=== PATIENT | male | born 1965 | race Caucasian/White ===

== ENCOUNTER 2024-03-25 09:02 | Outpatient (AMB) | payer BC, SELFPAY ==
--- NOTE | 2024-03-25 09:03 | MHC.OFFVIS ---
Vital Signs 03/25/24 09:11 Height 5 ft 9 in Weight 210 lb 6 oz BMI 31.1 BP 134/74 Blood Pressure Location Lt brachial Position Sitting Respiration 16 Pulse 66 Pulse Source Pulse Oximeter Pulse Oximetry (%) 96 Oxygen Delivery Method Room Air Intake Visit Reasons: LOW BACK PAIN Intake Note: Patient comes in for initial visit was referred by orthopedic and neurosurgery. Reports pain 12/26. Allergies codeine Allergy (Unknown, Verified 03/25/24 09:11) Unknown HPI Comments Details: Kip is very pleasant 58 years old gentleman who presents in my office with complains on pain in the lower back without radiation into the bilateral lower extremities. He reports that he is suffering from this pain for the past 3 years. He was diagnosed with sacroiliitis. He also was diagnosed with vertebra genic pain syndrome. He went to an orthopedic surgeon who performed L4-L5 anterior spinal fusion and posterior laminectomy. He reports that his pain after surgery started to be worse. Denies any numbness weakness or pelvic organ dysfunction before the surgery. He reports that sitting decreases his pain significantly walking and standing increases his pain. His pain onset was gradual. He is retired individual. He can sleep normally but he can not do activities of daily living, he can take care of himself, but he can not function normally. In terms of tissue damage he reports his pain is pulsing, throbbing, pounding, dull, hurting, heavy, tiring, exhausting. He received multiple physical therapies in the past to treat his pain. He received chiropractic manipulations to address his pain. He tried massage therapy and acupuncture nothing was help him for his pain. He tried NSAIDs and he tried steroids to help his pain. He tried steroid injections into SI joints after his surgery which were not helpful for his pain control. He states that he was under consideration to perform sacroiliac joint fusion and his insurance company refused to cover the procedure. He brought the MRI results to this office and because of the hardware in his lumbar spine it is very difficult to read because of the magnetic artifact. He also recently was implanted with pacemaker/not defibrillator for the treatment of heart block and now he can not be sent for the MRI. However CT scan with and without contrast could be possible. His past medical history significant for heart block with pacemaker implantation, he is on levodopa carbidopa 25-100 he is taking acetaminophen to control his pain. His past surgery is anterior fusion February 06 and posterior laminectomy March 09, he was having throat surgery in 2002 cataract surgery in 2022 and pacemaker surgery in 2023. He denies smoking cigarettes he socially drinks alcohol, he denies caffeinated beverages and he denies recreational drugs. [facility] Medical History (Updated 03/25/24 @ 11:35 by Richard Montilla MD) Parkinson disease Review of Systems Const Denies chills, Denies fatigue and Denies fever(s) Eyes Denies blurry vision, Denies exophthalmos and Denies diplopia ENT Reports Normal hearing present, Denies vertigo and Denies dizziness Card Denies chest pain, Denies chest pain at rest, Denies chest pain with activity, Reports diaphoresis, Denies syncope, Denies rapid heart rate, Denies pedal edema and Denies edema Resp Denies chest congestion, Denies cough, Denies hemoptysis, Denies excessive phlegm production, Denies pain on inspiration and Denies pain with cough GI Denies abdominal pain, Denies belching, Denies melena and Denies bloating Denies urinary incontinence Musc Denies as per HPI, Denies back pain and Denies tingling Neuro Reports Normal hearing present, Denies Abnormal speech present, Denies confusion, Denies vertigo, Denies dizziness, Denies syncope, Denies lack of coordination, Denies Sensory deficit (Neuro) and Denies tingling Psych Denies confusion, Denies depression and Denies suicidal ideation Endo Denies deepening of the voice, Denies fatigue and Denies polyuria Physical Exam Vital Signs: Last Vital Signs Pulse 66 03/25/24 09:11 Resp 16 03/25/24 09:11 BP 134/74 03/25/24 09:11 Pulse Ox 96 03/25/24 09:11 Oxygen Delivery Method Room Air 03/25/24 09:11 BMI result Body Mass Index 31.1 Const General: cooperative, comfortable and well developed; No confusion Nutritional Appearance: average body habitus Orientation/consciousness: No confusion Eyes General: appearance normal, both eyes and all related structures Pupils: Equal, round and reactive pupils present EOM: EOMs intact bilaterally Neck Neck: Yes full ROM Chest Chest palpation & inspection: normal inspection of the chest Resp Effort & Inspection: normal respiratory effort, able to speak in complete sentences, normal respiratory pattern, no audible wheezes and no cough Cardio Jugular venous distension: no JVD GI Inspection: Yes normal to inspection Back/Spine/Pelvis Other: Sitting alleviates his pain standing and walking aggravates his pain. The pain is not radiating into bilateral lower extremities. He is able to stand on bilateral tiptoes demonstrating normal strength of bilateral lower extremities, he is able to stand on bilateral heels. His gait is shuffling probably secondary to Parkinson disease. No antalgic gait is observed. Jackson test is negative bilaterally. Gaenslen test is negative bilaterally. Pelvic compression test is negative bilaterally but pelvic distraction test is equivocal. Stinchfield test is negative bilaterally. SLR is negative bilaterally. Valsalva maneuver is negative bilaterally. Neuro General: No confusion Cranial nerves: Yes CN's II-XII intact bilaterally, Yes Equal, round and reactive pupils present, Yes Normal hearing present and Yes Ability to bilaterally elevate shoulders present Speech: No Abnormal speech present Gait exam (Neuro): Normal gait present Motor exam (neuro): 5/5 motor strength present throughout Sensory Exam: No Sensory deficit (Neuro) Extrem General: No pedal edema Psych Speech and movement: Normal speech and movement present Affect: normal affect Attitude: cooperative Thought process: Normal thought process present Thought content: Normal thought content present Insight: Good insight present (Psych) Judgement: Good judgement present (Psych) Assessment & Plan Assessment & Plan (1) Postlaminectomy syndrome: Code(s): M96.1 - Postlaminectomy syndrome, not elsewhere classified Category: Medical (2) Chronic pain syndrome: Code(s): G89.4 - Chronic pain syndrome Category: Medical (3) Facet arthropathy, lumbar: Code(s): M47.816 - Spondylosis without myelopathy or radiculopathy, lumbar region Category: Medical Plan Facet arthropathy most likely is the cause of the pain for this patient. Unfortunately his injections were done with steroids before the surgery and it is not clear how the did or did not affect his pain. Now he has hardware at L4 and L5 bilateral pedicles and it will be impossible to perform medial branches. On the same reason intercept procedure most likely is not feasible because of the only level acceptable would be S1. In the future theoretically we can try CT scan with and without contrast to evaluate the S1 vertebra genic changes. In the situation I offered this patient neuromodulation to treat his pain. I explained to him spinal cord stimulator Nevro versus intrathecal pain pump to help his pain. The patient is negative about opioids however we can try on opioid medications to treat his pain including Prialt. We agreed that this patient will go for psychological evaluation today and after that we will start trialing of Nevro as well as I [employer]. Patient Instructions: I hereby testify that I spent 45 minutes in conversation with this patient as well as attempting to read the MRI of the lumbar spine as well as planning his care and organizing this note. Coding Level of Care Code New Pt Level 4 (90254) Diagnoses Postlaminectomy syndrome M96.1 Chronic pain syndrome G89.4 Facet arthropathy, lumbar M47.816
[2024-03-25 09:11] VITALS: BP 134/74; PULSE 66; RESP 16; O2SAT 96; BMI 31.1
== END 2024-03-25 09:56 | disposition home or self-care (01) ==
PROVIDERS: Visit Provider Anesthesiology
DX: M96.1 Postlaminectomy syndrome, not elsewhere classified (principal); G89.4 Chronic pain syndrome; M47.816 Spondylosis without myelopathy or radiculopathy, lumbar region
CPT/HCPCS: 99204

== ENCOUNTER → 2024-03-25 09:02 | Outpatient (BNVA) | payer BC, SELFPAY | PROVIDERS: Visit Provider Anesthesiology ==

== ENCOUNTER 2024-07-26 12:09 | Day surgery (SDC) | payer BC, SELFPAY ==
--- NOTE | 2024-07-25 12:59 | HO.ANESPROP2 ---
Documented by User: Maureen Avitia NP 07/25/24 13:00 HPI - Anesthesia Eval Consult details Narrative: 59yo M for Spinal Cord Stimulation Trial [facility] Active Problems Active Problems: All Active Problems Facet arthropathy, lumbar (Acute) Chronic pain syndrome (Acute) Postlaminectomy syndrome (Acute) Past Medical History Medical History (Updated 07/26/24 @ 12:51 by Zarina Fink, RN) History of heart block Hx of sinus bradycardia History of restless legs syndrome Bronchitis Elevated cholesterol ADAMARIS on CPAP Hx of cataract History of chemotherapy Hx of radiation therapy Depression Pacemaker Parkinson disease Surgical History Surgical History (Updated 07/26/24 @ 13:27 by Zarina Fink, RN) Hx of esophagogastroduodenoscopy History of throat surgery Hx of colonoscopy Hx of spinal fusion Social History Social History Patient Tobacco Use Status: Never used Tobacco Have you been hit, kicked, punched, or otherwise hurt by someone within the past year? If so, by whom?: No Are you DNR?: No Advance Directives: No Advance Directives Information Provided: Yes Nutrition Risks: No Nutritional Risk Meds Allergies Allergy/AdvReac Type Severity Reaction Status Date / Time codeine Allergy Intermediate cold sweats Verified 07/26/24 13:01 Home Medications ?Medication ?Instructions ?Recorded ?Confirmed ?Last Taken ?Type carbidopa 25 mg-levodopa 100 mg tab PO 03/25/24 07/26/24 History tablet pantoprazole 40 mg tablet,delayed 40 mg PO DAILY 03/25/24 07/25/24 History release tadalafil 20 mg tablet mg PO 03/25/24 Unknown History venlafaxine 37.5 mg 37.5 mg PO DAILY 07/26/24 07/26/24 07/25/24 History capsule,extended release 24 hr Assessment and Plan Assessment Anesthesia Assessment: Chart Reviewed Documented by User: Mehreen Jones MD 07/26/24 13:58 [facility] Past Medical History Medical History (Updated 07/26/24 @ 12:51 by Zarina Fink RN) History of heart block Hx of sinus bradycardia History of restless legs syndrome Bronchitis Elevated cholesterol ADAMARIS on CPAP Hx of cataract History of chemotherapy Hx of radiation therapy Depression Pacemaker Parkinson disease Family History Family history of problems with anesthesia: No Surgical History Surgical History (Updated 07/26/24 @ 13:27 by Zarina Fink RN) Hx of esophagogastroduodenoscopy History of throat surgery Hx of colonoscopy Hx of spinal fusion History of Problems with Anesthesia: No Social History Social History Patient Tobacco Use Status: Never used Tobacco Have you been hit, kicked, punched, or otherwise hurt by someone within the past year? If so, by whom?: No Are you DNR?: No Advance Directives: No Advance Directives Information Provided: Yes Nutrition Risks: No Nutritional Risk Meds Allergies Allergy/AdvReac Type Severity Reaction Status Date / Time codeine Allergy Intermediate cold sweats Verified 07/26/24 13:01 Home Medications ?Medication ?Instructions ?Recorded ?Confirmed ?Last Taken ?Type carbidopa 25 mg-levodopa 100 mg tab PO 03/25/24 07/26/24 History tablet pantoprazole 40 mg tablet,delayed 40 mg PO DAILY 03/25/24 07/25/24 History release tadalafil 20 mg tablet mg PO 03/25/24 Unknown History venlafaxine 37.5 mg 37.5 mg PO DAILY 07/26/24 07/26/24 07/25/24 History capsule,extended release 24 hr Exam Airway Mallampati Class: II TM Dist: >3cm Neck ROM: Limited (s/p chemo radiation, able to move in every direction approx 50%) Heart: rrr Lungs: cya Assessment and Plan Assessment Anesthesia Assessment: Anesthesia Plan Discussed Final Anesthetic Review Family History of Problems with Anesthesia: No History of Problems with Anesthesia: No NPO: Yes ASA Class: III Final Preanesthetic Review: No Changes in Pt Med Stat, Meds/Allgs Chart Reviewed and Consent Obtained/Reviewed Patient Risk: Intermediate Procedure Risk: Low Anesthetic Plan Anesthetic Plan: GA Disposition: Standard PACU
[2024-07-26] VITALS (7 sets, daily range): BP systolic 109–142; BP diastolic 58–84; PULSE 60–70; RESP 16–18; TEMP 36.1–36.3; O2SAT 94–97; BMI 31.2; BMI 31.3
--- NOTE | 2024-07-26 13:13 | PC.NURSE ---
called to patients pressure tester office dr [facility] will fax last cardiac note and interrogation pt had an insertion of pacemaker november 2023 secondary to block
--- NOTE | 2024-07-26 14:11 | P.HPSUR_ITS ---
Pre-Procedural Eval Section A - 24 Hr Update-Section A only Date of Service: 07/26/24 The patient is an INPATIENT: No Changes since office visit: Yes Patient answered all questions The patient has been examined within 24 hours of the surgical procedure. The History & Physical has been completed within 30 days and I have reviewed it.: No Section B - Complete if H&P > 30 days Chief Complaint: Postlaminectomy syndrome, not elsewhere classified Details of Present Illness: As above Relevant Family History (Specify if Yes): No Relevant Social History: None Present Medications: see Short Stay Collaborative assessment Medical History: No relevant PMH History of Previous Operations: Relevant previous surgery/procedure and date(s) Allergies: Allergies Allergy/AdvReac Type Severity Reaction Status Date / Time codeine Allergy Intermediate cold sweats Verified 07/26/24 13:01 Review of Systems Sugical H&P ROS: Negative: Constitution, Cardiovascular, Respiratory, Ps ychiatric, Hem-Onc, Allergic/Immunologic, Gastrointestinal, Genitourinary, Integumentary, Endocrine and Eyes/Ears/Nose/Throat and Yes, Specify: Neurological (Parkinson disease) and Musculoskeletal (Postlaminectomy syndrome) Exam Surgical H&P Exam: Normal: HEENT, Normal: Heart, Normal: Lungs, Normal: Extremities, Normal: Abdomen and Normal: Skin and Significant Findings: Neurological (tremor fades with motions, ) Plan Diagnosis/Plan: Unchanged I have reviewed the history and physical and performed a pertinent physical examination on my patient. No changes have occurred unless specified. Time Spent With Patient Time: Total time managing care of this patient today ____ minutes.
--- NOTE | 2024-07-26 14:14 | P.BOP_ITS ---
Brief Operative Note Date of Service: 07/26/24 Pre-op diagnosis: Postlaminectomy syndrome lumbar Post-op diagnosis: same Procedure: Nevro SCS trial Surgeon: Richard Montilla MD Anesthesia: GETA Was an Healthcare Sales Representative used for this Procedure?: No Estimated blood loss (mL): 2 Pathology: none sent Condition: stable Disposition: PACU
--- NOTE | 2024-07-26 16:18 | W.PM.OPN ---
Operative Note Operative Note Date of Service: 07/26/24 Narrative: Trial of Nevro spinal cord stimulator. Kip is very pleasant 59 years old gentleman who came to the operating room today for the trial of spinal cord stimulator. He is suffering from postlaminectomy syndrome and complains on mostly axial lower back pain. He was explained informed consent with delineation of the risks as: Bleeding, infection, peripheral nerve damage, spinal cord damage, failure to improve the pain, headache. After that patient was brought to the operating room he was positioned supine on the stretcher. [place] [employer] monitors were applied and general endotracheal anesthesia was induced. After that patient was transferred on the operating table prone all pressure points were protected. Time-out was performed delineating name and date of of the patient, allergies of the patient, antibiotics prophylaxis, risk of fire, need for DVT prophylaxis. The lower back of the patient was prepped with ChloraPrep and draped with full body fenestrated sterile laparoscopy drape. Sterilely draped C-arm was brought over the operating field and sq picture of T12-L1 and L2 vertebra were demonstrated on the screen. Attention was 1st concentrated on the right pedicle of L2 vertebra where projection of the lowest point of the pedicle to the skin was injected with small amount of mixture of lidocaine 2% and ropivacaine 0.5%. Small chad of skin was made using 11 blade scalpel and after that 16 gauge introducer needle 10 cm long needle was inserted under fluoroscopy guidance and advanced toward T12-L1 interspace under anterior posterior and lateral views. Loss of resistance to air technique was used to locate the epidural space. When the tip of the needle touched the upper portion of the lamina the advancement of the needle was performed very slowly for another 3 mm loss of resistance was not felt. Lateral view was taken and under direct view attempt was made to advance the guitar guidewire to the needle however no advancement was possible. Most likely patient had epidural adhesions on the right side at the level of T12-L1. After that attention was concentrated on the right pedicle of L3 vertebra were the lowest point of the pedicle was injected with small amount of mixture of lidocaine 2% and ropivacaine 0.5%. Small chad of the skin was made using 11 blade scalpel and after that 16 gauge introducer 10 cm long needle was inserted under fluoroscopy and advanced toward L1-L2 interspace under anterior posterior and lateral views. Loss of resistance to air technique was used to locate the epidural space. When loss of resistance felt the guidewire was inserted into the needle and it was spread into the epidural fashion. After that epidural lead was inserted through the epidural needle and was advanced in the posterior epidural space to the level of top of T8 vertebra. The position of the electrode was slightly right to the midline. After that lateral view was obtained demonstrating the position of the electrode strictly in posterior epidural space. Then attention was switched to the left L3 pedicle of the same vertebra where the lowest point of the pedicle was again inserted with small amount of mixture of lidocaine 2% and ropivacaine 0.5%. Small chad of the skin was made using 11 blade scalpel and after that 16 gauge introducer 10 cm long needle was inserted under fluoroscopy and advanced toward L1-L2 interspace under anterior posterior and lateral views. Loss of resistance to air technique was used to locate the epidural space. When loss of resistance felt the guidewire was inserted into the needle and it was spread again into epidural fashion. After that epidural lead was inserted through the epidural needle and it was advanced in the posterior epidural space to the level of the top of T9 vertebra. The position of the electrode was slightly left to existing electrode. After that lateral view was obtained demonstrating the position of the electrode strictly in the posterior epidural space. The introduction needle were removed while care was taken to preserve the position of the epidural electrodes, the stylettes were also removed from the electrodes. After that anchoring devices were dislodged to the level of the skin over the bodies of the electrodes. Each anchoring device was sutured to the underlying skin using two 0-0 silk sutures. The fixating screw on each anchoring device was turned until 3 clicks were heard. After that bacitracin ointment was applied on both sides of the insertion of the epidural leads the chad on the skin at the L2 pedicle on the right projection was covered with Mastisol glue and 1 Steri-Strips was applied. After the right sterile dressing was applied to the site of the operation, the electrodes were connected to the stimulating device. At this moment patient was transferred supine on the stretcher. He was awakened and transferred stable to the PACU. He tolerated the procedure well. In postoperative period patient was demonstrating good motor function and urinated.
== END 2024-07-26 17:03 | disposition home or self-care (01) ==
PROVIDERS: Visit Provider Anesthesiology
PROC: (CPT 63650; principal; 2024-07-26 14:10)
DX: M96.1 Postlaminectomy syndrome, not elsewhere classified (principal); G89.4 Chronic pain syndrome; M47.816 Spondylosis without myelopathy or radiculopathy, lumbar region; Z98.1 Arthrodesis status; M54.89 Other dorsalgia; R26.2 Difficulty in walking, not elsewhere classified; G20.A1 Parkinson's disease without dyskinesia, without mention of fluctuations; E78.00 Pure hypercholesterolemia, unspecified; I45.9 Conduction disorder, unspecified; Z95.0 Presence of cardiac pacemaker; G47.33 Obstructive sleep apnea (adult) (pediatric); Z79.899 Other long term (current) drug therapy; Z88.5 Allergy status to narcotic agent; Z98.890 Other specified postprocedural states
CPT/HCPCS: 63650 ×2; C1889; C1897; J0330; J0690; J1100; J2003; J2250; J2405; J2704; J2795; J3010

== ENCOUNTER → 2024-07-26 12:09 | Outpatient (BNV) | payer BC, SELFPAY | PROVIDERS: Visit Provider Anesthesiology | DX: M96.1 Postlaminectomy syndrome, not elsewhere classified (principal) | CPT/HCPCS: 63650 ==

== ENCOUNTER 2024-08-01 10:28 | Outpatient (AMB) | payer BC, SELFPAY ==
--- NOTE | 2024-08-01 10:39 | MHC.OFFVIS ---
Vital Signs 08/01/24 10:40 Height 5 ft 9 in Weight 212 lb BMI 31.3 BP 136/82 Blood Pressure Location Lt brachial Position Sitting Respiration 16 Pulse 72 Pulse Source Pulse Oximeter Pulse Oximetry (%) 98 Oxygen Delivery Method Room Air Intake Visit Reasons: S/p Nevro SCS Trial 07/26/24 Intake Note: Patient comes in for post-op. Reports pain 2/10. Allergies codeine Allergy (Intermediate, Verified 08/01/24 10:41) cold sweats HPI Comments Details: Vijay Shin is back in my office after a trial of spinal cord stimulator Nevro. He denies any help from the device. He states that the pain today as 2/10 while sitting however quickly rises to 8/10 to 9/10 when he starts walking or standing. Multiple variations of the stimulation were tried on the patient. Unfortunately nothing was working. Physical examination was repeated today and attention was attracted for possible signs of sacroiliitis. The patient wants me to perform diagnostic injection to rule out or confirm presence of sacroiliitis. I offered him to perform bilateral sacroiliac joint injection. I will schedule this injection as a diagnostic procedure. I recommend him to go for this procedure without sedation. Briefly PNS of sacroiliac joint innervation was discussed with the patient. The sites of the insertion of the epidural leads was exposed, it was prepped with ChloraPrep. The anchoring sutures were severed with 15 blade scalpel. The epidural leads were removed tips were intact. No redness no swelling no pathological discharge no tenderness on palpation. Sterile dressing with dry 4x4s and Tegaderm applied to the patient's back. Hygiene limitations were explained for the next 2 days for the patient. Prior: very pleasant 58 years old gentleman who presents in my office with complains on pain in the lower back without radiation into the bilateral lower extremities. He reports that he is suffering from this pain for the past 3 years. He was diagnosed with sacroiliitis. He also was diagnosed with vertebra genic pain syndrome. He went to an orthopedic surgeon who performed L4-L5 anterior spinal fusion and posterior laminectomy. He reports that his pain after surgery started to be worse. Denies any numbness weakness or pelvic organ dysfunction before the surgery. He reports that sitting decreases his pain significantly, walking and standing increases his pain. He received multiple physical therapies in the past to treat his pain. He received chiropractic manipulations to address his pain. He tried massage therapy and acupuncture nothing was helping his pain . He tried NSAIDs and he tried steroids to help his pain. He tried steroid injections into SI joints after his surgery which were not helpful for his pain control. He states that he was under consideration to perform sacroiliac joint fusion and his insurance company refused to cover the procedure. He brought the MRI results to this office and because of the hardware in his lumbar spine it is very difficult to read because of the magnetic artifact. He also recently was implanted with pacemaker/not defibrillator for the treatment of heart block and now he can not be sent for the MRI. However CT scan with and without contrast could be possible. His past medical history significant for heart block with pacemaker implantation, he is on levodopa carbidopa 25-100 he is taking acetaminophen to control his pain. His past surgery is anterior fusion February 06 and posterior laminectomy March 09, he was having throat surgery in 2002 cataract surgery in 2022 and pacemaker surgery in 2023. He denies smoking cigarettes he socially drinks alcohol, he denies caffeinated beverages and he denies recreational drugs. FOR[facility]LY [facility], [facility] Medical History (Updated 08/01/24 @ 11:58 by Richard Montilla MD) History of heart block Hx of sinus bradycardia History of restless legs syndrome Bronchitis Elevated cholesterol ADAMARIS on CPAP Hx of cataract History of chemotherapy Hx of radiation therapy Depression Pacemaker Parkinson disease Surgical History (Updated 07/26/24 @ 13:27 by Zarina Fink RN) Hx of esophagogastroduodenoscopy History of throat surgery Hx of colonoscopy Hx of spinal fusion Social History Patient Tobacco Use Status: Never used Tobacco Review of Systems Const All systems reviewed & are unremarkable except as noted in HPI and below ENT Reports Normal hearing present Neuro Reports Normal hearing present, Denies Abnormal speech present, Denies confusion and Denies Sensory deficit (Neuro) Psych Denies confusion Physical Exam Vital Signs: Last Vital Signs Pulse 72 08/01/24 10:40 Resp 16 08/01/24 10:40 BP 136/82 08/01/24 10:40 Pulse Ox 98 08/01/24 10:40 Oxygen Delivery Method Room Air 08/01/24 10:40 BMI result Body Mass Index 31.3 Const General: cooperative, comfortable and well developed; No confusion Nutritional Appearance: average body habitus Orientation/consciousness: No confusion Eyes General: appearance normal, both eyes and all related structures Pupils: Equal, round and reactive pupils present EOM: EOMs intact bilaterally Neck Neck: Yes full ROM Chest Chest palpation & inspection: normal inspection of the chest Resp Effort & Inspection: normal respiratory effort, able to speak in complete sentences, normal respiratory pattern, no audible wheezes and no cough Cardio Jugular venous distension: no JVD GI Inspection: Yes normal to inspection Back/Spine/Pelvis Other: Sitting alleviates his pain standing and walking aggravates his pain. The pain is not radiating into bilateral lower extremities. He is able to stand on bilateral tiptoes demonstrating normal strength of bilateral lower extremities, he is able to stand on bilateral heels. His gait is shuffling probably secondary to Parkinson disease. No antalgic gait is observed. Jackson test is positive on the left,. Gaenslen test today is positive on the left bilaterally. Pelvic compression test is negative bilaterally but pelvic distraction test is equivocal. Stinchfield test is positive bilaterally bilaterally. SLR is negative bilaterally. Valsalva maneuver is negative. Neuro General: No confusion Cranial nerves: Yes CN's II-XII intact bilaterally, Yes Equal, round and reactive pupils present, Yes Normal hearing present and Yes Ability to bilaterally elevate shoulders present Speech: No Abnormal speech present Gait exam (Neuro): Normal gait present Motor exam (neuro): 5/5 motor strength present throughout Sensory Exam: No Sensory deficit (Neuro) Extrem General: No pedal edema Psych Speech and movement: Normal speech and movement present Affect: normal affect Attitude: cooperative Thought process: Normal thought process present Thought content: Normal thought content present Insight: Good insight present (Psych) Judgement: Good judgement present (Psych) Assessment & Plan Assessment & Plan (1) Postlaminectomy syndrome: Code(s): M96.1 - Postlaminectomy syndrome, not elsewhere classified Category: Medical (2) Chronic pain syndrome: Code(s): G89.4 - Chronic pain syndrome Category: Medical (3) Facet arthropathy, lumbar: Code(s): M47.816 - Spondylosis without myelopathy or radiculopathy, lumbar region Category: Medical (4) Sacroiliitis: Code(s): M46.1 - Sacroiliitis, not elsewhere classified Category: Medical (5) Sacroiliac joint dysfunction of both sides: Code(s): M53.3 - Sacrococcygeal disorders, not elsewhere classified Category: Medical Plan To put at rest the theory that most of the pain of this patient comes from sacroiliac joints I offered him to have bilateral diagnostic sacroiliac joint injection. Nevro SCS trial was not helpful for this patient's pain. It is very hard to alleviate inflammatory or nociceptive pain by spinal cord stimulator or any other neuromodulation device. However if his sacroiliac joints are source of his pain peripheral nerve stimulation with cure on X PNS could be instrumental to help his pain. If diagnostic sacroiliac joint injection will be negative for relief of his pain the next step would be intrathecal drug delivery system pain pump. Patient Instructions: I here by testify that I spent 32 minutes in conversation with this patient as well as planning his care and organizing this note. Coding Level of Care Code Est Pt Level 4 (02794) Diagnoses Postlaminectomy syndrome M96.1 Chronic pain syndrome G89.4 Facet arthropathy, lumbar M47.816 Sacroiliitis M46.1 Sacroiliac joint dysfunction of both sides M53.3
[2024-08-01 10:40] VITALS: BP 136/82; PULSE 72; RESP 16; O2SAT 98; BMI 31.3
== END 2024-08-01 11:03 | disposition home or self-care (01) ==
PROVIDERS: Visit Provider Anesthesiology
DX: M96.1 Postlaminectomy syndrome, not elsewhere classified (principal); G89.4 Chronic pain syndrome; M47.816 Spondylosis without myelopathy or radiculopathy, lumbar region; M46.1 Sacroiliitis, not elsewhere classified; M53.3 Sacrococcygeal disorders, not elsewhere classified
CPT/HCPCS: 99214

== ENCOUNTER 2025-01-07 06:30 | Outpatient (REF) | payer BC, SELFPAY ==
--- NOTE | ~2025-01-07 | FL_ITS ---
EXAMINATION: XR FLUOROSCOPY WITH IMAGES CLINICAL INFORMATION: Sacrococcygeal disorders, pain management injection. COMPARISON: None available. TECHNIQUE: Fluoroscopy provided to: Dr. Montilla Fluoroscopy time: 0.4 minutes DAP: 0.0529 mGycm2 Images: 2 FINDINGS: 2 spot images obtained during bilateral SI joint injection for pain management. Please refer to the full operative report for detail. FL/FL guidance in treatment room IMPRESSION: Fluoroscopic guidance. Electronically signed by: Jose De Jesus MD 01/08/2025 09:55 AM EDT
--- OUTSIDE RECORDS SUMMARY | 2025-01-07 06:34 | XMS_ITS | Encounter Summary ---
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 Role Phone Alvino Alvarez MD Primary Care Provider [phone] Alvino Alvarez MD Unavailable [phone] Jose Alfredo Fuentes MD Unavailable Faisal Dangelo MD Unavailable [phone] Damaris Lagunas MD Unavailable Betty Zaldivar RN Unavailable [phone] Betty Zaldivar RN Unavailable [phone] Damaris Lagunas MD Unavailable Brody Olivarez APRN Unavailable [phone] Corrie Bustamante RN Unavailable [phone] Encounter Details Date Type Department Care Team (Late st Contact Info) Description 02/15/2022 Prep for Surgery [facility] [address] [place] [phone] Vee Rodríguez, RN [address] [place] [id number] Social History Tobacco Use Types Packs/Day Years Used Date Smoking Tobacco: Never Smokeless Tobacco: Never Alcohol Use Standard Drinks/Week Comments Yes 0 (1 standard drink = 0.6 oz pur e alcohol) Socially Sex and Gender Information Value Date Recorded Sex Assigned at Not on file Legal Sex Male 11:58 AM EDT Gender Identity Male 10/07/2021 3:05 PM EST Sexual Orientation Heterosexual (straight) 10/07 3:05 PM EST COVID-19 Exposure Response Date Recorded In the last 10 days, have yo u been in contact with someone who was confirmed or suspected to have Coronavirus/COVID-19? No / Unsure 02/18/2022 8:49 AM EDT documented as of this encounter Plan of Treatment Upcoming Encounters Date Type Department Care Team (Late st Contact Info) Description 02/25/2025 11:00 AM EDT Office Visit [address] [phone] Damaris Lagunas MD [address] [place] [id number] 03/19/2025 8:45 AM EDT Appointment [address] [phone] 06/20/2025 8:15 AM EDT Appointment [address] [phone] documented as of this encounter Visit Diagnoses Not on filedocumented in this encounter Care Teams Filtering Machine Tender Relationship Specialty Start Date End Date Alvino Alvarez MD [address] [place] [address] PCP - General Family Medicine 03/28/16 Alvino Alvarez MD [address] [place] [address] PCP - [facility] [employer] Attributed 04/18/20 02/16/24 Brody Olivarez APRN [address] [facility] [address] [place] [address] PCP - [facility] [employer] Attributed 02/17/24 Jose Alfredo Fuentes MD [address] [place] [address] Referring Provider Psychiatry, General 11/17/21 Faisal Dangelo MD [address] [place] [address] [address] [place] [id number] Physician Surgery, Orthopedic 01/19/22 Damaris Lagunas MD [address] [place] [id number] Primary Housekeeper Supervisor Cardiovascular Disease 01/20/22 Betty Zaldivar RN [address] [place] [address] [facility] [employer] [facility] 01/31/22 08/13/24 Betty Zaldivar RN [address] [place] [id number] [facility] [employer] [facility] 03/02/22 08/13/24 Damaris Lagunas MD [address] [place] [id number] Primary Housekeeper Supervisor Cardiovascular Disease 09/18/22 Corrie Bustamante RN [address] [address] [facility] [employer] 08/13/24 documented as of this encounter
--- OUTSIDE RECORDS SUMMARY | 2025-01-07 06:34 | XMS_ITS | Clinical Summary ---
Author Organization [facility] Address [address] [place] [address] Care Team Providers Care Timber Supervisor Name Role Phone Alvino Alvarez MD Primary Care Provider Jose Alfredo Fuentes MD Unavailable Faisal Dangelo MD Unavailable [phone] Damaris Lagunas MD Unavailable Brody Olivarez HAMMERER TAB Unavailable Corrie Bustamante RN Unavailable [phone] Allergies Active Allergy Reactions Criticality Noted Date Comments Atorvastatin Myalgia/Myositis/Art hralgia/Arthr itis Low 03/18/2014 Codeine Other (See Comments) 03/28/2016 Cold sweats Medications PANTOprazole (PROTONIX) 40 MG EC tabletIndicatio ns:Gastroesopha geal Reflux Disease Take 1 tablet (40 mg total) by mouth every morning. Active Sodium Fluoride 5000 PPM 1.1 % Paste Apply to teeth nightly. 11/20/19 22 Active acetaminophen (TYLENOL) 325 MG tabletIndicatio ns:Lumbar stenosis without neurogenic claudication Take 3 tablets (975 mg total) by mouth every 6 (six) hours. Do not start before February 19, 2022. 84 tablet 02/20/20 22 Active Additional Information Patient taking differently: 500 mgOralAs needed, Takes 2 tablets TID, Informant: Family Member, Self, Reported on 08/27/2024 tadalafil (CIALIS) 20 MG tablet Take 1 tablet (20 mg total) by mouth as needed. 09/08/20 23 Active venlafaxine 150 MG Tablet SR 24 hr Take 75 mg by mouth every morning with breakfast. Active carbidopa-levod opa ER (SINEMET CR) 25-100 MG per tabletIndicatio ns:Parkinson's disease (HCC) Take 1 tablet by mouth nightly. 60 tablet 1 07/16/20 24 Active carbidopa-levod opa (SINEMET) 25-100 MG per tabletIndicatio ns:Parkinson's disease (HCC) Take 2 tablets by mouth 3 (three) times a day. 180 tablet 3 12/31/19 25 Active carbidopa-levod opa (SINEMET) 25-100 MG per tabletIndicatio ns:Parkinson's disease (HCC) Take 2 tablets by mouth 4 (four) times a day. 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 Sinus bradycardia 10/10/2019 Colon cancer screening 06/05/2019 Overview (06/05/2019): Added automatically from request for surgery [id number] Gastroesophageal reflux disease 06/05/2019 Overview (06/05/2019): Added automatically from request for surgery [id number] Epigastric pain 06/05/2019 Overview (06/05/2019): Added automatically from request for surgery [id number] Disturbance of skin sensation 12/23/2016 Head and neck cancer 12/15/2016 RLS (restless legs syndrome) 12/15/2016 Adjustment insomnia 12/15/2016 Snoring 12/15/2016 ADAMARIS (obstructive sleep apnea) 03/28/2016 Gastroesophageal reflux disease without esophagi tis 03/28/2016 Resolved Problems Problem Noted Date Diagnosed Date Resolved Date Preop examination 01/24/2022 08/14/2024 Obesity (BMI 30.0-34.9) 03/28/2016 01/0 11/2017 Encounters Date Type Department Care Team Description 12/27/2024 Refill [facility] Neurology [address] [place] [phone] Brody Olivarez APRN Parkinson's disease (HCC) 12/12/2024 Telephone [facility] Neurology [address] [place] [address] Brody Olivarez APRN from Last 3 Months Immunizations Immunization Administration Dates Next Due Covid-19 mRNA Vaccine - Moderna 0.25 mL Booster 02/23/2022 Influenza Inactivated/Split Preservative Free IM 07/07/2022,07/28/2020 Influenza, Quadrivalent (FLU ARIX, AFLURIA, FLULAVAL, FLUZONE) Preservative Free IM 08/05/2021 Influenza, Unspecified 08/05/2021 Pneumococcal Conjugate 7-Valent 05/03/2019 Td 09/18/2009 Zoster Vaccine Live/Attenuated (Zostavax) 2013 Family History Medical History Relation Name Comments Cancer Daughter 1 Cancer Father Sleep apnea Father Multiple myeloma Mother Breast cancer Sister Cancer Sister Relation Name Status Comments Daughter 1 Alive Daughter 2 Alive Father Mother Sister Alive Social History Tobacco Use Types Packs/Day Years Used Date Smoking Tobacco: Never Smokeless Tobacco: Never Tobacco Cessation:Counseling Given: Not Answered Alcohol Use Standard Drinks/Week Comments Yes 0 (1 standard drink = 0.6 oz pur e alcohol) Socially AUDIT-C Answer Date Recorded Q1: How often do you have a drink containing alc ohol? Monthly or less 11/14/2023 Q2: How many drinks containi ng alcohol do you have on a typical day when you are drinking? 1 or 2 11/14/2023 Q3: How often do you have si x or more drinks on one occasion? Never 11/14/2023 PHQ-2 Answer Date Recorded PHQ-2 Total Score 4 07/16/2024 Sex and Gender Information Value Date Recorded Sex Assigned at Not on file Legal Sex Male 11:58 AM EDT Gender Identity Male 10/07/2021 3:05 PM EST Sexual Orientation Heterosexual (straight) 10/07 3:05 PM EST Last Filed Vital Signs Vital Sign Reading Time Taken Comments Blood Pressure 134/84 08/27/2024 11:23 AM EST Pulse 65 08/27/2024 11:23 AM EST Temperature 36.1 ??C (97 ??F) 11/16/2023 10:17 AM EST Respiratory Rate 20 11/16/2023 11:45 AM EST Oxygen Saturation 97% 08/27/2024 11:23 AM EST Inhaled Oxygen Concentration - - Weight 93.4 kg (206 lb) 08/27/2024 11:23 AM EST Height 175.3 cm (5' 9 ) 08/27/2024 11:23 AM EST Body Mass Index 30.42 08/27/2024 11:23 AM EST Plan of Treatment Upcoming Encounters Date Type Department Care Team (Late st Contact Info) Description 02/25/2025 11:00 AM EDT Office Visit [facility] [address] [phone] Damaris Lagunas MD [address] [place] [address] 03/19/2025 8:45 AM EDT Appointment [facility] [address] [phone] 06/20/2025 8:15 AM EDT Appointment [facility] [address] [address] Health Maintenance Due Date Last Done Comments Hepatitis C Virus Screening 1963 HIV Screening 1976 Pneumococcal Vaccines 50+ (1 of 2 - PCV) 1982 05/03/2019 DTaP/Tdap/Td Vaccines (1 - Tdap) 09/19/2009 09/18/2009 Zoster (Shingles) Vaccine (1 of 2) 08/26/2014 07/01/2014 Influenza Vaccine 04/18/2024 09/03/2023, , 08/05/2021, Additional history exists COVID-19 Vaccine ( season) 2024 02/23/2022, 08/16/2021, 12/16/2020, Additional history exists Colonoscopy 07/01/2029 07/01/2019, 02/17, 03/07/2012 RSV Vaccine 60 years and older and Patients (1 - 1-dose 75+ series) 2038 Hepatitis B Vaccines Aged Out No long er eligible based on patient's age to complete this topic Medical Devices Implanted Type Area Branch Account Executive Device Identifier Shelf Expiration Date Model / Serial / Lot 3830-69 Lead Pacing 69cm Atr Vntrc Bipolar Fx Scr In Selectsecure - [id number] Implanted:Qty: 1 on 11/16/2023 by Bassam Laird MD at [facility] Lead Left: Chest [employer] MINIMALLY INVASIVE T [id number] 10/10/2025 3830-69 / [id number] 3V / 5076-52 Lead Pacing 52cm 6.2fr 2mm 10mm Spc Sm Straight Atr Vntrc - [id number] Implanted:Qty: 1 on 11/16/2023 by Bassam Laird MD at [facility] Lead Left: Chest [employer] MINIMALLY INVASIVE T [id number] 07/28/2025 5076-52 / [id number] 8V / [id number] Xu Spinal 70mm 5.5mm Illico Ti Precontour Central Post - [id number] Implanted:Qty: 1 on 02/18/2022 by Faisal Dangelo MD at [facility] Nail/Xu N/A: Spine Lumbar [employer] 34244-39 0 / / [id number] Pacemaker Cardiac 7.4mm 50.8x46.6mm [place] Xt Dr Cooper Surescan - [id number] Implanted:Qty: 1 on 11/16/2023 by Bassam Laird MD at [facility] Pacemaker Left: Chest [employer] MINIMALLY INVASIVE T [id number] 04/14/2025 W1DR01 / [id number] / Dll-8 Dual Llanos Lock 8mm - [id number] Implanted:Qty: 1 on 02/18/2022 by Faisal Dangelo MD at [facility] Plate N/A: Spine Lumbar [employer] DLL-8 / / Gabriel-8 Dual Llanos Tray 8mm - [id number] Implanted:Qty: 1 on 02/18/2022 by Faisal Dangelo MD at [facility] Plate N/A: Spine Lumbar [employer] GABRIEL-8 / / [id number] Screw Bone Spine Illico 45mm Ti 6.5mm Pa Farzana Nonst - [id number] Implanted:Qty: 1 on 02/18/2022 by Faisal Dangelo MD at [facility] Spine N/A: Spine Lumbar [employer] 20100-27 / / [id number] Screw Bone Spine Illico 40mm Ti 6.5mm Pa Farzana Nonst - [id number] Implanted:Qty: 1 on 02/18/2022 by Faisal Dangelo MD at [facility] Spine N/A: Spine Lumbar [employer] 19394-98 / / [id number] Screw Set Ti Spine Hexalobe Zodiac - [id number] Implanted:Qty: 3 on 02/18/2022 by Faisal Dangelo MD at [facility] Spine N/A: Spine Lumbar [employer] 17572 / / [id number] Screw Set Spine Stabilink Mis Spinal Fixation Sys - [id number] Implanted:Qty: 1 on 02/18/2022 by Faisal Dangelo MD at [facility] Spine N/A: Spine Lumbar [employer] SS-219 / / 210-010 Alphagraft Cellular Bone Matrix 1 Cc - [id number] Implanted:Qty: 1 on 02/18/2022 by Faisal Dangelo MD at [facility] Tissue N/A: Spine Lumbar [employer] 10/24/2023 210-010 / [id number] / 700-010 Graft Bone 1 Fctr 1cc Algrf Putty Syringe - [id number] Implanted:Qty: 1 on 02/18/2022 by Faisal Dangelo MD at [facility] Tissue N/A: Spine Lumbar [employer] 09/17/2024 700-010 / / [id number] Sponge Dbm Bone 07v07w4yp - [id number] Implanted:Qty: 1 on 02/18/2022 by Faisal Dangelo MD at [facility] Tissue N/A: Spine Lumbar [employer] 01/04/2027 [id number] / [id number] 64-049 / [id number] Sponge Dbm Bone 06g17t7jn - [id number] Implanted:Qty: 1 on 02/18/2022 by Faisal Dangelo MD at [facility] Tissue N/A: Spine Lumbar [employer] 01/04/2027 [id number] / [id number] 64-045 / [id number] Filler Bone Void Nanofuse 2 Cc Bioactive Matrix Sterile Late - [id number] Implanted:Qty: 1 on 02/18/2022 by Faisal Dangelo MD at [facility] Void Filler N/A: Spine Lumbar [employer] INC 05/26/2026 CRO285-2 2 / / [id number] 620-005 Kit Bone Graft 5cc 12cc Calcium Slf Stimulan Rpd Cure Paste - [id number] Implanted:Qty: 1 on 02/18/2022 by Faisal Dangelo MD at [facility] Void Filler N/A: Spine Lumbar [employer] 08/17/2024 620-005 / / [id number] Substitute Bone Graft Alphatec Neocore Ostcndc Matrix 12cc - [id number] Implanted:Qty: 1 on 02/18/2022 by Faisal Dangelo MD at [facility] Void Filler N/A: Spine Lumbar [employer] 05/20/2024 70-6012 / / [id number] Dbm Fibers 5.0cc Implanted:Qty: 1 on 02/18/2022 by Faisal Dangelo MD at [facility] N/A: Spine Lumbar [employer] 07/15/2024 [id number] / [id number] 0662-061 / [id number] Screw Bone Spine Illico 35mm Ti 6.5mm Pa Farzana Implanted:Qty: 1 on 02/18/2022 by Faisal Dangelo MD at [facility] N/A: Spine Lumbar [employer] 59831-12 / / Procedures Procedure Name Priority Date/Time Associated Diagnosis Comments PM REMOTE EVAL, [id number] Routine 12/13/2024 12:29 PM EDT Cardiac pacemaker in situ HX GASTROENTEROLOGY COLONOSCOPY-SCAN Routine 03/07/2012 from Last 3 Months or Most Recently Relevant to Health Maintenance Results * PM REMOTE EVAL, [id number] (12/13/2024 12:29 PM EDT) Date Time Interrogation Session 20,250,328,015,50 9 PACEART Implantable Pulse Generator Branch Account Executive Medtronic PACEART Implantable Pulse Generator Model W1DR01 Jesika XT DR MRI PACEART Implantable Pulse Generator Serial Number [id number] PACEART Implantable Pulse Generator Type Pacemaker PACEART Implantable Pulse Generator Implant Date 20,240,228,190,00 0 PACEART Implantable Lead Branch Account Executive Medtronic PACEART Implantable Lead Model 3830 SelectSecure MRI SureScan PACEART Implantable Lead Serial Number [id number] PACEART Implantable Lead Implant Date 20,240,228,190,00 0 PACEART Implantable Lead Polarity Type Bipolar Lead PACEART Implantable Lead Location Detail 1 UNKNOWN PACEART Implantable Lead Special Function 69 PACEART Implantable Lead Location Right Ventricle PACEART Implantable Lead Connection Status Connected PACEART Implantable Lead Branch Account Executive Medtronic PACEART Implantable Lead Model 5076 CapSureFix Novus MRI SureScan PACEART Implantable Lead Serial Number [id number] PACEART Implantable Lead Implant Date [id number] PACEART Implantable Lead Polarity Type Bipolar Lead PACEART Implantable Lead Location Detail 1 UNKNOWN PACEART Implantable Lead Special Function 52 PACEART Implantable Lead Location Right Atrium PACEART Implantable Lead Connection Status Connected PACEART Miguel Angel Setting Mode (NBG Code) AAIR<==>DDDR PACEART Miguel Angel Setting Lower Rate Limit 60 {beats}/ min PACEART Miguel Angel Setting Maximum Tracking Rate 150 {beats}/ min PACEART Miguel Angel Setting Maximum Sensor Rate 150 {beats}/ min PACEART Miguel Angel Setting Hysterisis Rate DISABLED PACEART Miguel Angel Setting ESTHELA Delay Low 150 ms PACEART Miguel Angel Setting PAV Delay Low 180 ms PACEART Miguel Angel prob AV delay adaptive status DISABLED PACEART Miguel Angel Setting AT Mode Switch Rate 171 {beats}/ min PACEART RA Sensing Polarity Bipolar PACEART RA Sensitivity 0.3 mV PACEART RV Sensing Polarity Bipolar PACEART RV Sensing Anode Location Right Ventricle PACEART RV Sensing Anode Terminal Ring PACEART RV Sensing [place] Location Right Ventricle PACEART RV Sensing [place] Terminal Tip PACEART RV Sensitivity 1.2 mV PACEART RA Pacing Polarity Bipolar PACEART Lead Channel Setting Pacing Anode Location Right Atrium PACEART RA Pacing Anode Terminal Ring PACEART Lead Channel Setting Sensing [place] Location Right Atrium PACEART RA Pacing Cath[place] Terminal Tip PACEART RA Pacing Pulse Width 0.4 ms PACEART RA Pacing Amplitude 1.5 V PACEART RV Pacing Polarity Bipolar PACEART Lead Channel Setting Pacing Anode Location Right Ventricle PACEART RV Pacing Anode Terminal Ring PACEART Lead Channel Setting Sensing Cath[place] Location Right Ventricle PACEART RV Pacing [place] Terminal Tip PACEART RV Pacing Pulse Width 0.4 ms PACEART RV Pacing Amplitude 2 V PACEART Zone Setting Type Category VF PACEART Zone Setting Vendor Type Category V High Rate PACEART Zone Setting Type Category VT PACEART Zone Setting Vendor Type Category FastVT PACEART Zone Setting Type Category VT PACEART Zone Setting Vendor Type Category VT PACEART Zone Setting Type Category VT PACEART Zone Setting Vendor Type Category MonVT PACEART Zone Setting Detection Interval 390 ms PACEART Zone Setting Type Category ATRIAL_FIBRILLATI ON PACEART Zone Setting Vendor Type Category FastATAF PACEART Zone Setting Type Category AT/AF PACEART Zone Setting Detection Interval 350 ms PACEART Tachy zone therapies summary Monitored PACEART MDT_PROG_TACHY_Z ONE_THERAPIES_1_ SEQUENCEID 1 PACEART MDT_PROG_TACHY_Z ONE_THERAPIES_1_ STATUS Inactive PACEART MDT_PROG_TACHY_Z ONE_THERAPIES_2_ SEQUENCEID 2 PACEART MDT_PROG_TACHY_Z ONE_THERAPIES_2_ STATUS Inactive PACEART MDT_PROG_TACHY_Z ONE_THERAPIES_3_ SEQUENCEID 3 PACEART MDT_PROG_TACHY_Z ONE_THERAPIES_3_ STATUS Inactive PACEART Tachy zone therapies summary Monitored PACEART RA Lead Impedance Value 437 ohm PACEART RA Lead Impedance Value 323 ohm PACEART RA Lead Sensing Intrinsic Amplitude 8.125 mV PACEART RA Lead Sensing Intrinsic Amplitude 8.125 mV PACEART RA Lead Pacing Threshold Amplitude 0.625 V PACEART RA Lead Pacing Threshold Pulse Width 0.4 ms PACEART RV Lead Impedance Value 475 ohm PACEART RV Lead Impedance Value 342 ohm PACEART RV Sensing Intrinsic Amplitude 3 mV PACEART RV Sensing Intrinsic Amplitude 3 mV PACEART RV Lead Pacing Threshold Amplitude 1 V PACEART RV Lead Pacing Threshold Pulse Width 0.4 ms PACEART RV Stat leads lowpower alegre Ring PACEART RV Stat leads lowpower alegre Tip PACEART Battery Status OK PACEART Battery Remaining Longevity 151 mo PACEART Battery Voltage 3.06 V PACEART RA Percent Paced-since last reset 94.43 % PACEART RV Percent Paced-since last reset 0.04 % PACEART Miguel Angel Statistic AP HIGH MAN Percent 0.04 % PACEART Miguel Angel Statistic HIGH MAN Percent 0 % PACEART Miguel Angel Statistic AP VS Percent 94.39 % PACEART Miguel Angel Statistic VS Percent 5.57 % PACEART AT/AF [place] Percent 0 % PACEART Episode Statistic Recent Count 0 PACEART STAT Episode type AT/AF PACEART Episode Statistic Recent Count 0 PACEART STAT Episode type Patient Activated PACEART Episode Statistic Recent Count 0 PACEART STAT Episode type SVT PACEART Episode Statistic Recent Count 0 PACEART STAT Episode type VT PACEART Episode Statistic Recent Count 0 PACEART STAT Episode type VT PACEART STAT Episode type AT/AF PACEART STAT Episode type Patient Activated PACEART STAT Episode type SVT PACEART STAT Episode type VT PACEART STAT Episode type VT PACEART Anatomical Region Laterality Modality Cardiac Device 12/13/2024 1:55 AM EDT Narrative 12/13/2024 3:22 PM EDT Routine remote PM transmission. Device is functioning normally. No end of life battery warning. Estimated time until GENE: 12.6y Stable lead impedances. Normal capture thresholds. R-wave amplitude low but stable over the past 9 months. Normal P-wave amplitude. There were no high v. rate episodes. No afib. Presenting rhythm: AP/VS Cont routine monitoring. KH Jenni Rasmussen APRN [facility] ORDERAB LES Final Result * HX GASTROENTEROLOGY COLONOSCOPY-SCAN (03/07/2012) Yash Hill MD HX AMB PROCEDURES Final Result from Last 3 Months or Most Recently Relevant to Health Maintenance Insurance [facility] PPO [facility] PPO Advance Directives * Full Code (Latest Code Status on File) Date Activated Date Inactivated Comments 11/16/2023 10:34 AM * Full Code Date Activated Date Inactivated Comments 02/18/2022 5:05 PM 02/22/2022 8:24 AM Care Teams Timber Supervisor Relationship Specialty Start Date End Date Alvino Alvarez MD [address] [place] [address] PCP - General Family Medicine 03/28/16 Brody Olivarez APRN [address] [facility] [address] [place] [address] PCP - [place] Commercial Attributed 02/17/24 Jose Alfredo Fuentes MD [address] [place] [address] Referring Provider Psychiatry, General 11/17/21 Faisal Dangelo MD [address] [place] [phone] Physician Surgery, Orthopedic 01/19/22 Damaris Lagunas MD [address] [place] [address] Primary Silk Screener Cardiovascular Disease 01/20/22 Corrie Bustamante, RN [address] [address] [facility] Community Modeling Instructor 08/13/24
--- OUTSIDE RECORDS SUMMARY | 2025-01-07 06:34 | XMS_ITS | Encounter Summary ---
Author Organization [facility] Address [address] [place] [address] Care Team Providers Care Account Assistant Name Role Phone Alvino Alvarez MD Primary Care Provider Franki Gates MD Unavailable [phone] Encounter Details Date Type Department Care Team (Late st Contact Info) Description 09/30/2021 Scanned Document Transcribe External Orders CT [phone] Faisal Dangelo MD [address] [place], [place] [phone] 09/30/2021 [facility] Encounter Social History Tobacco Use Types Packs/Day Years Used Date Smoking Tobacco: Never Assessed Sex and Gender Information Value Date Recorded Sex Assigned at Not on file Legal Sex Male 2:16 PM EST Gender Identity Not on file Sexual Orientation Not on file documented as of this encounter Plan of Treatment Not on file documented as of this encounter Visit Diagnoses Not on filedocumented in this encounter Care Teams Account Assistant Relationship Specialty Start Date End Date Alvino Alvarez MD [address] [facility], [place] [id number] PCP - General Family Medicine 05/12/20 Franki Gates MD [address] [facility] [address] [place], [place] [phone] Surgeon General Surgery 12/06/21 documented as of this encounter
--- OUTSIDE RECORDS SUMMARY | 2025-01-07 06:34 | XMS_ITS ---
Author Organization [facility] Address [address] [place] [address] Care Team Providers Care Electrotyper Name Role Phone Alvino Alvarez MD Primary Care Provider Jose Alfredo Fuentes MD Unavailable Faisal Dangelo MD Unavailable [phone] Damaris Lagunas MD Unavailable Brody Olivarez DX BOARD OPERATOR Unavailable Corrie Bustamante RN Unavailable Active Problems Problem Noted Date Diagnosed Date Bradycardia 11/09/2023 Constipation 07/04/2023 07/04/2023 Drug-induced thrombocytopenia 07/04/2023 Epistaxis 07/04/2023 07/04/2023 Pain 07/04/2023 07/04/2023 Radicular pain 02/23/2022 Lumbar stenosis without neurogenic claudication 02/18/2022 Parkinson's disease 11/17/2021 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 Sinus bradycardia 10/10/2019 Colon cancer screening 06/05/2019 Overview (06/05/2019): Added automatically from request for surgery [id number] Gastroesophageal reflux disease 06/05/2019 Overview (06/05/2019): Added automatically from request for surgery [id number] Epigastric pain 06/05/2019 Overview (06/05/2019): Added automatically from request for surgery [id number] Disturbance of skin sensation 12/23/2016 Head and neck cancer 12/15/2016 RLS (restless legs syndrome) 12/15/2016 Adjustment insomnia 12/15/2016 Snoring 12/15/2016 ADAMARIS (obstructive sleep apnea) 03/28/2016 Gastroesophageal reflux disease without esophagi tis 03/28/2016 Current Treatment and Therapy Plans No current plan information found. Past Treatment and Therapy Plans No past plan information found. Lifetime Dose Tracking * Chemical Lifetime Dose Automatic Entry Manual Entr y Air Kerma-mGy 14 mGy 0 mGy 14 mGy Dose Area Product(DAP)-micrograys-m2 140.29 microgray-m2 0 microgray-m2 140.29 microgray-m2 Resolved Problems Problem Noted Date Diagnosed Date Resolved Date Preop examination 01/24/2022 08/14/2024 Obesity (BMI 30.0-34.9) 03/28/2016/0 11/2017
--- OUTSIDE RECORDS SUMMARY | 2025-01-07 06:34 | XMS_ITS ---
Author Name Interface, [id number] lity Address [address] [place] [address] Organization [facility] Address [address] [place] [address] Care Team Providers Care Environmental Solutions Engineer Name Role Phone Rafi Diamondkeyan Winifred Valente ble Allergies and Adverse Reactions Medication/Group Name Reaction Severity Date Codeine 03/04/2022 Plan Date Type Value 03/04/2022 APPOINTMENT YEARLY - QUEST Reason for Visit YEARLY - QUEST Encounters Date Name 03/04/2022 Constipation 03/04/2022 Tonsillar cancer Medications Date Name Route Dose Frequency Instructions Start Date End Date Status Ropinirole Oral 1.0 tablet QD active Pantoprazole (Sodium) Oral Delayed Release 1.0 tablet,d elayed release (DR/EC) QD active Sennosides-Docu sate Sodium Oral 8.6 mg-50 mg QD active Cyanocobalamin Oral 2 QD active Carbidopa-Levod opa Oral 25 mg-100 mg QD active Tadalafil Oral PRN ac tive Hydromorphone Oral QD active Diazepam Oral QD act willy 09/19 0.8 ML filgrastim-sndz 0.6 MG/ML Prefilled Syringe subcutaneously 480.0 mcg every day 2016 active 09/18 0.8 ML filgrastim-sndz 0.6 MG/ML Prefilled Syringe subcutaneously 480.0 mcg every day 2016 active 09/17 0.8 ML filgrastim-sndz 0.6 MG/ML Prefilled Syringe subcutaneously 480.0 mcg every day 2015 active 09/16 0.8 ML filgrastim-sndz 0.6 MG/ML Prefilled Syringe subcutaneously 480.0 mcg every day 2015 active 09/15 0.8 ML filgrastim-sndz 0.6 MG/ML Prefilled Syringe subcutaneously 480.0 mcg every day 2015 active 09/07 fosaprepitant 150 MG Injection intravenous 150.0 mg once 09/07 on hold 09/01 Fosaprepitant IV intravenously 150.0 mg once 09/01 on hold 09/01 100 ML potassium chloride 0.1 MEQ/ML Injection intravenously 10.0 mEq once 09/01 on hold 09/01 150 ML sodium chloride 9 MG/ML Injection intravenous 500.0 mL once 09/01 on hold 09/01 Palonosetron IV intravenously 0.25 mg once 09/01 on hold 09/01 Sodium Chloride IV 0.9 % intravenously 1000.0 mL once Pre-hydration prior to Cisplatin administration . 09/01 on hold 09/01 cisplatin 1 MG/ML Injectable Solution intravenously 90.0 mg once Administer over at least 1 hour but no faster than 1 mg/min.To be administered concurrently with radiation. Cisplatin is a vesicant and a vascular irritant if concentration is less than 0.5 mg/ml. 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
--- OUTSIDE RECORDS SUMMARY | 2025-01-07 06:34 | XMS_ITS | Clinical Summary ---
Author Organization [facility] Address [address] [place] [address] Care Team Providers Care Textbook Associate Name Role Phone Alvino Alvarez MD Primary Care Provider Social History Tobacco Use Types Packs/Day Years Used Date Smoking Tobacco: Never Assessed Sex and Gender Information Value Date Recorded Sex Assigned at Not on file Gender Identity Not on file Sexual Orientation Not on file Job Start Date Occupation Industry Not on file Not on file Not on file Plan of Treatment Health Maintenance Due Date Last Done Comments Hepatitis C Screening 1963 Depression Screening 1975 Preventative Health Evaluation 1981 Colon Cancer Screening (Colonoscopy) 2008 DTap / Tdap / Td (1 - Tdap) 09/19/2009 09/18/2009 Shingrix-Zoster Vaccine (1 o f 2) 2013 COVID-19 Vaccine (2 - 2023-2 5 season) 2024 02/23/2022 Influenza Vaccine (#1) 2024 2, 08/05/2021, 07/28/2020 RSV Adult > 60+ Yrs or (1 - 1-dose 75+ series) 2038 Pneumococcal Vaccine Aged Out 05/03/2019 No long er eligible based on patient's age to complete this topic Hepatitis B Vaccines Aged Out No long er eligible based on patient's age to complete this topic RSV Ped < 20 months Aged Out No longe r eligible based on patient's age to complete this topic Care Teams Textbook Associate Relationship Specialty Start Date End Date Alvino Alvarez MD [address] [place] [address] PCP - General Family Medicine 08/17/23
--- OUTSIDE RECORDS SUMMARY | 2025-01-07 06:34 | XMS_ITS | Encounter Summary ---
Author Organization [facility] Address [address] [place] [address] Care Team Providers Care Assistant Professor Of Nursing Name Role Phone Alvino Alvarez MD Primary Care Provider [phone] Alvino Alvarez MD Unavailable [phone] Jose Alfredo Fuentes MD Unavailable Faisal Dangelo MD Unavailable [phone] Damaris Lagunas MD Unavailable Betty Zaldivar RN Unavailable [phone] Betty Zaldivar RN Unavailable [phone] Damaris Lagunas MD Unavailable Brody Olivarez MANAGER ED Unavailable [phone] Corrie Bustamante RN Unavailable [phone] Encounter Details Date Type Department Care Team (Late st Contact Info) Description 03/01/2022 Scanned Document [facility] Heart & Vascular [place] [address] [address] Cardiology, Scan Social History Tobacco Use Types Packs/Day Years [...] Recorded In the last 10 days, have tavia u been in contact with someone who was confirmed or suspected to have Coronavirus/COVID-19? No / Unsure 02/22/2022 9:00 AM EDT documented as of this encounter Plan of Treatment Upcoming Encounters Date Type Department Care Team (Late st Contact Info) Description 02/25/2025 11:00 AM EDT Office Visit [facility] Vascular [address] [address] Damaris Lagunas MD [address] [place] [address] 03/19/2025 8:45 AM EDT Appointment [address] [address] 06/20/2025 8:15 AM EDT Appointment [address] [address] documented as of this encounter Visit Diagnoses Not on filedocumented in this encounter Care Teams Assistant Professor Of Nursing Relationship Specialty Start Date End Date Alvino Alvarez MD [address] [place] [address] PCP - General Family Medicine 03/28/16 Alvino Alvarez MD [address] [place] [address] PCP - [place] Commercial Attributed 04/18/20 02/16/24 Brody Olivarez APRN 35 [facility] [address] [place] [address] PCP - [place] Commercial Attributed 02/17/24 Jose Alfredo Fuentes MD [address] [place] [phone] Referring Provider Psychiatry, General 11/17/21 Faisal Dangelo MD [address] [place] [address] [address] [place] [phone] Physician Surgery, Orthopedic 01/19/22 Damaris Lagunas MD [address] [place] [address] Primary Athletic Field Custodian Cardiovascular Disease 01/20/22 Betty Zaldivar RN [address] [employer] [address] [place] [address] ICP Community Noise Abatement Engineer 01/31/22 08/13/24 Betty Zaldivar RN [address] [employer] [address] [place] [address] ICP Community Noise Abatement Engineer 03/02/22 08/13/24 Damaris Lagunas MD [address] [place] [address] Primary Athletic Field Custodian Cardiovascular Disease 09/18/22 Corrie Bustamante RN [address] [employer] [place] [id number] ICP Community Noise Abatement Engineer 08/13/24 documented as of this encounter
--- OUTSIDE RECORDS SUMMARY | 2025-01-07 06:34 | XMS_ITS | Encounter Summary ---
Author Organization [facility] Address [address] [place] [address] Care Team Providers Care Speech Language Pathology Assistant Name Role Phone Alvino Alvarez MD Primary Care Provider [phone] Alvino Alvarez MD Unavailable [phone] Jose Alfredo Fuentes MD Unavailable Faisal Dangelo MD Unavailable [phone] Damaris Lagunas MD Unavailable Betty Zaldivar RN Unavailable [phone] Betty Zaldivar RN Unavailable [phone] Damaris Lagunas MD Unavailable Brody Olivarez APRN Unavailable [phone] Corrie Bustamante RN Unavailable [phone] Reason for Visit * Reason Comments Medication Refill Encounter Details Date Type Department Care Team (Late st Contact Info) Description 10/30/2021 Refill [facility] Neurology [address] [place] [address] Hasmukh Shrestha MD [facility] S [address] [address] Parkinson's disease (HCC) Social History Tobacco Use Types Packs/Day Years [...] Exposure Response Date Recorded In the last month, have you been in contact with someone who was confirmed or suspected to have Coronavirus / COVID-19? No / Unsure 10/07/2021 2:47 PM EST documented as of this encounter Plan of Treatment Upcoming Encounters Date Type Department Care Team (Late st Contact Info) Description 02/25/2025 11:00 AM EDT Office Visit [address] [address] Damaris Lagunas MD [address] [place] [address] 03/19/2025 8:45 AM EDT Appointment [address] [address] 06/20/2025 8:15 AM EDT Appointment [address] [address] documented as of this encounter Visit Diagnoses Diagnosis Parkinson's disease (HCC) Paralysis agitans documented in this encounter Care Teams Speech Language Pathology Assistant Relationship Specialty Start Date End Date Alvino Alvarez MD [address] [place] [address] PCP - General Family Medicine 03/28/16 Alvino Alvarez MD [address] [place] [address] PCP - [place] Commercial Attributed 04/18/20 02/16/24 Brody Olivarez APRN 35 [facility] [address] [place] [id number] PCP - [place] Commercial Attributed 02/17/24 Jose Alfredo Fuentes MD [address] [facility] [address] [place], [place] [phone] Referring Provider Psychiatry, General 11/17/21 Faisal Dangelo MD [address] [facility] [address] [place] [phone] Physician Surgery, Orthopedic 01/19/22 Damaris Lagunas MD [address] [place] [address] Primary Apron Cleaner Cardiovascular Disease 01/20/22 Betty Zaldivar RN [address] [employer] [address] [place] [address] ICP Community Air Sealing Technician 01/31/22 08/13/24 Betty Zaldivar RN [address] [place] [address] ICP Community Air Sealing Technician 03/02/22 08/13/24 Damaris Lagunas MD [address] [place] [address] Primary Apron Cleaner Cardiovascular Disease 09/18/22 Corrie Bustamante RN [address] [place] [address] ICP Community Air Sealing Technician 08/13/24 documented as of this encounter
--- OUTSIDE RECORDS SUMMARY | 2025-01-07 06:34 | XMS_ITS | Encounter Summary ---
Author Organization [facility] Address [address] [place] [address] Care Team Providers Care Area Plant Manager Name Role Phone Alvino Alvarez MD Primary Care Provider [phone] Alvino Alvarez MD Unavailable [phone] Jose Alfredo Fuentes MD Unavailable Faisal Dangelo MD Unavailable [phone] Damaris Lagunas MD Unavailable Betty Zaldivar RN Unavailable [phone] Betty Zaldivar RN Unavailable [phone] Damaris Lagunas MD Unavailable Brody Olivarez APRN Unavailable [phone] Corrie Bustamante RN Unavailable [phone] Reason for Visit * Reason Comments Medication Refill Encounter Details Date Type Department Care Team (Late st Contact Info) Description 03/05/2022 Refill [facility] Neurology [address] [place] [address] Hasmukh Shrestha MD [facility] S [address] [address] Parkinson's disease (HCC) Social History Tobacco Use [...] Description 02/25/2025 11:00 AM EDT Office Visit [facility] Vascular [address] [address] Damaris Lagunas MD [address] [place] [address] 03/19/2025 8:45 AM EDT Appointment [address] [address] 06/20/2025 8:15 AM EDT Appointment [address] [address] documented as of this encounter Visit Diagnoses Diagnosis Parkinson's disease (HCC) Paralysis agitans documented in this encounter Care Teams Area Plant Manager Relationship Specialty Start Date End Date Alvino Alvarez MD [address] [place], [place] [id number] PCP - General Family Medicine 03/28/16 Alvino Alvarez MD [address] [place], [place] [id number] PCP - [place] Commercial Attributed 04/18/20 02/16/24 Brody Olivarez APRN 35 [facility] [address] [place] [phone] PCP - [place] Commercial Attributed 02/17/24 Jose Alfredo Fuentes MD [address] [place] [address] Referring Provider Psychiatry, General 11/17/21 Faisal Dangelo MD 430 [facility] [address] [place] [phone] Physician Surgery, Orthopedic 01/19/22 Damaris Lagunas MD [address] [place] [address] Primary University Counselor Cardiovascular Disease 01/20/22 Betty Zaldivar RN [address] [place] [address] ICP Community Picture Enlarger 01/31/22 08/13/24 Betty Zaldivar RN [address] [place] [address] ICP Community Picture Enlarger 03/02/22 08/13/24 Damaris Lagunas MD [address] [place] [address] Primary University Counselor Cardiovascular Disease 09/18/22 Corrie Bustamante RN [address] [address] ICP Community Picture Enlarger 08/13/24 documented as of this encounter
--- OUTSIDE RECORDS SUMMARY | 2025-01-07 06:34 | XMS_ITS | Encounter Summary ---
Author Organization [facility] Address [address] [place] [address] Care Team Providers Care Files Supervisor Name Role Phone Alvino Alvarez MD Primary Care Provider [phone] Alvino Alvarez MD Unavailable [phone] Jose Alfredo Fuentes MD Unavailable Faisal Dangelo MD Unavailable [phone] Damaris Lagunas MD Unavailable Betty Zaldivar RN Unavailable [phone] Betty Zaldivar RN Unavailable [phone] Damaris Lagunas MD Unavailable Brody Olivarez WILL CALL ORDER CLERK Unavailable [phone] Corrie Bustamante RN Unavailable [phone] Reason for Visit * Reason Comments Appointment Recieved staff jayesh malhotra to get pt in sooner due to worsening tremors and medication quesitons. Encounter Details Date Type Department Care Team (Late st Contact Info) Description 10/26/2021 Telephone [facility] Neurology [address] [place] [address] Hasmukh Shrestha MD [facility] Brain [facility] S [address] [place] [address] Appointment (Recieved staff message to get pt in sooner due to worsening tremors and medication quesitons. ) Social History Tobacco Use Types Packs/Day Years [...] Description 02/25/2025 11:00 AM EDT Office Visit [facility] Vascular [address] [address] Damaris Lagunas MD [address] [place] [address] 03/19/2025 8:45 AM EDT Appointment [address] [address] 06/20/2025 8:15 AM EDT Appointment [facility] Vascular [address] [address] documented as of this encounter Visit Diagnoses Not on filedocumented in this encounter Care Teams Files Supervisor Relationship Specialty Start Date End Date Alvino Alvarez MD [address] [place] [address] PCP - General Family Medicine 03/28/16 Alvino Alvarez MD [address] [place] [address] PCP - [place] Commercial Attributed 04/18/20 02/16/24 Brody Olivarez APRN 35 [facility] [address] [place] [address] PCP - [place] Commercial Attributed 02/17/24 Jose Alfredo Fuentes MD [address] [place], [place] [phone] Referring Provider Psychiatry, General 11/17/21 Faisal Dangelo MD 430 [facility] [address] [place] [phone] Physician Surgery, Orthopedic 01/19/22 Damaris Lagunas MD [address] [place] [address] Primary Soil Expert Cardiovascular Disease 01/20/22 Betty Zaldivar RN [address] [employer] [place] [address] ICP Community Sports Medicine [place] 01/31/22 08/13/24 Betty Zaldivar RN [address] [place] [address] ICP Community Sports Medicine [place] 03/02/22 08/13/24 Damaris Lagunas MD [address] [place] [address] Primary Soil Expert Cardiovascular Disease 09/18/22 Corrie Bustamante RN [address] [place] [address] [facility] Community Sports Medicine [place] 08/13/24 documented as of this encounter
--- OUTSIDE RECORDS SUMMARY | 2025-01-07 06:34 | XMS_ITS | Clinical Summary ---
Author Organization [facility] Address [address] [place] [address] Care Team Providers Care Gear Straightener Name Role Phone Pcp, No MD Primary Care Provider Unavailabl e Allergies Active Allergy Reactions Criticality Noted Date Comments Atorvastatin Low 03/18/2014 Other reaction(s): Myalgia/Myositis/Arthralgi a/Arthritis Codeine Other (see comments) 03/28/2016 Cold sweats Cold sweats Medications acetaminophen (TYLENOL) 325 mg tablet Take 975 mg by mouth every 6 hours. 02/19/2022 Active fluoride, sodium, 1.1 % gel Apply to teeth daily. 11/19/2021 Active lidocaine (XYLOCAINE) 5 % ointment 06/14/2022 Active pantoprazole (PROTONIX) 40 mg EC tablet Take 40 mg by mouth in the morning. Active carbidopa-levod opa (SINEMET) 25-100 mg per tablet Take 1 tablet by mouth in the morning and 1 tablet at noon and 1 tablet in the evening. 11/30/2021 Active tadalafiL (ADCIRCA) 10 mg tablet Take 10 mg by mouth as needed. 06/15/2022 Active Active Problems No known active problems Social History Tobacco Use Types Packs/Day Years Used Date Smoking Tobacco: Never Smokeless Tobacco: Never Alcohol Use Standard Drinks/Week Comments Yes 0 (1 standard drink = 0.6 oz pur e alcohol) soc Sex and Gender Information Value Date Recorded Sex Assigned at Not on file Legal Sex Male 4:01 PM EDT Gender Identity Not on file Sexual Orientation Not on file Plan of Treatment Health Maintenance Due Date Last Done Comments CT Colonography 1963 Colonoscopy 1963 Colorectal Cancer Screening 1963 FIT-DNA (Cologuard) 1963 FIT 1963 FOBT 1963 Flex Sigmoidoscopy - 5y 1963 HIV Screening 1963 DTaP,Tdap,and Td Vaccines (1 - Tdap) 1981 Hepatitis C Screening 1981 Pneumococcal Vaccine, 50+ Years (1 of 1 - PCV) 2013 Zoster Vaccines (1 of 2) 2013 COVID-19 Vaccine (5 - season) 2024 02/23/2022, 08/16/2021, 12/16/2020, Additional history exists Influenza Vaccine (Season Ended) 2025 07/07/2022, 07/28/2020 HPV Vaccines Aged Out No longer eligi ble based on patient's age to complete this topic Hepatitis A Vaccines Aged Out No long er eligible based on patient's age to complete this topic MMR Vaccines Aged Out No longer eligi ble based on patient's age to complete this topic Meningococcal Vaccine Aged Out No connor winnie eligible based on [place] [address] [facility] Care Teams Gear Straightener Relationship Specialty Start Date End Date Kasey Olson MD [address] [place] [address] PCP - General Internal Medicine 06/14/22
--- OUTSIDE RECORDS SUMMARY | 2025-01-07 06:34 | XMS_ITS | Encounter Summary ---
Author Organization [facility] Address [address] [place] [address] Care Team Providers Care Manager Pool Name Role Phone Alvino Alvarez MD Primary Care Provider [phone] Alvino Alvarez MD Unavailable [phone] Jose Alfredo Fuentes MD Unavailable Faisal Dangelo MD Unavailable [phone] Damaris Lagunas MD Unavailable Betty Zaldivar RN Unavailable [phone] Betty Zaldivar RN Unavailable [phone] Damaris Lagunas MD Unavailable Brody Olivarez APRN Unavailable [phone] Corrie Bustaamnte RN Unavailable [phone] Encounter Details Date Type Department Care Team (Late st Contact Info) Description 11/09/2021 Scanned Document [facility] Neurology [address] [place] [address] Hasmukh Shrestha MD IS [facility] Brain [facility] S [address] [address] Social History Tobacco Use Types Packs/Day Years [...] Orientation Heterosexual (straight) 10/07 3:05 PM EST documented as of this encounter Plan of Treatment Upcoming Encounters Date Type Department Care Team (Late st Contact Info) Description 02/25/2025 11:00 AM EDT Office Visit [facility] Vascular [address] [address] Damaris Lagunas MD [address] [place] [address] 03/19/2025 8:45 AM EDT Appointment [address] [address] 06/20/2025 8:15 AM EDT Appointment [address] [address] documented as of this encounter Visit Diagnoses Not on filedocumented in this encounter Care Teams Manager Pool Relationship Specialty Start Date End Date Alvino Alvarez MD [address] [place] [address] PCP - General Family Medicine 03/28/16 Alvino Alvarez MD [address] [place] [address] PCP - [place] Commercial Attributed 04/18/20 02/16/24 Brody Olivarez APRN 35 [facility] [address] [place] [address] PCP - [place] Commercial Attributed 02/17/24 Jose Alfredo Fuentes MD [address] [place], [place] [id number] Referring Provider Psychiatry, General 11/17/21 Faisal Dangelo MD [address] [place] [address] [address] [place] [phone] Physician Surgery, Orthopedic 01/19/22 Damaris Lagunas MD [address] [place] [address] Primary Tablet Coater Cardiovascular Disease 01/20/22 Betty Zaldivar RN [address] [employer] [address] [place] [address] ICP Community Face Hardener 01/31/22 08/13/24 Betty Zaldivar RN [address] [employer] [address] [place] [address] ICP Community Face Hardener 03/02/22 08/13/24 Damaris Lagunas MD [address] [place] [address] Primary Tablet Coater Cardiovascular Disease 09/18/22 Corrie Bustamante RN [address] [employer] [address] [place] [address] ICP Community Face Hardener 08/13/24 documented as of this encounter
--- OUTSIDE RECORDS SUMMARY | 2025-01-07 06:34 | XMS_ITS ---
[facility] Name [facility] Organization Unknown History of Medication Use Medication Directions Dispensed Refills Start Date End Date Status carbidopa-levodopa (SINEMET) 25-100 MG per tablet Take 2 tablets by mouth 4 (four) times a day. 07/16/20 active carbidopa-levodopa ER (SINEMET CR) 25-100 MG per tablet Take 1 tablet by mouth nightly. 07/16/20 active Lidocaine 5% External Patch Lidocaine 5% External Patch QTY: 15 patch Days: 15 Refills: 0 Written: 05/02/24 Patient Instructions: 05/02/20 24 active Metaxalone 800 MG Oral Tablet Metaxalone 800 MG Oral Tablet QTY: 56 tablet Days: 14 Refills: 0 Written: 05/02/24 Patient Instructions: 05/02/20 24 active technetium Tc-99m medronate (Tc-MDP) radio-isotope injection 20 millicurie 20 millicurie, intravenous, Once, On Renea 09/28/23 at 0945, For 1 dose 09/28/19 24 024 completed tadalafil (CIALIS) 20 MG tablet Take 1 tablet (20 mg total) by mouth as needed. 09/08/20 active iohexoL (Omnipaque) 300 mg iodine/mL injection As needed, Starting on Mon05/31/23 at 1343, Intraprocedure 05/31/20 23 023 completed methylPREDNISolone acetate (Depo-Medrol) injection As needed, Starting on Mon05/31/23 at 1339, Intraprocedure 05/31/20 23 023 completed ropivacaine 5 mg/mL (0.5 %) (Naropin) injection As needed, Starting on Mon05/31/23 at 1342, Intraprocedure 05/31/20 23 023 completed celeCOXIB (CeleBREX) 200 MG capsule Take 1 capsule (200 mg total) by mouth daily. With food. 03/08/20 23 023 active tadalafiL (ADCIRCA) 10 mg tablet Take 10 mg by mouth as needed. 06/15/20 22 active lidocaine (XYLOCAINE) 5 % ointment 06/14/20 22 active carbidopa-levodopa (SINEMET) 25-100 MG per tablet Take 1 tablet by mouth 3 (three) times a day. 03/07/20 022 aborted gabapentin (NEURONTIN) 100 MG capsule Take 100 mg by mouth 3 (three) times a day. 02/29/20 22 022 aborted acetaminophen (TYLENOL) 325 MG tablet Take 3 tablets (975 mg total) by mouth every 6 (six) hours. Do not start before February 19, 2022. 02/20/20 active sennosides-docusate sodium (Pericolace) 8.6-50 mg tablet Take 1 tablet by mouth 2 (two) times a day if needed for constipation. 01/29/20 22 active carbidopa-levodopa (SINEMET) 25-100 mg per tablet Take 1 tablet by mouth in the morning and 1 tablet at noon and 1 tablet in the evening. 12/01/19 22 active carbidopa-levodopa (Sinemet) 25-100 mg tablet Take 1 tablet by mouth 3 (three) times a day. 12/01/19 22 active fluoride, sodium, 1.1 % gel Apply to teeth daily. 11/20/19 active Sodium Fluoride 5000 PPM 1.1 % Paste Apply to teeth nightly. 11/20/19 22 active rOPINIRole HCl 1 MG Oral Tablet rOPINIRole HCl 1 MG Oral Tablet QTY: 90 tablet Days: 90 Refills: 1 Written: 07/15/20 Patient Instructions: 1 every bedtime 11/29/19 17 021 completed TraZODone HCl 50 MG Tablet traZODone HCl 50 MG Oral Tablet QTY: 60 tablet Days: 30 Refills: 2 Written: 11/25/16 Patient Instructions: as directed = 1-2 tabs at bedtime 11/26/19 17 017 aborted HYDROmorphone HCl 1 MG/ML Liquid HYDROmorphone HCl 1 MG/ML Oral Liquid (not specified) QTY: 1 unit Days: 1 Refills: 0 Written: 10/19/16 Patient Instructions: 2 mg at nigt 10/19/19 17 017 aborted Cipro 500 MG Tablet Cipro 500 MG Oral Tablet QTY: 20 tablet Days: 10 Refills: 0 Written: 04/14/16 Patient Instructions: twice a day 04/14/20 16 016 completed Methocarbamol 750 MG OR TABS Methocarbamol 750 MG Oral Tablet QTY: 15 tablet Days: 5 Refills: 1 Written: 02/20/15 Patient Instructions: as needed for spasms 02/21/20 15 015 completed Cialis 10MG Oral Tablet Cialis 10 MG Ora l Tablet QTY: 10 tablet Days: 30 Refills: 2 Written: 03/15/19 Patient Instructions: as directed 1-2 tabs as needed 03/18/20 14 019 completed Atorvastatin Calcium 20 MG OR TABS Atorvastatin Calcium 20 MG Oral Tablet QTY: 90 tablet Days: 90 Refills: 1 Written: 05/17/13 Patient Instructions: 05/17/20 13 014 aborted Ascorbic Acid (vitamin C) 100 MG tablet Take 1 tablet (100 mg total) by mouth daily. aborted multivitamin Tab tablet Take 1 tablet by mouth daily. active Carboxymethylcellulose Sodium (ARTIFICIAL TEARS OP) Administer 1 drop to both eyes as needed (dry eyes). aborted Cyanocobalamin (VITAMIN B-12 PO) Take 2 tablets by mouth every morning. aborted pantoprazole (Protonix) 40 mg EC tablet Take 40 mg by mouth 1 (one) time each day. active pantoprazole (PROTONIX) 40 mg EC tablet Take 40 mg by mouth in the morning. active venlafaxine 150 MG Tablet SR 24 hr Take 75 mg by mouth every morning with breakfast. active venlafaxine 75 MG Tablet SR 24 hr Take 1 tablet (75 mg total) by mouth every morning with breakfast. active Allergies Allergen Reaction Severity Comment Documented Date Source Statu s LIPITOR myalgias [facility] Problems Problem Status Onset Date Problem Type Date of Resolution Source Adjustment insomnia active 2016-12-15 ProblemAct [facility] Epigastric pain active 2019-06-05 ProblemAct [facility] Gastroesophageal reflux disease active 2019-06-05 ProblemAct [facility] Colon cancer screening active 2019-06-05 ProblemAct [facility] Epistaxis active 2023-07-04 ProblemAct [facility] Pain active 2023-07-04 ProblemAct [facility] Radicular pain active 2022-02-[address] Lumbar stenosis without neurogenic claudication active 2022-02-18 ProblemAct [facility] Head and neck cancer active 2016-12-15 ProblemAct [facility] Snoring active 2016-12-15 ProblemAct [facility] Constipation active 2023-07-04 ProblemAct [facility] Parkinson's disease active 2021-11-17 ProblemAct [facility] ADAMARIS (obstructive sleep apnea) active 2016-03-28 ProblemAct [facility] RLS (restless legs syndrome) active 2016-12-15 ProblemAct [facility] Bradycardia active 2023-11-09 ProblemAct [facility] Drug-induced thrombocytopenia active 2023-07-04 ProblemAct [facility] 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 ProblemAct [facility] Disturbance of skin sensation active 2016-12-23 ProblemAct [facility] Hypogonadism (disorder) active 2013-05-17 ProblemAct [facility] Reactive depression (situational) (disorder) active 2016-11-18 ProblemAct [facility] GERD active 2013-05-17 ProblemAct [facility] Erectile dysfunction (disorder) active 2014-03-18 ProblemAct [facility] Obstructive sleep apnea syndrome (disorder) active 2014-02-27 ProblemAct [facility] 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 ProblemAct [facility] Spinal stenosis of lumbar region (disorder) active 2022-05-05 ProblemAct [facility] Depressive disorder (disorder) active 2024-06-04 ProblemAct [facility] Parkinson's disease (disorder) active 2022-02-09 ProblemAct [facility] 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-18 ProblemAct [facility] Hyperlipidemia (disorder) active 2013-05-17 ProblemAct [facility] Restless legs (disorder) active 2016-11-18 ProblemAct [facility] Sinus bradycardia (disorder) active 2019-10-10 ProblemAct [facility] Gastroesophageal reflux disease without esophagitis active 2016-03-28 ProblemAct [facility] Plantar fasciitis, bilateral active EncounterDiagnosisAct [facility]S Spinal stenosis of lumbar region with radiculopathy active 2022-01-26 ProblemAct [facility] Immunizations Vaccine Date Source Lot Number Status Influenza Inactivated/Split Preservative Free IM 07/07/2022 [facility] [id number] completed Covid-19 mRNA Vaccine - Mode rna 0.25 mL Booster 02/23/2022 [facility] [id number] completed Influenza, Quadrivalent (FLU ARIX, AFLURIA, FLULAVAL, FLUZONE) Preservative Free IM 08/05/2021 [facility] [id number] completed Influenza, Unspecified [facility] Influenza Inactivated/Split Preservative Free IM 07/28/2020 [facility] [id number] completed *MFP (Boostrix) Tdap 05/03/2019 [facility] [id number] comp leted *PCV (Pneumovax 23) [facility]/03[facility] [id number] compl eted Pneumococcal Conjugate 7-Valent 05/03/2019 [facility] completed Zoster Vaccine Live/Attenuated (Zostavax) 07/01/2014 [facility] completed Td 09/18/2009 [facility] completed Encounters Encounter Type Encounter Reason Primary Diagnosis Location Date Ambulatory Presence of cardiac pacemaker Presence of cardiac pacemaker [facility] 12/13/2024 Ambulatory Cardiac arrhythmia, unspecified Cardiac arrhythmia, unspecified [facility] 09/16/2024 Ambulatory Presence of cardiac pacemaker Presence of cardiac pacemaker [facility] 08/27/2024 Ambulatory Parkinson's disease without dyskinesia, without mention of fluctuations Parkinson's disease without dyskinesia, without mention of fluctuations [facility] 07/16/2024 Ambulatory Cardiac arrhythmia, unspecified Cardiac arrhythmia, unspecified [facility] 06/14/2024 Ambulatory Encounter for screening for other disorder Encounter for screening for other disorder [facility] 06/04/2024 Ambulatory Cardiac arrhythmia, unspecified Cardiac arrhythmia, unspecified [facility] 03/29/2024 Ambulatory Ventricular tachycardia, unspecified Ventricular tachycardia, unspecified [facility] 03/14/2024 Ambulatory Cardiac arrhythmia, unspecified Cardiac arrhythmia, unspecified [facility] 03/13/2024 Ambulatory Presence of cardiac pacemaker Presence of cardiac pacemaker [facility] 02/26/2024 Ambulatory Presence of cardiac pacemaker Presence of cardiac pacemaker [facility] 12/12/2023 Ambulatory Bradycardia, unspecified Bradycardia, unspecified [facility] 11/16/2023 Ambulatory Bradycardia, unspecified Bradycardia, unspecified [facility] 11/09/2023 Ambulatory Parkinson's disease without dyskinesia, without mention of fluctuations Parkinson's disease without dyskinesia, without mention of fluctuations [facility] 11/08/2023 Ambulatory Parkinson's disease without dyskinesia, without mention of fluctuations Parkinson's disease without dyskinesia, without mention of fluctuations [facility] 10/25/2023 Ambulatory [facility] 09/28/19 Ambulatory Vertebrogenic low back pain Vertebrogenic low back pain [facility] 09/28/2023 Ambulatory Other forms of dyspnea Other forms of dyspnea [facility] 09/21/2023 Ambulatory Parkinson's disease without dyskinesia, without mention of fluctuations Parkinson's disease without dyskinesia, without mention of fluctuations [facility] 09/20/2023 Ambulatory Obstructive sleep apnea (adult) (pediatric) Obstructive sleep apnea (adult) (pediatric) [facility] 09/20/2023 Ambulatory Bradycardia, unspecified Bradycardia, unspecified [facility] 08/28/2023 Ambulatory [facility] 07/24/2023 Ambulatory Parkinson's disease without dyskinesia, without mention of fluctuations Parkinson's disease without dyskinesia, without mention of fluctuations [facility] 07/04/2023 Ambulatory Obstructive sleep apnea (adult) (pediatric) Obstructive sleep apnea (adult) (pediatric) [facility] 06/06/2023 Ambulatory Pain, unspecified Pain, unspecified [facility] 05/31/2023 Ambulatory Obstructive sleep apnea (adult) (pediatric) Obstructive sleep apnea (adult) (pediatric) [facility] 05/04/2023 Ambulatory Oth disrd of the skin and subcutaneous tissue [facility] 04/11/[facility]23 Ambulatory Obstructive slee p apnea (adult) (pediatric) [facility] 03/22/2023 Ambulatory Unspecified symp toms and signs involving cognitive functions and awareness [facility] 03/06/2023 Ambulatory Parkinson's disease [facility] 02/28/2023 Ambulatory Vertebrogenic lo w back pain [facility] 11/08/2022 Ambulatory Spinal stenosis, lumbar region without neurogenic benito [facility] 11/03/2022 Ambulatory Parkinson's disease [facility] 10/04/2022 Ambulatory Plantar fascial fibromatosis [facility] 09/28/2022 Ambulatory Plantar fascial fibromatosis [facility] 08/24/2022 Ambulatory [facility] 07/07/2022 Ambulatory Parkinson's disease [facility] 07/05/2022 Ambulatory Bunionette of ri ght foot [facility] 06/22/2022 Ambulatory Malignant neopla sm of tonsil, unspecified [facility] 05/31/2022 Ambulatory Encounter for immunization [facility] 05/05/2022 Ambulatory Parkinson's disease [facility] 03/22/2022 Ambulatory Malignant neopla sm of tonsillar fossa [facility] 02/28/2022 Ambulatory Personal history of malignant neoplasm of other organs and systems [facility] 02/28/2022 Observation Pain in right leg [facility] 02/22/2022 Inpatient Spinal stenosis, lumbar region without neurogenic claudication [facility] 02/18/2022 Ambulatory Encounter for ot her preprocedural examination [facility] 02/11/2022 Inpatient Encounter for ot her preprocedural examination [facility] 01/24/2022 Ambulatory Encounter for preprocedural cardiovascular examination [facility] 01/20/2022 Ambulatory Bradycardia, unspecified [facility] 01/19/2022 Ambulatory Abnormal result of other cardiovascular function study [facility] 01/19/2022 Ambulatory Obstructive slee p apnea (adult) (pediatric) [facility] 01/07/2022 Ambulatory Parkinson's disease [facility] 11/17/2021 Ambulatory Parkinson's disease [facility] 10/07/2021 Care Team Organization Name Specialty Phone Email Start Date End Da te [facility] Alvino Alvarez [facility] 12/17/2024 [facility] 10/08/2023 [facility] 07/20/2023 024 [facility] Alvino Al[facility] 07/07/2022 [facility] SOPHIA KIMBERLEY Information Services Manager 02/2022 [facility] NO PCP Primary Care 06/22/202207/2023 Replaced by [facility] PCP,No Primary Care 06/22/2022 [facility] CLARICE AMAYA Primary Care 05/05/2022 [facility] 01/24/202205/19 [facility] Alvino Alvarez Primary [facility] 10/07/2021
--- OUTSIDE RECORDS SUMMARY | 2025-01-07 06:34 | XMS_ITS | Encounter Summary ---
Author Organization [facility] Address [address] [place] [address] Care Team Providers Care Criminal Legal Assistant Name Role Phone Alvino Alvarez MD Primary Care Provider [phone] Alvino Alvarez MD Unavailable [phone] Jose Alfredo Fuentes MD Unavailable Faisal Dangelo MD Unavailable [phone] Damaris Lagunas MD Unavailable Betty Zaldivar RN Unavailable [phone] Betty Zaldivar RN Unavailable [phone] Damaris Lagunas MD Unavailable Brody Olivarez MILL REPRESENTATIVE Unavailable [phone] Corrie Bustamante RN Unavailable [phone] Encounter Details Date Type Department Care Team (Late st Contact Info) Description 03/09/2022 Scanned Document [facility] [place] [address] [address] Cardiology, Scan Social History Tobacco [...] 02/25/2025 11:00 AM EDT Office Visit [facility] Vascular [address] [address] Damaris Lagunas MD [address] [place] [address] 03/19/2025 8:45 AM EDT Appointment [address] [address] 06/20/2025 8:15 AM EDT Appointment [address] [address] documented as of this encounter Visit Diagnoses Not on filedocumented in this encounter Care Teams Criminal Legal Assistant Relationship Specialty Start Date End Date Alvino Alvarez MD [address] [place] [address] PCP - General Family Medicine 03/28/16 Alvino Alvarez MD [address] [place] [address] PCP - [place] [employer] Attributed 04/18/20 02/16/24 Brody Olivarez APRN [address] [facility] [address] [place] [address] PCP - [place] [employer] Attributed 02/17/24 Jose Alfredo Fuentes MD [address] [place] [id number] Referring Provider Psychiatry, General 11/17/21 Faisal Dangelo MD [address] [place] [address] [address] [place] [phone] Physician Surgery, Orthopedic 01/19/22 Damaris Lagunas MD [address] [place] [address] Primary Database Marketing Manager Cardiovascular Disease 01/20/22 Betty Zaldivar RN [address] [place] [address] [employer] Java Sql Developer 01/31/22 08/13/24 Betty Zaldivar RN [address] [place] [address] [employer] [facility] Java Sql Developer 03/02/22 08/13/24 Damaris Lagunas MD [address] [place] [address] Primary Database Marketing Manager Cardiovascular Disease 09/18/22 Corrie Bustamante RN [address] [place] [phone] [employer] Java Sql Developer 08/13/24 documented as of this encounter
--- OUTSIDE RECORDS SUMMARY | 2025-01-07 06:34 | XMS_ITS | Encounter Summary ---
Author Organization [facility] Address [address] [place] [address] Care Team Providers Care Meat Butcher Name Role Phone Alvino Alvarez MD Primary Care Provider [phone] Alvino Alvarez MD Unavailable [phone] Jose Alfredo Fuentes MD Unavailable Faisal Dangelo MD Unavailable [phone] Damaris Lagunas MD Unavailable Betty Zaldivar RN Unavailable [phone] Betty Zaldivar RN Unavailable [phone] Damaris Lagunas MD Unavailable Brody Olivarez AGRICULTURAL AND FORESTRY SUPERVISOR Unavailable [phone] Corrie Bustamante RN Unavailable [phone] Reason for Visit * Reason Comments Medication Refill Encounter Details Date Type Department Care Team (Late st Contact Info) Description 07/29/2022 Refill [facility] Neurology [address] [place] [address] Brody Olivarez, ANA [address] [facility] [address] [place] [address] Parkinson's disease (HCC) Social History Tobacco Use [...] suspected to have Coronavirus/COVID-19? No / Unsure 07/05/2022 3:38 PM EDT documented as of this encounter Plan of Treatment Upcoming Encounters Date Type Department Care Team (Late st Contact Info) Description 02/25/2025 11:00 AM EDT Office Visit [facility] Vascular [address] [address] Damaris Lagunas MD [address] [place] [address] 03/19/2025 8:45 AM EDT Appointment [address] [address] 06/20/2025 8:15 AM EDT Appointment [address] [address] documented as of this encounter Visit Diagnoses Diagnosis Parkinson's disease (HCC) Paralysis agitans documented in this encounter Care Teams Meat Butcher Relationship Specialty Start Date End Date Alvino Alvarez MD [address] [place] [address] PCP - General Family Medicine 03/28/16 Alvino Alvraez MD [address] [place] [address] PCP - [place] [employer] Attributed 04/18/20 02/16/24 Brody Olivarez APRN [address] [facility] [address] [place] [address] PCP - [place] [employer] Attributed 02/17/24 Jose Alfredo Fuentes MD [address] [place], [place] [phone] Referring Provider Psychiatry, General 11/17/21 Faisal Dangelo MD [address] [facility] [address] [place] [phone] Physician Surgery, Orthopedic 01/19/22 Damaris Lagunas MD [address] [place] [address] Primary Clinical Staff Pharmacist Cardiovascular Disease 01/20/22 Betty Zaldivar RN [address] [employer] [place] [address] [facility] Community Care Services Manager 01/31/22 08/13/24 Betty Zaldivar RN [address] [employer] [place], [place] [phone] [facility] Community Care Services Manager 03/02/22 08/13/24 Damaris Lagunas MD [address] [place] [address] Primary Clinical Staff Pharmacist Cardiovascular Disease 09/18/22 Corrie Bustamante RN [address] [place] [address] [facility] Community Care Services Manager 08/13/24 documented as of this encounter
--- OUTSIDE RECORDS SUMMARY | 2025-01-07 06:34 | XMS_ITS | Patient Health Record ---
Author Organization [facility] Address [address] [place] [id number] Care Team Providers Care Trade Recruiter Name Role Phone NOT LISTED Primary Care Provider Garrett Christensen Unavailable [phone] Allergies Allergen (clinical drug ingredient) Drug/Non Drug Allergy documented on EMR Reaction Allergy Type Onset Date Status atorvastatin Atorvastatin Unknown Drug Allergy A ctive codeine Codeine Unknown Drug Allergy Active Results Component Value Reference Range Notes XR Lumbosacral Spine 4 or mo re view Reviewed date:01/26/2024 08:20:02 AM Interpretation: Performing Lab: Notes/Report: Reason For Referral No Information Medications Medication SIG (Take, Route, Frequency, Duration) Notes Start Date End Date Status Tadalafil 20 MG TAKE 1 TABLET BY BERNARD TH 30 MINUTES PRIOR TO SEXUAL ACTIVITY NEEDED Oral for 30 Days Active Carbidopa-Levodopa 25-100 MG TAKE 1.5 TABLETS BY MOUTH 3 TIMES A DAY Oral for 30 Days Active Pantoprazole Sodium 40 MG Oral for 30 Days Active Social History Tobacco Use: Social History Observation Description Date Details (start date - stop date) Never Smoker NA - NA Sex Assigned At : Social History Observation Description Sex Assigned At Male Tobacco Control (Standard) Question Answer Notes Tobacco use: Nonsmoker AUDIT-C (Standard) Question Answer Notes Did you have a drink containing alcohol in the p ast year? No Points 0 Interpretation Negative Problems Problem Type SNOMED Code ICD Code Onset Dates Problem Status W/U Status Risk Notes Problem Sacroiliac disorder (disorder) (734713198) Sacroiliac dysfunction (M53.3) Active confirmed Vital Signs Height-cm 175.26 cm 01/24/2024 Weight-kg 96.16 kg 01/24/2024 Height 69 in 01/24/2024 Weight 212 lbs 01/24/2024 BMI 31.3 kg/m2 01/24/2024 Encounters Encounter Location Date Provider Diagnosis [facility] [place] [address] [place] [address] 01/24/2024 Garrett Pan Sacroiliac dysfuncti on M53.3 Assessments Encounter Date Diagnosis (ICD Code) Assessment Notes Treatment Notes Treatment Clinical Notes Section Notes 01/24/2024 Sacroiliac dysfunction (ICD-10 - M53.3) At this point how long discussion with patient about his right SI joint he's had a significant amount of treatment but unfortunately he is not improved I explained all risks benefits and alternatives of an SI joint fusion and he would like to move forward with this surgery Plan Of Treatment No Information Insurance Providers Payer Name Payer Address Payer Phone Subscriber Number Group Number Insured Name Patient Relationship to Insured Coverage Start Date Coverage End Date [place] [address] [place], [place] [id number] Vijay Schultz Self - patient is the insured Medical (General) History Medical History History ICD Code Parkinson's disease acid reflux throat cancer in remission Surgical History Surgery Date(Month/Year) lumbar fusion L4-L5, two separate sx (1 in January; 1 in February) 2021 pacemaker Sep 2023
--- OUTSIDE RECORDS SUMMARY | 2025-01-07 06:34 | XMS_ITS ---
Author Organization [facility] Address [address] [place] [address] Care Team Providers Care Lining Machine Operator Name Role Phone NOT LISTED Primary Care Provider Garrett Christensen Unavailable [phone] Allergies Allergen (clinical drug ingredient) Drug/Non Drug Allergy documented on EMR Reaction Allergy Type Onset Date Status atorvastatin Atorvastatin Unknown Drug Allergy A ctive codeine Codeine Unknown Drug Allergy Active Results Component Value Reference Range Notes XR Lumbosacral Spine 4 or mo re view Reviewed date:01/26/2024 08:20:02 AM Interpretation: Performing Lab: Notes/Report: REASON FOR VISIT NB Lumbar pain *brining img on CD *only time pt can do b/c of work* Medications Medication SIG (Take, Route, Frequency, Duration) [...] Status Risk Notes Problem Sacroiliac disorder (disorder) (938867420) Sacroiliac dysfunction (M53.3) Active confirmed Vital Signs Weight 212 lbs 01/24/2024 Weight-kg 96.16 kg 01/24/2024 Height 69 in 01/24/2024 Height-cm 175.26 cm 01/24/2024 BMI 31.3 kg/m2 01/24/2024 Encounters Encounter Location Date Provider Diagnosis [facility] [place], [place] [id number] 01/24/2024 Garrett Pan Sacroiliac dysfuncti on M53.3 [...] forward with this surgery Plan Of Treatment Treatment Notes Assessment Notes Sacroiliac dysfunction At this point how long discussion with patient about his right SI joint he's had a significant amount of treatment but unfortunately he is not improved I explained all risks benefits and alternatives of an SI joint fusion and he would like to move forward with this surgery Next Appt Details Follow Up: For an SI joint f usion, Reason: Progress Notes * Vijay SCHULTZ) AndrewDOB: 1965 (58 yo M)Acc No.[id number]:01/24/2024 Patient:?Vijay SCHULTZ (Andy)ew Provider:?Garrett Pan MD :1965???Age:58 Y???Sex:Male Janusz e:01/24/2024 Address:[address] [place] [address], [id number] Pcp:NOT LISTED Structured Data:Is today's v isit work related? : No Subjective: * Chief Complaints: * ???NB Lumbar pain *brining i mg on CD *only time pt can do b/c of work* * HPI: ???HPI:?The patient is a 58 year old male who presents today for evaluation of his lumbar spine.? I was asked to see him in consultation by Dr. Dangelo.? The patient reports that approximately 2 years ago he underwent a 2 level fusion from L4-S1 through an anterior and posterior approach.? He did well from that surgery but unfortunately he only got a small amount of relief of his pain he started having more pain on the right side of his low back more into his buttock but not all the way down his leg.? He's had multiple right SI joint injections and the last one he got approximately 50% relief. * Medical History:? * Surgical History:?lumbar fus ion L4-L5, two separate sx (1 in January; 1 in February) acemaker Sep 2023 * Hospitalization/Major Diagno stic Procedure:?Denies Past Hospitalization * Family History:?Father: canc er.?Mother: cancer.? * Social History:?Tobacco Use:?Tobacco Control (Standard)?Tobacco use:?Nonsmoker ???Drug/Alcohol:?AUDIT-C (Standard)?Did you have a drink containing alcohol in the past year??No ?Points?0 ?Interpretation?Negative * Medications:?TakingPantopraz ole Sodium 40 MG Tablet Delayed Release Oral Carbidopa-Levodopa 25-100 MG Tablet TAKE 1.5 TABLETS BY MOUTH 3 TIMES A DAY Oral Tadalafil 20 MG Tablet TAKE 1 TABLET BY MOUTH 30 MINUTES PRIOR TO SEXUAL ACTIVITY NEEDED Oral Medication List reviewed and reconciled with the patientTaking Pantoprazole Sodium 40 MG Tablet Delayed Release Oral Taking Carbidopa-Levodopa 25-100 MG Tablet TAKE 1.5 TABLETS BY MOUTH 3 TIMES A DAY Oral Taking Tadalafil 20 MG Tablet TAKE 1 TABLET BY MOUTH 30 MINUTES PRIOR TO SEXUAL ACTIVITY NEEDED Oral Medication List reviewed and reconciled with the patient * Allergies:?CodeineAtorvastat inno[Allergies Verified] Objective: * Vitals:?Pain scale:71-10, Wt :212lbs, Wt-k.16 kg, Ht: 69 in, Ht-cm: 175.26 cm, BMI:31.3Index, Body Surface Area: 2.16. * Examination: ???Lumber Spine/Lower Back: ?LOWER BACK:?Normal appearance.?INSPECTION:?no ecchymosis, no visible or palpable masses, normal curvature of spine, normal lumbar lordosis.?PALPATION:?no muscle spasm, no paraspinal tenderness, no sacroliliac joint tenderness, no vertebral spine tenderness.?RANGE OF MOTION:?Full range of motion in flexion, extension, and lateral bending.?STRAIGHT LEG RAISING TEST:?negative bilaterally.?STABILITY:?no overt evidence for instability on exam.?HIP EXAMINATION:?Full range of motion bilateral hips without pain.?SENSORY EXAM:?sensation is normal in the bilateral lower extremities.?SKIN:?no erythema or warmth, no skin lesions.?DEEP TENDON REFLEXES:?2+ and equal at the patella tendon and ankle and negative clonus bilaterally.?SI JOINT EXAMINATION:?, @ CDT positive tenderness right, Distraction test positive, Thigh Thrust Test positive.?GAIT:?normal non-antalgic gait and able to heel walk and toe walk without difficulty.?MOTOR STRENGTH?ILIOPSOAS - RIGHT?01/20 ?ILIOPSOAS - LEFT?01/20 ?QUADRICEPS - RIGHT?01/20 ?QUADRICEPS - LEFT?01/20 ?HAMSTRINGS - RIGHT?01/20 ?HAMSTRINGS - LEFT?01/20 ?GASTROSOLEUS COMPLEX - RIGHT?01/20 ?GASTROSOLEUS COMPLEX - LEFT?01/20 ?TIBIALIS ANTERIOR-RIGHT?01/20 ?TIBIALIS ANTERIOR -LEFT?01/20 ?EXTENSOR HALLICUS LONGUS - RIGHT?01/20 ?EXTENSOR HALLICUS LONGUS - LEFT?5/5??? Assessment: * Assessment: 1.?Sacroiliac dysfunction - M53.3 (Primary)? Plan: * Treatment: * Imaging:? * ?Imaging: XR Lumbosacral Spine 4 or more view (Performed Date - 01/24/2024) * * Procedure Codes:?10137 X-RAY EXAM OF LOWER SPINE * Follow Up:?For an SI joint f usion * Billing Information: * Visit Code:? 00818 Office Visit, New Pt., Level 4. * Procedure Codes:? 69189 X-RAY EXAM OF LOWER SPINE. * Sign off status: Completed true * Provider:?Garrett Pan MD Date:? 024 Generated for Annette villalta/Glenn/Lars on:?01/07/2025 06:33 AM EDT History and Physical Notes * HPI (History of Present Illness) Category Sub-Category Detail Notes Category Not es HPI The patient is a 58 year old male who presents today for evaluation of his lumbar spine. I was asked to see him in consultation by Dr. Dangelo. The patient reports that approximately 2 years ago he underwent a 2 level fusion from L4-S1 through an anterior and posterior approach. He did well from that surgery but unfortunately he only got a small amount of relief of his pain he started having more pain on the right side of his low back more into his buttock but not all the way down his leg. He's had multiple right SI joint injections and the last one he got approximately 50% relief Examination Category Sub-Category Detail Notes Category Not es Lumber Spine/Lower Back LOWER BACK: Normal appearance INSPECTION: no ecchymosis, no vi sible or palpable masses, normal curvature of spine, normal lumbar lordosis PALPATION: no muscle spasm, no paraspinal tenderness, no sacroliliac joint tenderness, no vertebral spine tenderness RANGE OF MOTION: Full range of motion in flexion, extension, and lateral bending STRAIGHT LEG RAISING TEST: negative bila terally STABILITY: no overt evidence fo r instability on exam STRENGTH: HIP EXAMINATION: Full range of motion bilateral hips without pain SENSORY EXAM: sensation is normal in the bilateral lower extremities SKIN: no erythema or warmt h, no skin lesions DEEP TENDON REFLEXES: 2+ and equal at th e patella tendon and ankle and negative clonus bilaterally GAIT: normal non-antalgic gait and able to heel walk and toe walk without difficulty SI JOINT EXAMINATION: , @ CDT positive t enderness right, Distraction test positive, Thigh Thrust Test positive MOTOR STRENGTH ILIOPSOAS - RIGHT: 5/5 ILIOPSOAS - LEFT: 5/5 QUADRICEPS - RIGHT: 5/5 QUADRICEPS - LEFT: 5/5 HAMSTRINGS - RIGHT: 5/5 HAMSTRINGS - LEFT: 5/5 GASTROSOLEUS COMPLEX - RIGHT: 5/5 GASTROSOLEUS COMPLEX - LEFT: 55 TIBIALIS ANTERIOR-RIGHT: 5/5 TIBIALIS ANTERIOR -LEFT: 5 EXTENSOR HALLICUS LONGUS - RIGHT: 5/5 EXTENSOR HALLICUS LONGUS - LEFT: 5
--- OUTSIDE RECORDS SUMMARY | 2025-01-07 06:34 | XMS_ITS | CCD ---
Author Name Interface, [id number] lity Address [address] [place] [address] Organization [facility] Address [address] [place] [address] Care Team Providers Care Human Resource Analyst Name Role Phone Pradeep Diamond Carminagenesis ble Care Plan Date Type Value APPOINTMENT RTC MD APPOINTMENT RTC MD APPOINTMENT PET/CT scan APPOINTMENT RTC office visit and chemo APPOINTMENT RTC MD/PRODUCTION TEAM LEADER APPOINTMENT Lab APPOINTMENT Lab APPOINTMENT RTC MD APPOINTMENT Referral APPOINTMENT Lab APPOINTMENT RTC office visit and chemo APPOINTMENT Lab APPOINTMENT CBC w/ auto diff APPOINTMENT Lab APPOINTMENT Lab APPOINTMENT Lab APPOINTMENT Removal of Port- a-cath (procedure) APPOINTMENT Lab APPOINTMENT Lab APPOINTMENT RTC office visit and chemo APPOINTMENT RTC office visit and chemo APPOINTMENT RTC MD APPOINTMENT CXR APPOINTMENT Lab APPOINTMENT Lab APPOINTMENT RTC doctor and ricky kapooro (same day) APPOINTMENT Port placement APPOINTMENT Lab APPOINTMENT Lab APPOINTMENT RTC MD APPOINTMENT RTC MD APPOINTMENT CXR APPOINTMENT Lab APPOINTMENT RTC MD APPOINTMENT Port flush APPOINTMENT PET/CT scan APPOINTMENT TSH, high sensit ivity APPOINTMENT RTC MD APPOINTMENT RTC MD APPOINTMENT Lab APPOINTMENT Lab APPOINTMENT RTC MD APPOINTMENT Referral to spec ialist APPOINTMENT RTC MD APPOINTMENT RTC MD APPOINTMENT Lab APPOINTMENT Lab APPOINTMENT RTC MD APPOINTMENT Lab APPOINTMENT CXR APPOINTMENT RTC MD APPOINTMENT Lab APPOINTMENT CXR APPOINTMENT Lab 07/28/2016 LABORDER CBC w/ auto diff 07/28/2016 LABORDER CMP 08/01/2016 LABORDER PT INR panel 08/01/2016 LABORDER PTT panel 08/17/2016 LABORDER CMP 08/17/2016 LABORDER CBC w/ auto diff 08/24/2016 LABORDER CBC w/ auto diff 08/24/2016 LABORDER CMP 09/01/2016 LABORDER CMP 09/01/2016 LABORDER CBC w/ auto diff 09/07/2016 LABORDER CBC w/ auto diff 09/09/2016 LABORDER CMP 09/09/2016 LABORDER CBC w/ auto diff 09/14/2016 LABORDER CBC w/ auto diff 09/14/2016 LABORDER CMP 09/21/2016 LABORDER CBC w/ auto diff 09/21/2016 LABORDER CMP 09/28/2016 LABORDER CMP 09/28/2016 LABORDER CBC w/ auto diff 10/05/2016 LABORDER CMP 10/05/2016 LABORDER CBC w/ auto diff 10/17/2016 LABORDER CMP 10/17/2016 LABORDER CBC w/ auto diff 10/19/2016 LABORDER CMP 10/19/2016 LABORDER CBC w/ auto diff 01/23/2017 LABORDER CMP 01/23/2017 LABORDER CBC w/ auto diff 02/02/2017 LABORDER TSH, high sensit ivity 02/02/2017 LABORDER PET/CT scan 03/22/2017 LABORDER PTT panel 03/22/2017 LABORDER PT INR panel 05/04/2017 LABORDER CMP 05/04/2017 LABORDER CBC w/ auto diff 05/04/2017 LABORDER TSH, high sensit ivity 08/22/2017 LABORDER TSH, high sensit ivity 08/22/2017 LABORDER CMP 08/22/2017 LABORDER CBC w/ auto diff 02/20/2018 LABORDER CBC w/ auto diff 02/20/2018 LABORDER TSH, high sensit ivity 02/20/2018 LABORDER CXR 02/20/2018 LABORDER CMP 09/05/2018 LABORDER CMP 09/05/2018 LABORDER CBC w/ auto diff 09/05/2018 LABORDER TSH 02/19/2019 LABORDER CBC w/ auto diff 02/19/2019 LABORDER CXR 02/19/2019 LABORDER CMP 02/19/2019 LABORDER TSH 02/27/2020 LABORDER CMP 02/27/2020 LABORDER CBC w/ auto diff 02/27/2020 LABORDER TSH 02/27/2020 LABORDER CXR 03/04/2021 LABORDER CMP 03/04/2021 LABORDER TSH, high sensit ivity 03/04/2021 LABORDER CXR 03/04/2021 LABORDER CBC w/ auto diff Reason for Visit YEARLY - QUEST Encounters Date Name 03/04/2022 Constipation Functional Status Date Name Score 09/07/2016 ECOG performance status - grade 2 2 08/01/2016 ECOG performance status - grade 0 0 Medications Date Name Route Dose Frequency Instructions Start Date End Date Status Carbidopa-Levodop a Oral 25 mg-100 mg QD active Diazepam Oral QD act willy Pantoprazole (Sodium) Oral Delayed Release 1.0 tablet,del ayed release (DR/EC) QD active Miscellaneous Drug med list reviewed 02/19/19 *hm stopped Tadalafil Oral PRN ac tive Ropinirole Oral 1.0 tablet QD active Hydromorphone Oral QD active Cyanocobalamin Oral 2 QD active Sennosides-Docusa te Sodium Oral 8.6 mg-50 mg QD active Problems Diagnosis Status Date of Diagnosi s Drug induced thrombocytopenia Active Nose bleed Active Constipation Active Nausea Active Pain Active Social History Date Name Value Sex Male
--- OUTSIDE RECORDS SUMMARY | 2025-01-07 06:35 | XMS_ITS | Encounter Summary ---
Author Organization [facility] Address [address] [place] [address] Care Team Providers Care Field Hauler Name Role Phone Alvino Alvarez MD Primary Care Provider [phone] Franki Gates MD Unavailable [phone] Reason for Referral * Imaging (Routine) - Closed Specialty Diagnoses / Procedures Referred By Jose C hurley Referred To Contact Radiology Diagnoses Herniated lumbar intervertebral disc Procedures FL LESS THAN 1 HOUR INTRAOPERATIVE Faisal Dangelo MD Phone: tel: fax: [facility] Radiology - Central Scheduling [place] Phone: tel: fax: Referral ID Status Reason Start Date Expiration Date V isits Requested Visits Authorized [id number] Closed Perform Procedure 01/23/2022 01/23/2023 1 1 Encounter Details Date Type Department Care Team (Latest Contact Info) Description 01/23/2022 Ancillary Orders [facility] [address] [place] [id number] Faisal Dangelo MD [address] [place] [address] Herniated lumbar intervertebral disc Social History Tobacco Use Types Packs/Day Years Used Date Smoking Tobacco: Never Smokeless Tobacco: Never Alcohol Use Standard Drinks/Week Comments Yes 0 (1 standard drink = 0.6 oz pur e alcohol) social Sex and Gender Information Value Date Recorded Sex Assigned at Not on file Legal Sex Male 2:16 PM EST Gender Identity Not on file Sexual Orientation Not on file COVID-19 Exposure Response Date Recorded In the last month, have you been in contact with someone who was confirmed or suspected to have Coronavirus / COVID-19? No / Unsure 01/24/2022 6:40 AM EDT documented as of this encounter Plan of Treatment Not on file documented as of this encounter Results * FL LESS THAN 1 HOUR INTRAOPERATIVE (01/24/2022 11:25 AM EDT) Anatomical Region Laterality Modality Radio Fluoroscop y 01/24/2022 11:3 5 AM EDT Impressions 01/24/2022 11:35 AM EDT Fluoroscopy procedure performed in the OR or DI Suite without a Radiologist in attendance. Narrative 01/24/2022 11:35 AM EDT CLINICAL INDICATION: Herniated lumbar intervertebral disc, herniated lumbar disc, PROTOCOL: Fluoroscopy provided for intraoperative procedure. Patient fluoro time (min) and dose (mGy, Ka, r):->0.5 mins, 10.93 mGy, Ka, r COMPARISON: None. FINDINGS: THIS IS AN ADMINISTRATIVE REPORT AND MAY BE SIGNED BY A LACQUER COATER. Fluoroscopy was provided to the Ordering physician in the OR or DI Suite with no Radiologist in attendance. There were no films submitted to a Radiologist for interpretation after the procedure. ??However there may be images, selected by the Surgeon, stored in PACS for future use and documentation. For further information about the case, please refer to the Performing Physicians ??Operative Notes found in the patient's Medical Record. Procedure Note Abi Lee, RT - 01/24/2022 CLINICAL INDICATION: Herniated lumbar intervertebral disc, herniatedlumbar disc, PROTOCOL: Fluoroscopy provided for intraoperative procedure. Patient fluoro time (min) and dose (mGy, Ka, r):->0.5 mins, 10.93 mGy, Ka,r COMPARISON: None. FINDINGS: THIS IS AN ADMINISTRATIVE REPORT AND MAY BE SIGNED BY A RADIOLOGYMANAGER. Fluoroscopy was provided to the Ordering physician in the OR or DI Suitewith no Radiologist in attendance. There were no films submitted to aRadiologist for interpretation after the procedure. However there may beimages, selected by the Surgeon, stored in PACS for future use anddocumentation. For further information about the case, please refer to thePerforming Physicians Operative Notes found in the patient's MedicalRecord. IMPRESSION: Fluoroscopy procedure performed in the OR or DI Suite without aRadiologist in attendance. Faisal Dangelo MD IMG FLUOROSCOPY PROCEDURES Fin al Result documented in this encounter Visit Diagnoses Diagnosis Herniated lumbar intervertebral disc Displacement of lumbar intervertebral disc without myelopathy Herniated lumbar intervertebral disc Displacement of lumbar intervertebral disc without myelopathy documented in this encounter Care Teams Field Hauler Relationship Specialty Start Date End Date Alvino Alvarez MD [address] [place] [address] PCP - General Family Medicine 05/12/20 Franki Gates MD [address] [address] [place] [address] Surgeon General Surgery 12/06/21 documented as of this encounter
--- OUTSIDE RECORDS SUMMARY | 2025-01-07 06:35 | XMS_ITS | Encounter Summary ---
Author Organization [facility] Address [address] [place] [address] Care Team Providers Care Hatchery Manager Name Role Phone Alvino Alvarez MD Primary Care Provider [phone] Alvino Alvarez MD Unavailable [phone] Jose Alfredo Fuentes MD Unavailable Faisal Dangelo MD Unavailable [phone] Damaris Lagunas MD Unavailable Betty Zaldivar RN Unavailable [phone] Betty Zaldivar RN Unavailable [phone] Damaris Lagunas MD Unavailable Brody Olivarez APRN Unavailable [phone] Corrie Bustamante RN Unavailable [phone] Reason for Visit * Reason Comments Medication Refill Encounter Details Date Type Department Care Team (Late st Contact Info) Description 08/12/2020 Refill MEEP, Gotta'go Personal Care Device [address] [place], [place] [phone] Yash Hill MD [address] [place], [place] Gastroesophageal reflux disease with esophagitis Social History Tobacco Use Types Packs/Day Years [...] Description 02/25/2025 11:00 AM EDT Office Visit [address] [phone] Damaris Lagunas MD [address] [place] [address] 03/19/2025 8:45 AM EDT Appointment [address] [phone] 06/20/2025 8:15 AM EDT Appointment [address] [address] documented as of this encounter Visit Diagnoses Diagnosis Gastroesophageal reflux disease with esophagitis documented in this encounter Care Teams Hatchery Manager Relationship Specialty Start Date End Date Alvino Alvarez MD [address] [place] [address] PCP - General Family Medicine 03/28/16 Alvino Alvarez MD [address] [place] [address] PCP - [employer] Attributed 04/18/20 02/16/24 Brody Olivarez APRN [address] [facility] [address] [place] [address] PCP - [employer] Attributed 02/17/24 Jose Alfredo Fuentes MD [address] [place] [id number] Referring Provider Psychiatry, General 11/17/21 Faisal Dangelo MD [address] [place] [address] [address] [phone] Physician Surgery, Orthopedic 01/19/22 Damaris Lagunas MD [address] [place] [address] Primary Crown Wheel Assembler Cardiovascular Disease 01/20/22 Betty Zaldivar RN [address] [place] [address] ICP Community Timber Incisor Operator 01/31/22 08/13/24 Betty Zaldivar RN [address] [place] [address] ICP Community Timber Incisor Operator 03/02/22 08/13/24 Damaris Lagunas MD [address] [place] [address] Primary Crown Wheel Assembler Cardiovascular Disease 09/18/22 Corrie Bustamante RN [address] [place] [address] ICP Community Timber Incisor Operator 08/13/24 documented as of this encounter
--- OUTSIDE RECORDS SUMMARY | 2025-01-07 06:35 | XMS_ITS | Encounter Summary ---
Author Organization [facility] Address [address] [place] [address] Care Team Providers Care Rn Oncology Clinical Name Role Phone Alvino Alvarez MD Primary Care Provider Franki Gates MD Unavailable [phone] Encounter Details Date Type Department Care Team (Late st Contact Info) Description 2023 Ancillary Orders [facility], Radiology (IR) [address] [place], [place] [phone] Provider, MD Jeff [address] [place] [address] Social History Tobacco Use Types Packs/Day Years [...] on filedocumented in this encounter Care Teams Rn Oncology Clinical Relationship Specialty Start Date End Date Alvino Alvarez MD [address] [place] [address] PCP - General Family Medicine 05/12/20 Franki Gates MD [address] [facility] [address] [place] [address] Surgeon General Surgery 12/06/21 documented as of this encounter
--- OUTSIDE RECORDS SUMMARY | 2025-01-07 06:35 | XMS_ITS | Clinical Summary ---
Author Organization [employer] Address [address] [place] [address] Care Team Providers Care Turret Lathe Set Up Operator Name Role Phone Alvino Alvarez MD Primary Care Provider [phone] Franki Gates MD Unavailable [phone] Allergies Active Allergy Reactions Criticality Noted Date Comments Codeine Other 03/28/2016 Cold sweats Medications carbidopa-levod opa (Sinemet) 25-100 mg tablet Take 1 tablet by mouth 3 (three) times a day. 11/30/2021 Active pantoprazole (Protonix) 40 mg EC tablet Take 40 mg by mouth 1 (one) time each day. Active acetaminophen (TYLENOL) 500 mg tablet Take 2 tablets (1,000 mg total) by mouth every 8 (eight) hours if needed for mild pain. 60 tablet 01/28/2022 Active diazePAM (Valium) 5 mg tablet Take 1 tablet (5 mg total) by mouth every 8 (eight) hours if needed for muscle spasms. 30 tablet 01/28/2022 Active HYDROmorphone (Dilaudid) 2 mg tablet Take 1 tablet (2 mg total) by mouth every 4 (four) hours if needed for moderate pain. May take 2 tabs every 4 hrs prn severe pain 40 tablet 01/28/2022 Active sennosides-docu sate sodium (Pericolace) 8.6-50 mg tablet Take 1 tablet by mouth 2 (two) times a day if needed for constipation. 30 tablet 01/28/2022 Active Active Problems Problem Noted Date Diagnosed Date Spinal stenosis of lumbar region with radiculopa thy 01/26/2022 Preop examination 01/24/2022 Parkinson's disease 11/17/2021 Disturbance of skin sensation 12/23/2016 Adjustment insomnia 12/15/2016 Head and neck cancer 12/15/2016 RLS (restless legs syndrome) 12/15/2016 Snoring 12/15/2016 Gastroesophageal reflux disease without esophagi tis 03/28/2016 Overview (01/04/2022): Added automatically from request for surgery [id number] ADAMARIS (obstructive sleep apnea) 03/28/2016 Family History Medical History Relation Name Comments Cancer Father Cancer Mother multiple myelom a Breast cancer Sister 1 Relation Name Status Comments Father Mother Sister 1 Alive Sister 2 Alive Social History Tobacco Use Types Packs/Day Years Used Date Smoking Tobacco: Never Smokeless Tobacco: Never Alcohol Use Standard Drinks/Week Comments Yes 0 (1 standard drink = 0.6 oz pur e alcohol) social Sex and Gender Information Value Date Recorded Sex Assigned at Not on file Legal Sex Male 2:16 PM EST Gender Identity Not on file Sexual Orientation Not on file Last Filed Vital Signs Vital Sign Reading Time Taken Comments Blood Pressure 189/79 05/31/2023 1:07 PM EDT Pulse 44 05/31/2023 1:07 PM EDT Temperature 36.3 ??C (97.4 ??F) 01/28/2022 7:38 AM ED T Respiratory Rate 17 01/28/2022 7:38 AM EDT Oxygen Saturation 100% 05/31/2023 1:07 PM EDT Inhaled Oxygen Concentration - - Weight 99.9 kg (220 lb 3.8 oz) 01/28/2022 5:00 A M EDT Height 175.3 cm (5' 9 ) 01/24/2022 7:15 AM EDT Body Mass Index 32.52 01/24/2022 7:15 AM EDT Plan of Treatment Scheduled Orders Name Type Priority Associated Diagnoses Orde r Schedule PPT COVID-19 Procedures Routine Preop examination 1 Occurrences starting 01/13/2022 until 01/13/2023 Scheduled Referrals Name Type Priority Associated Diagnoses Orde r Schedule Ambulatory referral to Radiation Oncology Outpatient Referral Routine Malignant neoplasm of tonsil, unspecified (HCC) Expected: 05/30/2022, Expires: 05/30/2023 Ambulatory referral to General Surgery Outpatient Referral Routine Lumbar pain Expected: 11/08/2021, Expires: 11/08/2022 Ambulatory referral to Radiation Oncology Outpatient Referral Routine Secondary and unspecified malignant neoplasm of lymph nodes of head, face and neck (CMS/HCC) Expected: 11/09/2020, Expires: 11/09/2021 Ambulatory referral to Radiation Oncology Outpatient Referral Routine Malignant neoplasm of tonsil, unspecified (CMS/HCC) Expected: 05/06/2020, Expires: 05/06/2021 Health Maintenance Due Date Last Done Comments CT Colonography 1963 FIT-DNA 1963 FIT 1963 FOBT 1963 Hepatitis C Screening 1963 Lipid Panel 1963 Annual Physical Exam 1981 Pneumococcal Vaccine: 50+ Years (1 of 2 - PCV) 1982 05/03/2019 Zoster Vaccines (1 of 2) 08/26/2014 07/01/2014 Tdap and Td Vaccines Adult 09/18/2019 09/18/2009 RSV 60+ (1 - Risk 60-74 years 1-dose series) 2023 COVID-19 Vaccine ( season) 2024 02/23/2022, 08/16/2021, 12/16/2020, Additional history exists Influenza Vaccine (Season Ended) 2025 08/05/2021 Colonoscopy 07/01/2029 07/01/2019, 03/07/2012 Colorectal Cancer Screening 07/01/2029 Sigmoidoscopy 07/01/2029 07/01/2019 HIB Vaccines Aged Out No longer eligi ble based on patient's age to complete this topic HPV Vaccines Aged Out No longer eligi ble based on patient's age to complete this topic Hepatitis A Vaccines Aged Out No long er eligible based on patient's age to complete this topic IPV Vaccines Aged Out No longer eligi ble based on patient's age to complete this topic Meningococcal Vaccine Aged Out No connor winnie eligible based on patient's age to complete this topic RSV <20 Months Aged Out No longer edmundo gible based on patient's age to complete this topic Medical Devices Implanted Type Area Shuttlecock Feather Trimmer Device Identifier Shelf Expiration Date Model / Serial / Lot Bone Graft Spine Infuse Small Kit - [id number] - [id number] Implanted:Qty: 1 on 01/24/2022 by Faisal Dangelo MD at [facility] Implant N/A: Spine Lumbar Medtronic Sofamor [id number] 05/19/2023 [id number] / [id number] F / [id number] F Spacer Solus 14mm Large Alphatec - [id number] Implanted:Qty: 1 on 01/24/2022 by Faisal Dangelo MD at [facility] Implant N/A: Spine Lumbar ALPHATEC SP[employer]. [id number] 12/29/2023 05259-220 -S / / [id number] Plate Lumbar Aspida 14mm Alphatec - [id number] Implanted:Qty: 1 on 01/24/2022 by Brody Lucero MD at [facility] Implant N/A: Spine Lumbar AL[employer] 69735-52 / / Plate Lumbar Aspida Sacral 14mm - Alphatec - [id number] Implanted:Qty: 1 on 01/24/2022 by Brody Lucero MD at [facility] Implant N/A: Spine Lumbar ALPH[employer]EC [employer] 65826-38 / / Screw Alif 7.0mm X 25mm - Alphatec - [id number] Implanted:Qty: 2 on 01/24/2022 by Brody Lucero MD at [facility] Implant N/A: Spine Lumbar ALPH[employer]. 79398-69 / / Screw Aspida [id number] - [id number] Implanted:Qty: 6 on 01/24/2022 by Brody Lucero MD at [facility] Implant N/A: Spine Lumbar ALPH[employer]EC [employer]. 98491-11 / / Strip Profuse Bioscaffold Alphatec - [id number] - [id number] Implanted:Qty: 1 on 01/24/2022 by Faisal Dangelo MD at [facility] Implant N/A: Spine Lumbar AL[employer] 07/29/2026 [id number] Graft Bn Dbmfrm Algrf Strp Irrad [id number] Less Xps Srg - [id number] - [id number] Implanted:Qty: 1 on 01/24/2022 by Faisal Dangelo MD at [facility] Implant N/A: Spine Lumbar Spine Lutcher 10/14/2026 DBM-SS-30 / PTT- 31-0013 / PTT- 31-0013 Graft Bn Dbmfrm Algrf Strp Irrad [id number] Less Xps Srg - [id number] - [id number] Implanted:Qty: 1 on 01/24/2022 by Faisal Dangelo MD at [facility] Implant N/A: Spine Lumbar Spine Lutcher 10/19/2026 DBM-SS-30 / PTT- 43-0001 / PTT- 43-0001 Graft Bn Dbmfrm Algrf Strp Irrad [id number] Less Xps Srg - [id number] - [id number] Implanted:Qty: 1 on 01/24/2022 by Faisal Dangelo MD at [facility] Implant N/A: Spine Lumbar Spine Lutcher 10/14/2026 DBM-SS-30 / PTT- 31-0010 / PTT- 31-0010 Graft Bn Dbmpr 5ml Rick Algrf Less Xps g - [id number] - [id number] Implanted:Qty: 1 on 01/24/2022 by Faisal Dangelo MD at [facility] Implant N/A: Spine Lumbar Spine Lutcher 11/26/2024 [id number] / PTT- / PTT Neocore 5cc Osetocondutive Matix Alpatec Spine - [id number] - [id number] Implanted:Qty: 1 on 01/24/2022 by Faisal Dangelo MD at [facility] Implant N/A: Spine Lumbar [employer] 05/20/2024 [id number] / [id number] / [id number] 10ml Cbm Bio Lg Alphagraft - [id number] - [id number] Implanted:Qty: 1 on 01/24/2022 by Faisal Dangelo MD at [facility] Implant N/A: Spine Lumbar [employer] 11/01/2023 210-100 / [id number] Anterior Lumbar Interbody Fusion Device Large Mani 12-1 - [id number] Implanted:Qty: 1 on 01/24/2022 by Faisal Dangelo MD at [facility] Implant N/A: Spine Lumbar [employer] [id number] 08/31/2025 [id number] -S / / [id number] Insurance Advance Directives * Full Code (Latest Code Status on File) Date Activated Date Inactivated Comments 01/24/2022 11:54 AM 01/28/2022 2:24 PM Care Teams Turret Lathe Set Up Operator Relationship Specialty Start Date End Date Alvino Alvarez MD [address] [place] [address] PCP - General Family Medicine 05/12/20 Franki Gates MD [address] [facility] [address] [place] [address] Surgeon General Surgery 12/06/21
--- OUTSIDE RECORDS SUMMARY | 2025-01-07 06:35 | XMS_ITS | Encounter Summary ---
Author Organization [facility] Address [address] [place] [address] Care Team Providers Care Hearing Impaired Teacher Name Role Phone Alvino Alvarez MD Primary Care Provider [phone] Franki Gates MD Unavailable Reason for Referral * Imaging (Routine) - Closed Specialty Diagnoses / Procedures Referred By Jose C hurley Referred To Contact Radiology Diagnoses Severe pain Procedures CT SI JOINT INJECTION Faisal Dangelo MD [address] [place] [address] Phone: tel: fax: [facility] Radiology - Central Scheduling CT Phone: tel: fax: Referral ID Status Reason Start Date Expiration Date V isits Requested Visits Authorized [id number] Closed Perform Procedure 05/26/2023 06/19/2023 1 1 Encounter Details Date Type Department Care Team (Late st Contact Info) Description 05/26/[address] [facility] Radiology - Central Scheduling CT [phone] aFisal Dangelo MD [address] [place] [address] Severe pain Social History Tobacco Use Types Packs/Day Years [...] documented as of this encounter Results * CT SI JOINT INJECTION (05/31/2023 1:52 PM EDT) Anatomical Region Laterality Modality Body Computed Tomogra phy 06/11/2023 9:42 PM EDT Impressions 06/11/2023 9:[address]-guided SI joint steroid injection, bilateral. Narrative 06/11/2023 9:45 PM EDT PROCEDURE: ??CT SI JOINT INJECTION CLINICAL HISTORY: ??Severe pain, severe pain *CT guided bilateral SI injection Lumbar* COMPARISON: None. CT DOSE: ??ACR accredited CT equipment and radiation dose reduction techniques were employed. CTDIvol: 4.6 - 8.6 mGy. DLP: 271 mGy-cm. Procedure: Informed consent was obtained. The patient was positioned supine on the CT scanner and commissioner of conciliation imaging was obtained. The lower back was prepped and draped sterilely and a timeout was performed. The skin was anesthetized with 1% lidocaine. Under CT guidance, a 21-gauge spinal needle was inserted into the sacroiliac joint on each side. A small amount of 50-50 iodinated contrast and saline was injected into each joint to confirm position. A mixture of 40 mg Depo-Medrol and 2 cc of 0.5% bupivacaine was injected at each site. After the procedure, the needles were removed. Overall, the patient tolerated the procedure well. Procedure Note Goyo Rodriguez MD - 06/11/2023 PROCEDURE: CT SI JOINT INJECTION CLINICAL HISTORY: Severe pain, severe pain *CT guided bilateral SIinjection Lumbar* COMPARISON: None. CT DOSE: ACR accredited CT equipment and radiation dose reductiontechniques were employed. CTDIvol: 4.6 - 8.6 mGy. DLP: 271 mGy-cm. Procedure: Informed consent was obtained. The patient was positioned supine on the CTscanner and commissioner of conciliation imaging was obtained. The lower back was prepped anddraped sterilely and a timeout was performed. The skin was anesthetizedwith 1% lidocaine. Under CT guidance, a 21-gauge spinal needle wasinserted into the sacroiliac joint on each side. A small amount of 50-50iodinated contrast and saline was injected into each joint to confirmposition. A mixture of 40 mg Depo-Medrol and 2 cc of 0.5% bupivacaine wasinjected at each site. After the procedure, the needles were removed.Overall, the patient tolerated the procedure well. IMPRESSION: CT-guided SI joint steroid injection, bilateral. Faisal Dangelo MD IMG CT PROCEDURES Final Result documented in this encounter Visit Diagnoses Diagnosis Severe pain Severe pain documented in this encounter Care Teams Hearing Impaired Teacher Relationship Specialty Start Date End Date Alvino Alvarez MD [address] [place] [address] PCP - General Family Medicine 05/12/20 Franki Gates MD [address] [facility] [address] [place] [address] Surgeon General Surgery 12/06/21 documented as of this encounter
--- OUTSIDE RECORDS SUMMARY | 2025-01-07 06:35 | XMS_ITS | Encounter Summary ---
Author Organization [facility] Address [address] [place] [address] Care Team Providers Care Map Mounter Name Role Phone Alvino Alvarez MD Primary Care Provider [phone] Jose Alfredo Fuentes MD Unavailable Faisal Dangelo MD Unavailable [phone] Damaris Lagunas MD Unavailable Brody Olivarez APRN Unavailable [phone] Corrie Bustamante RN Unavailable [phone] Encounter Details Date Type Department Care Team (Late st Contact Info) Description 08/26/2024 Scanned Document [facility] Neurology [address] [phone] Physical Therapy, Scan Social History Tobacco Use Types Packs/Day [...] Description 02/25/2025 11:00 AM EDT Office Visit [address] [address] Damaris Lagunas MD [address] [place] [address] 03/19/2025 8:45 AM EDT Appointment [address] [address] 06/20/2025 8:15 AM EDT Appointment [address] [address] documented as of this encounter Visit Diagnoses Not on filedocumented in this encounter Care Teams Map Mounter Relationship Specialty Start Date End Date Alvino Alvarez MD [address] [place] [address] PCP - General Family Medicine 03/28/16 Brody Olivarez, ANA [address] [facility] [address] [place] [address] PCP - [place] Commercial Attributed 02/17/24 Jose Alfredo Fuentes MD [address] [place], [place] [phone] Referring Provider Psychiatry, General 11/17/21 Faisal Dangelo MD [address] [place] [address] Physician Surgery, Orthopedic 01/19/22 Damaris Lagunas MD [address] [place] [address] Primary Management Lead Cardiovascular Disease 01/20/22 Corrie Bustamante, RN [address] [facility] [address] [place] [address] [facility] Community Operating Room Registered Nurse 08/13/24 documented as of this encounter
--- OUTSIDE RECORDS SUMMARY | 2025-01-07 06:35 | XMS_ITS | Encounter Summary ---
Author Organization [facility] Address [address] [place] [address] Care Team Providers Care Meringuer Name Role Phone Alvino Alvarez MD Primary Care Provider [phone] Alvino Alvarez MD Unavailable [phone] Jose Alfredo Fuentes MD Unavailable Faisal Dangelo MD Unavailable [phone] Damaris Lagunas MD Unavailable Betty Zaldivar RN Unavailable [phone] Betty Zaldivar RN Unavailable [phone] Damaris Lagunas MD Unavailable Brody Olivarez LINE DIRECTOR Unavailable [phone] Corrie Bustamante RN Unavailable [phone] Encounter Details Date Type Department Care Team (Late st Contact Info) Description 11/15/2023 Prep for Surgery [facility] Heart & Vascular [place] - Electrophysiology [address] [facility] [address] [place] [address] Zully Taylor, LINE DIRECTOR [address] [id number] Social History Tobacco Use Types Packs/Day Years Used Date Smoking Tobacco: Never Smokeless Tobacco: Never Alcohol Use Standard Drinks/Week Comments Not Currently 0 (1 standard drink = 0.6 oz [...] more drinks on one occasion? Never 11/14/2023 Sex and Gender Information Value Date Recorded Sex Assigned at Not on file Legal Sex Male 11:58 AM EDT Gender Identity Male 10/07/2021 3:05 PM EST Sexual Orientation Heterosexual (straight) 10/07 3:05 PM EST documented as of this encounter Plan of Treatment Upcoming Encounters Date Type Department Care Team (Late st Contact Info) Description 02/25/2025 11:00 AM EDT Office Visit [address] [address] Damaris Lagunas MD [address] [place] [address] 03/19/2025 8:45 AM EDT Appointment [address] [address] 06/20/2025 8:15 AM EDT Appointment [address] [address] documented as of this encounter Visit Diagnoses Not on filedocumented in this encounter Care Teams Meringuer Relationship Specialty Start Date End Date Alvino Alvarez MD [address] [place] [address] PCP - General Family Medicine 03/28/16 Alvino Alvarez MD [address] [place], [place] [phone] PCP - [place] Commercial Attributed 04/18/20 02/16/24 Brody Olivarez APRN [address] [facility] [address] [place] [phone] PCP - [place] Commercial Attributed 02/17/24 Jose Alfredo Fuentes MD [address] [facility] [facility] [place] [address] Referring Provider Psychiatry, General 11/17/21 Faisal Dangelo MD [address] [place] [address] [address] [place] [phone] Physician Surgery, Orthopedic 01/19/22 Damaris Lagunas MD [address] [place] [address] Primary Cigarette Roller Cardiovascular Disease 01/20/22 Betty Zaldivar RN [address] [place] [address] [facility] Community Tip Length Checker 01/31/22 08/13/24 Betty Zaldivar RN [address] [place] [address] [facility] Community Tip Length Checker 03/02/22 08/13/24 Damaris Lagunas MD [address] [place] [address] Primary Cigarette Roller Cardiovascular Disease 09/18/22 Corrie Bustamante RN [address] [place] [address] [facility] Community Tip Length Checker 08/13/24 documented as of this encounter
--- OUTSIDE RECORDS SUMMARY | 2025-01-07 06:35 | XMS_ITS | Encounter Summary ---
Author Organization [facility] Address [address] [place] [address] Care Team Providers Care Studio Manager Name Role Phone Alvino Alvarez MD Primary Care Provider Franki Gates MD Unavailable [phone] Encounter Details Date Type Department Care Team (Late st Contact Info) Description 05/26/2023 Procedure Pass [facility], Radiology (CT Scan) [address] [place] [id number] Social History Tobacco Use Types Packs/Day Years [...] on filedocumented in this encounter Care Teams Studio Manager Relationship Specialty Start Date End Date Alvino Alvarez MD [address] [place] [address] PCP - General Family Medicine 05/12/20 Franki Gates MD 540 [facility] [address] [place], [place] [address] Surgeon General Surgery 12/06/21 documented as of this encounter
--- OUTSIDE RECORDS SUMMARY | 2025-01-07 06:35 | XMS_ITS | Encounter Summary ---
Author Organization [facility] Address [address] [place] [address] Care Team Providers Care Strap Machine Operator Name Role Phone Alvino Alvarez MD Primary Care Provider [phone] Alvino Alvarez MD Unavailable [phone] Jose Alfredo Fuentes MD Unavailable Faisal Dangelo MD Unavailable [phone] Damaris Lagunas MD Unavailable Betty Zaldivar RN Unavailable [phone] Betty Zaldivar RN Unavailable [phone] Damaris Lagunas MD Unavailable Brody Olivarez APRN Unavailable [phone] Corrie Bustamante RN Unavailable [phone] Encounter Details Date Type Department Care Team (Late st Contact Info) Description 09/15/2023 Telephone [place] [phone] [place] [address] Alvino Alvarez MD [address] [place] [address] Social History Tobacco Use Types Packs/Day Years [...] Description 02/25/2025 11:00 AM EDT Office Visit [facility] Vascular [address] [address] Damaris Lagunas MD [address] [place] [address] 03/19/2025 8:45 AM EDT Appointment [address] [phone] 06/20/2025 8:15 AM EDT Appointment [address] [address] documented as of this encounter Visit Diagnoses Not on filedocumented in this encounter Care Teams Strap Machine Operator Relationship Specialty Start Date End Date Alvino Alvarez MD [address] [place] [address] PCP - General Family Medicine 03/28/16 Alvino Alvarez MD 34 [facility] [address] PCP - [facility] Commercial Attributed 04/18/20 02/16/24 Brody Olivarez APRN 35 [facility] [address] [place] [address] PCP - [facility] Commercial Attributed 02/17/24 Jose Alfredo Fuentes MD [address] [place] [address] Referring Provider Psychiatry, General 11/17/21 Faisal Dangelo MD [address] [place] [address] [address] [place] [phone] Physician Surgery, Orthopedic 01/19/22 Damaris Lagunas MD [address] [place] [address] Primary Textile Broker Cardiovascular Disease 01/20/22 Betty Zaldivar RN [address] [employer] [address] [place] [phone] [facility] Community Agricultural Sciences Professor 01/31/22 08/13/24 Betty Zaldivar RN [address] [employer] [address] [place] [address] ICP Community Agricultural Sciences Professor 03/02/22 08/13/24 Damaris Lagunas MD [address] [place] [address] Primary Textile Broker Cardiovascular Disease 09/18/22 Corrie Bustamante RN [address] [employer] [address] [place] [address] [facility] Community Agricultural Sciences Professor 08/13/24 documented as of this encounter
--- OUTSIDE RECORDS SUMMARY | 2025-01-07 06:35 | XMS_ITS | Encounter Summary ---
Author Organization [facility] Address [address] [place] [address] Care Team Providers Care Library Technician Name Role Phone Alvino Alvarez MD Primary Care Provider [phone] Franki Gates MD Unavailable [phone] Reason for Referral * Imaging (Routine) - Closed Specialty Diagnoses / Procedures Referred By Jose C hurley Referred To Contact Radiology Diagnoses Severe pain Procedures CT SI JOINT INJECTION CT GUIDANCE FOR NEEDLE PLACEMENT Faisal Dangelo MD [address] [place] [address] Phone: tel: fax: [facility] Radiology - Central Scheduling CT Phone: tel: fax: Referral ID Status Reason Start Date Expiration Date V isits Requested Visits Authorized [id number] Closed Perform Procedure 05/12/2023 06/19/2023 1 1 Encounter Details Date Type Department Care Team (Late st Contact Info) Description 05/12/2023 Ancillary Orders [facility] Radiology - Central Scheduling CT [phone] Faisal Dangelo MD [address] [place], [place] [phone] Severe pain Social History Tobacco Use Types [...] positioned supine on the CT scanner and career technical supervisor imaging was obtained. The lower back was [...] was positioned supine on the CTscanner and career technical supervisor imaging was obtained. The lower back was [...] pain documented in this encounter Care Teams Library Technician Relationship Specialty Start Date End Date Alvino Alvarez MD [address] [place] [address] PCP - General Family Medicine 05/12/20 Franki Gates MD 540 [facility] [address] [place] [address] Surgeon General Surgery 12/06/21 documented as of this encounter
--- OUTSIDE RECORDS SUMMARY | 2025-01-07 06:35 | XMS_ITS | Encounter Summary ---
Author Organization [facility] Address [address] [place] [address] Care Team Providers Care Drug Clerk Name Role Phone Alvino Alvarez MD Primary Care Provider [phone] Franki Gates MD Unavailable [phone] Encounter Details Date Type Department Care Team (Late st Contact Info) Description 05/12/2023 Procedure Pass [facility], Radiology (CT Scan) [address] [place] [address] [id number] Social History Tobacco Use Types Packs/Day Years [...] on filedocumented in this encounter Care Teams Drug Clerk Relationship Specialty Start Date End Date Alvino Alvarez MD [address] [place] [address] PCP - General Family Medicine 05/12/20 Franki Gates MD [address] [facility] [address] [place], [place] [address] Surgeon General Surgery 12/06/21 documented as of this encounter
--- OUTSIDE RECORDS SUMMARY | 2025-01-07 06:35 | XMS_ITS | Encounter Summary ---
Author Organization [facility] Address [address] [place] [address] Care Team Providers Care Heat Treat Supervisor Name Role Phone Alvino Alvarez MD Primary Care Provider [phone] Alvino Alvarez MD Unavailable [phone] Jose Alfredo Fuentes MD Unavailable Faisal Dangelo MD Unavailable [phone] Damaris Lagunas MD Unavailable Betty Zaldivar RN Unavailable [phone] Betty Zaldivar RN Unavailable [phone] Damaris Lagunas MD Unavailable Brody Olivarez RUBBER HEEL AND SOLE PRESS TENDER Unavailable [phone] Corrie Bustamante RN Unavailable [phone] Encounter Details Date Type Department Care Team (Late st Contact Info) Description 08/11/2023 Scanned Document [facility] Pulmonary [place] [address] [facility] [address] [place] [phone] Pulmonary, Scan Social History Tobacco Use Types Packs/Day [...] 02/25/2025 11:00 AM EDT Office Visit [address] [address] Damaris Lagunas MD [address] [place] [address] 03/19/2025 8:45 AM EDT Appointment [address] [address] 06/20/2025 8:15 AM EDT Appointment [address] [address] documented as of this encounter Visit Diagnoses Not on filedocumented in this encounter Care Teams Heat Treat Supervisor Relationship Specialty Start Date End Date Alvino Alvarez MD [address] [place] [address] PCP - General Family Medicine 03/28/16 Alvino Alvarez MD [address] [place] [address] PCP - [place] Commercial Attributed 04/18/20 02/16/24 Brody Olivarez APRN [address] [facility] [address] [place] [address] PCP - [place] Commercial Attributed 02/17/24 Jose Alfredo Fuentes MD [address] [place], [place] [id number] Referring Provider Psychiatry, General 11/17/21 Faisal Dangelo MD [address] [place] [phone] Physician Surgery, Orthopedic 01/19/22 Damaris Lagunas MD [address] [place] [address] Primary Rotational Moulding Operator Cardiovascular Disease 01/20/22 Betty Zaldivar RN [address] [place] [address] [facility] Community Workplace Trainer And Assessor 01/31/22 08/13/24 Betty Zaldivar RN [address] [place] [address] [facility] Community Workplace Trainer And Assessor 03/02/22 08/13/24 Damaris Lagunas MD [address] [place] [address] 847463 [phone] Primary Rotational Moulding Operator Cardiovascular Disease 09/18/22 Corrie Bustamante RN [address] [place] [address] [facility] Community Workplace Trainer And Assessor 08/13/24 documented as of this encounter
--- OUTSIDE RECORDS SUMMARY | 2025-01-07 06:35 | XMS_ITS | Encounter Summary ---
Author Organization [facility] Address [address] [place] [address] Care Team Providers Care Racing Mechanic Name Role Phone Alvino Alvarez MD Primary Care Provider [phone] Alvino Alvarez MD Unavailable [phone] Jose Alfredo Fuentes MD Unavailable Faisal Dangelo MD Unavailable [phone] Damaris Lagunas MD Unavailable Betty Zaldivar RN Unavailable [phone] Betty Zaldivar RN Unavailable [phone] Damaris Lagunas MD Unavailable Brody Olivarez HAND LAUNDERER Unavailable [phone] Corrie Bustamante RN Unavailable [phone] Encounter Details Date Type Department Care Team (Late st Contact Info) Description 09/25/2023 Scanned Document [facility] [place] [address] [address] Cardiology, Scan Social History Tobacco [...] Description 02/25/2025 11:00 AM EDT Office Visit [address] [address] Damaris Lagunas MD [address] [place] [address] 03/19/2025 8:45 AM EDT Appointment [address] [address] 06/20/2025 8:15 AM EDT Appointment [address] [address] documented as of this encounter Visit Diagnoses Not on filedocumented in this encounter Care Teams Racing Mechanic Relationship Specialty Start Date End Date Alvino Alvarez MD [address] [place] [address] PCP - General Family Medicine 03/28/16 Alvino Alvarez MD [address] [place] [address] PCP - [place] Commercial Attributed 04/18/20 02/16/24 Brody Olivarez APRN [facility] [address] [place] [address] PCP - [place] Commercial Attributed 02/17/24 Jose Alfredo Fuentes MD [address] [place], [place] [phone] Referring Provider Psychiatry, General 11/17/21 Faisal Dangelo MD [address] [place] [phone] Physician Surgery, Orthopedic 01/19/22 Damaris Lagunas MD [address] [place] [address] Primary Latin Professor Cardiovascular Disease 01/20/22 Betty Zaldivar RN [address] [place] [address] [facility] Community Workers' Compensation Claims Supervisor 01/31/22 08/13/24 Betty Zaldivar RN [address] [place] [address] [facility] Community Workers' Compensation Claims Supervisor 03/02/22 08/13/24 Damaris Lagunas MD [address] [place] [address] [phone] Latin Professor Cardiovascular Disease 09/18/22 Corrie Bustamante RN [address] [place] [address] [facility] Community Workers' Compensation Claims Supervisor 08/13/24 documented as of this encounter
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
--- OUTSIDE RECORDS SUMMARY | 2025-01-07 06:35 | XMS_ITS | Encounter Summary ---
Author Organization [facility] Address [address] [place] [address] Care Team Providers Care Agricultural Equipment Sales Engineer Name Role Phone Alvino Alvarez MD Primary Care Provider [phone] Alvino Alvarez MD Unavailable [phone] Jose Alfredo Fuentes MD Unavailable Faisal Dangelo MD Unavailable [phone] Damaris Lagunas MD Unavailable Betty Zaldivar RN Unavailable [phone] Betty Zaldivar RN Unavailable [phone] Damaris Lagunas MD Unavailable Brody Olivarez FAMILY HEALTH NURSE PRACTITIONER Unavailable [phone] Corrie Bustamante RN Unavailable [phone] Encounter Details Date Type Department Care Team (Late st Contact Info) Description 07/28/2020 Scanned Document [facility] Provider, Generic Social History Tobacco Use Types Packs/Day Years [...] Description 02/25/2025 11:00 AM EDT Office Visit [address] [address] Damaris Lagunas MD [address] [place] [address] 03/19/2025 8:45 AM EDT Appointment [address] [address] 06/20/2025 8:15 AM EDT Appointment [address] [address] documented as of this encounter Visit Diagnoses Not on filedocumented in this encounter Care Teams Agricultural Equipment Sales Engineer Relationship Specialty Start Date End Date Alvino Alvarez MD [address] [place] [address] PCP - General Family Medicine 03/28/16 Alvino Alvarez MD [address] [place] [address] PCP - [place] Commercial Attributed 04/18/20 02/16/24 Brody Olivarez, FAMILY HEALTH NURSE PRACTITIONER 35 [facility] [address] [place] [address] PCP - [place] Commercial Attributed 02/17/24 Jose Alfredo Fuentes MD [address] [place], [place] [phone] Referring Provider Psychiatry, General 11/17/21 Faisal Dangelo MD [address] [place] [address] [address] [place] [address] Physician Surgery, Orthopedic 01/19/22 Damaris Lagunas MD [address] [place] [address] Primary Oil Painter Cardiovascular Disease 01/20/22 Betty Zaldivar, ALEXANDRE [address] [place] [address] ICP Community Quenching Car Operator 01/31/22 08/13/24 Betty Zaldivar RN [address] [place] [address] ICP Community Quenching Car Operator 03/02/22 08/13/24 Damaris Lagunas MD [address] [place] [address] Primary Oil Painter Cardiovascular Disease 09/18/22 Corrie Bustamante RN [address] [place] [address] ICP Community Quenching Car Operator 08/13/24 documented as of this encounter
--- OUTSIDE RECORDS SUMMARY | 2025-01-07 06:35 | XMS_ITS | Encounter Summary ---
Author Organization [facility] Address [address] [place] [address] Care Team Providers Care Collar Pointer Name Role Phone Alvino Alvarez MD Primary Care Provider [phone] Franki Gates MD Unavailable [phone] Reason for Referral * Imaging (Routine) - Closed Specialty Diagnoses / Procedures Referred By Jose C hurley Referred To Contact Radiology Diagnoses Vertebrogenic low back pain Sacroiliitis, not elsewhere classified (HCC) Procedures NM BONE SPECT Faisal Dangelo MD [address] [place] [address] Phone: tel: fax: [facility] Radiology - Central Scheduling [place] Phone: tel: fax: Referral ID Status Reason Start Date Expiration Date V isits Requested Visits Authorized [id number] Closed Perform Procedure 09/20/2023 09/19/2024 2 2 Encounter Details Date Type Department Care Team (Late st Contact Info) Description 09/20/2023 Ancillary Orders [facility] Radiology - Central Scheduling [place] [phone] Faisal Dangelo MD [address] [place] [address] Vertebrogenic low back pain (Primary Dx); Sacroiliitis, not elsewhere classified (HCC) Social History Tobacco Use Types Packs/Day [...] documented as of this encounter Results * NM BONE SPECT (09/28/2023 11:43 AM EST) Anatomical Region Laterality Modality Nuclear Medicine 10/02/2023 8:28 AM EST Impressions 10/02/2023 8:33 AM EST No abnormal activity along the SI joints but cannot exclude mild sacroiliitis because of very faint sclerosis in the bone. If there is persistent clinical suspicion for sacroiliitis consider MRI. No other abnormal activity seen. Narrative 10/02/2023 8:33 AM EST PROCEDURE: ??NM BONE SPECT CLINICAL INDICATION: ??Vertebrogenic low back pain, Sacroiliitis, not elsewhere classified (HCC), incude sacrum/// Patient states Spinal fusion L 5 to S 1 ??and he has back pain ever since. ??Walking pain level starts at a 4 and can end at a 9 ??(pain scale of 1 to 10) COMPARISON: None. PROTOCOL: Transaxial, Sagittal and Coronal SPECT images were obtained with concurrently acquired computed tomography for attentuation correction, post-radiopharmaceutical administration. ?? RADIOPHARMACEUTICAL: 20.9 millicurie intravenous FINDINGS: Planar, SPECT, and MIP images were obtained. Also a low-dose CT scan was obtained. There is orthopedic hardware in the lower lumbar spine. No abnormal activity is appreciated there. I do not appreciate definite abnormal activity along the SI joints. On the low- dose CT scan there is faint increased density in the iliac bones adjacent to the sacroiliac joints. If there is persistent clinical suspicion for sacroiliitis, consider an MRI scan of the SI joints. Procedure Note Ian Rehman MD - 10/02/2023 PROCEDURE: NM BONE SPECT CLINICAL INDICATION: Vertebrogenic low back pain, Sacroiliitis, notelsewhere classified (HCC), incude sacrum/// Patient states Spinal fusionL 5 to S 1 and he has back pain ever since. Walking pain level starts nithin 4 and can end at a 9 (pain scale of 1 to 10) COMPARISON: None. PROTOCOL: Transaxial, Sagittal and Coronal SPECT images were obtained withconcurrently acquired computed tomography for attentuation correction,post-radiopharmaceutical administration. RADIOPHARMACEUTICAL: 20.9 millicurie intravenous FINDINGS: Planar, SPECT, and MIP images were obtained. Also a low-dose CT scan wasobtained. There is orthopedic hardware in the lower lumbar spine. No abnormalactivity is appreciated there. I do not appreciate definite abnormal activity along the SI joints. On thelow- dose CT scan there is faint increased density in the iliac bonesadjacent to the sacroiliac joints. If there is persistent clinicalsuspicion for sacroiliitis, consider an MRI scan of the SI joints. IMPRESSION: No abnormal activity along the SI joints but cannot exclude mildsacroiliitis because of very faint sclerosis in the bone. If there ispersistent clinical suspicion for sacroiliitis consider MRI. No otherabnormal activity seen. us Faisal Dangelo MD IMG NM PROCEDURES Final Result documented in this encounter Visit Diagnoses Diagnosis Vertebrogenic low back pain- Primary Sacroiliitis, not elsewhere classified (HCC) Sacroiliitis, not elsewhere classified Vertebrogenic low back pain Sacroiliitis, not elsewhere classified (HCC) Sacroiliitis, not elsewhere classified documented in this encounter Care Teams Collar Pointer Relationship Specialty Start Date End Date Alvino Alvarez MD [address] [place] [address] PCP - General Family Medicine 05/12/20 Franki Gates MD 540 [facility] [address] [place] [address] Surgeon General Surgery 12/06/21 documented as of this encounter
--- OUTSIDE RECORDS SUMMARY | 2025-01-07 06:35 | XMS_ITS | Clinical Summary ---
Author Organization [facility] ity Address [address] [place] [address] Care Team Providers Care Sprinkler Irrigation Equipment Mechanic Name Role Phone Alvino Alvarez MD Primary Care Provider [phone] Immunizations Name Administration Dates Next Due Moderna SARS-CoV-2 COVID-19, mRNA, LNP-S, preservative free 02/23/2022 Social History Tobacco Use Types Packs/Day Years Used Date Smoking Tobacco: Never Assessed Sex and Gender Information Value Date Recorded Sex Assigned at Not on file Legal Sex Male 10:55 PM EST Gender Identity Not on file Sexual Orientation Not on file Plan of Treatment Health Maintenance Due Date Last Done Comments DTaP,Tdap,and Td Vaccines (1 - Tdap) 1982 Pneumococcal Vaccine: 50+ Ye ars (1 of 1 - PCV) 2013 Zoster Vaccines (1 of 2) 2013 Cholesterol Screening (Lipid Panel) 08/21/2022 Colorectal Cancer Screening: Colonoscopy 08/21/2022 Depression Screening 08/21/2022 HIV Screening 08/21/2022 Hepatitis C Screening 08/21/2022 Social Influencers of Health Screening 08/21/2022 COVID-19 Vaccine (2 - 2023-2 5 season) 2024 02/23/2022 Influenza Vaccine (Season Ended) 2025 RSV Immunization Adult Patie nts (1 - 1-dose 75+ series) 2038 HIB Vaccines Aged Out No longer eligi [...] patient's age to complete this topic Meningococcal ACWY Vaccine Aged Out N o longer eligible based on patient's age to complete this topic Meningococcal B Vaccine Aged Out No l onger eligible based on patient's age to complete this topic Pneumococcal Vaccine: Pediat rics (0 to 5 Years) and At-Risk Patients (6 to 64 Years) Aged Out No longer eligi ble based on patient's age to complete this topic RSV Immunization Patients Un esa 20 months Aged Out No longer eligible b ased on patient's age to complete this topic Varicella Vaccines Aged Out No longer eligible based on patient's age to complete this topic Care Teams Sprinkler Irrigation Equipment Mechanic Relationship Specialty Start Date End Date Alvino Alvarez MD [address] [place] [address] PCP - General 08/17/23
--- OUTSIDE RECORDS SUMMARY | 2025-01-07 06:35 | XMS_ITS | Encounter Summary ---
Author Organization [facility] Address [address] [place] [address] Care Team Providers Care Dispatcher Chief Oil Name Role Phone Alvino Alvarez MD Primary Care Provider [phone] Alvino Alvarez MD Unavailable [phone] Jose Alfredo Fuentes MD Unavailable Faisal Dangelo MD Unavailable [phone] Damaris Lagunas MD Unavailable Betty Zaldivar RN Unavailable [phone] Betty Zaldivar RN Unavailable [phone] Damaris Lagunas MD Unavailable Brody Olivarez TRAINS DISPATCHER SUPERVISOR Unavailable [phone] Corrie Bustamante RN Unavailable [phone] Reason for Visit * Reason Comments Referral Encounter Details Date Type Department Care Team (Late st Contact Info) Description 09/14/2023 Telephone [facility] [address] [place] [address] Bharat Cox MD [address] [place] [address] [address] [place] [address] Referral Social History Tobacco Use Types Packs/Day Years [...] Description 02/25/2025 11:00 AM EDT Office Visit [facility] Vascular [address] [address] Damaris Lagunas MD [address] [place] [address] 03/19/2025 8:45 AM EDT Appointment [address] [address] 06/20/2025 8:15 AM EDT Appointment [address] [address] documented as of this encounter Visit Diagnoses Not on filedocumented in this encounter Care Teams Dispatcher Chief Oil Relationship Specialty Start Date End Date Alvino Alvarez MD [address] [place] [address] PCP - General Family Medicine 03/28/16 Avlino Alvarez MD [address] [place] [address] PCP - [place] Commercial Attributed 04/18/20 02/16/24 Brody Olivarez APRN 35 [facility] [address] [place] [address] PCP - [place] Commercial Attributed 02/17/24 Jose Alfredo Fuentes MD [address] [place] [address] Referring Provider Psychiatry, General 11/17/21 Faisal Dangelo MD [address] [place] [phone] Physician Surgery, Orthopedic 01/19/22 Damaris Lagunas MD [address] [place] [address] Primary Butadiene Converter Operator Cardiovascular Disease 01/20/22 Betty Zaldivar RN [address] [place] [address] ICP Community Plumbers And Top Helpers 01/31/22 08/13/24 Betty Zaldivar RN [address] [employer] [address] [address] ICP Community Plumbers And Top Helpers 03/02/22 08/13/24 Damaris Lagunas MD [address] [place] [address] Primary Butadiene Converter Operator Cardiovascular Disease 09/18/22 Corrie Bustamante RN [address] [employer] [employer] [place] [address] ICP Community Plumbers And Top Helpers 08/13/24 documented as of this encounter
--- OUTSIDE RECORDS SUMMARY | 2025-01-07 06:35 | XMS_ITS | Encounter Summary ---
Author Organization [facility] Address [address] [place] [address] Care Team Providers Care Patient Registration Manager Name Role Phone Alvino Alvarez MD Primary Care Provider [phone] Jose Alfredo Fuentes MD Unavailable Faisal Dangelo MD Unavailable [phone] Damaris Lagunas MD Unavailable Betty Zaldivar RN Unavailable [phone] Betty Zaldivar RN Unavailable [phone] Brody Olivarez APRN Unavailable [phone] Corrie Bustamante RN Unavailable [phone] Encounter Details Date Type Department Care Team (Late st Contact Info) Description 08/08/2024 Scanned Document [facility] Pulmonary [address] [place] [address] Alvino Alvarez MD [address] [place], [place] [id number] Social History Tobacco Use Types Packs/Day Years [...] Description 02/25/2025 11:00 AM EDT Office Visit [address] [address] Damaris Lagunas MD [address] [place] [address] 03/19/2025 8:45 AM EDT Appointment [address] [address] 06/20/2025 8:15 AM EDT Appointment [address] [address] documented as of this encounter Visit Diagnoses Not on filedocumented in this encounter Care Teams Patient Registration Manager Relationship Specialty Start Date End Date Alvino Alvarez MD [address] [place] [address] PCP - General Family Medicine 03/28/16 Brody Olivarez APRN [address] [facility] [address] [place] [address] PCP - [place] Commercial Attributed 02/17/24 Jose Alfredo Fuentes MD [address] [place] [address] Referring Provider Psychiatry, General 11/17/21 Faisal Dangelo MD 430 [facility] [address] [place] [phone] Physician Surgery, Orthopedic 01/19/22 Damaris Lagunas MD [address] [place] [address] Primary Crime Scene Analyst Cardiovascular Disease 01/20/22 Betty Zaldivar RN [address] [place] [address] ICP Community Putaway Driver 01/31/22 08/13/24 Betty Zaldivar RN [address] [place] [address] ICP Community Putaway Driver 03/02/22 08/13/24 Corrie Bustamante RN [address] [employer] [address] [place] [address] ICP Community Putaway Driver 08/13/24 documented as of this encounter
--- OUTSIDE RECORDS SUMMARY | 2025-01-07 06:35 | XMS_ITS | Encounter Summary ---
Author Organization [facility] Address [address] [place] [address] Care Team Providers Care Shrimp Cleaner Name Role Phone Alvino Avlarez MD Primary Care Provider Franki Gates MD Unavailable [phone] Reason for Referral * Imaging (Routine) - Closed Specialty Diagnoses / Procedures Referred By Jose C hurley Referred To Contact Radiology Diagnoses Low back pain Other intervertebral disc displacement, lumbar region Other muscle spasm Procedures XR LUMBAR SPINE COMPLETE 4+ VIEWS Crystal Hamlin DC [address] [place] [address] [place] [address] Phone: tel: fax: [facility] Radiology - Central Scheduling [place] Phone: tel: fax: Referral ID Status Reason Start Date Expiration Date V isits Requested Visits Authorized [id number] Closed Perform Procedure 04/02/2021 04/02/2022 1 1 Encounter Details Date Type Department Care Team (Late st Contact Info) Description 04/02/2021 Ancillary Orders [facility] [address] [place] [address] Crystal Hamlin DC [address] [place] [place] [address] Low back pain; Other intervertebral disc displacement, lumbar region; Other muscle spasm Social History Tobacco Use Types Packs/Day Years [...] or suspected to have Coronavirus / COVID-19? Unable to assess 04/02/2021 10:49 AM EDT documented as of this encounter Plan of Treatment Not on file documented as of this encounter Results * XR LUMBAR SPINE COMPLETE 4+ VIEWS (04/02/2021 11:01 AM EDT) Anatomical Region Laterality Modality Computed Radiogr aphy 04/02/2021 12:1 8 PM EDT Impressions 04/02/2021 12:22 PM EDT Mild to moderate degenerative changes in the lumbar spine, worst at L5-S1. Narrative 04/02/2021 12:22 PM EDT CLINICAL INDICATION: Low back pain, back pain, //pt states lower rt back pain x 6month. no traum or surgs. diff to walk or weight bear. PROTOCOL: Lumbar spine, 5 views, AP, Both Obliques, Lateral, and L5-S1 spot. COMPARISON: None. FINDINGS: Alignment: Minimal rightward curvature of the lumbar spine with apex at L3-4. Bones: Vertebral body heights are preserved. Degenerative changes: Moderate narrowing of the L5-S1 intervertebral disc height and spurring of the endplates. There is mild narrowing of the L1-2 and L2-3 intervertebral disc heights there is mild facet joint hypertrophy in the mid and lower lumbar spine. Other: None Procedure Note Aric Judd MD - 04/02/2021 CLINICAL INDICATION: Low back pain, back pain, //pt states lower rt backpain x 6month. no traum or surgs. diff to walk or weight bear. PROTOCOL: Lumbar spine, 5 views, AP, Both Obliques, Lateral, and L5-S1 spot. COMPARISON: None. FINDINGS: Alignment: Minimal rightward curvature of the lumbar spine with apex atL3-4. Bones: Vertebral body heights are preserved. Degenerative changes: Moderate narrowing of the L5-S1 intervertebral discheight and spurring of the endplates. There is mild narrowing of the L1-2and L2-3 intervertebral disc heights there is mild facet joint hypertrophyin the mid and lower lumbar spine. Other: None IMPRESSION: Mild to moderate degenerative changes in the lumbar spine, worst atL5-S1. us Crystal Hamlin DC IMG XR PROCEDURES Final Resul t documented in this encounter Visit Diagnoses Diagnosis Low back pain Lumbago Other intervertebral disc displacement, lumbar region Other muscle spasm Low back pain Lumbago Other intervertebral disc displacement, lumbar region Other muscle spasm documented in this encounter Care Teams Shrimp Cleaner Relationship Specialty Start Date End Date Alvino Alvarez MD [address] [place] [address] PCP - General Family Medicine 05/12/20 Franki Gates MD [address] [address] [place] [address] Surgeon General Surgery 12/06/21 documented as of this encounter
--- OUTSIDE RECORDS SUMMARY | 2025-01-07 06:35 | XMS_ITS | Encounter Summary ---
Author Organization [facility] Address [address] [place] [address] Care Team Providers Care Donor Recruitment Manager Name Role Phone Alvino Alvarez MD Primary Care Provider Franki Gates MD Unavailable [phone] Encounter Details Date Type Department Care Team (Late st Contact Info) Description 11/03/2022 Procedure [facility] [address] [place], [place] [id number] Social History Tobacco Use Types Packs/Day Years [...] on filedocumented in this encounter Care Teams Donor Recruitment Manager Relationship Specialty Start Date End Date Alvino Alvarez MD [address] [place] [address] PCP - General Family Medicine 05/12/20 Franki Gates MD 540 [facility] [address] [place], [place] [address] Surgeon General Surgery 12/06/21 documented as of this encounter
--- OUTSIDE RECORDS SUMMARY | 2025-01-07 06:35 | XMS_ITS | Encounter Summary ---
Author Organization [facility] Address [address] [place] [address] Care Team Providers Care Websphere Architect Name Role Phone Alvino Alvarez MD Primary Care Provider [phone] Franki Gates MD Unavailable [phone] Encounter Details Date Type Department Care Team (Late st Contact Info) Description 01/24/2022 Procedure Pass [facility], Main Operating Room [address] [place] [phone] Social History Tobacco Use Types Packs/Day Years [...] on filedocumented in this encounter Care Teams Websphere Architect Relationship Specialty Start Date End Date Alvino Alvarez MD [address] [place] [address] PCP - General Family Medicine 05/12/20 Franki Gates MD 540 [facility] [address] [place] [address] Surgeon General Surgery 12/06/21 documented as of this encounter
--- OUTSIDE RECORDS SUMMARY | 2025-01-07 06:35 | XMS_ITS | Encounter Summary ---
Author Organization [facility] Address [address] [place] [address] Care Team Providers Care Senior Account Manager Name Role Phone Alvino Alvarez MD Primary Care Provider Franki Gates MD Unavailable [phone] Reason for Referral * Imaging (Routine) - Closed Specialty Diagnoses / Procedures Referred By Jose C hurley Referred To Contact Radiology Diagnoses Vertebrogenic low back pain Sacroiliitis, not elsewhere classified (HCC) Procedures CT LUMBAR SPINE WO IV CONTRAST Faisal Dangelo MD Phone: tel: fax: [facility] Radiology - Central Scheduling [place] Phone: tel: fax: Referral ID Status Reason Start Date Expiration Date V isits Requested Visits Authorized [id number] Closed Perform Procedure 11/03/2022 01/01/2023 1 1 Encounter Details Date Type Department Care Team (Late st Contact Info) Description 11/03/2022 Ancillary Orders [facility] Radiology - Central Scheduling [place] [phone] Faisal Dangelo MD [address] [place] [address] Vertebrogenic low back pain; Sacroiliitis, not elsewhere classified (CMS/HCC) (HCC) Social History Tobacco Use Types Packs/Day [...] as of this encounter Results * CT LUMBAR SPINE WO IV CONTRAST (11/08/2022 8:55 AM EST) Anatomical Region Laterality Modality Spine, L-spine Computed Tomogra phy 11/08/2022 10:0 6 AM EST Impressions 11/08/2022 10:11 AM EST Postsurgical changes in the lower lumbar spine, as described. No evidence of hardware complications. Narrative 11/08/2022 10:11 AM EST CLINICAL HISTORY: Vertebrogenic low back pain, Sacroiliitis, not elsewhere classified (CMS/HCC) ([facility]), Vertebrogenic low back pain, PROTOCOL: Axial helical images from L1 through Sacroiliac joints with multiplanar reformations including reformations through the intervertebral disc spaces and 3D reformations. ?? Metal Artifact Reduction Technique CT DOSE: ACR accredited CT equipment and radiation dose reduction techniques were employed. CTDIvol: 29.7 mGy. DLP: 891 mGy-cm. COMPARISON: None. FINDINGS: Alignment: There is normal alignment of the lumbar spine. Bones: Vertebral body heights are preserved, with no evidence for compression fractures.. No suspicious focal lesions. Postsurgical changes in the lower lumbar spine with left posterior spinal fusion hardware extending from L4 to S1 and anterior spinal fusion hardware and intervertebral disc spacers at L4-5 and L5-S1. There is fusion hardware in the spinous processes at L4-5. Hardware is intact without evidence of complications. Level by level postsurgical and degenerative changes are described in detail below: L1-L2: Tiny disc bulge.. No significant spinal or neuroforaminal narrowing. L2-L3: Normal disc. Mild facet joint hypertrophy. No significant spinal or neuroforaminal narrowing. L3-L4: Tiny disc bulge and mild facet joint hypertrophy. No significant spinal stenosis. There is mild right and no left foraminal narrowing L4-L5: Status post fusion. No bony spinal stenosis. There is mild bilateral foraminal narrowing. L5-S1: Status post fusion. No bony spinal stenosis. There is moderate bilateral foraminal narrowing Visualized soft tissues: Unremarkable. Procedure Note Aric Judd MD - 11/08/2022 CLINICAL HISTORY: Vertebrogenic low back pain, Sacroiliitis, not elsewhereclassified (CMS/HCC) (HCC), Vertebrogenic low back pain, PROTOCOL: Axial helical images from L1 through Sacroiliac joints with multiplanarreformations including reformations through the intervertebral disc spacesand 3D reformations. Metal Artifact Reduction Technique CT DOSE: ACR accredited CT equipment and radiation dose reduction techniques wereemployed. CTDIvol: 29.7 mGy. DLP: 891 mGy-cm. COMPARISON: None. FINDINGS: Alignment: There is normal alignment of the lumbar spine. Bones: Vertebral body heights are preserved, with no evidence forcompression fractures.. No suspicious focal lesions. Postsurgical changesin the lower lumbar spine with left posterior spinal fusion hardwareextending from L4 to S1 and anterior spinal fusion hardware andintervertebral disc spacers at L4-5 and L5-S1. There is fusion hardware inthe spinous processes at L4-5. Hardware is intact without evidence ofcomplications. Level by level postsurgical and degenerative changes are described indetail below: L1-L2: Tiny disc bulge.. No significant spinal or neuroforaminalnarrowing. L2-L3: Normal disc. Mild facet joint hypertrophy. No significant spinal orneuroforaminal narrowing. L3-L4: Tiny disc bulge and mild facet joint hypertrophy. No significantspinal stenosis. There is mild right and no left foraminal narrowing L4-L5: Status post fusion. No bony spinal stenosis. There is mildbilateral foraminal narrowing. L5-S1: Status post fusion. No bony spinal stenosis. There is moderatebilateral foraminal narrowing Visualized soft tissues: Unremarkable. IMPRESSION: Postsurgical changes in the lower lumbar spine, as described. No evidenceof hardware complications. us Faisal Dangelo MD IMG CT PROCEDURES Final Result documented in this encounter Visit Diagnoses Diagnosis Vertebrogenic low back pain Sacroiliitis, not elsewhere classified (HCC) Sacroiliitis, not elsewhere classified Vertebrogenic low back pain Sacroiliitis, not elsewhere classified (HCC) Sacroiliitis, not elsewhere classified documented in this encounter Care Teams Senior Account Manager Relationship Specialty Start Date End Date Alvino Alvarez MD 34 [place] [address] PCP - General Family Medicine 05/12/20 Franki Gates MD 540 [facility] [address] [place] [address] Surgeon General Surgery 12/06/21 documented as of this encounter
--- OUTSIDE RECORDS SUMMARY | 2025-01-07 06:35 | XMS_ITS | Encounter Summary ---
Author Organization [facility] Address [address] [place] [address] Care Team Providers Care Imagery Intelligence Name Role Phone Alvino Alvarez MD Primary Care Provider Franki Gates MD Unavailable [phone] Encounter Details Date Type Department Care Team (Late st Contact Info) Description 01/23/2022 Procedure Pass [facility] Radiology, [facility] (Diag Rad) [address] [place] [phone] Social History Tobacco Use Types Packs/Day Years [...] on filedocumented in this encounter Care Teams Imagery Intelligence Relationship Specialty Start Date End Date Alvino Alvarez MD [address] [place] [address] PCP - General Family Medicine 05/12/20 Franki Gates MD 540 [facility] [address] [place] [address] Surgeon General Surgery 12/06/21 documented as of this encounter
--- OUTSIDE RECORDS SUMMARY | 2025-01-07 06:35 | XMS_ITS | Encounter Summary ---
Author Organization [facility] Address [address] [place] [address] Care Team Providers Care Feller Operator Name Role Phone Alvino Alvarez MD Primary Care Provider Franki Gates MD Unavailable [phone] Reason for Referral * Imaging (Routine) - Closed Specialty Diagnoses / Procedures Referred By Jose C hurley Referred To Contact Radiology Diagnoses History of head and neck cancer Procedures XR CHEST 2 VIEWS Pradeep Diamond MD [address] [place] [address] Phone: tel: fax: [facility] Radiology - Central Scheduling [place] Phone: tel: fax: Referral ID Status Reason Start Date Expiration Date V isits Requested Visits Authorized [id number] Closed Perform Procedure 02/28/2022 02/28/2023 1 1 Encounter Details Date Type Department Care Team (Late st Contact Info) Description 02/28/2022 Ancillary Orders [facility] Radiology, Outpatient Center (Diag Rad) [address] [facility], [address] [place] [address] Pradeep Diamond MD [address] [place] [address] History of head and neck cancer Social History Tobacco Use Types Packs/Day Years [...] have Coronavirus / COVID-19? No / Unsure 02/28/2022 1:04 PM EDT documented as of this encounter Plan of Treatment Not on file documented as of this encounter Results * XR CHEST 2 VIEWS (02/28/2022 1:33 PM EDT) Anatomical Region Laterality Modality Computed Radiogr aphy 02/28/2022 1:53 PM EDT Impressions 02/28/2022 1:54 PM EDT No acute or significant focal finding. Narrative 02/28/2022 1:54 PM EDT CLINICAL INDICATION: History of head and neck cancer, hx of head and neck cancer ///pt states head and neck ca 5 yrs ago; no hx of heart or lung disease, PROTOCOL: Chest, 2 views,Frontal and Lateral views COMPARISON: Previous FINDINGS: 2 views. The heart size remains upper normal. The lungs remain clear. Procedure Note Ian Rehman MD - 02/28/2022 CLINICAL INDICATION: History of head and neck cancer, hx of head and neckcancer ///pt states head and neck ca 5 yrs ago; no hx of heart or lungdisease, PROTOCOL: Chest, 2 views,Frontal and Lateral views COMPARISON: Previous FINDINGS: 2 views. The heart size remains upper normal. The lungs remain clear. IMPRESSION: No acute or significant focal finding. Pradeep Diamond MD IMG XR PROCEDURES Katerina l Result documented in this encounter Visit Diagnoses Diagnosis History of head and neck cancer History of head and neck cancer documented in this encounter Care Teams Feller Operator Relationship Specialty Start Date End Date Alvino Alvarez MD [address] [place] [address] PCP - General Family Medicine 05/12/20 Franki Gates MD 540 [facility] [address] [place] [address] Surgeon General Surgery 12/06/21 documented as of this encounter
== END 2025-01-07 06:31 | disposition home or self-care (01) ==
LOC: CF 06:30
PROVIDERS: Visit Provider Anesthesiology
DX: M53.3 Sacrococcygeal disorders, not elsewhere classified (principal)
CPT/HCPCS: 27096; J2003; J2795; Q9967

== ENCOUNTER 2025-01-07 10:52 | Outpatient (AMB) | payer BC, SELFPAY ==
[2025-01-07 11:00] VITALS: BP 114/71; PULSE 66; RESP 16; O2SAT 99
--- NOTE | 2025-01-07 11:00 | A.OFFVIS_ITS ---
Vital Signs 01/07/25 11:00 01/07/25 11:19 BP 114/71 143/75 H Blood Pressure Location Lt brachial Lt brachial Position Sitting Sitting Respiration 16 16 Pulse 66 66 Pulse Source Pulse Oximeter Pulse Oximeter Pulse Oximetry (%) 99 99 Oxygen Delivery Method Room Air Room Air Intake Visit Reasons: BILATERAL DIAGNOSTIC SIJ INJECTIONS Anger Control Counselor Required: No Allergies codeine Allergy (Intermediate, Verified 01/07/25 11:00) cold sweats Medication List - Last Reconciled 01/07/25 by Renee Cha LPN carbidopa-levodopa 25-100 mg tabs PO pantoprazole 40 mg PO DAILY tadalafil mg PO venlafaxine ER 37.5 mg PO DAILY PFSH Medical History (Updated 08/01/24 @ 11:58 by Richard Montilla MD) History of heart block Hx of sinus bradycardia History of restless legs syndrome Bronchitis Elevated cholesterol ADAMARIS on CPAP Hx of cataract History of chemotherapy Hx of radiation therapy Depression Pacemaker Parkinson disease Surgical History (Updated 07/26/24 @ 13:27 by Zarina Fink RN) Hx of esophagogastroduodenoscopy History of throat surgery Hx of colonoscopy Hx of spinal fusion Social History Patient Tobacco Use Status: Never used Tobacco Physical Exam Vital Signs: Last Vital Signs Pulse 66 01/07/25 11:19 Resp 16 01/07/25 11:19 BP 143/75 H 01/07/25 11:19 Pulse Ox 99 01/07/25 11:19 Oxygen Delivery Method Room Air 01/07/25 11:19 Assessment & Plan Assessment & Plan (1) Sacroiliac joint dysfunction of both sides: Code(s): M53.3 - Sacrococcygeal disorders, not elsewhere classified Category: Medical Plan Bilateral Sacroiliac joint injection diagnostic. Informed consent was thoroughly explained to the patient before the procedure.? The patient came to the operating room.?He was positioned prone on operating table with a pillow under her abdomen.? Time-out was performed delineating correct site and side of the procedure, nature of the injection, name and date of of the patient. The lower back and upper buttocks of the patient was prepped with ChloraPrep and draped with sterile utility towels.? C-arm was brought over the operating field and picture of right sacroiliac joint was demonstrated on the screen. Tilting machine contralateral left 20 degrees from the midline the anterior portion of the silhouette of the joint was superimposed on posterior portion of the silhouette of the joint. The skin was anesthetized with mixture of ropivacaine 0.5% and lidocaine 2% one-to-one slightly medial to the silhouette of the sacroiliac joint. 22 gauge 3-1/2 inch spinal needle was inserted through the skin wheal and advanced to the sacroiliac joint. When tip of the needle entered the sacroiliac joint injection of the contrast performed delineating arthrogram. After that 4 cc of ropivacaine 0.5% was injected into the joint. Upon completion of the injection needle was removed the procedure was repeated on the left in mirroring fashion. The performance of the injectionon the left was more difficult with several attempts made to reach the SI joint space. upon complition of the injection the needle was removed an bandades were applied Patient tolerated the procedure well. Orders: Orders [place] guidance in treatment room Today M53.3 - Sacrococcygeal disorders, not elsewhere classified Coding Level of Care Code Procedure Only Diagnoses Sacroiliac joint dysfunction of both sides M53.3
[2025-01-07 11:19] VITALS: BP 143/75; PULSE 66; RESP 16; O2SAT 99
--- OUTSIDE RECORDS SUMMARY | 2025-01-07 12:54 | XMS_ITS | Encounter Summary ---
Author Organization [facility] Address [address] [place] [address] Care Team Providers Care Candle Cutter Name Role Phone Alvino Alvarez MD Primary Care Provider [phone] Alvino Alvarez MD Unavailable [phone] Jose Alfredo Fuentes MD Unavailable Faisal Dangelo MD Unavailable [phone] Damaris Lagunas MD Unavailable Betty Zaldivar RN Unavailable [phone] Betty Zaldivar RN Unavailable [phone] Damaris Lagunas MD Unavailable Brody Olivarez PUTTY MAKER Unavailable [phone] Corrie Bustamante RN Unavailable [phone] Encounter Details Date Type Department Care Team (Late st Contact Info) Description 03/09/2022 Scanned Document [facility] [place] [address] [address] Cardiology, Scan Social History Tobacco [...] 02/25/2025 11:00 AM EDT Office Visit [facility] Vascular [address] [address] Damaris Lagunas MD [address] [place] [address] 03/19/2025 8:45 AM EDT Appointment [address] [address] 06/20/2025 8:15 AM EDT Appointment [address] [address] documented as of this encounter Visit Diagnoses Not on filedocumented in this encounter Care Teams Candle Cutter Relationship Specialty Start Date End Date Alvino Alvarez MD [address] [address] PCP - General Family Medicine 03/28/16 Alvino Alvarez MD [address] [place] [address] PCP - [place] Commercial Attributed 04/18/20 02/16/24 Brody Olivarez APRN 35 [facility] [address] [place] [address] PCP - [place] Commercial Attributed 02/17/24 Jose Alfredo Fuentes MD [address] [place] [place] [id number] Referring Provider Psychiatry, General 11/17/21 Faisal Dangelo MD [address] [place] [address] [address] [place] [phone] Physician Surgery, Orthopedic 01/19/22 Damaris Lagunas MD [address] [place] [address] Primary Plumber Assistant Cardiovascular Disease 01/20/22 Betty Zaldivar RN [address] [place] [address] ICP Community Compensation Manager 01/31/22 08/13/24 Betty Zaldivar RN [address] [place] [address] ICP Community Compensation Manager 03/02/22 08/13/24 Damaris Lagunas MD [address] [place] [address] Primary Plumber Assistant Cardiovascular Disease 09/18/22 Corrie Bustamante RN [address] [place] [id number] ICP Community Compensation Manager 08/13/24 documented as of this encounter
--- OUTSIDE RECORDS SUMMARY | 2025-01-07 12:54 | XMS_ITS | Clinical Summary ---
Author Organization [facility] Address [address] [place] [address] Care Team Providers Care Digital Asset Specialist Name Role Phone Pcp, No MD Primary [...] [place] [phone] [facility] Care Teams Digital Asset Specialist Relationship Specialty Start Date End Date Kasey Olson MD [address] [place] [address] PCP - General Internal Medicine 06/14/22
--- OUTSIDE RECORDS SUMMARY | 2025-01-07 12:54 | XMS_ITS | CCD ---
Author Name Interface, S6Nakiuri lity Address [address] [place] [address] Organization [facility] Address [address] [place] [address] Care Team Providers Care Slots Manager Name Role Phone Pradeep Diamond Carminagenesis ble Care Plan Date Type Value APPOINTMENT RTC MD APPOINTMENT RTC MD APPOINTMENT PET/CT scan APPOINTMENT RTC office visit and chemo APPOINTMENT RTC MD/POWDER NIPPER APPOINTMENT Lab APPOINTMENT Lab APPOINTMENT RTC MD [...]
--- OUTSIDE RECORDS SUMMARY | 2025-01-07 12:54 | XMS_ITS | Encounter Summary ---
Author Organization [facility] Address [address] [place] [address] Care Team Providers Care Residential Sales Representative Name Role Phone Alvino Alvarez MD Primary Care Provider [phone] Alvino Alvarez MD Unavailable [phone] Jose Alfredo Fuentes MD Unavailable Faisal Dangelo MD Unavailable [phone] Damaris Lagunas MD Unavailable Betty Zaldivar RN Unavailable [phone] Betty Zaldivar RN Unavailable [phone] Damaris Lagunas MD Unavailable Brody Olivarez APRN Unavailable [phone] Corrie Bustamante RN Unavailable [phone] Encounter Details Date Type Department Care Team (Late st Contact Info) Description 02/15/2022 Prep for Surgery [facility] [address] [place] [address] Vee Rodríguez, RN [address] [place] [address] Social History Tobacco Use Types Packs/Day Years [...] Description 02/25/2025 11:00 AM EDT Office Visit [address] [address] Damaris Lagunas MD [address] [place] [address] 03/19/2025 8:45 AM EDT Appointment [address] [address] 06/20/2025 8:15 AM EDT Appointment [address] [address] documented as of this encounter Visit Diagnoses Not on filedocumented in this encounter Care Teams Residential Sales Representative Relationship Specialty Start Date End Date Alvino Alvarez MD [address] [place] [address] PCP - General Family Medicine 03/28/16 Alvino Alvarez MD [address] [place] [address] PCP - [place] Commercial Attributed 04/18/20 02/16/24 Brody Olivarez APRN [address] [facility] [address] [place] [address] PCP - [place] Commercial Attributed 02/17/24 Jose Alfredo Fuentes MD [address] [place] [address] Referring Provider Psychiatry, General 11/17/21 Faisal Dangelo MD [address] [place] [address] [address] [place] [phone] Physician Surgery, Orthopedic 01/19/22 Damaris Lagunas MD [address] [place] [address] Primary Accuracy Expert Cardiovascular Disease 01/20/22 Betty Zaldivar RN [address] [place] [address] ICP Community Potato Chip Frier 01/31/22 08/13/24 Betty Zaldivar RN [address] [place] [phone] ICP Community Potato Chip Frier 03/02/22 08/13/24 Damaris Lagunas MD [address] [place] [address] Primary Accuracy Expert Cardiovascular Disease 09/18/22 Corrie Bustamante RN [address] [address] ICP Community Potato Chip Frier 08/13/24 documented as of this encounter
--- OUTSIDE RECORDS SUMMARY | 2025-01-07 12:54 | XMS_ITS | Encounter Summary ---
Author Organization [facility] Address [address] [place] [address] Care Team Providers Care Manager Environmental Services Name Role Phone Alvino Alvarez MD Primary Care Provider [phone] Alvino Alvarez MD Unavailable [phone] Jose Alfredo Fuentes MD Unavailable Faisal Dangelo MD Unavailable [phone] Damaris Lagunas MD Unavailable Betty Zaldivar RN Unavailable [phone] Betty Zaldivar RN Unavailable [phone] Damaris Lagunas MD Unavailable Brody Olivarez VALVE MACHINE OPERATOR Unavailable [phone] Corrie Bustamante RN Unavailable [phone] Reason for Visit * Reason Comments Medication Refill Encounter Details Date Type Department Care Team (Late st Contact Info) Description 07/29/2022 Refill [facility] [address] [place] [address] Brody Olivarez, ANA 35 [facility] [address] [place] [address] Parkinson's disease (HCC) Social History [...] 02/25/2025 11:00 AM EDT Office Visit [facility] [address] [address] Damaris Lagunas MD [address] [place] [address] 03/19/2025 8:45 AM EDT Appointment [address] [address] 06/20/2025 8:15 AM EDT Appointment [address] [address] documented as of this encounter Visit Diagnoses Diagnosis Parkinson's disease (HCC) Paralysis agitans documented in this encounter Care Teams Manager Environmental Services Relationship Specialty Start Date End Date Alvino Alvarez MD [address] [place] [address] PCP - General Family Medicine 03/28/16 Alvino Alvarez MD [address] [place] [address] PCP - [place] Commercial Attributed 04/18/20 02/16/24 Brody Olivarez APRN 35 [facility] [address] [place] [address] PCP - [place] Commercial Attributed 02/17/24 Jose Alfredo Fuentes MD [address] [place], [place] [phone] Referring Provider Psychiatry, General 11/17/21 Faisal Dangelo MD [address] [facility] [address] [place] [phone] Physician Surgery, Orthopedic 01/19/22 Damaris Lagunas MD [address] [place] [address] Primary Smt Operator Cardiovascular Disease 01/20/22 Betty Zaldivar RN [address] [place] [address] ICP Community Railroad Switchman 01/31/22 08/13/24 Betty Zaldivar RN [address] [place] [address] [place], [place] [phone] ICP Community Railroad Switchman 03/02/22 08/13/24 Damaris Lagunas MD [address] [place] [address] Primary Smt Operator Cardiovascular Disease 09/18/22 Corrie Bustamante RN [address] [place] [address] ICP Community Railroad Switchman 08/13/24 documented as of this encounter
--- OUTSIDE RECORDS SUMMARY | 2025-01-07 12:54 | XMS_ITS | Clinical Summary ---
Author Organization [facility] Address [address] [place] [address] Care Team Providers Care Auto Rental Supervisor Name Role Phone Alvino Alvarez MD Primary Care Provider [phone] Social History Tobacco Use Types Packs/Day Years [...] age to complete this topic Care Teams Auto Rental Supervisor Relationship Specialty Start Date End Date Alvino Alvarez MD [address] [place] [address] PCP - General Family Medicine 08/17/23
--- OUTSIDE RECORDS SUMMARY | 2025-01-07 12:54 | XMS_ITS | Encounter Summary ---
Author Organization [facility] Address [address] [place] [address] Care Team Providers Care Procedures Analyst Name Role Phone Alvino Alvarez MD Primary Care Provider [phone] Alvino Alvarez MD Unavailable [phone] Jose Alfredo Fuentes MD Unavailable Faisal Dangelo MD Unavailable [phone] Damaris Lagunas MD Unavailable Betty Zaldivar RN Unavailable [phone] Betty Zaldivar RN Unavailable [phone] Damaris Lagunas MD Unavailable Brody Olivarez APRN Unavailable [phone] Corrie Bustamante RN Unavailable [phone] Reason for Visit * Reason Comments Medication Refill Encounter Details Date Type Department Care Team (Late st Contact Info) Description 03/05/2022 Refill [facility] [address] [place] [address] Hasmukh Shrestha MD IS [facility] [address] [address] Parkinson's disease (HCC) Social History Tobacco Use [...] Description 02/25/2025 11:00 AM EDT Office Visit [facility] [address] [address] Damaris Lagunas MD [address] [place] [address] 03/19/2025 8:45 AM EDT Appointment [address] [address] 06/20/2025 8:15 AM EDT Appointment [address] [address] documented as of this encounter Visit Diagnoses Diagnosis Parkinson's disease (HCC) Paralysis agitans documented in this encounter Care Teams Procedures Analyst Relationship Specialty Start Date End Date Alvino Alvarez MD [address] [place], [place] [phone] PCP - General Family Medicine 03/28/16 Alvino Alvarez MD [address] [place], [place] [phone] PCP - [place] Commercial Attributed 04/18/20 02/16/24 Brody Olivarez APRN 35 [facility] [address] [place] [phone] PCP - [place] Commercial Attributed 02/17/24 Jose Alfredo Fuentes MD [address] [place] [address] Referring Provider Psychiatry, General 11/17/21 Faisal Dangelo MD 430 [facility] [address] [place] [phone] Physician Surgery, Orthopedic 01/19/22 Damaris Lagunas MD [address] [place] [address] Primary Avionics Systems Integration Specialist Cardiovascular Disease 01/20/22 Betty Zaldivar RN [address] [place] [address] ICP Community Ampoule Sealer 01/31/22 08/13/24 Betty Zaldivar RN [address] [place] [address] ICP Community Ampoule Sealer 03/02/22 08/13/24 Damaris Lagunas MD [address] [place] [address] Primary Avionics Systems Integration Specialist Cardiovascular Disease 09/18/22 Corrie Bustamante RN [address] [address] ICP Community Ampoule Sealer 08/13/24 documented as of this encounter
--- OUTSIDE RECORDS SUMMARY | 2025-01-07 12:54 | XMS_ITS ---
Author Organization [facility] Address [address] [place] [address] Care Team Providers Care Bindery Technician Name Role Phone Alvino Alvarez MD Primary Care Provider Jose Alfredo Fuentes MD Unavailable Faisal Dangelo MD Unavailable [phone] Damaris Lagunas MD Unavailable Brody Olivarez ROUTE SALES DELIVERY DRIVER Unavailable Corrie Bustamante RN Unavailable [phone] Active Problems Problem Noted Date Diagnosed Date Bradycardia 11/09/2023 Constipation 07/04/2023 07/04/2023 Drug-induced thrombocytopenia 07/04/2023 Epistaxis 07/04/2023 07/04/2023 Pain 07/04/2023 07/04/2023 Radicular pain 02/23/2022 Lumbar stenosis without neurogenic claudication 02/18/2022 Parkinson's disease 11/17/2021 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
--- OUTSIDE RECORDS SUMMARY | 2025-01-07 12:54 | XMS_ITS | Encounter Summary ---
Author Organization [facility] Address [address] [place] [address] Care Team Providers Care Farm Specialist Name Role Phone Alvino Alvarez MD Primary Care Provider [phone] Alvino Alvarez MD Unavailable Jose Alfredo Fuentes MD Unavailable Faisal Dangelo MD Unavailable [phone] Damaris Lagunas MD Unavailable Betty Zaldivar RN Unavailable [phone] Betty Zaldivar RN Unavailable [phone] Damaris Lagunas MD Unavailable Brody Olivarez CORE MEASURES ABSTRACTOR Unavailable [phone] Corrie Bustamante RN Unavailable [phone] Encounter Details Date Type Department Care Team (Late st Contact Info) Description 03/01/2022 Scanned Document [facility] [place] [address] [address] Cardiology, Scan Social History Tobacco [...] Office Visit [facility] Vascular [address] [address] Damaris Lagunas MD [address] [place] [address] 03/19/2025 8:45 AM EDT Appointment [address] [address] 06/20/2025 8:15 AM EDT Appointment [address] [address] documented as of this encounter Visit Diagnoses Not on filedocumented in this encounter Care Teams Farm Specialist Relationship Specialty Start Date End Date Alvino Alvarez MD [address] [place] [address] PCP - General Family Medicine 03/28/16 Alvino Alvarez MD [address] [place] [address] PCP - [place] Commercial Attributed 04/18/20 02/16/24 Brody Olivarez APRN 35 [facility] [address] [place] [address] PCP - [place] Commercial Attributed 02/17/24 Jose Alfredo Fuentes MD [address] [place] [phone] Referring Provider Psychiatry, General 11/17/21 Faisal Dangelo MD [address] [place] [address] [address] [place] [phone] Physician Surgery, Orthopedic 01/19/22 Damaris Lagunas MD [address] [place] [address] Primary Last Model Maker Cardiovascular Disease 01/20/22 Betty Zaldivar RN [address] [place] [address] ICP Community Laboratory Associate 01/31/22 08/13/24 Betty Zaldivar RN [address] [place] [address] ICP Community Laboratory Associate 03/02/22 08/13/24 Damaris Lagunas MD [address] [place] [address] Primary Last Model Maker Cardiovascular Disease 09/18/22 Corrie Bustamante RN [address] [place] [phone] ICP Community Laboratory Associate 08/13/24 documented as of this encounter
--- OUTSIDE RECORDS SUMMARY | 2025-01-07 12:54 | XMS_ITS | Clinical Summary ---
Author Organization [facility] Address [address] [place] [address] Care Team Providers Care Combustion Engineer Name Role Phone Alvino Alvarez MD Primary Care Provider [phone] Jose Alfredo Fuentes MD Unavailable Faisal Dangelo MD Unavailable [phone] Damaris Lagunas MD Unavailable Brody Olivarez MANAGER SOLAR Unavailable Corrie Bustamante RN Unavailable [phone] Allergies Active Allergy Reactions Criticality Noted [...] (06/05/2019): Added automatically from request for surgery [id number] Gastroesophageal reflux disease 06/05/2019 Overview (06/05/2019): Added automatically from request for surgery [id number] Epigastric pain 06/05/2019 Overview (06/05/2019): Added automatically from request for surgery [id number] Disturbance of skin sensation 12/23/2016 Head and neck cancer 12/15/2016 RLS (restless legs syndrome) 12/15/2016 Adjustment insomnia 12/15/2016 Snoring 12/15/2016 ADAMARIS (obstructive sleep apnea) 03/28/2016 Gastroesophageal reflux disease without esophagi tis 03/28/2016 Resolved Problems Problem Noted Date Diagnosed Date Resolved Date Preop examination 01/24/2022 08/14/2024 Obesity (BMI 30.0-34.9) 03/28/2016 01/0 11/2017 Encounters Date Type Department Care Team Description 12/27/2024 Refill [facility] Neurology [address] [place] [phone] Brody Olivarez APRN Parkinson's disease (HCC) 12/12/2024 Telephone [facility] Neurology [address] [place] [address] Brody Olivarez APRN from Last [...] 02/25/2025 11:00 AM EDT Office Visit [facility] [address] [address] Damaris Lagunas MD [address] [place] [address] 03/19/2025 8:45 AM EDT Appointment [facility] [address] [address] 06/20/2025 8:15 AM EDT Appointment [facility] [address] [address] Health Maintenance Due Date Last Done Comments [...] this topic Medical Devices Implanted Type Area Lean Six Sigma Senior Specialist Device Identifier Shelf Expiration Date Model / Serial / Lot 3830-69 Lead Pacing 69cm Atr Vntrc Bipolar Fx Scr In Select[employer] - [id number] Implanted:Qty: 1 on 11/16/2023 by Bassam Laird MD at [facility] Lead Left: Chest [employer] MINIMALLY INVASIVE T [id number] 10/10/2025 3830-69 / [id number] / 5076-52 Lead Pacing 52cm 6.2fr 2mm 10mm Spc Sm Straight Atr Vntrc - [id number] Implanted:Qty: 1 on 11/16/2023 by Bassam Laird MD at [facility] Lead Left: Chest [employer] MINIMALLY INVASIVE T [id number] 07/28/2025 5076-52 / [id number] 8V / [id number] Xu Spinal 70mm 5.5mm Illico Ti Precontour Central [place] - [id number] Implanted:Qty: 1 on 02/18/2022 by Faisal Dangelo MD at [facility] Nail/Xu N/A: Spine Lumbar [employer] 12595-26 0 / / [id number] Pacemaker Cardiac 7.4mm 50.8x46.6mm Congers Xt Dr Cooper Surescan - [id number] Implanted:Qty: 1 on 11/16/2023 by Bassam Laird MD at [facility] Pacemaker Left: Chest [employer] MINIMALLY INVASIVE T [id number] 04/14/2025 W1DR01 / [id number] 7G / Dll-8 Dual Llanos Lock 8mm - [id number] Implanted:Qty: 1 on 02/18/2022 by Faisal Dangelo MD at [facility] Plate N/A: Spine Lumbar [employer] DLL-8 / / Gabriel-8 Dual Llanos Tray 8mm - [id number] Implanted:Qty: 1 on 02/18/2022 by Faisal Dangelo MD at [facility] Plate N/A: Spine Lumbar [employer] GABRIEL-8 / / [id number] Screw Bone Spine Illico 45mm Ti 6.5mm Pa Farzana Nonst - [id number] Implanted:Qty: 1 on 02/18/2022 by Faisal Dangelo MD at [facility] Spine N/A: Spine Lumbar [employer] 97394-91 / / [id number] Screw Bone Spine Illico 40mm Ti 6.5mm Pa Farzana Nonst - [id number] Implanted:Qty: 1 on 02/18/2022 by Faisal Dangelo MD at [facility] Spine N/A: Spine Lumbar [employer] 12583-46 / / [id number] Screw Set Ti Spine Hexalobe Zodiac - [id number] Implanted:Qty: 3 on 02/18/2022 by Faisal Dangelo MD at [facility] Spine N/A: Spine Lumbar [employer] 06022 / / [id number] Screw Set Spine Stabilink Mis Spinal Fixation Sys - [id number] Implanted:Qty: 1 on 02/18/2022 by Faisal Dangelo MD at [facility] Spine N/A: Spine Lumbar [employer] SS-219 / / 210-010 Alphagraft Cellular Bone Matrix 1 Cc - [id number] Implanted:Qty: 1 on 02/18/2022 by Faisal Daneglo MD at [facility] Tissue N/A: Spine Lumbar [employer] 10/24/2023 210-010 / [id number] / 700-010 Graft Bone 1 Fctr 1cc Algrf Putty Syringe - [id number] Implanted:Qty: 1 on 02/18/2022 by Faisal Dangelo MD at [facility] Tissue N/A: Spine Lumbar [employer] 09/17/2024 700-010 / / [id number] Sponge Dbm Bone 81r24t3lh - [id number] Implanted:Qty: 1 on 02/18/2022 by Faisal Dangelo MD at [facility] Tissue N/A: Spine Lumbar [employer] 01/04/2027 [id number] / [id number] 64-049 / [id number] Sponge Dbm Bone 33v06v3sv - [id number] Implanted:Qty: 1 on 02/18/2022 by Faisal Dangelo MD at [facility] Tissue N/A: Spine Lumbar [employer] 01/04/2027 [id number] / [id number] 64-045 / [id number] Filler Bone Void Nanofuse 2 Cc Bioactive Matrix Sterile Late - [id number] Implanted:Qty: 1 on 02/18/2022 by Faisal Dangelo MD at [facility] Void Filler N/A: Spine Lumbar [employer] INC 05/26/2026 TBL644-3 2 / / [id number] 620-005 Kit Bone Graft 5cc 12cc Calcium Slf Stimulan Rpd Cure Paste - [id number] Implanted:Qty: 1 on 02/18/2022 by Faisal Dangelo MD at [facility] Void Filler N/A: Spine Lumbar [employer] 08/17/2024 620-005 / / [id number] [id number] Substitute Bone Graft Alphatec Neocore Ostcndc Matrix 12cc - [id number] Implanted:Qty: 1 on 02/18/2022 by Faisal Dangelo MD at [facility] Void Filler N/A: Spine Lumbar [employer] 05/20/2024 70-6012 / / [id number] Dbm Fibers 5.0cc Implanted:Qty: 1 on 02/18/2022 by Faisal Dangelo MD at [facility] N/A: Spine Lumbar [employer] 07/15/2024 [id number] / [id number] 0662-061 / [id number] Screw Bone Spine Illico 35mm Ti 6.5mm Pa Farzana Implanted:Qty: 1 on 02/18/2022 by Faisal Dangelo MD at [facility] N/A: Spine Lumbar [employer] 33859-91 / / Procedures Procedure Name Priority Date/Time Associated Diagnosis Comments PM REMOTE EVAL, [id number] Routine 12/13/2024 12:29 PM EDT Cardiac pacemaker in situ HX GASTROENTEROLOGY COLONOSCOPY-SCAN Routine 03/07/2012 from Last 3 Months or Most Recently Relevant to Health Maintenance Results * PM REMOTE EVAL, [id number] (12/13/2024 12:29 PM EDT) Date Time Interrogation Session 20,250,328,015,50 9 PACEART Implantable Pulse Generator Lean Six Sigma Senior Specialist Medtronic PACEART Implantable Pulse Generator Model W1DR01 Jesika XT DR MRI PACEART Implantable Pulse Generator Serial Number [id number] PACEART Implantable Pulse Generator Type Pacemaker PACEART Implantable Pulse Generator Implant Date 20,240,228,190,00 0 PACEART Implantable Lead Lean Six Sigma Senior Specialist Medtronic PACEART Implantable Lead Model 3830 SelectSecure MRI SureScan PACEART Implantable Lead Serial Number [id number] PACEART Implantable Lead Implant Date 20,240,228,190,00 0 PACEART Implantable Lead Polarity Type Bipolar Lead PACEART Implantable Lead Location Detail 1 UNKNOWN PACEART Implantable Lead Special Function 69 PACEART Implantable Lead Location Right Ventricle PACEART Implantable Lead Connection Status Connected PACEART Implantable Lead Lean Six Sigma Senior Specialist Medtronic PACEART Implantable Lead Model 5076 CapSureFix Novus MRI SureScan PACEART Implantable Lead Serial Number [id number] PACEART Implantable Lead Implant Date [id number] PACEART Implantable Lead Polarity Type Bipolar Lead [...] 0.04 % PACEART Miguel Angel Statistic AP NUTRITION EDUCATOR Percent 0.04 % PACEART [place] Statistic NUTRITION EDUCATOR Percent 0 % PACEART [place] Statistic AP VS Percent 94.39 % PACEART [place] Statistic VS Percent 5.57 % PACEART AT/AF [place] Percent 0 % PACEART Episode Statistic Recent [...] Most Recently Relevant to Health Maintenance Insurance [facility] PPO [facility] PPO Advance Directives * Full Code (Latest Code Status on File) Date Activated Date Inactivated Comments 11/16/2023 10:34 AM * Full Code Date Activated Date Inactivated Comments 02/18/2022 5:05 PM 02/22/2022 8:24 AM Care Teams Combustion Engineer Relationship Specialty Start Date End Date Alvino Alvarez MD [address] [place] [address] PCP - General Family Medicine 03/28/16 Brody Olivarez APRN [address] [facility] [address] [place] [address] PCP - [place] Commercial Attributed 02/17/24 Jose Alfredo Fuentes MD [address] [place] [address] Referring Provider Psychiatry, General 11/17/21 Faisal Dangelo MD [address] [place] [phone] Physician Surgery, Orthopedic 01/19/22 Damaris Lagunas MD [address] [place] [address] Primary Property Valuer Cardiovascular Disease 01/20/22 Corrie Bustamante, RN [address] [address] [facility] Community Tape Machine Tailer 08/13/24
--- OUTSIDE RECORDS SUMMARY | 2025-01-07 12:55 | XMS_ITS | Encounter Summary ---
Author Organization [facility] Address [address] [place] [address] Care Team Providers Care Laborer Drying Department Name Role Phone Alvino Alvarez MD Primary Care Provider [phone] Franki Gates MD Unavailable [phone] Reason for Referral * Imaging (Routine) - Closed Specialty Diagnoses / Procedures Referred By Jose C hurley Referred To Contact Radiology Diagnoses Vertebrogenic low back pain Sacroiliitis, not elsewhere classified (HCC) Procedures CT LUMBAR SPINE WO IV CONTRAST Faisal Dangelo MD Phone: tel: fax: [facility] Radiology - Central Scheduling [place] Phone: tel: fax: Referral ID Status Reason Start Date Expiration Date V isits Requested Visits Authorized [id number] Closed Perform Procedure 11/03/2022 01/01/2023 1 1 Encounter Details Date Type Department Care Team (Late st Contact Info) Description 11/03/2022 Ancillary Orders [facility] Radiology - Central Scheduling [place] [phone] Faisal Dangelo MD [address] [place] [phone] Vertebrogenic low back pain; Sacroiliitis, not elsewhere [...] back pain, Sacroiliitis, not elsewhere classified (CMS/HCC) ([facility]), Vertebrogenic low back pain, PROTOCOL: Axial helical [...] classified documented in this encounter Care Teams Laborer Drying Department Relationship Specialty Start Date End Date Alvino Alvarez MD [address] [place] [address] PCP - General Family Medicine 05/12/20 Franki Gates MD [address] [facility] [address] [place] [address] Surgeon General Surgery 12/06/21 documented as of this encounter
--- OUTSIDE RECORDS SUMMARY | 2025-01-07 12:55 | XMS_ITS | Encounter Summary ---
Author Organization [facility] Address [address] [place] [address] Care Team Providers Care Pasteuriser Operator Name Role Phone Alvino Alvarez MD Primary Care Provider [phone] Alvino Alvarez MD Unavailable [phone] Jose Alfredo Fuentes MD Unavailable Faisal Dangelo MD Unavailable [phone] Damaris Lagunas MD Unavailable Betty Zaldivar RN Unavailable [phone] Betty Zaldivar RN Unavailable [phone] Damaris Lagunas MD Unavailable Brody Olivarez APRN Unavailable [phone] Corrie Bustamante RN Unavailable [phone] Encounter Details Date Type Department Care Team (Late st Contact Info) Description 09/15/2023 Telephone [address] [place] [address] Alvino Alvarez MD [address] [place] [address] Social History Tobacco Use Types [...] Description 02/25/2025 11:00 AM EDT [facility] [address] [address] Damaris Lagunas MD [address] [place] [address] 03/19/2025 8:45 AM EDT Appointment [address] [address] 06/20/2025 8:15 AM EDT Appointment [address] [address] documented as of this encounter Visit Diagnoses Not on filedocumented in this encounter Care Teams Pasteuriser Operator Relationship Specialty Start Date End Date Alvino Alvarez MD [address] [place] [address] PCP - General Family Medicine 03/28/16 Alvino Alvarez MD 34 [facility] [place] [address] PCP - [facility] [employer] Attributed 04/18/20 02/16/24 Brody Olivarez APRN [facility] [address] [place] [address] PCP - [facility] [employer] Attributed 02/17/24 Jose Alfredo Fuentes MD [address] [place] [address] Referring Provider Psychiatry, General 11/17/21 Faisal Dangelo MD [address] [place] [address] [address] [place] [phone] Physician Surgery, Orthopedic 01/19/22 Damaris Lagunas MD [address] [place] [address] Primary Fruit Canner Cardiovascular Disease 01/20/22 Betty Zaldivar RN [address] [place] [phone] ICP Community Sales Representative [facility] 01/31/22 08/13/24 Betty Zaldivar RN [address] [place] [address] ICP Community Sales Representative [facility] 03/02/22 08/13/24 Damaris Lagunas MD [address] [place] [address] Primary Fruit Canner Cardiovascular Disease 09/18/22 Corrie Bustamante RN [address] [place] [address] ICP Community Sales Representative [facility] 08/13/24 documented as of this encounter
--- OUTSIDE RECORDS SUMMARY | 2025-01-07 12:55 | XMS_ITS | Encounter Summary ---
Author Organization [facility] Address [address] [place] [address] Care Team Providers Care Assistant Golf Course Superintendent Name Role Phone Alvino Alvarez MD Primary Care Provider [phone] Franki Gates MD Unavailable [phone] Reason for Referral * Imaging (Routine) - Closed Specialty Diagnoses / Procedures Referred By Jose C hurley Referred To Contact Radiology Diagnoses Low back pain Other intervertebral disc displacement, lumbar region Other muscle spasm Procedures XR LUMBAR SPINE COMPLETE 4+ VIEWS Crystal Hamlin DC [address] [place] [address] [place] [address] Phone: tel: fax: [facility] Radiology - Central Scheduling [place] Phone: tel: fax: Referral ID Status Reason Start Date Expiration Date V isits Requested Visits Authorized [id number] Closed Perform Procedure 04/02/2021 04/02/2022 1 1 Encounter Details Date Type Department Care Team (Late st Contact Info) Description 04/02/2021 Ancillary Orders [facility] Access [address] [place] [address] Crystal Hamlin DC [address] [place] [address] Low back pain; Other intervertebral [...] spasm documented in this encounter Care Teams Assistant Golf Course Superintendent Relationship Specialty Start Date End Date Alvino Alvarez MD [address] [place] [address] PCP - General Family Medicine 05/12/20 Franki Gates MD [address] [address] [place] [address] Surgeon General Surgery 12/06/21 documented as of this encounter
--- OUTSIDE RECORDS SUMMARY | 2025-01-07 12:55 | XMS_ITS | Encounter Summary ---
Author Organization [facility] Address [address] [place] [address] Care Team Providers Care Retail District Manager Name Role Phone Alvino Alvarez MD Primary Care Provider Franki Gates MD Unavailable [phone] Encounter Details Date Type Department Care Team (Late st Contact Info) Description 2023 Ancillary Orders [facility], Radiology (IR) [address] [place], [place] [id number] Provider, MD Jeff [address] [place] [address] Social History Tobacco Use Types Packs/Day Years [...] on filedocumented in this encounter Care Teams Retail District Manager Relationship Specialty Start Date End Date Alvino Alvarez MD [address] [place] [address] PCP - General Family Medicine 05/12/20 Franki Gates MD 540 [facility] [address] [place] [address] Surgeon General Surgery 12/06/21 documented as of this encounter
--- OUTSIDE RECORDS SUMMARY | 2025-01-07 12:55 | XMS_ITS ---
Author Name Interface, [id number] lity Address [address] [place] [address] Organization [facility] Address [address] [place] [address] Care Team Providers Care Beach Attendant Name Role Phone Rafi Diamondkeyan Winifred Valente [...] QD active Cyanocobalamin Oral 2 QD active Tadalafil Oral PRN ac tive Carbidopa-Levod opa Oral 25 mg-100 mg QD active Hydromorphone Oral QD active Diazepam Oral QD [...]
--- OUTSIDE RECORDS SUMMARY | 2025-01-07 12:55 | XMS_ITS | Encounter Summary ---
Author Organization [facility] Address [address] [place] [address] Care Team Providers Care Mentally Impaired Teacher Name Role Phone Alvino Alvarez MD Primary Care Provider [phone] Alvino Alvarez MD Unavailable [phone] Jose Alfredo Fuentes MD Unavailable Faisal Dangelo MD Unavailable [phone] Damaris Lagunas MD Unavailable Betty Zaldivar RN Unavailable [phone] Betty Zaldivar RN Unavailable [phone] Damaris Lagunas MD Unavailable Brody Olivarez PREDATORY ANIMAL TRAPPER Unavailable [phone] Corrie Bustamante RN Unavailable [phone] Reason for Visit * Reason Comments Appointment Recieved staff jayesh malhotra to get pt in sooner due to worsening tremors and medication quesitons. Encounter Details Date Type Department Care Team (Late st Contact Info) Description 10/26/2021 Telephone [facility] Neurology [address] [place] [address] Hasmukh Shrestha MD IS [facility] [address] [place] [address] Appointment (Recieved staff message to get pt [...] Description 02/25/2025 11:00 AM EDT Office Visit [facility] Vascular [address] [address] Damaris Lagunas MD [address] [place] [address] 03/19/2025 8:45 AM EDT Appointment [address] [address] 06/20/2025 8:15 AM EDT Appointment [facility] Vascular [address] [address] documented as of this encounter Visit Diagnoses Not on filedocumented in this encounter Care Teams Mentally Impaired Teacher Relationship Specialty Start Date End Date Alvino Alvarez MD [address] [place] [address] PCP - General Family Medicine 03/28/16 Alvino Alvarez MD [address] [place] [address] PCP - [place] Commercial Attributed 04/18/20 02/16/24 Brody Olivarez APRN 35 [facility] [address] [place] [address] PCP - [place] [employer] Attributed 02/17/24 Jose Alfredo Fuentes MD [address] [place], [place] [phone] Referring Provider Psychiatry, General 11/17/21 Faisal Dangelo MD 430 [facility] 100 [place] [address] Physician Surgery, Orthopedic 01/19/22 Damaris Lagunas MD [address] [place] [address] Primary Woodworking Shop Hand Cardiovascular Disease 01/20/22 Betty Zaldivar RN [address] [employer] [place] [address] ICP Community Curriculum Coach 01/31/22 08/13/24 Betty Zaldivar RN [address] [place] [address] ICP Community Curriculum Coach 03/02/22 08/13/24 Damaris Lagunas MD [address] [place] [address] Primary Woodworking Shop Hand Cardiovascular Disease 09/18/22 Corrie Bustamante RN [address] [place] [address] [facility] Community Curriculum Coach 08/13/24 documented as of this encounter
--- OUTSIDE RECORDS SUMMARY | 2025-01-07 12:55 | XMS_ITS | Encounter Summary ---
Author Organization [facility] Address [address] [place] [address] Care Team Providers Care On Site Coordinator Name Role Phone Alvino Alvarez MD Primary Care Provider [phone] Franki Gates MD Unavailable [phone] Reason for Referral * Imaging (Routine) - Closed Specialty Diagnoses / Procedures Referred By Jose C hurley Referred To Contact Radiology Diagnoses History of head and neck cancer Procedures XR CHEST 2 VIEWS Pradeep Diamond MD [address] [place] [address] Phone: tel: fax: [facility] Radiology - Central Scheduling [place] Phone: tel: fax: Referral ID Status Reason Start Date Expiration Date V isits Requested Visits Authorized [id number] Closed Perform Procedure 02/28/2022 02/28/2023 1 1 Encounter Details Date Type Department Care Team (Late st Contact Info) Description 02/28/2022 Ancillary Orders [facility] Radiology, Outpatient Center (Diag Rad) [address] [facility], [address] [place] [address] Pradeep Diamond MD [address] [place] [address] History of head and neck [...] cancer documented in this encounter Care Teams On Site Coordinator Relationship Specialty Start Date End Date Alvino Alvarez MD [address] [facility] [place] [address] PCP - General Family Medicine 05/12/20 Franki Gates MD 540 [facility] [address] [place] [address] Surgeon General Surgery 12/06/21 documented as of this encounter
--- OUTSIDE RECORDS SUMMARY | 2025-01-07 12:55 | XMS_ITS | Encounter Summary ---
Author Organization [facility] Address [address] [place] [address] Care Team Providers Care Resourcing Consultant Name Role Phone Alvino Alvarez MD Primary Care Provider [phone] Franki Gates MD Unavailable [phone] Reason for Referral * Imaging (Routine) - Closed Specialty Diagnoses / Procedures Referred By Jose C hurley Referred To Contact Radiology Diagnoses Severe pain Procedures CT SI JOINT INJECTION Faisal Dangelo MD [address] [place] [address] Phone: tel: fax: [facility] Radiology - Central Scheduling [place] Phone: tel: fax: Referral ID Status Reason Start Date Expiration Date V isits Requested Visits Authorized [id number] Closed Perform Procedure 05/26/2023 06/19/2023 1 1 Encounter Details Date Type Department Care Team (Late st Contact Info) Description 05/26/2023 Ancillary Orders [facility] Radiology - Central Scheduling [place] [phone] Faisal Dangelo MD [address] [place] [address] Severe pain Social History Tobacco [...] positioned supine on the CT scanner and supervisor paint roller covers imaging was obtained. The lower back was [...] was positioned supine on the CTscanner and supervisor paint roller covers imaging was obtained. The lower back was [...] pain documented in this encounter Care Teams Resourcing Consultant Relationship Specialty Start Date End Date Alvino Alvarez MD 34 [place] [address] PCP - General Family Medicine 05/12/20 Franki Gates MD 540 [facility] [address] [place] [address] Surgeon General Surgery 12/06/21 documented as of this encounter
--- OUTSIDE RECORDS SUMMARY | 2025-01-07 12:55 | XMS_ITS | Encounter Summary ---
Author Organization [facility] Address [address] [place] [address] Care Team Providers Care Sales Development Manager Name Role Phone Alvino Alvarez MD Primary Care Provider [phone] Jose Alfredo Fuentes MD Unavailable Faisal Dangelo MD Unavailable [phone] Damaris Lagunas MD Unavailable Betty Zaldivar RN Unavailable [phone] Betty Zaldivar RN Unavailable [phone] Brody Olivarez APRN Unavailable [phone] Corrie Bustamante RN Unavailable [phone] Encounter Details Date Type Department Care Team (Late st Contact Info) Description 08/08/2024 Scanned Document [facility] Pulmonary [address] [place] [address] Alvino Alvarez MD [address], [place] [phone] Social History Tobacco Use Types Packs/Day Years [...] Description 02/25/2025 11:00 AM EDT Office Visit [address] [address] Damaris Lagunas MD [address] [place] [address] 03/19/2025 8:45 AM EDT Appointment [address] [address] 06/20/2025 8:15 AM EDT Appointment [address] [address] documented as of this encounter Visit Diagnoses Not on filedocumented in this encounter Care Teams Sales Development Manager Relationship Specialty Start Date End Date Alvino Alvarez MD [address] [place] [address] PCP - General Family Medicine 03/28/16 Brody Olivarez APRN 35 [facility] 6 [place] [address] PCP - [place] Commercial Attributed 02/17/24 Jose Alfredo Fuentes MD [address] [place] [address] Referring Provider Psychiatry, General 11/17/21 Faisal Dangelo MD 430 [facility] 100 [place] [address] Physician Surgery, Orthopedic 01/19/22 Damaris Lagunas MD [address] [place] [address] Primary Electronics Supervisor Cardiovascular Disease 01/20/22 Betty Zaldivar RN [address] [place] [address] ICP Community Signal And Communications Maintainer 01/31/22 08/13/24 Betty Zaldivar RN [address] [place] [address] ICP Community Signal And Communications Maintainer 03/02/22 08/13/24 Corrie Bustamante RN [address] [employer] [address] [place] [address] ICP Community Signal And Communications Maintainer 08/13/24 documented as of this encounter
--- OUTSIDE RECORDS SUMMARY | 2025-01-07 12:55 | XMS_ITS | Encounter Summary ---
Author Organization [facility] Address [address] [place] [address] Care Team Providers Care Insulation Cutter And Former Name Role Phone Alvino Alvarez MD Primary Care Provider [phone] Alvino Alvarez MD Unavailable [phone] Jose Alfredo Fuentes MD Unavailable Faisal Dangelo MD Unavailable [phone] Damaris Lagunas MD Unavailable Betty Zaldivar RN Unavailable [phone] Betty Zalidvar RN Unavailable [phone] Damaris Lagunas MD Unavailable Brody Olivarez APRN Unavailable [phone] Corrie Bustamante RN Unavailable [phone] Reason for Visit * Reason Comments Medication Refill Encounter Details Date Type Department Care Team (Late st Contact Info) Description 08/12/2020 Refill [employer] [address] [place], [place] [phone] Yash Hill MD [address] [place], [place] Gastroesophageal reflux disease with esophagitis Social [...] Description 02/25/2025 11:00 AM EDT Office Visit [address] [address] Damaris Lagunas MD [address] [place] [address] 03/19/2025 8:45 AM EDT Appointment [address] [address] 06/20/2025 8:15 AM EDT Appointment [address] [address] documented as of this encounter Visit Diagnoses Diagnosis Gastroesophageal reflux disease with esophagitis documented in this encounter Care Teams Insulation Cutter And Former Relationship Specialty Start Date End Date Alvino Alvarez MD [address] [place] [address] PCP - General Family Medicine 03/28/16 Alvino Alvarez MD [address] [place] [address] PCP - [place] Commercial Attributed 04/18/20 02/16/24 Brody Olivarez APRN 35 [facility] [address] [place] [address] PCP - [place] [employer] Attributed 02/17/24 Jose Alfredo Fuentes MD [address] [place], [place] [address] Referring Provider Psychiatry, General 11/17/21 Faisal Dangelo MD [address] [place] [address] [address] [place] [phone] Physician Surgery, Orthopedic 01/19/22 Damaris Lagunas MD [address] [place] [address] Primary Junk Removal Specialist Cardiovascular Disease 01/20/22 Betty Zaldivar RN [address] [employer] [address] [place] [address] ICP Community Vending Route Driver 01/31/22 08/13/24 Betty Zaldivar RN [address] [employer] [address] [place] [address] ICP Community Vending Route Driver 03/02/22 08/13/24 Damaris Lagunas MD [address] [place] [address] Primary Junk Removal Specialist Cardiovascular Disease 09/18/22 Corrie Bustamante RN [address] [place] [address] ICP Community Vending Route Driver 08/13/24 documented as of this encounter
--- OUTSIDE RECORDS SUMMARY | 2025-01-07 12:55 | XMS_ITS | Encounter Summary ---
Author Organization [facility] Address [address] [place] [address] Care Team Providers Care Elevator Inspector Name Role Phone Alvino Alvarez MD Primary Care Provider [phone] Franki Gates MD Unavailable Reason for Referral * Imaging (Routine) - Closed Specialty Diagnoses / Procedures Referred By Jose C hurley Referred To Contact Radiology Diagnoses Herniated lumbar intervertebral disc Procedures FL LESS THAN 1 HOUR INTRAOPERATIVE Faisal Dangelo MD Phone: tel: fax: [facility] Radiology - Central Scheduling CT Phone: tel: fax: Referral ID Status Reason Start Date Expiration Date V isits Requested Visits Authorized [id number] Closed Perform Procedure 01/23/2022 01/23/2023 1 1 Encounter Details Date Type Department Care Team (Latest Contact Info) Description 01/23/2022 Ancillary Orders [facility] [address] [place] [address] Faisal Dangelo MD [address] [place] [address] Herniated lumbar intervertebral disc Social History Tobacco [...] REPORT AND MAY BE SIGNED BY A HAT MODEL. Fluoroscopy was provided to the Ordering physician [...] myelopathy documented in this encounter Care Teams Elevator Inspector Relationship Specialty Start Date End Date Alvino Alvarez MD [address] [place] [address] PCP - General Family Medicine 05/12/20 Franki Gates MD [address] [address] [place] [address] Surgeon General Surgery 12/06/21 documented as of this encounter
--- OUTSIDE RECORDS SUMMARY | 2025-01-07 12:55 | XMS_ITS | CCD ---
Author Name Interface, [id number] lity Address [address] [place] [address] Organization [facility] Address [address] [place] [address] Care Team Providers Care Income Tax Investigator Name Role Phone Pradeep Diamond Unavailable Unavaila ble Care Plan Reason for Visit Encounters Functional Status Medications Problems Social History
--- OUTSIDE RECORDS SUMMARY | 2025-01-07 12:55 | XMS_ITS | Encounter Summary ---
Author Organization [facility] Address [address] [place] [address] Care Team Providers Care Carton Forming Machine Helper Name Role Phone Alvino Alvarez MD Primary Care Provider [phone] Alvino Alvarez MD Unavailable [phone] Jose Alfredo Fuentes MD Unavailable Faisal Dangelo MD Unavailable [phone] Damaris Lagunas MD Unavailable Betty Zaldivar RN Unavailable [phone] Betty Zaldivar RN Unavailable [phone] Damaris Lagunas MD Unavailable Brody Olivarez UMBRELLA CUTTER Unavailable [phone] Corrie Bustamante RN Unavailable [phone] Encounter Details Date Type Department Care Team (Late st Contact Info) Description 08/11/2023 Scanned Document [facility] Medical [facility] Pulmonary [place] [address] [facility] [address] [place] [phone] Pulmonary, Scan Social History Tobacco Use Types [...] Description 02/25/2025 11:00 AM EDT Office Visit [address] [address] Damaris Lagunas MD [address] [place] [address] 03/19/2025 8:45 AM EDT Appointment [address] [address] 06/20/2025 8:15 AM EDT Appointment [address] [address] documented as of this encounter Visit Diagnoses Not on filedocumented in this encounter Care Teams Carton Forming Machine Helper Relationship Specialty Start Date End Date Alvino Alvarez MD [address] [place] [address] PCP - General Family Medicine 03/28/16 Alvino Alvarez MD [address] [place] [address] PCP - [place] Commercial Attributed 04/18/20 02/16/24 Brody Olivarez APRN 35 [facility] [address] [place] [address] PCP - [place] Commercial Attributed 02/17/24 Jose Alfredo Fuentes MD [address] [place], [place] [phone] Referring Provider Psychiatry, General 11/17/21 Faisal Dangelo MD [address] [place] [phone] Physician Surgery, Orthopedic 01/19/22 Damaris Lagunas MD [address] [place] [address] Primary Outside Plant Cable Engineer Cardiovascular Disease 01/20/22 Betty Zaldivar RN [address] [place] [address] [facility] Community Leather Splitter 01/31/22 08/13/24 Betty Zaldivar RN [address] [place] [address] [facility] Community Leather Splitter 03/02/22 08/13/24 Damaris Lagunas MD [address] [place] [phone] Outside Plant Cable Engineer Cardiovascular Disease 09/18/22 Corrie Bustamante RN [address] [place] [address] ICP Community Leather Splitter 08/13/24 documented as of this encounter
--- OUTSIDE RECORDS SUMMARY | 2025-01-07 12:55 | XMS_ITS | Encounter Summary ---
Author Organization [facility] Address [address] [place] [address] Care Team Providers Care Hollow Core Door Frame Assembler Name Role Phone Alvino Alvarez MD Primary Care Provider Franki Gates MD Unavailable Encounter Details Date Type Department Care Team (Late st Contact Info) Description 05/12/2023 Procedure Pass [facility], Radiology (CT Scan) [address] [place] [address] Social History Tobacco Use Types Packs/Day Years [...] on filedocumented in this encounter Care Teams Hollow Core Door Frame Assembler Relationship Specialty Start Date End Date Alvino Alvarez MD [address] [place] [address] PCP - General Family Medicine 05/12/20 Franki Gates MD 540 [facility] [address] [place], [place] [address] Surgeon General Surgery 12/06/21 documented as of this encounter
--- OUTSIDE RECORDS SUMMARY | 2025-01-07 12:55 | XMS_ITS | Encounter Summary ---
Author Organization [facility] Address [address] [place] [address] Care Team Providers Care Men'S Leather Dress Belt Maker Name Role Phone Alvino Alvarez MD Primary Care Provider [phone] Franki Gates MD Unavailable [phone] Reason for Referral * Imaging (Routine) - Closed Specialty Diagnoses / Procedures Referred By Jose C hurley Referred To Contact Radiology Diagnoses Severe pain Procedures CT SI JOINT INJECTION CT GUIDANCE FOR NEEDLE PLACEMENT Faisal Dangelo MD [address] [place] [address] Phone: tel: fax: [facility] Radiology - Central Scheduling [place] Phone: tel: fax: Referral ID Status Reason Start Date Expiration Date V isits Requested Visits Authorized [id number] Closed Perform Procedure 05/12/2023 06/19/2023 1 1 Encounter Details Date Type Department Care Team (Late st Contact Info) Description 05/12/2023 Ancillary Orders [facility] Radiology - Central Scheduling [place] [phone] Faisal Dangelo MD [address] [place], [place] [phone] Severe pain Social History Tobacco Use Types [...] positioned supine on the CT scanner and timber management professor imaging was obtained. The lower back was [...] was positioned supine on the CTscanner and timber management professor imaging was obtained. The lower back was [...] pain documented in this encounter Care Teams Men'S Leather Dress Belt Maker Relationship Specialty Start Date End Date Alvino Alvarez MD [address] [place] [address] PCP - General Family Medicine 05/12/20 Franki Gates MD [address] [facility] [address] [place] [address] Surgeon General Surgery 12/06/21 documented as of this encounter
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
--- OUTSIDE RECORDS SUMMARY | 2025-01-07 12:55 | XMS_ITS | Clinical Summary ---
Author Organization [facility] Address [address] [place] [address] Care Team Providers Care Operating Room Surgical Technologist Name Role Phone Alvino Alvarez MD Primary Care Provider [phone] Franki Gates MD Unavailable [phone] Allergies Active Allergy Reactions Criticality Noted Date [...] (01/04/2022): Added automatically from request for surgery [id number] ADAMARIS (obstructive sleep apnea) 03/28/2016 Family History [...] this topic Medical Devices Implanted Type Area Warehouse Receiving Clerk Device Identifier Shelf Expiration Date Model / Serial / Lot Bone Graft Spine Infuse Small Kit - [id number] - [id number] Implanted:Qty: 1 on 01/24/2022 by Faisal Dangelo MD at [facility] Implant N/A: Spine Lumbar Medtronic Sofamor [id number] 05/19/2023 [id number] / [id number] / [id number] F Spacer Solus 14mm Large Alphatec - [id number] Implanted:Qty: 1 on 01/24/2022 by Faisal Dangelo MD at [facility] Implant N/A: Spine Lumbar ALPHATEC SPINE Effective Measure [id number] 12/29/2023 12369-944 -S / / [id number] Plate Lumbar Aspida 14mm Alphatec - [id number] Implanted:Qty: 1 on 01/24/2022 by Brody Lucero MD at [facility] Implant N/A: Spine Lumbar ALPHATEC SPINE Effective Measure 26214-68 / / Plate Lumbar Aspida Sacral 14mm - Alphatec - [id number] Implanted:Qty: 1 on 01/24/2022 by Brody Lucero MD at [facility] Implant N/A: Spine Lumbar ALPHATEC SPINE Effective Measure 08571-67 / / Screw Alif 7.0mm X 25mm - Alphatec - [id number] Implanted:Qty: 2 on 01/24/2022 by Brody Lucero MD at [facility] Implant N/A: Spine Lumbar ALPHATEC SPINE Effective Measure 77283-53 / / Screw Aspida 7.7dft32dn - [id number] Implanted:Qty: 6 on 01/24/2022 by Brody Lucero MD at [facility] Implant N/A: Spine Lumbar ALPHATEC SPINE Effective Measure 03545-96 / / Strip Profuse Bioscaffold Alphatec - [id number] - [id number] Implanted:Qty: 1 on 01/24/2022 by Faisal Dangelo MD at [facility] Implant N/A: Spine Lumbar ALPHATEC SPINE Effective Measure 07/29/2026 15086-720 [id number] 1 Graft Bn Dbmfrm Algrf Strp Irrad [id number] Less Xps Srg - [id number] - [id number] Implanted:Qty: 1 on 01/24/2022 by Faisal Dangelo MD at [facility] Implant N/A: Spine Lumbar Spine Rogers 10/14/2026 DBM-SS-30 / PTT- 31-0013 / PTT- 31-0013 Graft Bn Dbmfrm Algrf Strp Irrad [id number] Less Xps Srg - [id number] - [id number] Implanted:Qty: 1 on 01/24/2022 by Faisal Dangelo MD at [facility] Implant N/A: Spine Lumbar Spine Rogers 10/19/2026 DBM-SS-30 / PTT- 43-0001 / PTT- 43-0001 Graft Bn Dbmfrm Algrf Strp Irrad [id number] Less Xps Srg - [id number]-[id number] - [id number] Implanted:Qty: 1 on 01/24/2022 by Faisal Dangelo MD at [facility] Implant N/A: Spine Lumbar Spine Rogers 10/14/2026 DBM-SS-30 / PTT- 31-0010 / PTT- 31-0010 Graft Bn Dbmpr 5ml Rick Algrf Less Xps g - [id number] - [id number] Implanted:Qty: 1 on 01/24/2022 by Faisal Dangelo MD at [facility] Implant N/A: Spine Lumbar Spine Rogers 11/26/2024 7236 / PTT- / PTT Neocore 5cc Osetocondutive Matix Alpatec Spine - [id number] - [id number] Implanted:Qty: 1 on 01/24/2022 by Faisal Dangelo MD at [facility] Implant N/A: Spine Lumbar ALPHATEC SPINE [employer] 05/20/2024 70-6005 / [id number] / [id number] 10ml Cbm Bio Lg Alphagraft - [id number] - [id number] Implanted:Qty: 1 on 01/24/2022 by Faisal Dangelo MD at [facility] Implant N/A: Spine Lumbar ALPH[employer] SP[employer] 11/01/2023 210-100 / [id number] Anterior Lumbar Interbody Fusion Device Large Mani 12-1 - [id number] Implanted:Qty: 1 on 01/24/2022 by Faisal Dangelo MD at [facility] Implant N/A: Spine Lumbar ALPHATEC [employer] [id number] 08/31/2025 84657-842 -S / / [id number] Insurance Advance Directives * Full Code (Latest Code Status on File) Date Activated Date Inactivated Comments 01/24/2022 11:54 AM 01/28/2022 2:24 PM Care Teams Operating Room Surgical Technologist Relationship Specialty Start Date End Date Alvino Alvarez MD [address] [place] [address] PCP - General Family Medicine 05/12/20 Franki Gates MD 540 [facility] [address] [place] [address] Surgeon General Surgery 12/06/21
--- OUTSIDE RECORDS SUMMARY | 2025-01-07 12:55 | XMS_ITS | Encounter Summary ---
Author Organization [facility] Address [address] [place] [address] Care Team Providers Care Zone Supervisor Firearms Name Role Phone Alvino Alvarez MD Primary Care Provider [phone] Alvino Alvarez MD Unavailable [phone] Jose Alfredo Fuentes MD Unavailable Faisal Dangelo MD Unavailable [phone] Damaris Lagunas MD Unavailable Betty Zaldivar RN Unavailable [phone] Betty Zaldivar RN Unavailable [phone] Damaris Lagunas MD Unavailable Brody Olivarez [employer] Unavailable [phone] Corrie Bustamante RN Unavailable [phone] Encounter Details Date Type Department Care [...] 02/25/2025 11:00 AM EDT Office Visit [address] [address] Damaris Lagunas MD [address] [place] [address] 03/19/2025 8:45 AM EDT Appointment [address] [address] 06/20/2025 8:15 AM EDT Appointment [address] [address] documented as of this encounter Visit Diagnoses Not on filedocumented in this encounter Care Teams Zone Supervisor Firearms Relationship Specialty Start Date End Date Alvino Alvarez MD [address] [place] [address] PCP - General Family Medicine 03/28/16 Alvino Alvarez MD [address] [place] [address] PCP - [place] Commercial Attributed 04/18/20 02/16/24 Brody Olivarez, [employer] 35 [facility] [address] [place] [address] PCP - [place] Commercial Attributed 02/17/24 Jose Alfredo Fuentes MD [address] [place], [place] [phone] Referring Provider Psychiatry, General 11/17/21 Faisal Dangelo MD [address] [place] [address] [address] [place] [address] Physician Surgery, Orthopedic 01/19/22 Damaris Lagunas MD [address] [place] [address] Primary Manager Chemical Cardiovascular Disease 01/20/22 Betty Zaldivar, ALEXANDRE [address] [employer] [address] [place] [address] ICP Community Sewing Demonstrator 01/31/22 08/13/24 Betty Zaldivar RN [address] [employer] [address] [place] [address] ICP Community Sewing Demonstrator 03/02/22 08/13/24 Damaris Lagunas MD [address] [place] [address] Primary Manager Chemical Cardiovascular Disease 09/18/22 Corrie Bustamante RN [address] [employer] [address] [address] [place] [address] ICP Community Sewing Demonstrator 08/13/24 documented as of this encounter
--- OUTSIDE RECORDS SUMMARY | 2025-01-07 12:55 | XMS_ITS | Encounter Summary ---
Author Organization [facility] Address [address] [place] [address] Care Team Providers Care Infrastructure Director Name Role Phone Alvino Alvarez MD Primary Care Provider [phone] Alvino Alvarez MD Unavailable Jose Alfredo Fuentes MD Unavailable Faisal Dangelo MD Unavailable [phone] Damaris Lagunas MD Unavailable Betty Zaldivar RN Unavailable [phone] Betty Zaldivar RN Unavailable [phone] Damaris Lagunas MD Unavailable Brody Olivarez APRN Unavailable [phone] Corrie Bustamante RN Unavailable [phone] Encounter Details Date Type Department Care Team (Late st Contact Info) Description 11/09/2021 Scanned Document [facility] Neurology [address] [place] [address] Hasmukh Shrestha MD IS [facility] [address] [address] Social History Tobacco Use Types Packs/Day Years [...] Description 02/25/2025 11:00 AM EDT Office Visit [facility] Vascular [address] [address] Damaris Lagunas MD [address] [place] [address] 03/19/2025 8:45 AM EDT Appointment [address] [address] 06/20/2025 8:15 AM EDT Appointment [address] [address] documented as of this encounter Visit Diagnoses Not on filedocumented in this encounter Care Teams Infrastructure Director Relationship Specialty Start Date End Date Alvino Alvarez MD [address] [place] [address] PCP - General Family Medicine 03/28/16 Alvino Alvarez MD [address] [place] [address] PCP - [place] Commercial Attributed 04/18/20 02/16/24 Brody Olivarez APRN 35 [facility] [address] [place] [address] PCP - [place] Commercial Attributed 02/17/24 Jose Alfredo Fuentes MD [address] [place], [place] [address] Referring Provider Psychiatry, General 11/17/21 Faisal Dangelo MD [address] [place] [address] [address] [place] [phone] Physician Surgery, Orthopedic 01/19/22 Damaris Lagunas MD [address] [place] [address] Primary Leaf Stripper Cardiovascular Disease 01/20/22 Betty Zaldivar RN [address] [place] [address] ICP Community Machine Repairer 01/31/22 08/13/24 Betty Zaldivar RN [address] [place] [address] ICP Community Machine Repairer 03/02/22 08/13/24 Damaris Lagunas MD [address] [place] [address] Primary Leaf Stripper Cardiovascular Disease 09/18/22 Corrie Bustamante RN [address] [place] [address] ICP Community Machine Repairer 08/13/24 documented as of this encounter
--- OUTSIDE RECORDS SUMMARY | 2025-01-07 12:55 | XMS_ITS | Encounter Summary ---
Author Organization [facility] Address [address] [place] [address] Care Team Providers Care Pipe Straightener Name Role Phone Alvino Alvarez MD Primary Care Provider [phone] Alvino Alvarez MD Unavailable [phone] Jose Alfredo Fuentes MD Unavailable Faisal Dangelo MD Unavailable [phone] Damaris Lagunas MD Unavailable Betty Zaldivar RN Unavailable [phone] Betty Zaldivar RN Unavailable [phone] Damaris Lagunas MD Unavailable Brody Olivarez CINDER PITMAN Unavailable [phone] Corrie Bustamante RN Unavailable [phone] Reason for Visit * Reason Comments Referral Encounter Details Date Type Department Care Team (Late st Contact Info) Description 09/14/2023 Telephone [facility] Access Center [address] [place] [address] Bharat Cox MD [address] [place] [address] [address] [place] [address] Referral Social History Tobacco Use [...] 02/25/2025 11:00 AM EDT Office Visit [facility] Vascular [address] [address] Damaris Lagunas MD [address] [place] [address] 03/19/2025 8:45 AM EDT Appointment [address] [address] 06/20/2025 8:15 AM EDT Appointment [address] [address] documented as of this encounter Visit Diagnoses Not on filedocumented in this encounter Care Teams Pipe Straightener Relationship Specialty Start Date End Date Alvino Alvarez MD [address] [place] [address] PCP - General Family Medicine 03/28/16 Alvino Alvarez MD [address] [place] [address] PCP - [place] Commercial Attributed 04/18/20 02/16/24 Brody Olivarez APRN 35 [facility] [address] [place] [address] PCP - [place] Commercial Attributed 02/17/24 Jose Alfredo Fuentes MD [address] [place] [address] Referring Provider Psychiatry, General 11/17/21 Faisal Dangelo MD [address] [place] [phone] Physician Surgery, Orthopedic 01/19/22 Damaris Lagunas MD [address] [place] [address] Primary Comb Machine Operator Cardiovascular Disease 01/20/22 Betty Zaldivar RN [address] [place] [address] ICP Community Pointing Machine Operator 01/31/22 08/13/24 Betty Zaldivar RN [address] [employer] [address] [address] ICP Community Pointing Machine Operator 03/02/22 08/13/24 Damaris Lagunas MD [address] [place] [address] Primary Comb Machine Operator Cardiovascular Disease 09/18/22 Corrie Bustamante RN [address] [employer] [address] [place] [address] ICP Community Pointing Machine Operator 08/13/24 documented as of this encounter
--- OUTSIDE RECORDS SUMMARY | 2025-01-07 12:55 | XMS_ITS | Encounter Summary ---
Author Organization [facility] Address [address] [place] [address] Care Team Providers Care Metal Off Bearer Name Role Phone Alvino Alvarez MD Primary Care Provider [phone] Alvino Alvarez MD Unavailable [phone] Jose Alfredo Fuentes MD Unavailable Faisal Dangelo MD Unavailable [phone] Damaris Lagunas MD Unavailable Betty Zaldivar RN Unavailable [phone] Betty Zaldivar RN Unavailable [phone] Damaris Lagunas MD Unavailable Brody Olivarez GUARD CHIEF Unavailable [phone] Corrie Bustamante RN Unavailable [phone] Encounter Details Date Type Department Care Team (Late st Contact Info) Description 09/25/2023 Scanned Document [facility] Heart & Vascular [place] [address] [address] Cardiology, Scan Social History Tobacco [...] 02/25/2025 11:00 AM EDT Office Visit [address] [address] Damaris Lagunas MD [address] [place] [address] 03/19/2025 8:45 AM EDT Appointment [address] [address] 06/20/2025 8:15 AM EDT Appointment [address] [address] documented as of this encounter Visit Diagnoses Not on filedocumented in this encounter Care Teams Metal Off Bearer Relationship Specialty Start Date End Date Alvino Alvarez MD [address] [place] [address] PCP - General Family Medicine 03/28/16 Alvino Alvarez MD [address] [place] [address] PCP - [place] Commercial Attributed 04/18/20 02/16/24 Brody Olivarez APRN [facility] [address] [place] [address] PCP - [place] Commercial Attributed 02/17/24 Jose Alfredo Fuentes MD [address] [place], [place] [id number] Referring Provider Psychiatry, General 11/17/21 Faisal Dangelo MD [address] [place] [phone] Physician Surgery, Orthopedic 01/19/22 Damaris Lagunas MD [address] [place] [address] Primary Undercutter Cardiovascular Disease 01/20/22 Betty Zaldivar RN [address] [place] [address] ICP Community Classification Control Clerk 01/31/22 08/13/24 Betty Zaldivar RN [address] [place] [address] ICP Community Classification Control Clerk 03/02/22 08/13/24 Dmaaris Lagunas MD [address] [place] [address] [phone] Primary Undercutter Cardiovascular Disease 09/18/22 Corrie Bustamante RN [address] [place] [address] ICP Community Classification Control Clerk 08/13/24 documented as of this encounter
--- OUTSIDE RECORDS SUMMARY | 2025-01-07 12:55 | XMS_ITS | Encounter Summary ---
Author Organization [facility] Address [address] [place] [address] Care Team Providers Care Entry Level Lab Technician Name Role Phone Alvino Alvarez MD Primary Care Provider [phone] Franki Gates MD Unavailable [phone] Reason for Referral * Imaging (Routine) - Closed Specialty Diagnoses / Procedures Referred By Jose C hurley Referred To Contact Radiology Diagnoses Vertebrogenic low back pain Sacroiliitis, not elsewhere classified (HCC) Procedures NM BONE SPECT Faisal Dangelo MD [address] [place] [address] Phone: tel: fax: [facility] Radiology - Central Scheduling [place] Phone: tel: fax: Referral ID Status Reason Start Date Expiration Date V isits Requested Visits Authorized [id number] Closed Perform Procedure 09/20/2023 09/19/2024 2 2 Encounter Details Date Type Department Care Team (Late st Contact Info) Description 09/20/2023 Ancillary Orders [facility] Radiology - Central [place] [phone] Faisal Dangelo MD [address] [place] [address] Vertebrogenic low back pain (Primary [...] classified documented in this encounter Care Teams Entry Level Lab Technician Relationship Specialty Start Date End Date Alvino Alvarez MD [address] [place] [address] PCP - General Family Medicine 05/12/20 Franki Gates MD 540 [facility] [address] [place] [address] Surgeon General Surgery 12/06/21 documented as of this encounter
--- OUTSIDE RECORDS SUMMARY | 2025-01-07 12:55 | XMS_ITS | Clinical Summary ---
Author Organization [facility] Address [address] [place] [address] Care Team Providers Care White Metal Corrosion Proofer Name Role Phone Alvino Alvarez MD Primary Care Provider [phone] Immunizations Name Administration Dates Next Due Moderna [...] age to complete this topic Care Teams White Metal Corrosion Proofer Relationship Specialty Start Date End Date Alvino Alvarez MD [address] [place] [address] PCP - General 08/17/23
--- OUTSIDE RECORDS SUMMARY | 2025-01-07 12:55 | XMS_ITS | Encounter Summary ---
Author Organization Formerly [facility] Address [address] [place] [address] Care Team Providers Care Child Watch Attendant Name Role Phone Alvino Alvarez MD Primary Care Provider [phone] Alvino Alvarez MD Unavailable [phone] Jose Alfredo Fuentes MD Unavailable Faisal Dangelo MD Unavailable [phone] Damaris Lagunas MD Unavailable Betty Zaldivar RN Unavailable [phone] Betty Zaldivar RN Unavailable [phone] Damaris Lagunas MD Unavailable Brody Olivarez BRICK MOLDER HAND Unavailable [phone] Corrie Bustamante RN Unavailable [phone] Encounter Details Date Type Department Care Team (Late st Contact Info) Description 11/15/2023 Prep for Surgery [facility] Heart & V[facility] [place] - Electrophysiology [address] [facility] [address] [place] [address] Zully Taylor, BRICK MOLDER HAND [address] [id number] Social History Tobacco Use Types Packs/Day Years [...] Description 02/25/2025 11:00 AM EDT Office Visit [address] [address] Damaris Lagunas MD [address] [place] [address] 03/19/2025 8:45 AM EDT Appointment [address] [address] 06/20/2025 8:15 AM EDT Appointment [address] [address] documented as of this encounter Visit Diagnoses Not on filedocumented in this encounter Care Teams Child Watch Attendant Relationship Specialty Start Date End Date Alvino Alvarez MD [address] [place] [address] PCP - General Family Medicine 03/28/16 Alvino Alvarez MD [address] [place], [place] [id number] PCP - [place] Commercial Attributed 04/18/20 02/16/24 Brody Olivarez APRN 35 [facility] [address] [place] [id number] PCP - [place] [employer] Attributed 02/17/24 Jose Alfredo Fuentes MD [address] [facility] [place] [address] Referring Provider Psychiatry, General 11/17/21 Faisal Dangelo MD [address] [place] [address] [address] [place] [phone] Physician Surgery, Orthopedic 01/19/22 Damaris Lagunas MD [address] [place] [address] Primary Riverboat Master Cardiovascular Disease 01/20/22 Betty Zaldivar RN [address] [place] [address] ICP Community Lofter 01/31/22 08/13/24 Betty Zaldivar RN [address] [place] [address] ICP Community Lofter 03/02/22 08/13/24 Damaris Lagunas MD [address] [place] [address] Primary Riverboat Master Cardiovascular Disease 09/18/22 Corrie Bustamante RN [address] [place] [address] [facility] Community Lofter 08/13/24 documented as of this encounter
--- OUTSIDE RECORDS SUMMARY | 2025-01-07 12:55 | XMS_ITS | Encounter Summary ---
Author Organization [facility] Address [address] [place] [address] Care Team Providers Care Sterilizer Operator Name Role Phone Alvino Alvarez MD Primary Care Provider Franki Gates MD Unavailable [phone] Encounter Details Date Type Department Care Team (Late st Contact Info) Description 09/30/2021 Scanned Document Transcribe External Orders CT [phone] Faisal Dangelo MD [address] [place], [place] [phone] 09/30/2021 [facility] Encounter Social History Tobacco Use Types [...] on filedocumented in this encounter Care Teams Sterilizer Operator Relationship Specialty Start Date End Date Alvino Alvarez MD [address] [facility], [place] [phone] PCP - General Family Medicine 05/12/20 Franki Gates MD [address] [facility] [address] [place], [place] [address] Surgeon General Surgery 12/06/21 documented as of this encounter
--- OUTSIDE RECORDS SUMMARY | 2025-01-07 12:55 | XMS_ITS | Encounter Summary ---
Author Organization [facility] Address [address] [place] [address] Care Team Providers Care Infant Nanny Name Role Phone Alvino Alvarez MD Primary Care Provider Franki Gates MD Unavailable [phone] Encounter Details Date Type Department Care Team (Late st Contact Info) Description 01/23/2022 Procedure Pass [facility] Radiology, [facility] (Diag Rad) [address] [place] [phone] Social History Tobacco Use Types Packs/Day Years [...] on filedocumented in this encounter Care Teams Infant Nanny Relationship Specialty Start Date End Date Alvino Alvarez MD [address] [place] [address] PCP - General Family Medicine 05/12/20 Franki Gates MD 540 [facility] [address] [place] [address] Surgeon General Surgery 12/06/21 documented as of this encounter
--- OUTSIDE RECORDS SUMMARY | 2025-01-07 12:55 | XMS_ITS | Encounter Summary ---
Author Organization [email or web address] Address [address] [place] [address] Care Team Providers Care Rawhide Trimmer Name Role Phone Alvino Alvarez MD Primary Care Provider [phone] Franki Gates MD Unavailable Encounter Details Date Type Department Care Team (Late st Contact Info) Description 11/03/2022 Procedure Pass [facility] [address] [place], [place] [phone] Social History Tobacco Use Types Packs/Day Years [...] on filedocumented in this encounter Care Teams Rawhide Trimmer Relationship Specialty Start Date End Date Alvino Alvarez MD [address] [place] [address] PCP - General Family Medicine 05/12/20 Franki Gates MD 540 [facility] [address] [place], [place] [address] Surgeon General Surgery 12/06/21 documented as of this encounter
--- OUTSIDE RECORDS SUMMARY | 2025-01-07 12:55 | XMS_ITS | Encounter Summary ---
Author Organization [facility] Address [address] [place] [address] Care Team Providers Care Assistant Superintendent Name Role Phone Alvino Alvarez MD Primary Care Provider Franki Gates MD Unavailable [phone] Encounter Details Date Type Department Care Team (Late st Contact Info) Description 01/24/2022 Procedure Pass [facility], Main Operating Room [address] [place] [phone] Social History Tobacco Use Types Packs/Day Years [...] filedocumented in this encounter Care Teams Assistant Superintendent Relationship Specialty Start Date End Date Alvino Alvarez MD [address] [place] [address] PCP - General Family Medicine 05/12/20 Franki Gates MD 540 [facility] [address] [place] [address] Surgeon General Surgery 12/06/21 documented as of this encounter
--- OUTSIDE RECORDS SUMMARY | 2025-01-07 12:55 | XMS_ITS | Encounter Summary ---
Author Organization [facility] Address [address] [place] [address] Care Team Providers Care Electric Deicer Inspector Name Role Phone Alvino Alvarez MD Primary Care Provider Franki Gates MD Unavailable [phone] Encounter Details Date Type Department Care Team (Late st Contact Info) Description 05/26/2023 Procedure Pass [facility], Radiology (CT Scan) [address] [place] [phone] Social History Tobacco Use Types Packs/Day Years [...] on filedocumented in this encounter Care Teams Electric Deicer Inspector Relationship Specialty Start Date End Date Alvino Alvarez MD [address] [place] [address] PCP - General Family Medicine 05/12/20 Franki Gates MD 540 [facility] [address] [place], [place] [address] Surgeon General Surgery 12/06/21 documented as of this encounter
--- OUTSIDE RECORDS SUMMARY | 2025-01-07 12:55 | XMS_ITS ---
Author Name Interface, [id number] Address [address] [place] [address] Organization [facility] Address [address] [place] [address] Care Team Providers Care Clay Products Machine Operator Name Role Phone Rafi Diamondkeyan Winifred Valente [...]
--- OUTSIDE RECORDS SUMMARY | 2025-01-07 12:55 | XMS_ITS | Encounter Summary ---
Author Organization [facility] Address [address] [place] [address] Care Team Providers Care Manager Wind Name Role Phone Alvino Alvarez MD Primary Care Provider [phone] Alvino Alvarez MD Unavailable [phone] Jose Alfredo Fuentes MD Unavailable Faisal Dangelo MD Unavailable [phone] Damaris Lagunas MD Unavailable Betty Zaldivar RN Unavailable [phone] Betty Zaldivar RN Unavailable [phone] Damaris Lagunas MD Unavailable Brody Olivarez APRN Unavailable [phone] Corrie Bustamante RN Unavailable [phone] Reason for Visit * Reason Comments Medication Refill Encounter Details Date Type Department Care Team (Late st Contact Info) Description 10/30/2021 Refill [facility] Neurology [address] [place] [address] Hasmukh Shrestha MD IS [facility] [address] [address] Parkinson's disease (HCC) Social History Tobacco Use [...] Description 02/25/2025 11:00 AM EDT Office Visit [address] [address] Damaris Lagunas MD [address] [place] [address] 03/19/2025 8:45 AM EDT Appointment [address] [address] 06/20/2025 8:15 AM EDT Appointment [address] [address] documented as of this encounter Visit Diagnoses Diagnosis Parkinson's disease (HCC) Paralysis agitans documented in this encounter Care Teams Manager Wind Relationship Specialty Start Date End Date Alvino Alvarez MD [address] [place] [address] PCP - General Family Medicine 03/28/16 Alvino Alvarez MD [address] [place] [address] PCP - [place] Commercial Attributed 04/18/20 02/16/24 Brody Olivarez APRN [address] [facility] [address] [place] [phone] PCP - [place] Commercial Attributed 02/17/24 Jose Alfredo Fuentes MD [address] [place] [phone] Referring Provider Psychiatry, General 11/17/21 Faisal Dangelo MD 430 [facility] [address] [place] [phone] Physician Surgery, Orthopedic 01/19/22 Damaris Lagunas MD [address] [place] [address] Primary Baggage Agent Supervisor Cardiovascular Disease 01/20/22 Betty Zaldivar RN [address] [place] [address] ICP Community Wildlife Biostation Research Ecologist 01/31/22 08/13/24 Betty Zaldivar RN [address] [place] [address] ICP Community Wildlife Biostation Research Ecologist 03/02/22 08/13/24 Damaris Lagunas MD [address] [place] [address] Primary Baggage Agent Supervisor Cardiovascular Disease 09/18/22 Corrie Bustamante RN [address] [place] [address] ICP Community Wildlife Biostation Research Ecologist 08/13/24 documented as of this encounter
--- OUTSIDE RECORDS SUMMARY | 2025-01-07 12:55 | XMS_ITS | Encounter Summary ---
Author Organization [facility] Address [address] [place] [address] Care Team Providers Care Paraffin Machine Operator Name Role Phone Alvino Alvarez MD Primary Care Provider [phone] Jose Alfredo Fuentes MD Unavailable Faisal Dangelo MD Unavailable [phone] Damaris Lagunas MD Unavailable Brody Olivarez APRN Unavailable [phone] Corrie Bustamante RN Unavailable [phone] Encounter Details Date Type Department Care Team (Late st Contact Info) Description 08/26/[address] [facility] Neurology [address] [phone] Physical Therapy, Scan Social History Tobacco Use [...] Description 02/25/2025 11:00 AM EDT Office Visit [address] [address] Damaris Lagunas MD [address] [place] [address] 03/19/2025 8:45 AM EDT Appointment [address] [address] 06/20/2025 8:15 AM EDT Appointment [address] [address] documented as of this encounter Visit Diagnoses Not on filedocumented in this encounter Care Teams Paraffin Machine Operator Relationship Specialty Start Date End Date Alvino Alvarez MD [address] [place] [address] PCP - General Family Medicine 03/28/16 Brody Olivarez, ANA 35 [facility] [address] [place] [address] PCP - [place] Commercial Attributed 02/17/24 Jose Alfredo Fuentes MD [address] [place], [place] [phone] Referring Provider Psychiatry, General 11/17/21 Faisal Dangelo MD [address] [place] [address] Physician Surgery, Orthopedic 01/19/22 Damaris Lagunas MD [address] [place] [address] Primary Biztalk Architect Cardiovascular Disease 01/20/22 Corrie Bustamante, RN [address] [place] [facility] 4 [place] [address] [facility] Community Platform Loader 08/13/24 documented as of this encounter
== END 2025-01-07 11:19 | disposition home or self-care (01) ==
LOC: HO.PMCPRC 10:52
PROVIDERS: Visit Provider Anesthesiology
DX: M53.3 Sacrococcygeal disorders, not elsewhere classified (principal)
CPT/HCPCS: 27096

== ENCOUNTER 2025-01-13 11:48 | Outpatient (AMB) | payer BC, SELFPAY ==
[2025-01-13 11:54] VITALS: BP 142/84; PULSE 68; O2SAT 99; BMI 30.9
--- NOTE | 2025-01-13 11:54 | A.OFFVIS_ITS ---
Vital Signs 01/13/25 11:54 Height 5 ft 9 in Weight 209 lb BMI 30.9 BP 142/84 H Blood Pressure Location Rt brachial Position Sitting Pulse 68 Pulse Source Pulse Oximeter Pulse Oximetry (%) 99 Oxygen Delivery Method Room Air Intake Visit Reasons: BILATERAL DIAGNOSTIC SIJ INJECTIONS Life Specialist Required: No Allergies codeine Allergy (Intermediate, Verified 01/13/25 11:55) cold sweats Medication List - Last Reconciled 01/13/25 by Avani Veliz, DIPPER CLOCK AND WATCH HANDS carbidopa-levodopa 25-100 mg tabs PO pantoprazole 40 mg PO DAILY tadalafil mg PO venlafaxine ER 37.5 mg PO DAILY HPI Comments Details: Vijay Shin is back in my office after diagnostic sacroiliac joint bilateral injection. The patient reports that he was trying to perform most activities of daily living after the procedure. He went to the mall and he was able to walk through the entire mole with minimal pain in his back. He states that his pain would be 8/10 if he would be that much walking in the mall. However his pain was 2 out of 10 and 3/10 for the 1st 4 hours after the procedure. It became 4/10 on the 5th hour after the procedure. Therefore I can consider sacroiliac joint being 1 of the pain generators of this patient. I offered the patient therapeutic sacroiliac joint injection with steroids however he was reluctant to accept this injection. However today he also admitted weakness in bilateral lower extremities, he reported that when he walks in the supermarket leaning on the cart his pain is minimal and legs are stronger. I suspected that this patient has spinal stenos is in his lower back possibly above the level of the prior intervention at L4-5. I will send him for the MRI of the lumbar spine. This would need to be MRI with and without contrast because he has hardware in his back. trial of spinal cord stimulator Nevro. He denies any help from the device. . Prior: complains on pain in the lower back without radiation into the bilateral lower extremities. He reports that he is suffering from this pain for the past 3 years. He was diagnosed with sacroiliitis. He also was diagnosed with vertebra genic pain syndrome. He went to an orthopedic surgeon who performed L4-L5 anterior spinal fusion and posterior laminectomy. He reports that his pain after surgery started to be worse. Denies any numbness weakness or pelvic organ dysfunction before the surgery. He reports that sitting decreases his pain significantly, walking and standing increases his pain. He received multiple physical therapies in the past to treat his pain. He received chiropractic manipulations to address his pain. He tried massage therapy and acupuncture nothing was helping his pain . He tried NSAIDs and he tried steroids to help his pain. He tried steroid injections into SI joints after his surgery which were not helpful for his pain control. He states that he was under consideration to perform sacroiliac joint fusion and his insurance company refused to cover the procedure. He brought the MRI results to this office and because of the hardware in his lumbar spine it is very difficult to read because of the magnetic artifact. He also recently was implanted with pacemaker/not defibrillator for the treatment of heart block and now he can not be sent for the MRI. However CT scan with and without contrast could be possible. His past medical history significant for heart block with pacemaker implantation, he is on levodopa carbidopa 25-100 he is taking acetaminophen to control his pain. His past surgery is anterior fusion February 06 and posterior laminectomy March 09, he was having throat surgery in 2002 cataract surgery in 2022 and pacemaker surgery in 2023. He denies smoking cigarettes he socially drinks alcohol, he denies caffeinated beverages and he denies recreational drugs. [facility] Medical History (Updated 01/13/25 @ 12:52 by Richard Montilla MD) History of heart block Hx of sinus bradycardia History of restless legs syndrome Bronchitis Elevated cholesterol ADAMARIS on CPAP Hx of cataract History of chemotherapy Hx of radiation therapy Depression Pacemaker Parkinson disease Surgical History (Updated 07/26/24 @ 13:27 by Zarina Fink RN) Hx of esophagogastroduodenoscopy History of throat surgery Hx of colonoscopy Hx of spinal fusion Social History Patient Tobacco Use Status: Never used Tobacco Review of Systems Const All systems reviewed & are unremarkable except as noted in HPI and below ENT Reports Normal hearing present Neuro Reports Normal hearing present, Denies Abnormal speech present, Denies confusion and Denies Sensory deficit (Neuro) Psych Denies confusion Physical Exam Vital Signs: Last Vital Signs Pulse 68 01/13/25 11:54 BP 142/84 H 01/13/25 11:54 Pulse Ox 99 01/13/25 11:54 Oxygen Delivery Method Room Air 01/13/25 11:54 BMI result Body Mass Index 30.9 Const General: cooperative, comfortable and well developed; No confusion Nutritional Appearance: average body habitus Orientation/consciousness: No confusion Eyes General: appearance normal, both eyes and all related structures Pupils: Equal, round and reactive pupils present EOM: EOMs intact bilaterally Neck Neck: Yes full ROM Chest Chest palpation & inspection: normal inspection of the chest Resp Effort & Inspection: normal respiratory effort, able to speak in complete sentences, normal respiratory pattern, no audible wheezes and no cough Cardio Jugular venous distension: no JVD GI Inspection: Yes normal to inspection Back/Spine/Pelvis Other: Sitting alleviates his pain standing and walking aggravates his pain. The pain is not radiating into bilateral lower extremities. He is able to stand on bilateral tiptoes demonstrating normal strength of bilateral lower extremities, he is able to stand on bilateral heels. His gait is shuffling probably secondary to Parkinson disease. No antalgic gait is observed. Jackson test is positive on the left,. Gaenslen test today is positive on the left bilaterally. Pelvic compression test is negative bilaterally but pelvic distraction test is equivocal. Stinchfield test is positive bilaterally bilaterally. SLR is negative bilaterally. Valsalva maneuver is positive. Neuro General: No confusion Cranial nerves: Yes CN's II-XII intact bilaterally, Yes Equal, round and reactive pupils present, Yes Normal hearing present and Yes Ability to bilaterally elevate shoulders present Speech: No Abnormal speech present Gait exam (Neuro): Normal gait present Motor exam (neuro): 5/5 motor strength present throughout Sensory Exam: No Sensory deficit (Neuro) Extrem General: No pedal edema Psych Speech and movement: Normal speech and movement present Affect: normal affect Attitude: cooperative Thought process: Normal thought process present Thought content: Normal thought content present Insight: Good insight present (Psych) Judgement: Good judgement present (Psych) Assessment & Plan Assessment & Plan (1) Postlaminectomy syndrome: Code(s): M96.1 - Postlaminectomy syndrome, not elsewhere classified Category: Medical (2) Spinal stenosis at L4-L5 level: Code(s): M48.061 - Spinal stenosis, lumbar region without neurogenic claudication Category: Medical (3) Chronic pain syndrome: Code(s): G89.4 - Chronic pain syndrome Category: Medical (4) Facet arthropathy, lumbar: Code(s): M47.816 - Spondylosis without myelopathy or radiculopathy, lumbar region Category: Medical (5) Sacroiliitis: Code(s): M46.1 - Sacroiliitis, not elsewhere classified Category: Medical (6) Sacroiliac joint dysfunction of both sides: Code(s): M53.3 - Sacrococcygeal disorders, not elsewhere classified Category: Medical Plan In my opinion most of the pain of this patient is coming from sacroiliac joint. I offered him sacroiliac joint injection with steroids and yet he was reluctant to accept this procedure. He stated that he in the past received sacroiliac joint injection with steroids ultrasound-guided and it was not helping him. I requested him to bring me the list of the procedures he received from a previous provider. However he also reports symptoms which would be related to neurogenic claudication. He reports leaning forward alleviates his pain, he reports weakness in bilateral lower extremities. Therefore I feel it is necessary to exclude possibility of further progression of the stenosis above and below L4-5 fused region and send him for the MRI of the lumbar spine. Orders: Orders MR lumbar spine wo/w con Today M48.061 - Spinal stenosis, lumbar region without neurogenic claudication, M96.1 - Postlaminectomy syndrome, not elsewhere classified Basic Metabolic Panel Today G89.4 - Chronic pain syndrome, M48.061 - Spinal stenosis, lumbar region without neurogenic claudication, M96.1 - Postlaminectomy syndrome, not elsewhere classified Patient Instructions: I here by testify that I spent 32 minutes in conversation with this patient as well as planning his care and organizing this note. Coding Level of Care Code Est Pt Level 4 (92842) Diagnoses Postlaminectomy syndrome M96.1 Spinal stenosis at L4-L5 level M48.061 Chronic pain syndrome G89.4 Facet arthropathy, lumbar M47.816 Sacroiliitis M46.1 Sacroiliac joint dysfunction of both sides M53.3
--- OUTSIDE RECORDS SUMMARY | 2025-01-13 14:08 | XMS_ITS | Clinical Summary ---
Author Organization [facility] Address [address] [place] [address] Care Team Providers Care Bike Assembler Name Role Phone Alvino Alvarez MD [...] age to complete this topic Care Teams Bike Assembler Relationship Specialty Start Date End Date Alvino Alvarez MD [address] [place] [address] PCP - General Family Medicine 08/17/23
--- OUTSIDE RECORDS SUMMARY | 2025-01-13 14:08 | XMS_ITS | Encounter Summary ---
Author Organization [facility] Address [address] [place] [address] Care Team Providers Care Laborer Chemical Processing Name Role Phone Alvino Alvarez MD Primary Care Provider [phone] Alvino Alvarez MD Unavailable [phone] Jose Alfredo Fuentes MD Unavailable Faisal Dangelo MD Unavailable [phone] Damaris Lagunas MD Unavailable Betty Zaldivar RN Unavailable [phone] Betty Zaldivar RN Unavailable [phone] Damaris Lagunas MD Unavailable Brody Olivarez PARKING METER COLLECTOR Unavailable [phone] Corrie Bustamante RN Unavailable [phone] Reason for Visit * Reason Comments Medication Refill Encounter Details Date Type Department Care Team (Late st Contact Info) Description 07/29/2022 Refill [facility] Neurology [address] [place] [address] Brody Olivarez, ANA [address] [facility] [address] [place] [address] Parkinson's disease (HCC) Social History [...] Description 02/25/2025 11:00 AM EDT Office Visit [facility] Vascular [address] [address] Damaris Lagunas MD [address] [place] [address] 03/19/2025 8:45 AM EDT Appointment [address] [address] 06/20/2025 8:15 AM EDT Appointment [address] [address] documented as of this encounter Visit Diagnoses Diagnosis Parkinson's disease (HCC) Paralysis agitans documented in this encounter Care Teams Laborer Chemical Processing Relationship Specialty Start Date End Date Alvino Alvarez MD [address] [place] [address] PCP - General Family Medicine 03/28/16 Alvino Alvarez MD [address] [place] [address] PCP - [place] Commercial Attributed 04/18/20 02/16/24 Brody Olivarez APRN [address] [facility] [address] [place] [address] PCP - [place] Commercial Attributed 02/17/24 Jose Alfredo Fuentes MD [address] [place], [place] [address] Referring Provider Psychiatry, General 11/17/21 Faisal Dangelo MD [address] [facility] [address] [place] [phone] Physician Surgery, Orthopedic 01/19/22 Damaris Lagunas MD [address] [place] [address] Primary Alternative Medicine Practitioner Cardiovascular Disease 01/20/22 Betty Zaldivar RN [address] [employer] [place] [address] ICP Community Desulfurizer Machine 01/31/22 08/13/24 Betty Zaldivar RN [address] [employer] [address] [place], [place] [id number] ICP Community Desulfurizer Machine 03/02/22 08/13/24 Damaris Lagunas MD [address] [place] [address] Primary Alternative Medicine Practitioner Cardiovascular Disease 09/18/22 Corrie Bustamante RN [address] [place] [address] ICP Community Desulfurizer Machine 08/13/24 documented as of this encounter
--- OUTSIDE RECORDS SUMMARY | 2025-01-13 14:08 | XMS_ITS | Encounter Summary ---
Author Organization [facility] Address [address] [place] [address] Care Team Providers Care Gradall Operator Name Role Phone Alvino Alvarez MD Primary Care Provider [phone] Alvino Alvarez MD Unavailable [phone] Jose Alfredo Fuentes MD Unavailable Faisal Dangelo MD Unavailable [phone] Damaris Lagunas MD Unavailable Betty Zaldivar RN Unavailable [phone] Betty aZldivar RN Unavailable [phone] Damaris Lagunas MD Unavailable Brody Olivarez APRN Unavailable [phone] Corrie Bustamante RN Unavailable [phone] Encounter Details Date Type Department Care Team (Late st Contact Info) Description 02/15/2022 Prep for Surgery [facility]-Ad[facility] [address] [place] [address] Vee Rodríguez, RN [address] [place] [address] Social History Tobacco Use Types Packs/Day Years [...] Description 02/25/2025 11:00 AM EDT Office Visit [address] [address] Damaris Lagunas MD [address] [place] [address] 03/19/2025 8:45 AM EDT Appointment [address] [address] 06/20/2025 8:15 AM EDT Appointment [address] [address] documented as of this encounter Visit Diagnoses Not on filedocumented in this encounter Care Teams Gradall Operator Relationship Specialty Start Date End Date Alvino Alvarez MD [address] [place] [address] PCP - General Family Medicine 03/28/16 Alvino Alvarez MD [address] [place] [address] PCP - [place] Commercial Attributed 04/18/20 02/16/24 Brody Olivarez APRN 35 [facility] [address] [place] [address] PCP - [place] Commercial Attributed 02/17/24 Jose Alfredo Fuentes MD [address] [place] [address] Referring Provider Psychiatry, General 11/17/21 Faisal Dangelo MD [address] [place] [address] [address] [place] [address] Physician Surgery, Orthopedic 01/19/22 Damaris Lagunas MD [address] [place] [address] Primary Pulverizer Cardiovascular Disease 01/20/22 Betty Zaldivar RN [address] [place] [address] ICP Community Research Psychologist 01/31/22 08/13/24 Betty Zaldivar RN [address] [place] [phone] ICP Community Research Psychologist 03/02/22 08/13/24 Damaris Lagunas MD [address] [place] [address] Primary Pulverizer Cardiovascular Disease 09/18/22 Corrie Bustamante RN [address] [address] ICP Community Research Psychologist 08/13/24 documented as of this encounter
--- OUTSIDE RECORDS SUMMARY | 2025-01-13 14:08 | XMS_ITS | Encounter Summary ---
Author Organization [facility] Address [address] [place] [address] Care Team Providers Care Curing Oven Attendant Name Role Phone Alvino Alvarez MD Primary Care Provider [phone] Alvino Alvarez MD Unavailable [phone] Jose Alfredo Fuentes MD Unavailable Faisal Dangelo MD Unavailable [phone] Damaris Lagunas MD Unavailable Betty Zaldivar RN Unavailable [phone] Betty Zaldivar RN Unavailable [phone] Damaris Lagunas MD Unavailable Brody Olivarez MARKETING SALES CONSULTANT Unavailable [phone] Corrie Bustamante RN Unavailable [phone] Encounter Details Date Type Department Care Team (Late st Contact Info) Description 03/01/2022 Scanned Document [facility] Heart & Vascular [place] [address] [address] Cardiology, Scan Social History Tobacco [...] Description 02/25/2025 11:00 AM EDT Office Visit [facility] Vascular [address] [address] Damaris Lagunas MD [address] [place] [address] 03/19/2025 8:45 AM EDT Appointment [address] [address] 06/20/2025 8:15 AM EDT Appointment [address] [address] documented as of this encounter Visit Diagnoses Not on filedocumented in this encounter Care Teams Curing Oven Attendant Relationship Specialty Start Date End Date Alvino Alvarez MD [address] [place] [address] PCP - General Family Medicine 03/28/16 Alvino Alvarez MD [address] [place] [address] PCP - [place] Commercial Attributed 04/18/20 02/16/24 Brody Olivarez APRN 35 [facility] [address] [place] [address] PCP - [place] Commercial Attributed 02/17/24 Jose Alfredo Fuentes MD [address] [place] [address] Referring Provider Psychiatry, General 11/17/21 Faisal Dangelo MD [address] [place] [address] 100 [place] [phone] Physician Surgery, Orthopedic 01/19/22 Damaris Lagunas MD [address] [place] [address] Primary Tafe Registrar Cardiovascular Disease 01/20/22 Betty Zaldivar RN [address] [place] [address] ICP Community Senior Back End Java Developer 01/31/22 08/13/24 Betty Zaldivar RN [address] [place] [address] ICP Community Senior Back End Java Developer 03/02/22 08/13/24 Damaris Lagunas MD [address] [place] [address] Primary Tafe Registrar Cardiovascular Disease 09/18/22 Corrie Bustamante RN [address] [place] [phone] ICP Community Senior Back End Java Developer 08/13/24 documented as of this encounter
--- OUTSIDE RECORDS SUMMARY | 2025-01-13 14:08 | XMS_ITS | Encounter Summary ---
Author Organization [facility] Address [address] [place] [address] Care Team Providers Care Property Maintenance Supervisor Name Role Phone Alvino Alvarez MD Primary Care Provider [phone] Alvino Alvarez MD Unavailable [phone] Jose Alfredo Fuentes MD Unavailable Faisal Dangelo MD Unavailable [phone] Damaris Lagunas MD Unavailable Betty Zaldivar RN Unavailable [phone] Betty Zaldivar RN Unavailable [phone] Damaris Lagunas MD Unavailable Brody Olivarez HOTEL STAFF MEMBER Unavailable [phone] Corrie Bustamante RN Unavailable [phone] Encounter Details Date Type Department Care Team (Late st Contact Info) Description 03/09/2022 Scanned Document [facility] Heart & Vascular [place] [address] [address] Cardiology, Scan Social History Tobacco [...] 02/25/2025 11:00 AM EDT Office Visit [facility] Vascular [address] [address] Damaris Lagunas MD [address] [place] [address] 03/19/2025 8:45 AM EDT Appointment [address] [address] 06/20/2025 8:15 AM EDT Appointment [address] [address] documented as of this encounter Visit Diagnoses Not on filedocumented in this encounter Care Teams Property Maintenance Supervisor Relationship Specialty Start Date End Date Alvino Alvarez MD [address] [place] [address] PCP - General Family Medicine 03/28/16 Alvino Alvarez MD [address] [place] [address] PCP - [place] Commercial Attributed 04/18/20 02/16/24 Brody Olivarez APRN 35 [facility] [address] [place] [address] PCP - [place] Commercial Attributed 02/17/24 Jose Alfredo Fuentes MD [address] [place], [place] [address] Referring Provider Psychiatry, General 11/17/21 Faisal Dangelo MD [address] [place] [address] 100 [place] [address] Physician Surgery, Orthopedic 01/19/22 Damaris Lagunas MD [address] [place] [address] Primary Ingot Stripper Cardiovascular Disease 01/20/22 Betty Zaldivar RN [address] [place] [address] ICP Community Crossing Guard 01/31/22 08/13/24 Betty Zaldivar RN [address] [place] [address] ICP Community Crossing Guard 03/02/22 08/13/24 Damaris Lagunas MD [address] [place] [address] Primary Ingot Stripper Cardiovascular Disease 09/18/22 Corrie Bustamante RN [address] [place] [phone] ICP Community Crossing Guard 08/13/24 documented as of this encounter
--- OUTSIDE RECORDS SUMMARY | 2025-01-13 14:08 | XMS_ITS ---
Author Organization [facility] Address [address] [place] [address] Care Team Providers Care Rn Discharge Name Role Phone NOT LISTED Primary Care Provider Garrett Christensen Unavailable [phone] Allergies Allergen (clinical drug ingredient) Drug/Non Drug [...] Status Risk Notes Problem Sacroiliac disorder (disorder) (706478102) Sacroiliac dysfunction (M53.3) Active confirmed Vital Signs Height 69 in 01/24/2024 Weight 212 lbs 01/24/2024 BMI 31.3 kg/m2 01/24/2024 Height-cm 175.26 cm 01/24/2024 Weight-kg 96.16 kg 01/24/2024 Encounters Encounter Location Date Provider [place] [address] 01/24/2024 Garrett Pan Sacroiliac dysfuncti on M53.3 [...] Vijay SCHULTZ) AndrewDOB: 1965 (58 yo M)Acc No.[id number]:01/24/2024 Patient:?Vijay SCHULTZ (Andy)ew Provider:?Garrett Pan MD :1965???Age:58 Y???Sex:Male Janusz e:01/24/2024 Address:[address] [place] [address], [phone] Pcp:NOT LISTED Structured Data:Is today's v isit [...] (Performed Date - 01/24/2024) * * Procedure Codes:?82128 X-RAY EXAM OF LOWER SPINE * Follow Up:?For an SI joint f usion * Billing Information: * Visit Code:? 22508 Office Visit, New Pt., Level 4. * Procedure Codes:? 87984 X-RAY EXAM OF LOWER SPINE. * Sign off status: Completed true * Provider:?Garrett Pan MD Date:? 024 Generated for Annette villalta/Glenn/Lars on:?01/13/2025 02:08 PM EDT History and Physical Notes * HPI [...]
--- OUTSIDE RECORDS SUMMARY | 2025-01-13 14:08 | XMS_ITS | Encounter Summary ---
Author Organization [facility] Address [address] [place] [address] Care Team Providers Care Balloon Design Printer Name Role Phone Alvino Alvarez MD Primary Care Provider [phone] Alvino Alvarez MD Unavailable [phone] Jose Alfredo Fuentes MD Unavailable Faisal Dangelo MD Unavailable [phone] Damaris Lagunas MD Unavailable Betty Zaldivar RN Unavailable [phone] Betty Zaldivar RN Unavailable [phone] Damaris Lagunas MD Unavailable Brody Olivarez APRN Unavailable [phone] Corrie Bustamante RN Unavailable [phone] Reason for Visit * Reason Comments Medication Refill Encounter Details Date Type Department Care Team (Late st Contact Info) Description 03/05/2022 Refill [facility] Neurology [address] [place] [address] Hasmukh Shrestha MD IS [facility] Brain [facility] S [address] [address] Parkinson's disease (HCC) Social History Tobacco Use [...] [facility] [address] [address] Damaris Lagunas MD [address] [place] [address] 03/19/2025 8:45 AM EDT Appointment [address] [address] 06/20/2025 8:15 AM EDT Appointment [address] [address] documented as of this encounter Visit Diagnoses Diagnosis Parkinson's disease (HCC) Paralysis agitans documented in this encounter Care Teams Balloon Design Printer Relationship Specialty Start Date End Date Alvino Alvarez MD [address] [place], [place] [id number] PCP - General Family Medicine 03/28/16 Alvino Alvarez MD [address] [place], [place] [address] PCP - [place] Commercial Attributed 04/18/20 02/16/24 Brody Olivarez APRN 35 [facility] [place] [facility] [address] [place] [phone] PCP - [place] Commercial Attributed 02/17/24 Jose Alfredo Fuentes MD [address] [place] [address] Referring Provider Psychiatry, General 11/17/21 Faisal Dangelo MD 430 [facility] [address] [place] [phone] Physician Surgery, Orthopedic 01/19/22 Damaris Lagunas MD [address] [place] [address] Primary Check Services Clerk Cardiovascular Disease 01/20/22 Betty Zaldivar RN [address] [place] [address] ICP Community Form Tamping Machine Operator 01/31/22 08/13/24 Betty Zaldivar RN [address] [address] ICP Community Form Tamping Machine Operator 03/02/22 08/13/24 Damaris Lagunas MD [address] [place] [address] Primary Check Services Clerk Cardiovascular Disease 09/18/22 Corrie Bustamante RN [address] [address] ICP Community Form Tamping Machine Operator 08/13/24 documented as of this encounter
--- OUTSIDE RECORDS SUMMARY | 2025-01-13 14:08 | XMS_ITS ---
Author Organization [facility] Address [address] [place] [address] Care Team Providers Care Treer Name Role Phone Alvino Alvarez MD Primary Care Provider Jose Alfredo Fuentes MD Unavailable Faisal Dangelo MD Unavailable [phone] Damaris Lagunas MD Unavailable Brody Olivarez DISPENSING LEAD Unavailable Corrie Bustamante RN Unavailable [phone] Active Problems Problem Noted Date Diagnosed Date Bradycardia 11/09/2023 Constipation 07/04/2023 07/04/2023 Drug-induced thrombocytopenia 07/04/2023 Epistaxis 07/04/2023 07/04/2023 Pain 07/04/2023 07/04/2023 Radicular pain 02/23/2022 Lumbar stenosis without neurogenic claudication 02/18/2022 Parkinson's disease 11/17/2021 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
--- OUTSIDE RECORDS SUMMARY | 2025-01-13 14:09 | XMS_ITS | Encounter Summary ---
Author Organization [facility] Address [address] [place] [address] Care Team Providers Care Carving Machine Operator Name Role Phone Alvino Alvarez MD Primary Care Provider [phone] Jose Alfredo Fuentes MD Unavailable Faisal Dangelo MD Unavailable [phone] Damaris Lagunas MD Unavailable Brody Olivarez APRN Unavailable [phone] Corrie Bustamante RN Unavailable [phone] Encounter Details Date Type Department Care Team (Late st Contact Info) Description 08/26/2024 Scanned Document [facility] Neurology [address] [phone] Physical Therapy, Scan Social History Tobacco Use [...] Description 02/25/2025 11:00 AM EDT Office Visit [address] [address] Damaris Lagunas MD [address] [place] [address] 03/19/2025 8:45 AM EDT Appointment [address] [address] 06/20/2025 8:15 AM EDT Appointment [address] [address] documented as of this encounter Visit Diagnoses Not on filedocumented in this encounter Care Teams Carving Machine Operator Relationship Specialty Start Date End Date Alvino Alvarez MD [address] [place] [address] PCP - General Family Medicine 03/28/16 Brody Olivarez, ANA [facility] [address] [place] [address] PCP - [place] Commercial Attributed 02/17/24 Jose Alfredo Fuentes MD [address] [place], [place] [address] Referring Provider Psychiatry, General 11/17/21 Faisal Dangelo MD [address] [place] [address] Physician Surgery, Orthopedic 01/19/22 Damaris Lagunas MD [address] [place] [address] Primary Logistics Research Engineer Cardiovascular Disease 01/20/22 Corrie Bustamante, RN [address] [facility] 4 [place] [address] [facility] Community Contracting Engineer 08/13/24 documented as of this encounter
--- OUTSIDE RECORDS SUMMARY | 2025-01-13 14:09 | XMS_ITS | Clinical Summary ---
Author Organization [facility] Address [address] [place] [address] Care Team Providers Care Bushing And Broach Operator Name Role Phone Pcp, No MD Primary [...] [place] [id number] [facility] Care Teams Bushing And Broach Operator Relationship Specialty Start Date End Date Kasey Olson MD [address] [place] [address] PCP - General Internal Medicine 06/14/22
--- OUTSIDE RECORDS SUMMARY | 2025-01-13 14:09 | XMS_ITS | Encounter Summary ---
Author Organization [facility] Address [address] [place] [address] Care Team Providers Care Restaurant Crew Name Role Phone Alvino Alvarez MD Primary Care Provider [phone] Alvino Alvarez MD Unavailable [phone] Jose Alfredo Fuentes MD Unavailable Faisal Dangelo MD Unavailable [phone] Damaris Lagunas MD Unavailable Betty Zaldivar RN Unavailable [phone] Betty Zaldivar RN Unavailable [phone] Damaris Lagunas MD Unavailable Brody Olivarez APRN Unavailable [phone] Corrie Bustamante RN Unavailable [phone] Encounter Details Date Type Department Care Team (Late st Contact Info) Description 09/15/2023 Telephone [place] [address] [place] [address] Alvino Alvarez MD [address] [place] [address] Social History Tobacco Use Types [...] System [facility] Vascular [address] [address] Damaris Lagunas MD [address] [place] [address] 03/19/2025 8:45 AM EDT Appointment [address] [address] 06/20/2025 8:15 AM EDT Appointment [address] [address] documented as of this encounter Visit Diagnoses Not on filedocumented in this encounter Care Teams Restaurant Crew Relationship Specialty Start Date End Date Alvino Alvarez MD [address] [place] [address] PCP - General Family Medicine 03/28/16 Alvino Alvarez MD 34 [place] [address] PCP - [place] Commercial Attributed 04/18/20 02/16/24 Brody Olivarez APRN 35 [facility] [address] [place] [address] PCP - [place] Commercial Attributed 02/17/24 Jose Alfredo Fuentes MD [address] [place] [address] Referring Provider Psychiatry, General 11/17/21 Faisal Dangelo MD [address] [place] [address] 100 [place] [address] Physician Surgery, Orthopedic 01/19/22 Damaris Lagunas MD [address] [place] [address] Primary Manager Technical Training Cardiovascular Disease 01/20/22 Betty Zaldivar RN [address] [place] [phone] ICP Community Virtualization Consultant 01/31/22 08/13/24 Betty Zaldivar RN [address] [place] [address] ICP Community Virtualization Consultant 03/02/22 08/13/24 Damaris Lagunas MD [address] [place] [address] Primary Manager Technical Training Cardiovascular Disease 09/18/22 Corrie Bustamante RN [address] [place] [address] ICP Community Virtualization Consultant 08/13/24 documented as of this encounter
--- OUTSIDE RECORDS SUMMARY | 2025-01-13 14:09 | XMS_ITS | Encounter Summary ---
Author Organization [facility] Address [address] [place] [address] Care Team Providers Care Uptwist Spinner Name Role Phone Alvino Alvarez MD Primary Care Provider [phone] Franki Gates MD Unavailable [phone] Reason for Referral * Imaging (Routine) - Closed Specialty Diagnoses / Procedures Referred By Jose C hurley Referred To Contact Radiology Diagnoses Vertebrogenic low back pain Sacroiliitis, not elsewhere classified (HCC) Procedures CT LUMBAR SPINE WO IV CONTRAST Faisal Dangelo MD Phone: tel: fax: [facility] Radiology - Central Scheduling CT Phone: tel: fax: Referral ID Status Reason Start Date Expiration Date V isits Requested Visits Authorized [id number] Closed Perform Procedure 11/03/2022 01/01/2023 1 1 Encounter Details Date Type Department Care Team (Late st Contact Info) Description 11/03/2022 Ancillary Orders [facility] Radiology - Central Scheduling [place] [phone] Faisal Dangelo MD [address] [place] [address] Vertebrogenic low back pain; Sacroiliitis, not elsewhere [...] back pain, Sacroiliitis, not elsewhere classified (CMS/HCC) ([facility]), Vertebrogenic low back pain, PROTOCOL: Axial helical [...] classified documented in this encounter Care Teams Uptwist Spinner Relationship Specialty Start Date End Date Alvino Alvarez MD [address] [place] [address] PCP - General Family Medicine 05/12/20 Franki Gates MD 540 [facility] [address] [place] [address] Surgeon General Surgery 12/06/21 documented as of this encounter
--- OUTSIDE RECORDS SUMMARY | 2025-01-13 14:09 | XMS_ITS ---
Author Name Interface, [id number] lity Address [address] [place] [address] Organization [facility] Address [address] [place] [address] Care Team Providers Care Curtain Drier Name Role Phone Rafi Diamondkeyan Winifred Valente [...]
--- OUTSIDE RECORDS SUMMARY | 2025-01-13 14:09 | XMS_ITS | Encounter Summary ---
Author Organization [facility] Address [address] [place] [address] Care Team Providers Care Roll Operator Name Role Phone Alvino Alvarez MD Primary Care Provider [phone] Franki Gates MD Unavailable [phone] Encounter Details Date Type Department Care Team (Late st Contact Info) Description 01/24/2022 Procedure Pass [facility], Main Operating Room [address] [place] [address] [id number] Social History Tobacco Use Types Packs/Day Years [...] on filedocumented in this encounter Care Teams Roll Operator Relationship Specialty Start Date End Date Alvino Alvarez MD [address] [place] [address] PCP - General Family Medicine 05/12/20 Franki Gates MD [address] [facility] [address] [place] [address] Surgeon General Surgery 12/06/21 documented as of this encounter
--- OUTSIDE RECORDS SUMMARY | 2025-01-13 14:09 | XMS_ITS | Encounter Summary ---
Author Organization [facility] Address [address] [place] [address] Care Team Providers Care Casserole Preparer Name Role Phone Alvino Alvarez MD Primary Care Provider [phone] Alvino Alvarez MD Unavailable [phone] Jose Alfredo Fuentes MD Unavailable Faisal Dangelo MD Unavailable [phone] Damaris Lagunas MD Unavailable Betty Zaldivar RN Unavailable [phone] Betty Zaldivar RN Unavailable [phone] Damaris Lagunas MD Unavailable Brody Olivarez APRN Unavailable [phone] Corrie Bustamante RN Unavailable [phone] Reason for Visit * Reason Comments Medication Refill Encounter Details Date Type Department Care Team (Late st Contact Info) Description 08/12/2020 Refill [employer] [address] [place], [place] [phone] Yash Hill MD [address] [place], [place] Gastroesophageal reflux disease with esophagitis Social [...] Description 02/25/2025 11:00 AM EDT Office Visit [address] [address] Damaris Lagunas MD [address] [place] [address] 03/19/2025 8:45 AM EDT Appointment [address] [address] 06/20/2025 8:15 AM EDT Appointment [address] [address] documented as of this encounter Visit Diagnoses Diagnosis Gastroesophageal reflux disease with esophagitis documented in this encounter Care Teams Casserole Preparer Relationship Specialty Start Date End Date Alvino Alvarez MD [address] [place] [address] PCP - General Family Medicine 03/28/16 Alvino Alvarez MD [address] [place] [address] PCP - [place] Commercial Attributed 04/18/20 02/16/24 Brody Olivarez APRN 35 [facility] [address] [place] [address] PCP - [place] Commercial Attributed 02/17/24 Jose Alfredo Fuentes MD [address] [place], [place] [phone] Referring Provider Psychiatry, General 11/17/21 Faisal Dangelo MD [address] [place] [address] [address] [phone] Physician Surgery, Orthopedic 01/19/22 Damaris Lagunas MD [address] [place] [address] Primary Senior C Web Developer Cardiovascular Disease 01/20/22 Betty Zaldivar RN [address] [place] [address] ICP Community Director Of Marketing And Promotions 01/31/22 08/13/24 Betty Zaldivar RN [address] [place] [address] ICP Community Director Of Marketing And Promotions 03/02/22 08/13/24 Damaris Lagunas MD [address] [place] [address] Primary Senior C Web Developer Cardiovascular Disease 09/18/22 Corrie Bustamante RN [address] [place] [address] ICP Community Director Of Marketing And Promotions 08/13/24 documented as of this encounter
--- OUTSIDE RECORDS SUMMARY | 2025-01-13 14:09 | XMS_ITS | Encounter Summary ---
Author Organization [facility] Address [address] [place] [address] Care Team Providers Care Box Folding Machine Operator Name Role Phone Alvino Alvarez MD Primary Care Provider [phone] Alvino Alvarez MD Unavailable [phone] Jose Alfredo Fuentes MD Unavailable Faisal Dangelo MD Unavailable [phone] Damaris Lagunas MD Unavailable Betty Zaldivar RN Unavailable [phone] Betty Zaldivar RN Unavailable [phone] Damaris Lagunas MD Unavailable Brody Olivarez VEST PRESSER Unavailable [phone] Corrie Bustamante RN Unavailable [phone] Encounter Details Date Type Department Care Team (Late st Contact Info) Description 09/25/2023 Scanned Document [facility] Heart & V[facility] [place] [address] [address] Cardiology, Scan Social History Tobacco [...] Description 02/25/2025 11:00 AM EDT Office Visit [address] [address] Damaris Lagunas MD [address] [place] [address] 03/19/2025 8:45 AM EDT Appointment [address] [address] 06/20/2025 8:15 AM EDT Appointment [address] [address] documented as of this encounter Visit Diagnoses Not on filedocumented in this encounter Care Teams Box Folding Machine Operator Relationship Specialty Start Date End Date Alvino Alvarez MD [address] [place] [address] PCP - General Family Medicine 03/28/16 Alvino Alvarez MD [address] [place] [address] PCP - [place] Commercial Attributed 04/18/20 02/16/24 Bordy Olivarez APRN [facility] [address] [place] [address] PCP - [place] Commercial Attributed 02/17/24 Jose Alfredo Fuentes MD [address] [place], [place] [phone] Referring Provider Psychiatry, General 11/17/21 Faisal Dangelo MD [address] [place] [phone] Physician Surgery, Orthopedic 01/19/22 Damaris Lagunas MD [address] [place] [address] Primary Color Stripper Cardiovascular Disease 01/20/22 Betty Zaldivar RN [address] [place] [address] ICP Community Ventilation Worker 01/31/22 08/13/24 Betty Zaldivar RN [address] [place] [address] ICP Community Ventilation Worker 03/02/22 08/13/24 Damaris Lagunas MD [address] [place] [phone] Primary Color Stripper Cardiovascular Disease 09/18/22 Corrie Bustamante RN [address] [facility] [address] ICP Community Ventilation Worker 08/13/24 documented as of this encounter
--- OUTSIDE RECORDS SUMMARY | 2025-01-13 14:09 | XMS_ITS | Encounter Summary ---
Author Organization [facility] Address [address] [place] [address] Care Team Providers Care Legal Compliance Officer Name Role Phone Alvino Alvarez MD Primary Care Provider [phone] Franki Gates MD Unavailable [phone] Reason for Referral * Imaging (Routine) - Closed Specialty Diagnoses / Procedures Referred By Jose C hurley Referred To Contact Radiology Diagnoses Severe pain Procedures CT SI JOINT INJECTION CT GUIDANCE FOR NEEDLE PLACEMENT Faisal Dangelo MD [address] [place] [address] Phone: tel: fax: [facility] Radiology - Central Scheduling [place] Phone: tel: fax: Referral ID Status Reason Start Date Expiration Date V isits Requested Visits Authorized [id number] Closed Perform Procedure 05/12/2023 06/19/2023 1 1 Encounter Details Date Type Department Care Team (Late st Contact Info) Description 05/12/2023 Ancillary Orders [facility] Radiology - [place] [phone] Faisal Dangelo MD [address] [place], [place] [phone] Severe pain Social History Tobacco Use Types [...] positioned supine on the CT scanner and layout inspector imaging was obtained. The lower back was [...] was positioned supine on the CTscanner and layout inspector imaging was obtained. The lower back was [...] pain documented in this encounter Care Teams Legal Compliance Officer Relationship Specialty Start Date End Date Alvino Alvarez MD [address] [place] [address] PCP - General Family Medicine 05/12/20 Franki Gates MD 540 [facility] [address] [place] [address] Surgeon General Surgery 12/06/21 documented as of this encounter
--- OUTSIDE RECORDS SUMMARY | 2025-01-13 14:09 | XMS_ITS | Encounter Summary ---
Author Organization [facility] Address [address] [place] [address] Care Team Providers Care Senior J2Ee Developer Name Role Phone Alvino Alvarez MD Primary Care Provider [phone] Alvino Alvarez MD Unavailable [phone] Jose Alfredo Fuentes MD Unavailable Faisal Dangelo MD Unavailable Damaris Lagunas MD Unavailable Betty Zaldivar RN Unavailable [phone] Betty Zaldivar RN Unavailable [phone] Damaris Lagunas MD Unavailable Brody Olivarez APRN Unavailable [phone] Corrie Bustamante RN Unavailable [phone] Encounter Details Date Type Department Care Team (Late st Contact Info) Description 11/09/2021 Scanned Document [facility] Neurology [address] [place] [address] Hasmukh Shrestha MD IS [facility] [address] [address] Social History Tobacco Use Types Packs/Day Years [...] Description 02/25/2025 11:00 AM EDT Office Visit [facility] Vascular [address] [address] Damaris Lagunas MD [address] [place] [address] 03/19/2025 8:45 AM EDT Appointment [address] [address] 06/20/2025 8:15 AM EDT Appointment [address] [address] documented as of this encounter Visit Diagnoses Not on filedocumented in this encounter Care Teams Senior J2Ee Developer Relationship Specialty Start Date End Date Alvino Alvarez MD [address] [place] [address] PCP - General Family Medicine 03/28/16 Alvino Alvarez MD [address] [place] [address] PCP - [place] Commercial Attributed 04/18/20 02/16/24 Brody Olivarez APRN 35 [facility] [address] [place] [address] PCP - [place] Commercial Attributed 02/17/24 Jose Alfredo Fuentes MD [address] [place], [place] [phone] Referring Provider Psychiatry, General 11/17/21 Faisal Dangelo MD [address] [place] [address] [address] [phone] Physician Surgery, Orthopedic 01/19/22 Damaris Lagunas MD [address] [place] [address] Primary Livestock Farmworker Cardiovascular Disease 01/20/22 Betty Zaldivar RN [address] [place] [address] ICP Community Extractor Machine Operator 01/31/22 08/13/24 Betty Zaldivar RN [address] [place] [address] ICP Community Extractor Machine Operator 03/02/22 08/13/24 Damaris Lagunas MD [address] [place] [address] Primary Livestock Farmworker Cardiovascular Disease 09/18/22 Corrie Bustamante RN [address] [place] [address] ICP Community Extractor Machine Operator 08/13/24 documented as of this encounter
--- OUTSIDE RECORDS SUMMARY | 2025-01-13 14:09 | XMS_ITS | CCD ---
Author Name [facility], [employer] Address [address] [place] [address] Organization [facility] Address [address] [place] [address] Care Team Providers Care Aircraft Sheet Metal Mechanic Name Role Phone Pradeep Diamond Unavailable Unavaila ble Care Plan Reason for Visit Encounters Functional Status Medications Problems Social History
--- OUTSIDE RECORDS SUMMARY | 2025-01-13 14:09 | XMS_ITS | Patient Health Record ---
Author Organization [facility] Address [address] [place] [address] Care Team Providers Care Tray Packer Name Role Phone NOT LISTED Primary Care Provider Garrett Christensen Unavailable [phone] Allergies Allergen (clinical drug ingredient) Drug/Non Drug [...] Status Risk Notes Problem Sacroiliac disorder (disorder) (942318029) Sacroiliac dysfunction (M53.3) Active confirmed Vital Signs Height-cm 175.26 cm 01/24/2024 Weight-kg 96.16 kg 01/24/2024 Height 69 in 01/24/2024 Weight 212 lbs 01/24/2024 BMI 31.3 kg/m2 01/24/2024 Encounters Encounter Location Date Provider Diagnosis [facility] [place] [facility] [place] [place] [address] 01/24/2024 Garrett Pan Sacroiliac dysfuncti on M53.3 [...] End Date [place] [address] [place], [place] [id number] Vijay Schultz Self - patient is the insured Medical (General) History Medical History History ICD Code Parkinson's disease acid reflux throat cancer in remission Surgical History Surgery Date(Month/Year) lumbar fusion L4-L5, two separate sx (1 in January; 1 in February) 2021 pacemaker Sep 2023
--- OUTSIDE RECORDS SUMMARY | 2025-01-13 14:09 | XMS_ITS | Clinical Summary ---
Author Organization [employer] [facility] ity Address [address] [place] [address] Care Team Providers Care Agricultural Education Professor Name Role Phone Alvino Alvarez MD Primary Care Provider [phone] Immunizations Name Administration Dates Next Due Moderna [...] age to complete this topic Care Teams Agricultural Education Professor Relationship Specialty Start Date End Date Alvino Alvarez MD [address] [place] [address] PCP - General 08/17/23
--- OUTSIDE RECORDS SUMMARY | 2025-01-13 14:09 | XMS_ITS | Encounter Summary ---
Author Organization [facility] Address [address] [place] [address] Care Team Providers Care Process Safety Engineering Technologist Name Role Phone Alvino Alvarez MD Primary Care Provider [phone] Jose Alfredo Fuentes MD Unavailable Faisal Dangelo MD Unavailable [phone] Damaris Lagunas MD Unavailable Betty Zaldivar RN Unavailable [phone] Betty Zaldivar RN Unavailable [phone] Brody Olivarez APRN Unavailable [phone] Corrie Bustamante RN Unavailable [phone] Encounter Details Date Type Department Care Team (Late st Contact Info) Description 08/08/2024 Scanned Document [facility] Pulmonary [address] [place] [address] Alvino Alvarez MD [address] [place], [place] [phone] Social History Tobacco Use Types Packs/Day Years [...] Description 02/25/2025 11:00 AM EDT Office Visit [address] [address] Damaris Lagunas MD [address] [place] [address] 03/19/2025 8:45 AM EDT Appointment [address] [address] 06/20/2025 8:15 AM EDT Appointment [address] [address] documented as of this encounter Visit Diagnoses Not on filedocumented in this encounter Care Teams Process Safety Engineering Technologist Relationship Specialty Start Date End Date Alvino Alvarez MD [address] [place] [address] PCP - General Family Medicine 03/28/16 Brody Olivarez APRN 35 [facility] 6 [place] [address] PCP - [place] Commercial Attributed 02/17/24 Jose Alfredo Fuentes MD [address] [place] [address] Referring Provider Psychiatry, General 11/17/21 Faisal Dangelo MD 430 [facility] [address] [place] [phone] Physician Surgery, Orthopedic 01/19/22 Damaris Lagunas MD [address] [place] [address] Primary Folding Machine Tender Cardiovascular Disease 01/20/22 Betty Zaldivar RN [address] [place] [address] ICP Community Hl7 Developer 01/31/22 08/13/24 Betty Zaldivar RN [address] [place] [address] ICP Community Hl7 Developer 03/02/22 08/13/24 Corrie Bustamante RN [address] [employer] [place] [address] ICP Community Hl7 Developer 08/13/24 documented as of this encounter
--- OUTSIDE RECORDS SUMMARY | 2025-01-13 14:09 | XMS_ITS | Clinical Summary ---
Author Organization [facility] Address [address] [place] [address] Care Team Providers Care Soubrette Name Role Phone lAvino Alvarez MD Primary Care Provider [phone] Jose Alfredo Fuentes MD Unavailable Faisal Dangelo MD Unavailable [phone] Damaris Lagunas MD Unavailable Brody Olivarez BAND PRESSER Unavailable Corrie Bustamante RN Unavailable [phone] Allergies Active Allergy Reactions Criticality Noted [...] (06/05/2019): Added automatically from request for surgery [id number] Gastroesophageal reflux disease 06/05/2019 Overview (06/05/2019): Added automatically from request for surgery [id number] Epigastric pain 06/05/2019 Overview (06/05/2019): Added automatically from request for surgery [id number] Disturbance of skin sensation 12/23/2016 Head and neck cancer 12/15/2016 RLS (restless legs syndrome) 12/15/2016 Adjustment insomnia 12/15/2016 Snoring 12/15/2016 ADAMARIS (obstructive sleep apnea) 03/28/2016 Gastroesophageal reflux disease without esophagi tis 03/28/2016 Resolved Problems Problem Noted Date Diagnosed Date Resolved Date Preop examination 01/24/2022 08/14/2024 Obesity (BMI 30.0-34.9) 03/28/2016 01/0 11/2017 Encounters Date Type Department Care Team Description 12/27/2024 Refill [facility] Neurology [address] [place] [phone] Brody Olivarez APRN Parkinson's disease (HCC) 12/12/2024 Telephone [facility] Neurology [address] [place] [address] Brody Olivarez APRN from Last [...] Description 02/25/2025 11:00 AM EDT Office Visit [facility] Vascular [address] [address] Damaris Lagunas MD [address] [place] [address] 03/19/2025 8:45 AM EDT Appointment [facility] Vascular [address] [address] 06/20/2025 8:15 AM EDT Appointment [facility]ascular [address] [address] Health Maintenance Due Date Last Done Comments [...] this topic Medical Devices Implanted Type Area Engineering Program Analyst Device Identifier Shelf Expiration Date Model / Serial / Lot 3830-69 Lead Pacing 69cm Atr Vntrc Bipolar Fx Scr In Selectsecure - [id number] Implanted:Qty: 1 on 11/16/2023 by Bassam Laird MD at [facility] Lead Left: Chest [employer] [id number] 10/10/2025 3830-69 / [id number] 3V / 5076-52 Lead Pacing 52cm 6.2fr 2mm 10mm Spc Sm Straight Atr Vntrc - [id number] Implanted:Qty: 1 on 11/16/2023 by Bassam Laird MD at [facility] Lead Left: Chest [employer] [id number] 07/28/2025 5076-52 / [id number] 8V / [id number] Xu Spinal 70mm 5.5mm Illico Ti Precontour Central Post - [id number] Implanted:Qty: 1 on 02/18/2022 by Faisal Dangelo MD at [facility] Nail/Xu N/A: Spine Lumbar [employer] 76683-93 0 / / [id number] Pacemaker Cardiac 7.4mm 50.8x46.6mm [place] Xt Dr Cooper Surescan - [id number] Implanted:Qty: 1 on 11/16/2023 by Bassam Laird MD at [facility] Pacemaker Left: Chest [employer] [id number] 04/14/2025 W1DR01 / [id number] 7G / Dll-8 Dual Llanos Lock 8mm - [id number] Implanted:Qty: 1 on 02/18/2022 by Faisal Dangelo MD at [facility] Plate N/A: Spine Lumbar [employer] DLL-8 / / Gabriel-8 Dual Llanos Tray 8mm - [id number] Implanted:Qty: 1 on 02/18/2022 by Faisal Dangelo MD at [facility] Plate N/A: Spine Lumbar [employer] GABRIEL-8 / / [id number] Screw Bone Spine Illico 45mm Ti 6.5mm Pa Farzana Nonst - [id number] Implanted:Qty: 1 on 02/18/2022 by Faisal Dangelo MD at [facility] Spine N/A: Spine Lumbar [employer] 51469-90 / / [id number] Screw Bone Spine Illico 40mm Ti 6.5mm Pa Farzana Nonst - [id number] Implanted:Qty: 1 on 02/18/2022 by Faisal Dangelo MD at [facility] Spine N/A: Spine Lumbar [employer] 83033-44 / / [id number] Screw Set Ti Spine Hexalobe Zodiac - [id number] Implanted:Qty: 3 on 02/18/2022 by Faisal Dangelo MD at [facility] Spine N/A: Spine Lumbar [employer] 41794 / / [id number] Screw Set Spine Stabilink Mis Spinal Fixation Sys - [id number] Implanted:Qty: 1 on 02/18/2022 by Faisal Dangelo MD at [facility] Spine N/A: Spine Lumbar [employer] SS-219 / / 210-010 Alphagraft Cellular Bone Matrix 1 Cc - [id number] Implanted:Qty: 1 on 02/18/2022 by Faisal Dangelo MD at [facility] Tissue N/A: Spine Lumbar [employer] 10/24/2023 210-010 / -[id number] / 700-010 Graft Bone 1 Fctr 1cc Algrf Putty Syringe - [id number] Implanted:Qty: 1 on 02/18/2022 by Faisal Dangelo MD at [facility] Tissue N/A: Spine Lumbar [employer] 09/17/2024 700-010 / / [id number] Sponge Dbm Bone 54v28m7nv - [id number] Implanted:Qty: 1 on 02/18/2022 by Faisal Dangelo MD at [facility] Tissue N/A: Spine Lumbar [employer] 01/04/2027 [id number] / [id number] 64-049 / [id number] Sponge Dbm Bone [id number] - [id number] Implanted:Qty: 1 on 02/18/2022 by Faisal Dangelo MD at [facility] Tissue N/A: Spine Lumbar [employer] 01/04/2027 [id number] / [id number] 64-045 / [id number] Filler Bone Void Nanofuse 2 Cc Bioactive Matrix Sterile Late - [id number] Implanted:Qty: 1 on 02/18/2022 by Faisal Dangelo MD at [facility] Void Filler N/A: Spine Lumbar [employer] INC 05/26/2026 OSG957-3 2 / / [id number] 620-005 Kit Bone Graft 5cc 12cc Calcium Slf Stimulan Rpd Cure Paste - [id number] Implanted:Qty: 1 on 02/18/2022 by Faisal Dangelo MD at [facility] Void Filler N/A: Spine Lumbar [employer] 08/17/2024 620-005 / / [id number] Substitute Bone Graft Alphatec Neocore Ostcndc Matrix 12cc - [id number] Implanted:Qty: 1 on 02/18/2022 by Faisal Dangelo MD at [facility] Void Filler N/A: Spine Lumbar [employer] 05/20/2024 70-6012 / / [id number] Dbm Fibers 5.0cc Implanted:Qty: 1 on 02/18/2022 by Faisal Dangelo MD at [facility] N/A: Spine Lumbar [employer] 07/15/2024 [id number] / [id number] 0662-061 / [id number] Screw Bone Spine Illico 35mm Ti 6.5mm Pa Farzana Implanted:Qty: 1 on 02/18/2022 by Faisal Dangelo MD at [facility] N/A: Spine Lumbar [employer] 25956-83 / / Procedures Procedure Name Priority Date/Time Associated Diagnosis Comments PM REMOTE EVGONZÁLEZ, [id number] Routine 12/13/2024 12:29 PM EDT Cardiac pacemaker in situ HX GASTROENTEROLOGY COLONOSCOPY-SCAN Routine 03/07/2012 from Last 3 Months or Most Recently Relevant to Health Maintenance Results * PM REMOTE EVAL, [id number] (12/13/2024 12:29 PM EDT) Date Time Interrogation Session 20,250,[id number],50 9 PACEART Implantable Pulse Generator Engineering Program Analyst Medtronic PACEART Implantable Pulse Generator Model W1DR01 Jesika XT DR MRI PACEART Implantable Pulse Generator Serial Number [id number] PACEART Implantable Pulse Generator Type Pacemaker PACEART Implantable Pulse Generator Implant Date 20,240,228,190,00 0 PACEART Implantable Lead Engineering Program Analyst Medtronic PACEART Implantable Lead Model 3830 SelectSecure MRI SureScan PACEART Implantable Lead Serial Number [id number] PACEART Implantable Lead Implant Date 20,240,228,190,00 0 PACEART Implantable Lead Polarity Type Bipolar Lead PACEART Implantable Lead Location Detail 1 UNKNOWN PACEART Implantable Lead Special Function 69 PACEART Implantable Lead Location Right Ventricle PACEART Implantable Lead Connection Status Connected PACEART Implantable Lead Engineering Program Analyst Medtronic PACEART Implantable Lead Model 5076 CapSureFix Novus MRI SureScan PACEART Implantable Lead Serial Number [id number] PACEART Implantable Lead Implant Date [id number] PACEART Implantable Lead Polarity Type Bipolar Lead [...] 0.04 % PACEART Miguel Angel Statistic AP DRYWALL APPLICATOR Percent 0.04 % PACEART Miguel Angel Statistic DRYWALL APPLICATOR Percent 0 % PACEART Miguel Angel Statistic AP VS Percent 94.39 % PACEART Miguel Angel Statistic VS Percent 5.57 % PACEART AT/AF Mangum Percent 0 % PACEART Episode Statistic Recent [...] rhythm: AP/VS Cont routine monitoring. KH Jenni Rasmusesn APRN CV CARDIAC SERVICES ORDERAB LES Final Result * HX GASTROENTEROLOGY COLONOSCOPY-SCAN (03/07/2012) Yash Hill MD HX AMB PROCEDURES Final Result from Last 3 Months or Most Recently Relevant to Health Maintenance Insurance [facility] Advance Directives * Full Code (Latest Code Status on File) Date Activated Date Inactivated Comments 11/16/2023 10:34 AM * Full Code Date Activated Date Inactivated Comments 02/18/2022 5:05 PM 02/22/2022 8:24 AM Care Teams Soubrette Relationship Specialty Start Date End Date Alvino Alvarez MD [address] [place] [address] PCP - General Family Medicine 03/28/16 Brody Olivarez, BAND PRESSER [address] [place] [address] PCP - [place] Commercial Attributed 02/17/24 Jose Alfredo Fuentes MD [address] [place] [address] Referring Provider Psychiatry, General 11/17/21 Faisal Dangelo MD [address] [place] [phone] Physician Surgery, Orthopedic 01/19/22 Damaris Lagunas MD [address] [place] [address] Primary Donor Technician Cardiovascular Disease 01/20/22 Corrie Bustamante, RN [address] [address] [facility] Community Sustainable Products Marketing Manager 08/13/24
--- OUTSIDE RECORDS SUMMARY | 2025-01-13 14:09 | XMS_ITS | Encounter Summary ---
Author Organization [facility] Address [address] [place] [address] Care Team Providers Care Physician Coding Specialist Name Role Phone Alvino Alvarez MD Primary Care Provider Franki Gates MD Unavailable [phone] Encounter Details Date Type Department Care Team (Late st Contact Info) Description 2023 Ancillary Orders [facility], Radiology (IR) [address] [place], [place] [phone] Provider, MD Jeff [address] [place] [address] Social History Tobacco Use Types Packs/Day Years [...] on filedocumented in this encounter Care Teams Physician Coding Specialist Relationship Specialty Start Date End Date Alvino Alvarez MD [address] [place] [address] PCP - General Family Medicine 05/12/20 Franki Gates MD [address] [facility] [address] [place] [address] Surgeon General Surgery 12/06/21 documented as of this encounter
--- OUTSIDE RECORDS SUMMARY | 2025-01-13 14:09 | XMS_ITS | Encounter Summary ---
Author Organization [facility] Address [address] [place] [address] Care Team Providers Care Library Technician Name Role Phone Alvino Alvarez MD Primary Care Provider [phone] Alvino Alvarez MD Unavailable [phone] Jose Alfredo Fuentes MD Unavailable Faisal Dangelo MD Unavailable [phone] Damaris Lagunas MD Unavailable Betty Zaldivar RN Unavailable [phone] Betty Zaldivar RN Unavailable [phone] Damaris Lagunas MD Unavailable Brody Olivarez MATERIAL FLOW ANALYST Unavailable [phone] Corrie Bustamante RN Unavailable [phone] Encounter Details Date Type Department Care [...] Description 02/25/2025 11:00 AM EDT Office Visit [address] [address] Damaris Lagunas MD [address] [place] [address] 03/19/2025 8:45 AM EDT Appointment [address] [address] 06/20/2025 8:15 AM EDT Appointment [address] [address] documented as of this encounter Visit Diagnoses Not on filedocumented in this encounter Care Teams Library Technician Relationship Specialty Start Date End Date Alvino Alvarez MD [address] [place] [address] PCP - General Family Medicine 03/28/16 Alvino Alvarez MD [address] [place] [address] PCP - [place] Commercial Attributed 04/18/20 02/16/24 Brody Olivarez, MATERIAL FLOW ANALYST [address] [facility] [address] [place] [address] PCP - [place] Commercial Attributed 02/17/24 Jose Alfredo Fuentes MD [address] [place], [place] [phone] Referring Provider Psychiatry, General 11/17/21 Faisal Dangelo MD [address] [place] [address] [address] [place] [address] Physician Surgery, Orthopedic 01/19/22 Damaris Lagunas MD [address] [place] [address] Primary Pilot Boat Deckhand Cardiovascular Disease 01/20/22 Betty Zaldivar, ALEXANDRE [address] [place] [address] ICP Community Television Mechanic 01/31/22 08/13/24 Betty Zaldivar RN [address] [place] [address] ICP Community Television Mechanic 03/02/22 08/13/24 Damaris Lagunas MD [address] [place] [address] Primary Pilot Boat Deckhand Cardiovascular Disease 09/18/22 Corrie Bustamante RN [address] [place] [address] ICP Community Television Mechanic 08/13/24 documented as of this encounter
--- OUTSIDE RECORDS SUMMARY | 2025-01-13 14:09 | XMS_ITS | Encounter Summary ---
Author Organization [facility] Address [address] [place] [address] Care Team Providers Care Cylinder Press Feeder Name Role Phone Alvino Alvarez MD Primary Care Provider Franki Gates MD Unavailable [phone] Encounter Details Date Type Department Care Team ([facility] st Contact Info) Description 05/12/2023 Procedure [facility], Radiology (CT Scan) [address] [place] [id number] Social History Tobacco Use Types Packs/Day Years [...] on filedocumented in this encounter Care Teams Cylinder Press Feeder Relationship Specialty Start Date End Date Alvino Alvarez MD [address] [place] [address] PCP - General Family Medicine 05/12/20 Franki Gates MD [address] [facility] [address] [place], [place] [address] Surgeon General Surgery 12/06/21 documented as of this encounter
--- OUTSIDE RECORDS SUMMARY | 2025-01-13 14:09 | XMS_ITS | Encounter Summary ---
Author Organization [facility] Address [address] [place] [address] Care Team Providers Care Interactive Digital Media Specialist Name Role Phone Alvino Alvarez MD Primary Care Provider [phone] Franki Gates MD Unavailable [phone] Reason for Referral * Imaging (Routine) - Closed Specialty Diagnoses / Procedures Referred By Jose C hurley Referred To Contact Radiology Diagnoses History of head and neck cancer Procedures XR CHEST 2 VIEWS Pradeep Diamond MD [address] [place] [address] Phone: tel: fax: [facility] Radiology - Central Scheduling [place] Phone: tel: fax: Referral ID Status Reason Start Date Expiration Date V isits Requested Visits Authorized [id number] Closed Perform Procedure 02/28/2022 02/28/2023 1 1 Encounter Details Date Type Department Care Team (Late st Contact Info) Description 02/28/2022 Ancillary Orders [facility] Radiology, Outpatient Center (Diag Rad) [address] [facility] [place] [address] Pradeep Diamond MD [address] [place] [address] History of head and neck [...] cancer documented in this encounter Care Teams Interactive Digital Media Specialist Relationship Specialty Start Date End Date Alvino Alvarez MD [address] [place] [address] PCP - General Family Medicine 05/12/20 Franki Gates MD [address] [facility] [address] [place] [address] Surgeon General Surgery 12/06/21 documented as of this encounter
--- OUTSIDE RECORDS SUMMARY | 2025-01-13 14:09 | XMS_ITS ---
Author Name Interface, [facility] Address [address] [place] [address] Organization [facility] Address [address] [place] [address] Care Team Providers Care Senior Business Broker Name Role Phone Rafi Diamondkeyan Winifred Valente [...]
--- OUTSIDE RECORDS SUMMARY | 2025-01-13 14:09 | XMS_ITS | Encounter Summary ---
Author Organization [facility] Address [address] [place] [address] Care Team Providers Care Manager Sound Name Role Phone Alvino Alvarez MD Primary Care Provider [phone] Alvino Alvarez MD Unavailable [phone] Jose Alfredo Fuentes MD Unavailable Faisal Dangelo MD Unavailable [phone] Damaris Lagunas MD Unavailable Betty Zaldivar RN Unavailable [phone] Betty Zaldivar RN Unavailable [phone] Damaris Lagunas MD Unavailable Brody Olivarez CUBE CUTTER Unavailable [phone] Corrie Bustamante RN Unavailable [phone] Encounter Details Date Type Department Care Team (Late st Contact Info) Description 11/15/2023 Prep for Surgery [facility] Heart & Vascular [place] - Electrophysiology [address] [facility] [address] [place] [address] Zully Taylor, CUBE CUTTER [address] [id number] Social History Tobacco Use Types Packs/Day Years [...] Description 02/25/2025 11:00 AM EDT Office Visit [address] [address] Damaris Lagunas MD [address] [place] [address] 03/19/2025 8:45 AM EDT Appointment [address] [address] 06/20/2025 8:15 AM EDT Appointment [address] [address] documented as of this encounter Visit Diagnoses Not on filedocumented in this encounter Care Teams Manager Sound Relationship Specialty Start Date End Date Alvino Alvarez MD [address] [place] [address] PCP - General Family Medicine 03/28/16 Alvino Alvarez MD [address] [place], [place] [id number] PCP - [place] Commercial Attributed 04/18/20 02/16/24 Brody Olivarez APRN [address] [facility] [address] [place] [id number] PCP - [place] Commercial Attributed 02/17/24 Jose Alfredo Fuentes MD [address] [facility] [place] [address] Referring Provider Psychiatry, General 11/17/21 Faisal Dangelo MD [address] [place] [address] [address] [place] [phone] Physician Surgery, Orthopedic 01/19/22 Damaris Lagunas MD [address] [place] [address] Primary Competitive Athlete Cardiovascular Disease 01/20/22 Betty Zaldivar RN [address] [place] [address] ICP Community Inventory Control Associate 01/31/22 08/13/24 Betty Zaldivar RN [address] [place] [address] ICP Community Inventory Control Associate 03/02/22 08/13/24 Damaris Lagunas MD [address] [place] [address] Primary Competitive Athlete Cardiovascular Disease 09/18/22 Corrie Butsamante RN [address] [address] [facility] Community Inventory Control Associate 08/13/24 documented as of this encounter
--- OUTSIDE RECORDS SUMMARY | 2025-01-13 14:09 | XMS_ITS | Encounter Summary ---
Author Organization [facility] Address [address] [place] [address] Care Team Providers Care Attendant Self Service Store Name Role Phone Alvino Alvarez MD Primary Care Provider [phone] Alvino Alvarez MD Unavailable Jose Alfredo Fuentes MD Unavailable Faisal Dangelo MD Unavailable [phone] Damaris Lagunas MD Unavailable Betty Zaldivar RN Unavailable [phone] Betty Zaldivar RN Unavailable [phone] Damaris Lagunas MD Unavailable Brody Olivarez APRN Unavailable [phone] Corrie Bustamante RN Unavailable [phone] Reason for Visit * Reason Comments Medication Refill Encounter Details Date Type Department Care Team (Late st Contact Info) Description 10/30/2021 Refill [facility] Neurology [address] [place] [address] Hasmukh Shrestha MD [facility] [address] [address] Parkinson's disease (HCC) Social History Tobacco Use [...] Description 02/25/2025 11:00 AM EDT Office Visit [address] [address] Damaris Lagunas MD [address] [place] [address] 03/19/2025 8:45 AM EDT Appointment [address] [address] 06/20/2025 8:15 AM EDT Appointment [address] [address] documented as of this encounter Visit Diagnoses Diagnosis Parkinson's disease (HCC) Paralysis agitans documented in this encounter Care Teams Attendant Self Service Store Relationship Specialty Start Date End Date Alvino Alvarez MD [address] [place] [address] PCP - General Family Medicine 03/28/16 Alvino Alvarez MD [address] [place] [address] PCP - [place] Commercial Attributed 04/18/20 02/16/24 Brody Olivarez APRN 35 [facility] [address] [place] [id number] PCP - [place] Commercial Attributed 02/17/24 Jose Alfredo Fuentes MD [address] [place] [id number] Referring Provider Psychiatry, General 11/17/21 Faisal Dangelo MD [address] [facility] [address] [place] [phone] Physician Surgery, Orthopedic 01/19/22 Damaris Lagunas MD [address] [place] [address] Primary Line Haul Driver Cardiovascular Disease 01/20/22 Betty Zaldivar RN [address] [place] [address] ICP Community Manager Environmental Services 01/31/22 08/13/24 Betty Zaldivar RN [address] [place] [address] ICP Community Manager Environmental Services 03/02/22 08/13/24 Damaris Lagunas MD [address] [place] [address] Primary Line Haul Driver Cardiovascular Disease 09/18/22 Corrie Bustamante RN [address] [place] [address] ICP Community Manager Environmental Services 08/13/24 documented as of this encounter
--- OUTSIDE RECORDS SUMMARY | 2025-01-13 14:09 | XMS_ITS | Encounter Summary ---
Author Organization [facility] Address [address] [place] [address] Care Team Providers Care Director Long Term Care Name Role Phone Alvino Alvarez MD Primary Care Provider [phone] Alvino Alvarez MD Unavailable [phone] Jose Alfredo Fuentes MD Unavailable Faisal Dangelo MD Unavailable [phone] Damaris Lagunas MD Unavailable Betty Zaldivar RN Unavailable [phone] Betty Zaldivar RN Unavailable [phone] Damaris Lagunas MD Unavailable Brody Olivarez PARKING METER INSTALLER Unavailable [phone] Corrie Bustamante RN Unavailable [phone] Reason for Visit * Reason Comments Appointment Recieved staff jayesh malhotra to get pt in sooner due to worsening tremors and medication quesitons. Encounter Details Date Type Department Care Team (Late st Contact Info) Description 10/26/2021 Telephone [facility] [address] [place] [address] Hasmukh Shrestha MD IS [facility] [address] [place] [address] Appointment (Recieved staff message to get pt [...] AM EDT Office Visit [facility] Vascular [address] [address] Damaris Lagunas MD [address] [place] [address] 03/19/2025 8:45 AM EDT Appointment [address] [address] 06/20/2025 8:15 AM EDT Appointment [facility] Vascular [address] [address] documented as of this encounter Visit Diagnoses Not on filedocumented in this encounter Care Teams Director Long Term Care Relationship Specialty Start Date End Date Alvino Alvarez MD [address] [place] [address] PCP - General Family Medicine 03/28/16 Alvino Alvarez MD [address] [place] [address] PCP - [place] Commercial Attributed 04/18/20 02/16/24 Brody Olivarez APRN 35 [facility] [address] [place] [address] PCP - [place] Commercial Attributed 02/17/24 Jose Alfredo Fuentes MD [address] [place], [place] [phone] Referring Provider Psychiatry, General 11/17/21 Faisal Dangelo MD 430 [facility] 100 [place] [phone] Physician Surgery, Orthopedic 01/19/22 Damaris Lagunas MD [address] [place] [address] Primary Lineworker Cardiovascular Disease 01/20/22 Betty Zaldivar RN [address] [place] [address] ICP Community Health Services Director 01/31/22 08/13/24 Betty Zaldivar RN [address] [place] [address] ICP Community Health Services Director 03/02/22 08/13/24 Damaris Lagunas MD [address] [place] [address] Primary Lineworker Cardiovascular Disease 09/18/22 Corrie Bustamante RN [address] [place] [address] [facility] Community Health Services Director 08/13/24 documented as of this encounter
--- OUTSIDE RECORDS SUMMARY | 2025-01-13 14:09 | XMS_ITS | Encounter Summary ---
Author Organization [facility] Address [address] [place] [address] Care Team Providers Care Paper Products Machine Operator Name Role Phone Alvino Alvarez MD Primary Care Provider Franki Gates MD Unavailable [phone] Encounter Details Date Type Department Care Team (Late st Contact Info) Description 09/30/2021 Scanned Document Transcribe External Orders CT [phone] Faisal Dangelo MD [address] [place], [place] [address] 09/30/2021 [facility] Encounter Social History Tobacco Use Types [...] on filedocumented in this encounter Care Teams Paper Products Machine Operator Relationship Specialty Start Date End Date Alvino Alvarez MD [address] [facility], [place] [id number] PCP - General Family Medicine 05/12/20 Franki Gates MD 540 [facility] [address] [place], [place] [address] Surgeon General Surgery 12/06/21 documented as of this encounter
--- OUTSIDE RECORDS SUMMARY | 2025-01-13 14:09 | XMS_ITS | Encounter Summary ---
Author Organization [facility] Address [address] [place] [address] Care Team Providers Care Box Truck Owner Operator Name Role Phone Alvino Alvarez MD Primary Care Provider [phone] Franki Gates MD Unavailable [phone] Reason for Referral * Imaging (Routine) - Closed Specialty Diagnoses / Procedures Referred By Jose C hurley Referred To Contact Radiology Diagnoses Severe pain Procedures CT SI JOINT INJECTION Faisal Dangelo MD [address] [place] [address] Phone: tel: fax: [facility] Radiology - Central Scheduling [place] Phone: tel: fax: Referral ID Status Reason Start Date Expiration Date V isits Requested Visits Authorized [id number] Closed Perform Procedure 05/26/2023 06/19/2023 1 1 Encounter Details Date Type Department Care Team (Late st Contact Info) Description 05/26/2023 Ancillary Orders [facility] Radiology - Central Scheduling [place] [phone] Faisal Dangelo MD [address] [place] [address] Severe pain Social History Tobacco [...] positioned supine on the CT scanner and classifier operator imaging was obtained. The lower back was [...] was positioned supine on the CTscanner and classifier operator imaging was obtained. The lower back was [...] pain documented in this encounter Care Teams Box Truck Owner Operator Relationship Specialty Start Date End Date Alvino Alvarez MD 34 [place] [address] PCP - General Family Medicine 05/12/20 Franki Gates MD 540 [facility] [address] [place] [address] Surgeon General Surgery 12/06/21 documented as of this encounter
--- OUTSIDE RECORDS SUMMARY | 2025-01-13 14:09 | XMS_ITS | Clinical Summary ---
Author Organization [facility] [employer] [facility] Address [address] [place] [address] Care Team Providers Care Manager Primary Care Name Role Phone Alvino Alvarez MD Primary Care Provider Franki Gates MD Unavailable [phone] Allergies Active Allergy Reactions Criticality Noted Date [...] (01/04/2022): Added automatically from request for surgery [id number] ADAMARIS (obstructive sleep apnea) 03/28/2016 Family History [...] this topic Medical Devices Implanted Type Area Facility Planner Device Identifier Shelf Expiration Date Model / Serial / Lot Bone Graft Spine Infuse Small Kit - [id number] - [id number] Implanted:Qty: 1 on 01/24/2022 by Faisal Dangelo MD at [facility] Implant N/A: Spine Lumbar Medtronic Sofamor [id number] 05/19/2023 [id number] / [id number] F / [id number] F Spacer Solus 14mm Large Alphatec - [id number] Implanted:Qty: 1 on 01/24/2022 by Faisal Dangelo MD at [facility] Implant N/A: Spine Lumbar ALPHATEC SPINE Aegis Mobility [id number] 12/29/2023 47078-679 -S / / [id number] Plate Lumbar Aspida 14mm Alphatec - [id number] Implanted:Qty: 1 on 01/24/2022 by Brody Lucero MD at [facility] Implant N/A: Spine Lumbar ALPHATEC SPINE Aegis Mobility 54652-23 / / Plate Lumbar Aspida Sacral 14mm - Alphatec - [id number] Implanted:Qty: 1 on 01/24/2022 by Brody Lucero MD at [facility] Implant N/A: Spine Lumbar ALPHATEC SPINE Aegis Mobility 79493-27 / / Screw Alif 7.0mm X 25mm - Alphatec - [id number] Implanted:Qty: 2 on 01/24/2022 by Brody Lucero MD at [facility] Implant N/A: Spine Lumbar ALPHATEC SPINE Aegis Mobility 43419-61 / / Screw Aspida 7.8tzb34ki - [id number] Implanted:Qty: 6 on 01/24/2022 by Brody Lucero MD at [facility] Implant N/A: Spine Lumbar ALPHATEC SPINE Aegis Mobility 30334-38 / / Strip Profuse Bioscaffold Alphatec - [id number] - [id number] Implanted:Qty: 1 on 01/24/2022 by Faisal Dangelo MD at [facility] Implant N/A: Spine Lumbar ALPHATEC SPINE Aegis Mobility 07/29/2026 [id number] Graft Bn Dbmfrm Algrf Strp Irrad [id number] Less Xps Srg - [id number]-[id number] - [id number] Implanted:Qty: 1 on 01/24/2022 by Faisal Dangelo MD at [facility] Implant N/A: Spine Lumbar Spine [place] 10/14/2026 DBM-SS-30 / PTT- 31-0013 / PTT- 31-0013 Graft Bn Dbmfrm Algrf Strp Irrad [id number] Less Xps Srg - [id number] - [id number] Implanted:Qty: 1 on 01/24/2022 by Faisal Dangelo MD at [facility] Implant N/A: Spine Lumbar Spine [place] 10/19/2026 DBM-SS-30 / PTT- 43-0001 / PTT- 43-0001 Graft Bn Dbmfrm Algrf Strp Irrad [id number] Less Xps Srg - [id number]-26-8551-0010 - [id number] Implanted:Qty: 1 on 01/24/2022 by Faisal Dangelo MD at [facility] Implant N/A: Spine Lumbar Spine [place] 10/14/2026 DBM-SS-30 / PTT- 31-0010 / PTT- 31-0010 Graft Bn Dbmpr 5ml Rick Algrf Less Xps g - [id number] - [id number] Implanted:Qty: 1 on 01/24/2022 by Faisal Dangelo MD at [facility] Implant N/A: Spine Lumbar Spine [place] 11/26/2024 7236 / PTT- / PTT Neocore 5cc Osetocondutive Matix Alpatec Spine - [id number] - [id number] Implanted:Qty: 1 on 01/24/2022 by Faisal Dangelo MD at [facility] Implant N/A: Spine Lumbar ALPHATEC SPINE CORPORATION 05/20/2024 70-6005 / [id number] / [id number] 10ml Cbm Bio Lg Alphagraft - [id number] - [id number] Implanted:Qty: 1 on 01/24/2022 by Faisal Dangelo MD at [facility] Implant N/A: Spine Lumbar AL[employer]AT[employer] 11/01/2023 210-100 / [id number] Anterior Lumbar Interbody Fusion Device Large Mani 12-1 - [id number] Implanted:Qty: 1 on 01/24/2022 by Faisal Dangelo MD at [facility] Implant N/A: Spine Lumbar ALPHATEC [employer] [id number] 08/31/2025 65875-046 -S / / [id number] Insurance Advance Directives * Full Code (Latest Code Status on File) Date Activated Date Inactivated Comments 01/24/2022 11:54 AM 01/28/2022 2:24 PM Care Teams Manager Primary Care Relationship Specialty Start Date End Date Alvino Alvarez MD [address] [place] [address] PCP - General Family Medicine 05/12/20 Franki Gates MD 540 [facility] [address] [place] [address] Surgeon General Surgery 12/06/21
--- OUTSIDE RECORDS SUMMARY | 2025-01-13 14:09 | XMS_ITS | Encounter Summary ---
Author Organization [facility] Address [address] [place] [address] Care Team Providers Care Market Survey Representative Name Role Phone Alvino Alvarez MD Primary Care Provider [phone] Franki Gates MD Unavailable [phone] Reason for Referral * Imaging (Routine) - Closed Specialty Diagnoses / Procedures Referred By Jose C hurley Referred To Contact Radiology Diagnoses Herniated lumbar intervertebral disc Procedures [place] LESS THAN 1 HOUR INTRAOPERATIVE Faisal Dangelo MD Phone: tel: fax: [facility] Radiology - Central Scheduling [place] Phone: tel: fax: Referral ID Status Reason Start Date Expiration Date V isits Requested Visits Authorized [id number] Closed Perform Procedure 01/23/2022 01/23/2023 1 1 Encounter Details Date Type Department Care Team (Latest Contact Info) Description 01/23/2022 [facility]illary [facility] [address] [place] [address] Faisal Dangelo MD [address] [place] [address] Herniated lumbar intervertebral disc Social History Tobacco [...] REPORT AND MAY BE SIGNED BY A MANAGER HARBOR. Fluoroscopy was provided to the Ordering physician [...] myelopathy documented in this encounter Care Teams Market Survey Representative Relationship Specialty Start Date End Date Alvino Alvarez MD 34 [place] [address] PCP - General Family Medicine 05/12/20 Franki Gates MD [address] [address] [place] [address] Surgeon General Surgery 12/06/21 documented as of this encounter
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
--- OUTSIDE RECORDS SUMMARY | 2025-01-13 14:09 | XMS_ITS | Encounter Summary ---
Author Organization [facility] Address [address] [place] [address] Care Team Providers Care Escrow Processor Name Role Phone Alvino Alvarez MD Primary Care Provider [phone] Franki Gates MD Unavailable [phone] Encounter Details Date Type Department Care Team (Late st Contact Info) Description 01/23/2022 Procedure Pass [facility] Radiology, [facility] (Diag Rad) [address] [place] [id number] Social History Tobacco Use Types Packs/Day Years [...] on filedocumented in this encounter Care Teams Escrow Processor Relationship Specialty Start Date End Date Alvino Alvarez MD [address] [place] [address] PCP - General Family Medicine 05/12/20 Franki Gates MD 540 [facility] [address] [place] [address] Surgeon General Surgery 12/06/21 documented as of this encounter
--- OUTSIDE RECORDS SUMMARY | 2025-01-13 14:09 | XMS_ITS | CCD ---
Author Name Interface, [id number] Address [address] [place] [address] Organization [facility] Address [address] [place] [address] Care Team Providers Care Mental Health Program Director Name Role Phone Pradeep Diamond Unavailable Unavaila ble Care Plan Reason for Visit Encounters Functional Status Medications Problems Social History
--- OUTSIDE RECORDS SUMMARY | 2025-01-13 14:09 | XMS_ITS | Encounter Summary ---
Author Organization [facility] Address [address] [place] [address] Care Team Providers Care Staff Home Therapy Rn Name Role Phone Alvino Alvarez MD Primary Care Provider [phone] Alvino Alvarez MD Unavailable [phone] Jose Alfredo Fuentes MD Unavailable Faisal Dangelo MD Unavailable [phone] Damaris Lagunas MD Unavailable Betty Zaldivar RN Unavailable [phone] Betty Zaldivar RN Unavailable [phone] Damaris Lagunas MD Unavailable Brody Olivarez HOME COMFORT ADVISOR Unavailable [phone] Corrie Bustamante RN Unavailable [phone] Reason for Visit * Reason Comments Referral Encounter Details Date Type Department Care Team (Late st Contact Info) Description 09/14/2023 Telephone [facility] [address] [place] [address] Bharat Cox MD [address] [place] [address] [address] [place] [address] Referral Social History Tobacco Use [...] 02/25/2025 11:00 AM EDT Office Visit [facility] Vascular [address] [address] Damaris Lagunas MD [address] [place] [address] 03/19/2025 8:45 AM EDT Appointment [address] [address] 06/20/2025 8:15 AM EDT Appointment [address] [address] documented as of this encounter Visit Diagnoses Not on filedocumented in this encounter Care Teams Staff Home Therapy Rn Relationship Specialty Start Date End Date Alvino Alvarez MD [address] [place] [address] PCP - General Family Medicine 03/28/16 Alvino Alvarez MD [address] [place] [address] PCP - [place] Commercial Attributed 04/18/20 02/16/24 Brody Olivarez APRN 35 [facility] [place] [address] [place] [address] PCP - [place] Commercial Attributed 02/17/24 Jose Alfredo Fuentes MD [address] [address] Referring Provider Psychiatry, General 11/17/21 Faisal Dangelo MD [address] [place] [phone] Physician Surgery, Orthopedic 01/19/22 Damaris Lagunas MD [address] [place] [address] Primary Payroll Supervisor Cardiovascular Disease 01/20/22 Betty Zaldivar RN [address] [employer] [place] [address] ICP Community Splitting Machine Operator 01/31/22 08/13/24 Betty Zaldivar RN [address] [employer] Systemsy [address] [address] ICP Community Splitting Machine Operator 03/02/22 08/13/24 Damaris Lagunas MD [address] [place] [address] Primary Payroll Supervisor Cardiovascular Disease 09/18/22 Corrie Bustamante RN [address] Human Performance Integrated Systems[address] [place] [address] ICP Community Splitting Machine Operator 08/13/24 documented as of this encounter
--- OUTSIDE RECORDS SUMMARY | 2025-01-13 14:09 | XMS_ITS | Encounter Summary ---
Author Organization [facility] Address [address] [place] [address] Care Team Providers Care Remote Broadcast Engineer Name Role Phone Alvino Alvarez MD Primary Care Provider [phone] Franki Gates MD Unavailable [phone] Reason for Referral * Imaging (Routine) - Closed Specialty Diagnoses / Procedures Referred By Jose C hurley Referred To Contact Radiology Diagnoses Low back pain Other intervertebral disc displacement, lumbar region Other muscle spasm Procedures XR LUMBAR SPINE COMPLETE 4+ VIEWS Crystal [place]lin DC [address] [place] [place] [address] Phone: tel: fax: [facility] Radiology - Central Scheduling [place] Phone: tel: fax: Referral ID Status Reason Start Date Expiration Date V isits Requested Visits Authorized [id number] Closed Perform Procedure 04/02/2021 04/02/2022 1 1 Encounter Details Date Type Department Care Team (Late st Contact Info) Description 04/02/2021 Ancillary Orders [facility] Hospital Access [address] [place] [address] Crystal Hamlin DC [address] [place] [address] Low back pain; Other intervertebral [...] spasm documented in this encounter Care Teams Remote Broadcast Engineer Relationship Specialty Start Date End Date Alvino Alvarez MD [address] [place] [address] PCP - General Family Medicine 05/12/20 Franki Gates MD [address] [address] [place] [address] Surgeon General Surgery 12/06/21 documented as of this encounter
--- OUTSIDE RECORDS SUMMARY | 2025-01-13 14:09 | XMS_ITS | Encounter Summary ---
Author Organization [employer] Address [address] [place] [address] Care Team Providers Care Deputy Register Of Deeds Name Role Phone Alvino Alvarez MD Primary Care Provider Franki Gates MD Unavailable [phone] Encounter Details Date Type Department Care Team (Late st Contact Info) Description 11/03/2022 Procedure Pass [facility] [address] [place], [place] [phone] Social History Tobacco Use Types Packs/Day Years [...] on filedocumented in this encounter Care Teams Deputy Register Of Deeds Relationship Specialty Start Date End Date Alvino Alvarez MD [address] [place] [address] PCP - General Family Medicine 05/12/20 Franki Gates MD 540 [facility] [address] [place], [place] [address] Surgeon General Surgery 12/06/21 documented as of this encounter
--- OUTSIDE RECORDS SUMMARY | 2025-01-13 14:10 | XMS_ITS | Encounter Summary ---
Author Organization Formerly [facility] Address [address] [place] [address] Care Team Providers Care Bus Assistant Name Role Phone Alvino Alvarez MD Primary Care Provider [phone] Alvino Alvarez MD Unavailable [phone] Jose Alfredo Fuentes MD Unavailable Faisal Dangelo MD Unavailable [phone] Damaris Lagunas MD Unavailable Betty Zaldivar RN Unavailable [phone] Betty Zaldivar RN Unavailable [phone] Damaris Lagunas MD Unavailable Brody Olivarez FRENCH WEAVER Unavailable [phone] Corrie Bustamante RN Unavailable [phone] Encounter Details Date Type Department Care Team (Late st Contact Info) Description 08/11/2023 Scanned Document [facility] Medical [facility] Pulmonary [place] [address] [facility] [address] [place] [phone] Pulmonary, Scan Social History Tobacco Use Types [...] Description 02/25/2025 11:00 AM EDT Office Visit [address] [address] Damaris Lagunas MD [address] [place] [address] 03/19/2025 8:45 AM EDT Appointment [address] [address] 06/20/2025 8:15 AM EDT Appointment [address] [address] documented as of this encounter Visit Diagnoses Not on filedocumented in this encounter Care Teams Bus Assistant Relationship Specialty Start Date End Date Alvino Alvarez MD [address] [place] [address] PCP - General Family Medicine 03/28/16 Alvino Alvarez MD [address] [place] [address] PCP - [place] Commercial Attributed 04/18/20 02/16/24 Brody Olivarez APRN [address] [facility] [address] [place] [address] PCP - [place] Commercial Attributed 02/17/24 Jose Alfredo Fuentes MD [address] [place], [place] [phone] Referring Provider Psychiatry, General 11/17/21 Faisal Dangelo MD [address] [place] [phone] Physician Surgery, Orthopedic 01/19/22 Damaris Lagunas MD [address] [place] [address] Primary Digital Photographer Cardiovascular Disease 01/20/22 Betty Zaldivar RN [address] [place] [place] [address] [facility] Community Dish Up Person 01/31/22 08/13/24 Betty Zaldivar RN [address] [place] [place] [address] [facility] Community Dish Up Person 03/02/22 08/13/24 Damaris Lagunas MD [address] [place] [phone] Primary Digital Photographer Cardiovascular Disease 09/18/22 Corrie Bustamante RN [address] [place] [address] [facility] Community Dish Up Person 08/13/24 documented as of this encounter
--- OUTSIDE RECORDS SUMMARY | 2025-01-13 14:10 | XMS_ITS | Encounter Summary ---
Author Organization [facility] Address [address] [place] [address] Care Team Providers Care Boilermaker Name Role Phone Alvino Alvarez MD Primary Care Provider Franki Gates MD Unavailable [phone] Encounter Details Date Type Department Care Team (Late st Contact Info) Description 05/26/2023 Procedure Pass [facility], Radiology (CT Scan) [address] [place] [id number] Social History Tobacco Use Types Packs/Day Years [...] on filedocumented in this encounter Care Teams Boilermaker Relationship Specialty Start Date End Date Alvino Alvarez MD [address] [place] [address] PCP - General Family Medicine 05/12/20 Franki Gates MD [address] [facility] [address] [place], [place] [address] Surgeon General Surgery 12/06/21 documented as of this encounter
--- OUTSIDE RECORDS SUMMARY | 2025-01-13 14:10 | XMS_ITS | Encounter Summary ---
Author Organization [facility] Address [address] [place] [address] Care Team Providers Care Mosaic Technician Name Role Phone Alvino Alvarez MD Primary Care Provider [phone] Franki Gates MD Unavailable [phone] Reason for Referral * Imaging (Routine) - Closed Specialty Diagnoses / Procedures Referred By Jose C hurley Referred To Contact Radiology Diagnoses Vertebrogenic low back pain Sacroiliitis, not elsewhere classified (HCC) Procedures NM BONE SPECT Faisal Dangelo MD [address] [place] [address] Phone: tel: fax: [facility] Radiology - Central Scheduling [place] Phone: tel: fax: Referral ID Status Reason Start Date Expiration Date V isits Requested Visits Authorized [id number] Closed Perform Procedure 09/20/2023 09/19/2024 2 2 Encounter Details Date Type Department Care Team (Late st Contact Info) Description 09/20/2023 Ancillary Orders [facility] Radiology - [place] [phone] Faisal Dangelo MD [address] [place] [address] Vertebrogenic low back pain (Primary [...] classified documented in this encounter Care Teams Mosaic Technician Relationship Specialty Start Date End Date Alvino Alvarez MD [address] [place] [address] PCP - General Family Medicine 05/12/20 Franki Gates MD [address] [facility] [address] [place] [address] Surgeon General Surgery 12/06/21 documented as of this encounter
== END 2025-01-13 12:20 | disposition home or self-care (01) ==
LOC: HO.PMC 11:48
PROVIDERS: Visit Provider Anesthesiology
DX: M96.1 Postlaminectomy syndrome, not elsewhere classified (principal); M48.061 Spinal stenosis, lumbar region without neurogenic claudication; G89.4 Chronic pain syndrome; M47.816 Spondylosis without myelopathy or radiculopathy, lumbar region; M46.1 Sacroiliitis, not elsewhere classified; M53.3 Sacrococcygeal disorders, not elsewhere classified
CPT/HCPCS: 99214

== ENCOUNTER → 2025-01-13 11:48 | Outpatient (BNVA) | payer BC, SELFPAY | PROVIDERS: Visit Provider Anesthesiology ==

== ENCOUNTER 2025-02-20 10:34 | Outpatient (REF) | payer BC, SELFPAY ==
--- NOTE | ~2025-02-20 | MR_ITS ---
EXAM: MRI lumbar spine without and with IV contrast. TECHNIQUE: Multiplanar multisequence imaging was performed through the lumbar spine without and with contrast. INDICATION: Pain with walking, standing, or sitting for long periods of time, numbness, L4-5 fusion 2-3 years ago CONTRAST: 10 mL Gadavist PRIOR: None available FINDINGS: 5 non-rib bearing lumbar segments are assumed for numbering purposes. If level specific intervention is planned, correlate with an x-ray to ensure concordant numbering. Schmorl's nodes are noted involving T11-L3. Pedicle screws and rods are present on the left at L4, L5, and S1. There are anterior plate and screws at L4-L5-S1. There is probably demonstrating metallic device over the spinous processes of L4-5. Micrometal artifact and scarring is present in the posterior soft tissues between L4-S1 related to aforementioned surgical changes. The termination of conus medullaris is within normal limits at the level of mid L2. Without Contrast: T12-L1: There is a small focal protrusion in the left subarticular zone mildly narrowing the lateral recess. There is no spinal stenosis or foraminal narrowing. L1-L2: There is disc desiccation, loss disc height with circumferential broad-based disc bulge. There is no spinal stenosis or foraminal narrowing. L2-L3: There is no disc bulge, herniation, or spinal stenosis. Facet hypertrophy results in minimal bilateral foraminal narrowing. L3-L4: There is grade 1 retrolisthesis. There is circumferential broad-based disc bulge and bilateral foraminal disc extrusion. There is moderate facet hypertrophy and trace fluid in the facet joints. There is uwim-ye-ksleplzn ligamentum flavum thickening. There is mild to moderate spinal stenosis. There is possible encroachment of L4 nerve roots in the subarticular zones. There is moderate bilateral foraminal narrowing with disc contacting both L3 nerve roots. L4-L5: The level is surgically fused. There is interbody spacer or cage. There are surgical changes in the region of the left lamina and facet joint. There is no spinal stenosis or right foraminal narrowing. Small spur on the L4 vertebral body mildly narrows the left neural foramen. L5-S1: The level is surgically fused. There is interbody spacer or cage. There is no spinal stenosis. There appear to be changes of laminectomy with an intact spinous process. Endplate osteophytes result in mild right greater than left foraminal narrowing. With Contrast: There is minimal enhancement of the posterior soft tissues and hyperenhancement of the paraspinal musculature through the healed surgical site. Enhancement is physiologic otherwise. MR/MR lumbar spine wo/w con IMPRESSION: T12-L1: Small focal protrusion in the left subarticular zone mildly narrowing the lateral recess. L3-L4: There is grade 1 retrolisthesis. There is circumferential broad-based disc bulge and bilateral foraminal disc herniation. There is mild to moderate spinal stenosis. There is possible encroachment of bilateral L4 nerve roots in the subarticular zones. There is moderate bilateral foraminal narrowing with disc contacting both L3 nerve roots. L4-L5: The level is surgically fused. Small spur on the L4 vertebral body mildly narrows the left neural foramen. L5-S1: The level is surgically fused. Endplate osteophytes result in mild right greater than left foraminal narrowing. Electronically signed by: Keith Cabrera MD 02/20/2025 03:56 PM EDT
[2025-02-20] MEDS: gadobutroL 10 ML VIAL IVPUSH (12:04)
--- OUTSIDE RECORDS SUMMARY | 2025-02-20 12:25 | XMS_ITS | Encounter Summary ---
Author Organization [facility] Address [address] [place] [address] Care Team Providers Care Manager Pmo Name Role Phone Alvino Alvarez MD Primary Care Provider [phone] Alvino Alvarez MD Unavailable [phone] Jose Alfredo Fuentes MD Unavailable Faisal Dangelo MD Unavailable [phone] Damaris Lagunas MD Unavailable Betty Zaldivar RN Unavailable [phone] Betty Zaldivar RN Unavailable [phone] Damaris Lagunas MD Unavailable Brody Olivarez RESIDENTIAL SALES ASSOCIATE Unavailable [phone] Corrie Bustamante RN Unavailable [phone] Reason for Visit * Reason Comments Medication Refill Encounter Details Date Type Department Care Team (Late st Contact Info) Description 07/29/2022 Refill [facility] [address] [place] [address] Brody Olivarez, ANA [address] [facility] [address] [place] [address] Parkinson's disease (HCC) Social History [...] 02/25/2025 11:00 AM EDT Office Visit [facility] [address] [address] Damaris Lagunas MD [address] [place] [address] 03/19/2025 8:45 AM EDT Appointment [address] [address] 06/20/2025 8:15 AM EDT Appointment [address] [address] documented as of this encounter Visit Diagnoses Diagnosis Parkinson's disease (HCC) Paralysis agitans documented in this encounter Care Teams Manager Pmo Relationship Specialty Start Date End Date Alvino Alvaerz MD [address] [place] [address] PCP - General Family Medicine 03/28/16 Alvino Alvarez MD [address] [place] [address] PCP - [place] Commercial Attributed 04/18/20 02/16/24 Brody Olivarez APRN [address] [facility] [address] [place] [address] PCP - [employer] Commercial Attributed 02/17/24 Jose Alfredo Fuentes MD [address] [place], [place] [phone] Referring Provider Psychiatry, General 11/17/21 Faisal Dangelo MD [address] [facility] [address] [place] [phone] Physician Surgery, Orthopedic 01/19/22 Damaris Lagunas MD [address] [place] [address] Primary Commercial Property Administrator Cardiovascular Disease 01/20/22 Betty Zaldivar RN [address] [employer] [place] [address] [facility] Community Blueprint Developer 01/31/22 08/13/24 Betty Zalidvar RN [address] [employer] [place], [place] [phone] [facility] Community Blueprint Developer 03/02/22 08/13/24 Damaris Lagunas MD [address] [place] [address] Primary Commercial Property Administrator Cardiovascular Disease 09/18/22 Corrie Bustamante RN [address] [place] [address] ICP Community Blueprint Developer 08/13/24 documented as of this encounter
== END 2025-02-20 10:35 | disposition home or self-care (01) ==
LOC: HO.MRI 10:34
PROVIDERS: Visit Provider Anesthesiology
DX: M48.061 Spinal stenosis, lumbar region without neurogenic claudication (principal); M96.1 Postlaminectomy syndrome, not elsewhere classified
CPT/HCPCS: 72158; A9585

== ENCOUNTER → 2025-02-20 10:34 | Outpatient (BNV) | payer BC, SELFPAY | PROVIDERS: Visit Provider Radiology Diagnostic Radiology | DX: M43.16 Spondylolisthesis, lumbar region (principal) | CPT/HCPCS: 72158 ==

== ENCOUNTER 2025-03-12 15:19 | Outpatient (AMB) | payer BC, SELFPAY ==
--- NOTE | 2025-03-12 15:26 | MHC.OFFVIS ---
Vital Signs 03/12/25 15:27 Height 5 ft 9 in Weight 211 lb BMI 31.2 BP 131/78 Blood Pressure Location Lt brachial Position Sitting Respiration 18 Pulse 66 Pulse Source Pulse Oximeter Pulse Oximetry (%) 97 Oxygen Delivery Method Room Air Intake Visit Reasons: MRI results Adjunct Mathematics Instructor Required: No Allergies codeine Allergy (Intermediate, Verified 03/12/25 15:28) cold sweats HPI Comments Details: Vijay Shin is back in my office after MRI of the lumbar spine I sent him after he started to complain on weakness in bilateral lower extremities and pain radiating from the back into bilateral lower extremities. The MRI among other things demonstrated significant moderate to severe L3-L4 central canal stenosis (the radiologist who read the images stated that it is ylmc-kk-fnlpysyl stenosis however the measurements of the AP diameter of the spinal canal at this level 5.8 mm and measurement of pixh-bz-bwuy diameter of the spinal canal at this level is 4.9 mm and therefore the stenosis is at least moderate.). There is also grade 1 anterolisthesis and very advanced spurs getting into the spinal canal posteriorly. I explained to the patient that eventually I can refer him for neurosurgical consult. At this time for immediate help I could try to perform bilateral L3-L4 transforaminal epidural steroid injection. Patient agreed to go for transforaminal epidural steroid injection. He is reluctant to consider yet another surgery on his back. Initially I schedule this patient for Nevro spinal cord stimulation trial. He denied any help from Nevro trial. After that I performed diagnostic sacroiliac joint bilateral injection with rather positive results for at least part of his pain related to sacroiliitis and sacroiliac joint dysfunction, however on that appointment he started to complain on weakness on bilateral lower extremities and walking leaning forward on the cart or support alleviating his pain. Prior: complains on pain in the lower back without radiation into the bilateral lower extremities. He reports that he is suffering from this pain for the past 3 years. He was diagnosed with sacroiliitis. He also was diagnosed with vertebra genic pain syndrome. He went to an orthopedic surgeon who performed L4-L5 anterior spinal fusion and posterior laminectomy. He reports that his pain after surgery started to be worse. Denies any numbness weakness or pelvic organ dysfunction before the surgery. He reports that sitting decreases his pain significantly, walking and standing increases his pain. He received multiple physical therapies in the past to treat his pain. He received chiropractic manipulations to address his pain. He tried massage therapy and acupuncture nothing was helping his pain . He tried NSAIDs and he tried steroids to help his pain. He tried steroid injections into SI joints after his surgery which were not helpful for his pain control. He states that he was under consideration to perform sacroiliac joint fusion and his insurance company refused to cover the procedure. He brought the MRI results to this office and because of the hardware in his lumbar spine it is very difficult to read because of the magnetic artifact. He also recently was implanted with pacemaker/not defibrillator for the treatment of heart block and now he can not be sent for the MRI. However CT scan with and without contrast could be possible. His past medical history significant for heart block with pacemaker implantation, he is on levodopa carbidopa 25-100 he is taking acetaminophen to control his pain. His past surgery is anterior fusion February 06 and posterior laminectomy March 09, he was having throat surgery in 2002 cataract surgery in 2022 and pacemaker surgery in 2023. He denies smoking cigarettes he socially drinks alcohol, he denies caffeinated beverages and he denies recreational drugs. [facility] Medical History (Updated 03/13/25 @ 07:56 by Richard Montilla MD) History of heart block Hx of sinus bradycardia History of restless legs syndrome Bronchitis Elevated cholesterol ADAMARIS on CPAP Hx of cataract History of chemotherapy Hx of radiation therapy Depression Pacemaker Parkinson disease Surgical History (Updated 07/26/24 @ 13:27 by Zarina Fink RN) Hx of esophagogastroduodenoscopy History of throat surgery Hx of colonoscopy Hx of spinal fusion Social History Patient Tobacco Use Status: Never used Tobacco Review of Systems Const All systems reviewed & are unremarkable except as noted in HPI and below ENT Reports Normal hearing present Neuro Reports Normal hearing present, Denies Abnormal speech present, Denies confusion and Denies Sensory deficit (Neuro) Psych Denies confusion Physical Exam Vital Signs: Last Vital Signs Pulse 66 03/12/25 15:27 Resp 18 03/12/25 15:27 BP 131/78 03/12/25 15:27 Pulse Ox 97 03/12/25 15:27 Oxygen Delivery Method Room Air 03/12/25 15:27 BMI result Body Mass Index 31.2 Const General: No confusion Nutritional Appearance: average body habitus Orientation/consciousness: No confusion Eyes General: appearance normal, both eyes and all related structures Pupils: Equal, round and reactive pupils present EOM: EOMs intact bilaterally Neck Neck: Yes full ROM Chest Chest palpation & inspection: normal inspection of the chest Resp Effort & Inspection: normal respiratory effort, able to speak in complete sentences, normal respiratory pattern, no audible wheezes and no cough Cardio Jugular venous distension: no JVD GI Inspection: Yes normal to inspection Back/Spine/Pelvis Other: Sitting alleviates his pain standing and walking aggravates his pain. Reports tiredness in bilateral lower extremities with walking. Reports with prolonged walks needs to lean his body forward to alleviate pain in the back. He is able to stand on bilateral tiptoes demonstrating normal strength of bilateral lower extremities, he is not able to stand on bilateral heels. His gait is shuffling probably secondary to Parkinson disease. No antalgic gait is observed. Jackson test is positive on the left,. Gaenslen test today is positive bilaterally. Pelvic compression test is negative bilaterally but pelvic distraction test is equivocal. Stinchfield test is positive bilaterally bilaterally. SLR is negative bilaterally. Valsalva maneuver is positive. Neuro General: No confusion Cranial nerves: Yes Equal, round and reactive pupils present and Yes Normal hearing present Speech: No Abnormal speech present Gait exam (Neuro): Normal gait present Motor exam (neuro): 5/5 motor strength present throughout Sensory Exam: No Sensory deficit (Neuro) Extrem General: No pedal edema Psych Speech and movement: Normal speech and movement present Affect: normal affect Attitude: cooperative Thought process: Normal thought process present Thought content: Normal thought content present Insight: Good insight present (Psych) Judgement: Good judgement present (Psych) Results Reviewed Results Reviewed: MRI lumbar spine without and with IV contrast. TECHNIQUE: Multiplanar multisequence imaging was performed through the lumbar spine without and with contrast. INDICATION: Pain with walking, standing, or sitting for long periods of time, numbness, L4-5 fusion 2-3 years ago CONTRAST: 10 mL Gadavist PRIOR: None available FINDINGS: 5 non-rib bearing lumbar segments are assumed for numbering purposes. If level specific intervention is planned, correlate with an x-ray to ensure concordant numbering. Schmorl's nodes are noted involving T11-L3. Pedicle screws and rods are present on the left at L4, L5, and S1. There are anterior plate and screws at L4-L5-S1. There is probably demonstrating metallic device over the spinous processes of L4-5. Micrometal artifact and scarring is present in the posterior soft tissues between L4-S1 related to aforementioned surgical changes. The termination of conus medullaris is within normal limits at the level of mid L2. Without Contrast: T12-L1: There is a small focal protrusion in the left subarticular zone mildly narrowing the lateral recess. There is no spinal stenosis or foraminal narrowing. L1-L2: There is disc desiccation, loss disc height with circumferential broad-based disc bulge. There is no spinal stenosis or foraminal narrowing. L2-L3: There is no disc bulge, herniation, or spinal stenosis. Facet hypertrophy results in minimal bilateral foraminal narrowing. L3-L4: There is grade 1 retrolisthesis. There is circumferential broad-based disc bulge and bilateral foraminal disc extrusion. There is moderate facet hypertrophy and trace fluid in the facet joints. There is zylc-bk-enrzmzrw ligamentum flavum thickening. There is mild to moderate spinal stenosis. There is possible encroachment of L4 nerve roots in the subarticular zones. There is moderate bilateral foraminal narrowing with disc contacting both L3 nerve roots. L4-L5: The level is surgically fused. There is interbody spacer or cage. There are surgical changes in the region of the left lamina and facet joint. There is no spinal stenosis or right foraminal narrowing. Small spur on the L4 vertebral body mildly narrows the left neural foramen. L5-S1: The level is surgically fused. There is interbody spacer or cage. There is no spinal stenosis. There appear to be changes of laminectomy with an intact spinous process. Endplate osteophytes result in mild right greater than left foraminal narrowing. With Contrast: There is minimal enhancement of the posterior soft tissues and hyperenhancement of the paraspinal musculature through the healed surgical site. Enhancement is physiologic otherwise. MR/MR lumbar spine wo/w con IMPRESSION: T12-L1: Small focal protrusion in the left subarticular zone mildly narrowing the lateral recess. L3-L4: There is grade 1 retrolisthesis. There is circumferential broad-based disc bulge and bilateral foraminal disc herniation. There is mild to moderate spinal stenosis. There is possible encroachment of bilateral L4 nerve roots in the subarticular zones. There is moderate bilateral foraminal narrowing with disc contacting both L3 nerve roots. L4-L5: The level is surgically fused. Small spur on the L4 vertebral body mildly narrows the left neural foramen. L5-S1: The level is surgically fused. Endplate osteophytes result in mild right greater than left foraminal narrowing. Assessment & Plan Assessment & Plan (1) Postlaminectomy syndrome: Code(s): M96.1 - Postlaminectomy syndrome, not elsewhere classified Category: Medical (2) Spinal stenosis at L4-L5 level: Code(s): M48.061 - Spinal stenosis, lumbar region without neurogenic claudication Category: Medical (3) Chronic pain syndrome: Code(s): G89.4 - Chronic pain syndrome Category: Medical (4) Facet arthropathy, lumbar: Code(s): M47.816 - Spondylosis without myelopathy or radiculopathy, lumbar region Category: Medical (5) Sacroiliitis: Code(s): M46.1 - Sacroiliitis, not elsewhere classified Category: Medical (6) Sacroiliac joint dysfunction of both sides: Code(s): M53.3 - Sacrococcygeal disorders, not elsewhere classified Category: Medical (7) Radiculopathy, lumbar region: Code(s): M54.16 - Radiculopathy, lumbar region Category: Medical Plan In my opinion most of the pain of this patient is coming from sacroiliac joint. I offered him sacroiliac joint injection with steroids and yet he was reluctant to accept this procedure. He stated that he in the past received sacroiliac joint injection with steroids ultrasound-guided and it was not helping him. At the last appointment he complained on difficulty walking, need to walk with leaning forward, weakness in bilateral lower extremities. MRI was performed. See discussion as above. I offered him to send him to neurosurgical consult but he said that he is reluctant to go for the yet 1 another lumbar surgery. Then I offered him to try transforaminal L3-L4 epidural steroid injection bilateral. I explained to the patient that this is possibly not the treatment his condition requires but it could temporarily improve his condition. He obviously has neurogenic claudication and need to be considered a neurosurgical patient however considering his history of multiple lumbar surgeries I understand his reluctance to go for yet another surgery on his back. Patient Instructions: I here by testify that I spent 42 minutes in conversation with this patient as well as evaluating his diagnostic images, evaluating diagnostic reports, planning his care and organizing this note. Coding Level of Care Code Est Pt Level 5 (48676) Diagnoses Postlaminectomy syndrome M96.1 Spinal stenosis at L4-L5 level M48.061 Chronic pain syndrome G89.4 Facet arthropathy, lumbar M47.816 Sacroiliitis M46.1 Sacroiliac joint dysfunction of both sides M53.3 Radiculopathy, lumbar region M54.16
[2025-03-12 15:27] VITALS: BP 131/78; PULSE 66; RESP 18; O2SAT 97; BMI 31.2
--- OUTSIDE RECORDS SUMMARY | 2025-03-12 18:09 | XMS_ITS | Encounter Summary ---
Author Organization [facility] Address [address] [place] [address] Care Team Providers Care Assistant Center Manager Name Role Phone Alvino Alvarez MD Primary Care Provider [phone] Alvino Alvarez MD Unavailable Jose Alfredo Fuentes MD Unavailable Faisal Dangelo MD Unavailable [phone] Damaris Lagunas MD Unavailable Betty Zaldivar RN Unavailable [phone] Betty Zaldivar RN Unavailable [phone] Damaris Lagunas MD Unavailable Brody Olivarez FIFTH HAND Unavailable [phone] Corrie Bustamante RN Unavailable [phone] Reason for Visit * Reason Comments Medication Refill Encounter Details Date Type Department Care Team (Late st Contact Info) Description 07/29/2022 Refill [facility] Neurology [address] [place] [address] Brody Olivarez, ANA [address] [facility] [address] [place] [address] Parkinson's disease (HCC) Social History [...] Care Team (Late st Contact Info) Description 03/19/2025 8:45 AM EDT Appointment [address] [address] 06/20/2025 8:15 AM EDT Appointment [address] [address] 08/27/2025 10:30 AM EST Office Visit [address] [address] Goyo Georges MD [address] [place] [address] documented as of this encounter Visit Diagnoses Diagnosis Parkinson's disease (HCC) Paralysis agitans documented in this encounter Care Teams Assistant Center Manager Relationship Specialty Start Date End Date Alvino Alvarez MD [address] [place] [address] PCP - General Family Medicine 03/28/16 Alvino Alvarez MD [address] [place] [address] PCP - [place] Commercial Attributed 04/18/20 02/16/24 Brody Olivarez APRN [address] [facility] [address] [place] [address] PCP - [place] Commercial Attributed 02/17/24 Jose Alfredo Fuentes MD [address] [place], [place] [phone] Referring Provider Psychiatry, General 11/17/21 Faisal Dangelo MD [address] [facility] [address] [place] [phone] Physician Surgery, Orthopedic 01/19/22 Damaris Lagunas MD [address] [place] [address] Primary Electroless Plater Cardiovascular Disease 01/20/22 Betty Zaldivar RN [address] [place] [address] ICP Community Project/Production Manager Imaging 01/31/22 08/13/24 Betty Zaldivar RN [address] [place] [address] ICP Community Project/Production Manager Imaging 03/02/22 08/13/24 Damaris Lagunas MD [address] [place] [address] Primary Electroless Plater Cardiovascular Disease 09/18/22 Corrie Bustamante RN [address] [place] [address] ICP Community Project/Production Manager Imaging 08/13/24 documented as of this encounter
== END 2025-03-12 15:38 | disposition home or self-care (01) ==
LOC: HO.PMC 15:19
PROVIDERS: Visit Provider Anesthesiology
DX: M96.1 Postlaminectomy syndrome, not elsewhere classified (principal); M48.061 Spinal stenosis, lumbar region without neurogenic claudication; G89.4 Chronic pain syndrome; M47.816 Spondylosis without myelopathy or radiculopathy, lumbar region; M46.1 Sacroiliitis, not elsewhere classified; M53.3 Sacrococcygeal disorders, not elsewhere classified; M54.16 Radiculopathy, lumbar region
CPT/HCPCS: 99215

== ENCOUNTER 2025-05-13 06:04 | Outpatient (REF) | payer BC, SELFPAY ==
--- NOTE | ~2025-05-13 | FL_ITS ---
EXAMINATION: FL GUIDANCE ONLY HISTORY: M54.16 - Radiculopathy, lumbar region COMPARISON: Correlation is made with an MRI of the lumbar spine dated 02/20/2023. TECHNIQUE: Fluoroscopy time: 0.3 minutes. Cumulative Dose: 6.32 mGy. DAP: 0.109 mGym2 Images: 4. FINDINGS: Fluoroscopic spot films of the lumbar spine demonstrate needles and contrast material inferior to the bilateral L3 pedicles. FL/FL guidance in treatment room IMPRESSION: Fluoroscopy during procedure. Please see procedure report for additional information. Electronically signed by: Shamir Jarrett MD 05/13/2025 09:47 AM EDT
--- OUTSIDE RECORDS SUMMARY | 2025-05-13 06:06 | XMS_ITS | Encounter Summary ---
Author Organization [facility] Address [address] [place] [address] Care Team Providers Care Hairpiece Stylist Name Role Phone Alvino Alvarez MD Primary Care Provider [phone] Alvino Alvarez MD Unavailable [phone] Jose Alfredo Fuentes MD Unavailable Faisal Dangelo MD Unavailable [phone] Damaris Lagunas MD Unavailable Betty Zaldivar RN Unavailable [phone] Betty Zaldivar RN Unavailable [phone] Damaris Lagunas MD Unavailable Brody Olivarez LABEL CODER Unavailable [phone] Corrie Bustamante RN Unavailable [phone] Alvino Alvarez MD Unavailable Brody Olivarez LABEL CODER Unavailable [phone] Reason for Visit * Reason Comments Medication Refill Encounter Details Date Type Department Care Team (Late st Contact Info) Description 07/29/2022 Refill [facility] Neurology [address] [place] [phone] Brody Olivarez, LABEL CODER [address] [facility] [address] [place] [address] Parkinson's disease (HCC) Social History Tobacco Use [...] Care Team (Late st Contact Info) Description 06/20/2025 8:15 AM EDT Appointment [facility] Vascular [address] [address] 08/27/2025 10:30 AM EST Office Visit [address] [address] Goyo Georges MD [address] [place] [address] 09/21/2025 8:45 AM EST Appointment [facility] [address] [address] 12/21/2025 8:00 AM EDT Appointment [address] [address] documented as of this encounter Visit Diagnoses Diagnosis Parkinson's disease (HCC) Paralysis agitans documented in this encounter Care Teams Hairpiece Stylist Relationship Specialty Start Date End Date Alvino Alvarez MD [address] [place] [address] PCP - General Family Medicine 03/28/16 Alvino Alvarez MD [address] [place] [phone] PCP - [place] Commercial Attributed 04/18/20 02/16/24 Brody Olivarez APRN [address] [id number] PCP - [place] Commercial Attributed 02/17/24 11/15/24 Alvino Alvarez MD [address] [place] [phone] PCP - [place] Commercial Attributed 11/16/24 12/16/24 Brody Olivarez APRN [address] [place] [phone] PCP - [place] Commercial Attributed 12/17/24 Jose Alfredo Fuentes MD [address] [place] [phone] Referring Provider Psychiatry, General 11/17/21 Faisal Dangelo MD [address] [phone] Physician Surgery, Orthopedic 01/19/22 Damaris Lagunas MD [address] [place] [phone] Primary Trench Digger Helper Cardiovascular Disease 01/20/22 Betty Zaldivar, RN [address] [place] [address] [address] ICP Community Catapult And Arresting Gear Officer 01/31/22 08/13/24 Betty Zaldivar RN [address] [address] ICP Community Catapult And Arresting Gear Officer 03/02/22 08/13/24 Damaris Lagunas MD [address] [place] [address] Primary Trench Digger Helper Cardiovascular Disease 09/18/22 Corrie Bustamante RN [address] [address] [facility] Community Catapult And Arresting Gear Officer 08/13/24 documented as of this encounter
--- OUTSIDE RECORDS SUMMARY | 2025-05-13 06:06 | XMS_ITS ---
Author Organization [facility] Address [address] [place] [address] Care Team Providers Care Electrical Logging Engineer Name Role Phone Alvino Alvarez MD Primary Care Provider [phone] Jose Alfredo Fuentes MD Unavailable Faisal Dangelo MD Unavailable [phone] Damaris Lagunas MD Unavailable Corrie Bustamante RN Unavailable [phone] Brody Olivarez SURGICAL SUPPLY ASSISTANT Unavailable Active Problems Problem Noted Date Diagnosed Date Bradycardia 11/09/2023 Constipation 07/04/2023 07/04/2023 Drug-induced thrombocytopenia 07/04/2023 Epistaxis 07/04/2023 07/04/2023 Pain 07/04/2023 07/04/2023 Radicular pain 02/23/2022 Lumbar stenosis without neurogenic claudication 02/18/2022 Parkinson's disease 11/17/2021 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
--- OUTSIDE RECORDS SUMMARY | 2025-05-13 06:06 | XMS_ITS | Encounter Summary ---
Author Organization [facility] Address [address] [place] [address] Care Team Providers Care Events Intern Name Role Phone Alvino Alvarez MD Primary Care Provider [phone] Alvino Alvarez MD Unavailable [phone] Jose Alfredo Fuentes MD Unavailable Faisal Dangelo MD Unavailable [phone] Damaris Lagunas MD Unavailable Betty Zaldivar RN Unavailable [phone] Betty Zaldivar RN Unavailable [phone] Damaris Lagunas MD Unavailable Brody Olivarez APRN Unavailable [phone] Corrie Bustamante RN Unavailable [phone] Alvino Alvarez MD Unavailable [phone] Brody Olivarez APRN Unavailable [phone] Encounter Details Date Type Department Care Team (Late st Contact Info) Description 03/09/2022 Scanned Document [facility] Heart & Vascular [place] [address] [address] Cardiology, Scan Social History Tobacco Use Types [...] Info) Description 06/20/2025 8:15 AM EDT Appointment [address] [address] 08/27/2025 10:30 AM EST Office Visit [address] [address] Goyo Georges MD [address] [place] [address] 09/21/2025 8:45 AM EST Appointment [address] [address] 12/21/2025 8:00 AM EDT Appointment [address] [address] documented as of this encounter Visit Diagnoses Not on filedocumented in this encounter Care Teams Events Intern Relationship Specialty Start Date End Date Alvino Alvarez MD [address] [place], [place] [phone] PCP - General Family Medicine 03/28/16 Alvino Alvarez MD [address] [place], [place] [phone] PCP - [place] Commercial Attributed 04/18/20 02/16/24 Brody Olivarez APRN [address] [place] [phone] PCP - [place] Commercial Attributed 02/17/24 11/15/24 Alvino Alvarez MD [address] [place] [address] PCP - [place] Commercial Attributed 11/16/24 12/16/24 Brody Olivarez APRN [address] [place] [phone] PCP - [place] Commercial Attributed 12/17/24 Jose Alfredo Fuentes MD [address] [place] [phone] Referring Provider Psychiatry, General 11/17/21 Faisal Dangelo MD [address] [place] [phone] Physician Surgery, Orthopedic 01/19/22 Damaris Lagunas MD [address] [place] [address] Primary Utility Specialist Cardiovascular Disease 01/20/22 Betty Zaldivar RN [address] [place] [phone] [facility] Community Fish Seiner 01/31/22 08/13/24 Betty Zaldivar RN [address] [place] [phone] [facility] Community Fish Seiner 03/02/22 08/13/24 Damaris Lagunas MD [address] [place] [address] Primary Utility Specialist Cardiovascular Disease 09/18/22 Corrie Bustamante RN [address] [address] [facility] Community Fish Seiner 08/13/24 documented as of this encounter
--- OUTSIDE RECORDS SUMMARY | 2025-05-13 06:06 | XMS_ITS ---
Author Name [facility] Organization Unknown History of Medication Use Medication [...] Refills: 0 Written: 05/02/24 Patient Instructions: 05/02/20 active Metaxalone 800 MG Oral Tablet Metaxalone [...] Starting on Mon05/31/23 at 1343, Intraprocedure 05/31/20 023 completed methylPREDNISolone acetate (Depo-Medrol) injection As needed, Starting on Mon05/31/23 at 1339, Intraprocedure 05/31/20 23 023 completed ropivacaine 5 mg/mL (0.5 %) (Naropin) injection As needed, Starting on Mon05/31/23 at 1342, Intraprocedure 05/31/20 023 completed celeCOXIB (CeleBREX) 200 MG capsule Take 1 capsule (200 mg total) by mouth daily. With food. 03/08/20 023 active tadalafiL (ADCIRCA) 10 mg tablet Take 10 mg by mouth as needed. 06/15/20 active lidocaine (XYLOCAINE) 5 % ointment 06/14/20 active carbidopa-levodopa (SINEMET) 25-100 MG per tablet [...] a day if needed for constipation. 01/29/20 active carbidopa-levodopa (SINEMET) 25-100 mg per tablet [...] 2 tablets by mouth every morning. aborted Ativan 1 mg oral tablet take 1 tablet (1 mg) by oral route 2 times per day as needed suspended cevimeline 30 mg oral capsule active fentanyl 75 mcg/hr transdermal patch 72 hour apply 1 patch (75 mcg/hour) by transdermal route every 72 hours suspended hydromorphone 2 mg/mL injection solution 2ml every 4 hours suspended Miralax 17 gram/dose oral powder take 17 gram mixed with 8 oz. water, juice, soda, coffee or tea by oral route once daily suspended pantoprazole (Protonix) 40 mg EC tablet Take 40 mg by mouth 1 (one) time each day. active pantoprazole (PROTONIX) 40 mg EC tablet Take 40 mg by mouth in the morning. active pantoprazole 40 mg oral tablet,delayed release (DR/EC) active Protonix 40 mg oral tablet,delayed release (DR/EC) take 1 tablet (40 mg) by oral route once daily suspended Requip 1 mg oral tablet take 1 tablet (1 mg) by oral route 1-3 hours before bedtime suspended ropinirole 1 mg oral tablet active trazodone 50 mg oral tablet suspended venlafaxine 150 MG Tablet SR 24 hr Take 75 mg by mouth every morning with breakfast. active venlafaxine 75 MG Tablet SR 24 hr Take 1 tablet (75 mg total) by mouth every morning with breakfast. active Zofran (as hydrochloride) 4 mg oral tablet take 2 tablets (8 mg) by oral route 1-2 hours prior to radiation therapy suspended Allergies Allergen Reaction Severity Comment Documented Date Source Statu s CODEINE OTHEROTHER (SEE COMMENTS) Cold sweats 03/28/2016 [facility] active ATORVASTATIN MYALGIA/MYOSITIS /ARTHRALGIA/ARTH RITIS Other reaction(s): Myalgia/Myos itis/Arthral leeanne/Arthriti s 03/18/2014 [facility] active LIPITOR MYALGIAS [facility] CODEINE SULFATE NAUSEA/VOMITING/ DIARRHEA CT_[facility] Problems Problem Status Onset Date Problem Type Date of Resolution Source Obstructive sleep apnea syndrome (disorder) active 2014-02-27 ProblemAct [facility] 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-18 ProblemAct [facility] Depressive disorder (disorder) active 2024-06-04 ProblemAct [facility] Hyperlipidemia (disorder) active 2013-05-17 ProblemAct [facility] GERD active 2013-05-17 ProblemAct [facility] Sinus bradycardia (disorder) active 2019-10-10 ProblemAct [facility] Reactive depression (situational) (disorder) active 2016-11-18 ProblemAct [facility] 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 ProblemAct [facility] Parkinson's disease (disorder) active 2022-02-09 ProblemAct [facility] Hypogonadism (disorder) active 2013-05-17 ProblemAct [facility] Spinal stenosis of lumbar region (disorder) active 2022-05-05 ProblemAct [facility] Erectile dysfunction (disorder) active 2014-03-18 ProblemAct [facility] Restless legs (disorder) active 2016-11-18 ProblemAct [facility] Gastroesophageal reflux disease active 2019-06-05 ProblemAct [facility] Lumbar stenosis without neurogenic claudication active 2022-02-18 ProblemAct [facility] Drug-induced thrombocytopenia active 2023-07-04 ProblemAct [facility] Parkinson's disease active 2021-11-17 ProblemAct [facility] RLS (restless legs syndrome) active 2016-12-15 ProblemAct [facility] Radicular pain active 2022-02-[address] Constipation active 2023-07-04 ProblemAct [facility] ADAMARIS (obstructive sleep apnea) active 2016-03-28 ProblemAct [facility] Adjustment insomnia active 2016-12-15 ProblemAct [facility] Disturbance of skin sensation active 2016-12-23 ProblemAct [facility] Bradycardia active 2023-11-09 ProblemAct [facility] Snoring active 2016-12-15 ProblemAct [facility] Epistaxis active 2023-07-04 ProblemAct [facility] Head and neck cancer active 2016-12-15 ProblemAct [facility] Epigastric pain active 2019-06-05 ProblemAct [facility] Pain active 2023-07-04 ProblemAct [facility] 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 ProblemAct [facility] Colon cancer screening active 2019-06-05 ProblemAct [facility] Gastroesophageal reflux disease without esophagitis active 2016-03-28 ProblemAct [facility] Plantar fasciitis, bilateral active EncounterDiagnosisAct [facility] Spinal stenosis of lumbar region with radiculopathy active 2022-01-26 ProblemAct [facility] Immunizations Vaccine Date Source Lot Number Status Influenza Inactivated/Split Preservative Free IM 07/07/2022 [facility] [id number] completed Covid-19 mRNA Vaccine - Mode rna 0.25 mL Booster 02/23/2022 [facility] [id number] completed *MFP Influenza 6 mo and over 08/05/2021 [facility] [id number] A completed Influenza, Unspecified 08/05/2021 [facility] co mpleted Influenza Inactivated/Split Preservative Free IM 07/28/2020 [facility] [id number] completed *MFP (Boostrix) Tdap 05/03/2019 [facility] [id number] comp leted *PCV (Pneumovax 23) 05/03/2019 [facility] [id number] compl eted Pneumococcal Conjugate 7-Valent 05/03/2019 [facility] completed *Zoster Vaccine, Live 07/01/2014 [facility] com pleted *Td 09/18/2009 [facility] completed Encounters Encounter Type Encounter Reason Primary Diagnosis Location Date Ambulatory Sick sinus syndrome Sick sinus syndrome [facility] 03/19/2025 Ambulatory Bradycardia, unspecified Bradycardia, unspecified [facility] 02/25/2025 Ambulatory Presence of cardiac pacemaker Presence of cardiac pacemaker [facility] 12/13/2024 Ambulatory Cardiac arrhythmia, unspecified Cardiac arrhythmia, unspecified [facility] 09/16/2024 Ambulatory Presence of cardiac pacemaker Presence of cardiac pacemaker [facility] 08/27/2024 Ambulatory Parkinson's disease without dyskinesia, without mention of fluctuations Parkinson's disease without dyskinesia, without mention of fluctuations [facility] 07/16/2024 Ambulatory Cardiac arrhythmia, unspecified Cardiac arrhythmia, unspecified [facility] 06/14/2024 Ambulatory Encounter for screening for other disorder Encounter for screening for other disorder [facility] 06/04/2024 Ambulatory Cardiac arrhythmia, unspecified Cardiac arrhythmia, unspecified [facility] 03/29/2024 Ambulatory Ventricular tachycardia, unspecified Ventricular tachycardia, unspecified [facility] 03/14/2024 Ambulatory Cardiac arrhythmia, unspecified Cardiac arrhythmia, unspecified [facility] 03/13/2024 Ambulatory Presence of cardiac pacemaker Presence of cardiac pacemaker [facility] 02/26/2024 Ambulatory Presence of cardiac pacemaker Presence of cardiac pacemaker [facility] 12/12/2023 Ambulatory Bradycardia, unspecified Bradycardia, unspecified [facility] 11/16/2023 Ambulatory Bradycardia, unspecified Bradycardia, unspecified [facility] 11/09/2023 Ambulatory Parkinson's disease without dyskinesia, without mention of fluctuations Parkinson's disease without dyskinesia, without mention of fluctuations [facility] 11/08/2023 Ambulatory Parkinson's disease without dyskinesia, without mention of fluctuations Parkinson's disease without dyskinesia, without mention of fluctuations [facility] 10/25/2023 Ambulatory [facility] 09/28/19 Ambulatory Vertebrogenic low back pain Vertebrogenic low back pain [facility] 09/28/2023 Ambulatory Other forms of dyspnea Other forms of dyspnea [facility] 09/21/2023 Ambulatory Parkinson's disease without dyskinesia, without mention of fluctuations Parkinson's disease without dyskinesia, without mention of fluctuations [facility] 09/20/2023 Ambulatory Obstructive sleep apnea (adult) (pediatric) Obstructive sleep apnea (adult) (pediatric) [facility] 09/20/2023 Ambulatory Bradycardia, unspecified Bradycardia, unspecified [facility] 08/28/2023 Ambulatory [facility] 07/24/2023 Ambulatory Parkinson's disease without dyskinesia, without mention of fluctuations Parkinson's disease without dyskinesia, without mention of fluctuations [facility] 07/04/2023 Ambulatory Obstructive sleep apnea (adult) (pediatric) Obstructive sleep apnea (adult) (pediatric) [facility] 06/06/2023 Ambulatory Pain, unspecified Pain, unspecified [facility] 05/31/2023 Ambulatory Obstructive sleep apnea (adult) (pediatric) Obstructive sleep apnea (adult) (pediatric) [facility] 05/04/2023 Ambulatory Oth disrd of the skin and subcutaneous tissue [facility] 04/11/2023 Ambulatory Obstructive slee p apnea (adult) (pediatric) [facility] 03/22/2023 Ambulatory Unspecified symp toms and signs involving cognitive functions and awareness [facility] 03/06/2023 Ambulatory Parkinson's disease [facility] 02/28/2023 Ambulatory Vertebrogenic lo w back pain [facility] 11/08/2022 Ambulatory Spinal stenosis, lumbar region without neurogenic benito [facility] 11/03/2022 Ambulatory Parkinson's disease [facility] 10/04/2022 Ambulatory Plantar fascial fibromatosis [facility] 09/28/2022 Ambulatory Plantar fascial fibromatosis [facility] 08/24/2022 Ambulatory [facility] 07/07/2022 Ambulatory Parkinson's disease [facility] 07/05/2022 Ambulatory Bunionette of ri ght foot [facility] 06/22/2022 Ambulatory Malignant neopla sm of tonsil, unspecified [facility] 05/31/2022 Ambulatory Encounter for immunization [facility] 05/05/2022 Ambulatory Parkinson's disease [facility] 03/22/2022 Ambulatory Malignant neopla sm of tonsillar fossa [facility] 02/28/2022 Ambulatory Personal history of malignant neoplasm of other organs and systems [facility] 02/28/2022 Observation Pain in right leg [facility] 02/22/2022 Inpatient Spinal stenosis, lumbar region without neurogenic claudication [facility] 02/18/2022 Ambulatory Encounter for ot her preprocedural examination [facility] 02/11/2022 Inpatient Encounter for ot her preprocedural examination [facility] 01/24/2022 Ambulatory Encounter for preprocedural cardiovascular examination [facility] 01/20/2022 Ambulatory Bradycardia, unspecified [facility] 01/19/2022 Ambulatory Abnormal result of other cardiovascular function study [facility] 01/19/2022 Ambulatory Obstructive slee p apnea (adult) (pediatric) [facility] 01/07/2022 Ambulatory Parkinson's disease [facility] 11/17/2021 Ambulatory Parkinson's disease [facility] 10/07/2021 Care Team Organization Name Specialty Phone Email Start Date End [facility] Electric Power Machine Operator 02/202503/24/2025 [facility] Alvino Alvarez Primary Care 12/17/2024 5 [facility] 10/08/2023 [facility] 07/20/2023 024 [facility] Alvino Alvarez Primary Care 07/07/2022 5 [facility] Electric Power Machine Operator 02/202203/24/2025 [facility] NO PCP Primary Care 06/22/202207/2023 [facility] PCP,No Primary Care 06/22/2022 [facility], [facility] CLARICE AMAYA Primary Care 05/05/2022 [facility] 01/24/2022 0911/2021 INXPO Alvino Alvarez Primary Care 10/07/2021
--- OUTSIDE RECORDS SUMMARY | 2025-05-13 06:06 | XMS_ITS | Clinical Summary ---
Author Organization [facility] Address [address] [place] [address] Care Team Providers Care Mold Repair Technician Name Role Phone Alvino Alvarez MD Primary Care Provider [phone] Jose Alfredo Fuentes MD Unavailable Faisal Dangelo MD Unavailable [phone] Damaris Lagunas MD Unavailable Corrie Bustamante RN Unavailable [phone] Brody Olivarez APRN Unavailable [phone] Allergies Active Allergy Reactions Criticality Noted Date Comments Atorvastatin Myalgia/Myositis/Art hralgia/Arthr itis Low 03/18/2014 Codeine Other (See Comments) 03/28/2016 Cold sweats Medications PANTOprazole (PROTONIX) 40 MG EC tabletIndications :Gastroesophageal Reflux Disease Take 1 tablet (40 mg total) by mouth every morning. Active Sodium Fluoride 5000 PPM 1.1 % Paste Apply to teeth nightly. 2 Active acetaminophen (TYLENOL) 325 MG tabletIndications :Lumbar stenosis without neurogenic claudication Take 3 tablets (975 mg total) by mouth every 6 (six) hours. Do not start before February 19, 2022. 84 tablet 2 Active tadalafil (CIALIS) 20 MG tablet Take 1 tablet (20 mg total) by mouth as needed. 3 Active venlafaxine 150 MG Tablet SR 24 hr Take 75 mg by mouth every morning with breakfast. Active carbidopa-levodop a ER (SINEMET CR) 25-100 MG per tabletIndications :Parkinson's disease (HCC) Take 1 tablet by mouth nightly. 60 tablet 1 4 Active carbidopa-levodop a (SINEMET) 25-100 MG per tabletIndications :Parkinson's disease (HCC) Take 2 tablets by mouth 3 (three) times a day. 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 Sinus bradycardia 10/10/2019 Colon cancer screening 06/05/2019 Overview (06/05/2019): Added automatically from request for surgery [id number] Gastroesophageal reflux disease 06/05/2019 Overview (06/05/2019): Added automatically from request for surgery [id number] Epigastric pain 06/05/2019 Overview (06/05/2019): Added automatically from request for surgery [id number] Disturbance of skin sensation 12/23/2016 Head and neck cancer 12/15/2016 RLS (restless legs syndrome) 12/15/2016 Adjustment insomnia 12/15/2016 Snoring 12/15/2016 ADAMARIS (obstructive sleep apnea) 03/28/2016 Gastroesophageal reflux disease without esophagi tis 03/28/2016 Resolved Problems Problem Noted Date Diagnosed Date Resolved Date Preop examination 01/24/2022 08/14/2024 Obesity (BMI 30.0-34.9) 03/28/2016 01/0 11/2017 Encounters Date Type Department Care Team Description 05/08/2025 Scanned Document [facility] Pulmonary [address] [place] [phone] Pulmonary, Scan 02/25/2025 11:00 AM EDT Office Visit [facility] [place] [address] [phone] Damaris Lagunas MD Sinus bradycardia (Primary Dx) 02/25/2025 Travel from Last 3 Months Immunizations Immunization Administration [...] Sign Reading Time Taken Comments Blood Pressure 120/64 02/25/2025 11:33 AM EDT Pulse 64 02/25/2025 11:33 AM EDT Temperature 36.1 C (97 F) 11/16/2023 10:17 AM EST Respiratory Rate 20 11/16/2023 11:45 AM EST Oxygen Saturation 94% 02/25/2025 11:33 AM EDT Inhaled Oxygen Concentration - - Weight 95.3 kg (210 lb) 02/25/2025 11:33 AM EDT Height 172.7 cm (5' 8 ) 02/25/2025 11:33 AM EDT Body Mass Index 31.93 02/25/2025 11:33 AM EDT Plan of Treatment Upcoming Encounters Date Type Department Care Team (Late st Contact Info) Description 06/20/2025 8:15 AM EDT Appointment [address] [phone] 08/27/2025 10:30 AM EST Office Visit [address] [phone] Goyo Georges MD [address] [place] [address] 09/21/2025 8:45 AM EST Appointment [address] [phone] 12/21/2025 8:00 AM EDT Appointment [address] [address] Health Maintenance Due Date Last Done Comments Hepatitis C Virus Screening 1965 HIV Screening 1976 Pneumococcal Vaccines 50+ (1 of 2 - PCV) 1982 05/03/2019 DTaP/Tdap/Td Vaccines (1 - Tdap) 09/19/2009 09/18/2009 Zoster (Shingles) Vaccine (1 of 2) 08/26/2014 07/01/2014 COVID-19 Vaccine ( season) 2024 02/23/2022, 08/16/2021, 12/16/2020, Additional history exists Influenza Vaccine 04/18/2025 09/03/2023, , 08/05/2021, Additional history exists Colonoscopy 07/01/2029 07/01/2019, 02/17, 03/07/2012 RSV Vaccine 60 years and older and Patients (1 - 1-dose 75+ series) 2038 Hepatitis B Vaccines Aged Out No long er eligible based on patient's age to complete this topic Medical Devices Implanted Type Area Natural Resource Technician Device Identifier Shelf Expiration Date Model / Serial / Lot 3830-69 Lead Pacing 69cm Atr Vntrc Bipolar Fx Scr In Selectsecure - [id number] Implanted:Qty: 1 on 11/16/2023 by Bassam Laird MD at [facility] Lead Left: Chest [employer] MINIMALLY INVASIVE T [id number] 10/10/2025 3830-69 / [id number] 3V / 5076-52 Lead Pacing 52cm 6.2fr 2mm 10mm Spc Sm Straight Atr Vntrc - [id number] Implanted:Qty: 1 on 11/16/2023 by Bassam Laird MD at [facility] Lead Left: Chest [employer] MINIMALLY INVASIVE T [id number] 07/28/2025 5076-52 / [id number] 8V / [id number] Xu Spinal 70mm 5.5mm Illico Ti Precontour Central Post - [id number] Implanted:Qty: 1 on 02/18/2022 by Faisal Dangelo MD at [facility] Nail/Xu N/A: Spine Lumbar [employer] 10592-04 0 / / [id number] Pacemaker Cardiac 7.4mm 50.8x46.6mm Jesika Xt Dr Mri Surescan - [id number] Implanted:Qty: 1 on 11/16/2023 by Bassam Laird MD at [facility] Pacemaker Left: Chest [employer] MINIMALLY INVASIVE T [id number] 04/14/2025 [id number] / [id number] 7G / Dll-8 Dual Llanos Lock 8mm - [id number] Implanted:Qty: 1 on 02/18/2022 by Faisal Dangelo MD at [facility] Plate N/A: Spine Lumbar [employer] DLL-8 / / Gabriel-8 Dual Llanos Tray 8mm - [id number] Implanted:Qty: 1 on 02/18/2022 by Faisal Dangelo MD at [facility] Plate N/A: Spine Lumbar [employer] GABRIEL-8 / / [id number] Screw Bone Spine Illico 45mm Ti 6.5mm Pa Farzana Nonst - [id number] Implanted:Qty: 1 on 02/18/2022 by Faisal Dangelo MD at [facility] Spine N/A: Spine Lumbar [employer] 06416-09 / / [id number] Screw Bone Spine Illico 40mm Ti 6.5mm Pa Farzana Nonst - [id number] Implanted:Qty: 1 on 02/18/2022 by Faisal Dangelo MD at [facility] Spine N/A: Spine Lumbar [employer] 14051-25 / / [id number] Screw Set Ti Spine Hexalobe Zodiac - [id number] Implanted:Qty: 3 on 02/18/2022 by Faisal Dangelo MD at [facility] Spine N/A: Spine Lumbar [employer] 42999 / / [id number] Screw Set Spine Stabilink Mis Spinal Fixation Sys - [id number] Implanted:Qty: 1 on 02/18/2022 by Faisal Dangelo MD at [facility] Spine N/A: Spine Lumbar [employer] SS-219 / / 210-010 Alphagraft Cellular Bone Matrix 1 Cc - [id number] Implanted:Qty: 1 on 02/18/2022 by Faisal Dangelo MD at [facility] Tissue N/A: Spine Lumbar [employer] 10/24/2023 210-010 / [id number] / 700-010 Graft Bone 1 Fctr 1cc Algrf Putty Syringe - [id number] Implanted:Qty: 1 on 02/18/2022 by Faisal Dangelo MD at [facility] Tissue N/A: Spine Lumbar [employer] 09/17/2024 700-010 / / [id number] Sponge Dbm Bone 15p89y6cg - [id number] Implanted:Qty: 1 on 02/18/2022 by Faisal Dangelo MD at [facility] Tissue N/A: Spine Lumbar [employer] 01/04/2027 [id number] / [id number] 64-049 / [id number] Sponge Dbm Bone 09w16e1ae - [id number] Implanted:Qty: 1 on 02/18/2022 by Faisal Dangelo MD at [facility] Tissue N/A: Spine Lumbar [employer] 01/04/2027 [id number] / [id number] 64-045 / [id number] Filler Bone Void Nanofuse 2 Cc Bioactive Matrix Sterile Late - [id number] Implanted:Qty: 1 on 02/18/2022 by Faisal Dangelo MD at [facility] Void Filler N/A: Spine Lumbar [employer] 05/26/2026 EMU996-6 2 / / [id number] 2 620-005 Kit Bone Graft 5cc 12cc Calcium Slf Stimulan Rpd Cure Paste - [id number] Implanted:Qty: 1 on 02/18/2022 by Faisal Dangelo MD at [facility] Void Filler N/A: Spine Lumbar [employer] - A BTG INT 08/17/2024 620-005 / / [id number] 70-6012 Substitute Bone Graft Alphatec Neocore Ostcndc Matrix 12cc - [id number] Implanted:Qty: 1 on 02/18/2022 by Faisal Dangelo MD at [facility] Void Filler N/A: Spine Lumbar [employer] 05/20/2024 70-6012 / / [id number] Dbm Fibers 5.0cc Implanted:Qty: 1 on 02/18/2022 by Faisal Dangelo MD at [facility] N/A: Spine Lumbar [employer] 07/15/2024 [id number] / [id number] 0662-061 / [id number] Screw Bone Spine Illico 35mm Ti 6.5mm Pa Farzana Implanted:Qty: 1 on 02/18/2022 by Faisal Dangelo MD at [facility] N/A: Spine Lumbar [employer] 38938-65 / / Procedures Procedure Name Priority Date/Time Associated Diagnosis Comments PM REMOTE EVGONZÁLEZ, [id number] Routine 03/19/2025 11:32 AM EDT SSS (sick sinus syndrome) (HCC) ECG 12-LEAD Routine 02/25/2025 11:23 AM EDT Sinus bradycardia HX GASTROENTEROLOGY COLONOSCOPY-SCAN Routine 03/07/2012 from Last 3 Months or Most Recently Relevant to Health Maintenance Results * PM REMOTE EVGONZÁLEZ, [id number] (03/19/2025 11:32 AM EDT) Date Time Interrogation Session 20,250,702,055,90 7 PACEART Implantable Pulse Generator Natural Resource Technician Medtronic PACEART Implantable Pulse Generator Model W1DR01 Jesika XT DR MRI PACEART Implantable Pulse Generator Serial Number [id number] PACEART Implantable Pulse Generator Type Pacemaker PACEART Implantable Pulse Generator Implant Date 20,240,228,190,00 0 PACEART Implantable Lead Natural Resource Technician Medtronic PACEART Implantable Lead Model 3830 SelectSecure MRI SureScan PACEART Implantable Lead Serial Number [id number] PACEART Implantable Lead Implant Date 20,240,228,190,00 0 PACEART Implantable Lead Polarity Type Bipolar Lead PACEART Implantable Lead Location Detail 1 UNKNOWN PACEART Implantable Lead Special Function 69 PACEART Implantable Lead Location Right Ventricle PACEART Implantable Lead Connection Status Connected PACEART Implantable Lead Natural Resource Technician Medtronic PACEART Implantable Lead Model 5076 CapSureFix Novus MRI SureScan PACEART Implantable Lead Serial Number [id number] PACEART Implantable Lead Implant Date [id number] PACEART Implantable Lead Polarity Type Bipolar Lead [...] summary Monitored PACEART RA Lead Impedance Value 418 ohm PACEART RA Lead Impedance Value 323 ohm PACEART RA Lead Sensing Intrinsic Amplitude 5.875 mV PACEART RA Lead Sensing Intrinsic Amplitude 5.875 mV PACEART RA Lead Pacing Threshold Amplitude 0.625 V PACEART RA Lead Pacing Threshold Pulse Width 0.4 ms PACEART RV Lead Impedance Value 456 ohm PACEART RV Lead Impedance Value 342 ohm PACEART RV Sensing Intrinsic Amplitude 2.375 mV PACEART RV Sensing Intrinsic Amplitude 2.375 mV PACEART RV Lead Pacing Threshold Amplitude 0.875 V PACEART RV Lead Pacing Threshold Pulse Width 0.4 ms PACEART RV Stat leads lowpower alegre Ring PACEART RV Stat leads lowpower alegre Tip PACEART Battery Status OK PACEART Battery Remaining Longevity 147 mo PACEART Battery Voltage 3.04 V PACEART RA Percent Paced-since last reset 95.73 % PACEART RV Percent Paced-since last reset 0.35 % PACEART Miguel Angel Statistic AP FERMENTATION OPERATOR Percent 0.35 % PACEART Miguel Angel Statistic FERMENTATION OPERATOR Percent 0 % PACEART Miguel Angel Statistic AP VS Percent 95.39 % PACEART Miguel Angel Statistic VS Percent 4.26 % PACEART AT/AF [place] Percent 0 % PACEART Episode Statistic Recent [...] PACEART Anatomical Region Laterality Modality Cardiac Device 03/19/2025 5:59 AM EDT Narrative 03/19/2025 1:24 PM EDT Routine remote PM transmission. Device is functioning normally. No end of life battery warning. Estimated time until GENE: 12.3y Stable lead impedances. Normal capture thresholds. R-wave amplitude low but stable over the past 12 months. Normal P-wave amplitude. There were no high v. rate episodes. No afib. Presenting rhythm: AP/VS Cont routine monitoring. KH Jenni Rasmussen APRN CV CARDIAC SERVICES ORDERAB LES Final Result * ECG 12 lead (02/25/2025 11:23 AM EDT) [facility] Ventricular rate 64 BPM EKG [facility] Atrial rate 64 BPM EKG [facility] P-R interval 146 ms EKG [facility] QRS duration 82 ms EKG [facility] Q-T interval 388 ms EKG [facility] QTC calculation (Bazett) 401 ms EKG [facility] P axis 56 degrees EKG [facility] R axis 2 degrees EKG [facility] T axis 38 degrees EKG [facility] 02/25/2025 11:2 3 AM EDT Narrative EKG [facility] - 02/25/2025 2:29 PM EDT Atrial-paced rhythm When compared with ECG of 26-Feb-2024 10:57, No significant change was found Confirmed by MD Lagunas Njeri ([id number]) on 02/25/2025 2:29:10 PM Procedure Note Damaris Lagunas MD - 02/25/2025 Atrial-paced rhythm When compared with ECG of 26-Feb-2024 10:57, No significant change was found Confirmed by MD Lagunas Njeri ([id number]) on 02/25/2025 2:29:10 PM us Damaris Lagunas MD ECG ORDERABLES Final Result [facility] * HX GASTROENTEROLOGY COLONOSCOPY-SCAN (03/07/2012) us Yash Hill MD HX AMB PROCEDURES Final Result from Last 3 Months or Most Recently Relevant to Health Maintenance Insurance [facility] PPO [facility] PPO Advance Directives * Full Code (Latest Code Status on File) Date Activated Date Inactivated Comments 11/16/2023 10:34 AM * Full Code Date Activated Date Inactivated Comments 02/18/2022 5:05 PM 02/22/2022 8:24 AM Care Teams Mold Repair Technician Relationship Specialty Start Date End Date Alvino Alvarez MD [address] [place] [address] PCP - General Family Medicine 03/28/16 Brody Olivarez, RAILROAD EMERGENCY SERVICES MANAGER [address] [facility] [address] [place] [address] PCP - [place] Commercial Attributed 12/17/24 Jose Alfredo Fuentes MD [address] [place] [address] Referring Provider Psychiatry, General 11/17/21 Faisal Dangelo MD [address] [phone] Physician Surgery, Orthopedic 01/19/22 Damaris Lagunas MD [address] [place] [address] Primary Helmet Coverer Cardiovascular Disease 01/20/22 Corrie Bustamante, RN [address] [place] [address] [facility] Community Cycle Counter 08/13/24
--- OUTSIDE RECORDS SUMMARY | 2025-05-13 06:06 | XMS_ITS | Encounter Summary ---
Author Organization [facility] Address [address] [place] [address] Care Team Providers Care Recreation Establishment Manager Name Role Phone Alvino Alvarez MD Primary Care Provider [phone] Alvino Alvarez MD Unavailable [phone] Jose Alfredo Fuentes MD Unavailable Faisal Dangelo MD Unavailable [phone] Damaris Lagunas MD Unavailable Betty Zaldivar RN Unavailable [phone] Betty Zaldivar RN Unavailable [phone] Damaris Lagunas MD Unavailable Brody Olivarez APRN Unavailable [phone] Corrie Bustamante RN Unavailable [phone] Alvino Alvarez MD Unavailable [phone] Brody Olivarez APRN Unavailable [phone] Reason for Visit * Reason Comments Medication Refill Encounter Details Date Type Department Care Team (Late st Contact Info) Description 03/05/2022 Refill [facility] Neurology [address] [place] [phone] Hasmukh Shrestha MD [facility] Brain [facility] S [address] [address] Parkinson's disease (HCC) Social History Tobacco Use [...] Info) Description 06/20/2025 8:15 AM EDT Appointment [facility] Vascular [address] [phone] 08/27/2025 10:30 AM EST Office Visit [address] [phone] Goyo Georges MD [address] [place] [address] 09/21/2025 8:45 AM EST Appointment [address] [phone] 12/21/2025 8:00 AM EDT Appointment [address] [phone] documented as of this encounter Visit Diagnoses Diagnosis Parkinson's disease (HCC) Paralysis agitans documented in this encounter Care Teams Recreation Establishment Manager Relationship Specialty Start Date End Date Alvino Alvarez MD [address] [place] [address] PCP - General Family Medicine 03/28/16 Alvino Alvarez MD [address] [place] [address] PCP - [place] Commercial Attributed 04/18/20 02/16/24 Brody Olivarez APRN [address] [phone] PCP - [place] Commercial Attributed 02/17/24 11/15/24 Alvino Alvarez MD 34 [facility], [facility] PCP - [place] Commercial Attributed 11/16/24 12/16/24 Brody Olivarez APRN [address] [phone] PCP - [place] Commercial Attributed 12/17/24 Jose Alfredo Fuentes MD [address] [facility] [place] [address] Referring Provider Psychiatry, General 11/17/21 Faisal Dangelo MD [address] [phone] Physician Surgery, Orthopedic 01/19/22 Damaris Lagunas MD [address] [place] [address] Primary Contracts Director Cardiovascular Disease 01/20/22 Betty Zaldivar, ALEXANDRE [address] [place] [phone] ICP Community Medical Examiner 01/31/22 08/13/24 Betty Zaldivar RN [address] [place] [phone] ICP Community Medical Examiner 03/02/22 08/13/24 Damaris Lagunas MD [address] [place], [place] [phone] Primary Contracts Director Cardiovascular Disease 09/18/22 Corrie Bustamante RN [address] [address] ICP Community Medical Examiner 08/13/24 documented as of this encounter
--- OUTSIDE RECORDS SUMMARY | 2025-05-13 06:06 | XMS_ITS | Clinical Summary ---
Author Organization [facility] Address [address] [place] [address] Care Team Providers Care Casting Wheel Operator Name Role Phone Pcp, No MD [...] DTaP,Tdap,and Td Vaccines (1 - Tdap) 1981 Pneumococcal Vaccine, 50+ Years (1 of 1 - PCV) 2013 Zoster Vaccines (1 of 2) 2013 COVID-19 Vaccine (5 - season) 2024 02/23/2022, 08/16/2021, 12/16/2020, Additional history exists Influenza Vaccine (#1) 2025 07/07/2022, 2019 HPV Vaccines Aged Out No longer eligi [...] patient's age to complete this topic Insurance [facility] Care Teams Casting Wheel Operator Relationship Specialty Start Date End Date Kasey Olson MD [address] [place] [address] PCP - General Internal Medicine 06/14/22
--- OUTSIDE RECORDS SUMMARY | 2025-05-13 06:06 | XMS_ITS | Clinical Summary ---
Author Organization [facility] Address [address] [place] [address] Care Team Providers Care Song Lyricist Name Role Phone Alvino Alvarez MD Primary Care Provider [phone] Social History Tobacco Use Types Packs/Day Years [...] 5 season) 2024 02/23/2022 Influenza Vaccine (#1) 2025 2, 08/05/2021, 07/28/2020 RSV Adult > 60+ [...] age to complete this topic Care Teams Song Lyricist Relationship Specialty Start Date End Date Alvino Alvarez MD [address] [place] [address] PCP - General Family Medicine 08/17/23
--- OUTSIDE RECORDS SUMMARY | 2025-05-13 06:06 | XMS_ITS | Encounter Summary ---
Author Organization [facility] Address [address] [place] [address] Care Team Providers Care Ice Cream Van Vendor Name Role Phone Alvino Alvarez MD Primary Care Provider [phone] Alvino Alvarez MD Unavailable [phone] Jose Alfredo Fuentes MD Unavailable Faisal Dangelo MD Unavailable [phone] Damaris Lagunas MD Unavailable Betty Zaldivar RN Unavailable [phone] Betty Zaldivar RN Unavailable [phone] Damaris Lagunas MD Unavailable Brody Olivarez APRN Unavailable [phone] Corrie Bustamante RN Unavailable [phone] Alvino Alvarez MD Unavailable [phone] Brody Olivarez APRN Unavailable [phone] Encounter Details Date Type Department Care Team (Late st Contact Info) Description 02/15/2022 Prep for Surgery [facility] Pre-Admission [facility] [address] [place] [phone] Vee Rodríguez, RN [address] [place] [phone] Social History Tobacco Use Types Packs/Day Years [...] Info) Description 06/20/2025 8:15 AM EDT Appointment [address] [phone] 08/27/2025 10:30 AM EST Office Visit [address] [phone] Goyo Georges MD [address] [place] [address] 09/21/2025 8:45 AM EST Appointment [address] [phone] 12/21/2025 8:00 AM EDT Appointment [address] [phone] documented as of this encounter Visit Diagnoses Not on filedocumented in this encounter Care Teams Ice Cream Van Vendor Relationship Specialty Start Date End Date lAvino Alvarez MD [address] [place] [address] PCP - General Family Medicine 03/28/16 Alvino Alvarez MD [address] [place] [address] PCP - [place] Commercial Attributed 04/18/20 02/16/24 Brody Olivarez APRN 35 [facility] [address] [place] [phone] PCP - [place] Commercial Attributed 02/17/24 11/15/24 Alvino Alvarez MD [address] [place] [address] PCP - [place] Commercial Attributed 11/16/24 12/16/24 Brody Olivarez APRN 35 [facility] [address] [place] [phone] PCP - [place] Commercial Attributed 12/17/24 Jose Alfredo Fuentes MD [address] [facility] [place], [place] [address] Referring Provider Psychiatry, General 11/17/21 Faisal Dangelo MD [address] [phone] Physician Surgery, Orthopedic 01/19/22 Damaris Lagunas MD [address] [place] [phone] Primary Shoulder Joiner Cardiovascular Disease 01/20/22 Betty Zaldivar, RN [address] [address] [facility] Community Port Crane Operator 01/31/22 08/13/24 Betty Zaldivra RN [address] [place] [phone] [facility] Community Port Crane Operator 03/02/22 08/13/24 Damaris Lagunas MD [address] [place], [place] [phone] Primary Shoulder Joiner Cardiovascular Disease 09/18/22 Corrie Bustamante RN [address] [place] [address] [facility] Community Port Crane Operator 08/13/24 documented as of this encounter
--- OUTSIDE RECORDS SUMMARY | 2025-05-13 06:06 | XMS_ITS | Encounter Summary ---
Author Organization Formerly [facility] Address [address] [place] [address] Care Team Providers Care Fitness Attendant Name Role Phone Alvino Alvarez MD Primary Care Provider [phone] Alvino Alvarez MD Unavailable [phone] Jose Alfredo Fuentes MD Unavailable Faisal Dangelo MD Unavailable [phone] Damaris Lagunas MD Unavailable Betty Zaldivar RN Unavailable [phone] Betty Zaldivar RN Unavailable [phone] Damaris Lagunas MD Unavailable Brody Olivarez APRN Unavailable [phone] Corrie Bustamante RN Unavailable [phone] Alvino Alvarez MD Unavailable [phone] Brody Olivarez APRN Unavailable [phone] Encounter Details Date Type Department Care Team (Late st Contact Info) Description 03/01/2022 Scanned Document [facility] [place] [address] [address] Cardiology, Scan Social History Tobacco Use Types [...] Info) Description 06/20/2025 8:15 AM EDT Appointment [address] [address] 08/27/2025 10:30 AM EST Office Visit [address] [address] Goyo Georges MD [address] [place] [address] 09/21/2025 8:45 AM EST Appointment [address] [address] 12/21/2025 8:00 AM EDT Appointment [address] [address] documented as of this encounter Visit Diagnoses Not on filedocumented in this encounter Care Teams Fitness Attendant Relationship Specialty Start Date End Date Alvino Alvarez MD [address] [place], [place] [phone] PCP - General Family Medicine 03/28/16 Alvino Alvarez MD [address] [place], [place] [phone] PCP - [place] Commercial Attributed 04/18/20 02/16/24 Brody Olivarez APRN [address] [place] [phone] PCP - [place] Commercial Attributed 02/17/24 11/15/24 Alvino Alvarez MD [address] [place] [address] PCP - [place] Commercial Attributed 11/16/24 12/16/24 Brody Olivarez APRN [address] [place] [phone] PCP - [place] Commercial Attributed 12/17/24 Jose Alfredo Fuentes MD [address] [place] [phone] Referring Provider Psychiatry, General 11/17/21 Faisal Dangelo MD [address] [place] [phone] Physician Surgery, Orthopedic 01/19/22 Damaris Lagunas MD [address] [place] [address] Primary Editor Managing Director Cardiovascular Disease 01/20/22 Betty Zaldivar RN [address] [place] [phone] [facility] Community Toxicology Teacher 01/31/22 08/13/24 Betty Zaldivar RN [address] [place] [phone] [facility] Community Toxicology Teacher 03/02/22 08/13/24 Damaris Lagunas MD [address] [place] [address] Primary Editor Managing Director Cardiovascular Disease 09/18/22 Corrie Bustamante RN [address] [address] [facility] Community Toxicology Teacher 08/13/24 documented as of this encounter
--- OUTSIDE RECORDS SUMMARY | 2025-05-13 06:06 | XMS_ITS | Encounter Summary ---
Author Organization [facility] Address [address] [place] [address] Care Team Providers Care Energy Assistant Name Role Phone Alvino Alvarez MD Primary Care Provider [phone] Jose Alfredo Fuentes MD Unavailable Faisal Dangelo MD Unavailable [phone] Damaris Lagunas MD Unavailable Corrie Bustamante RN Unavailable [phone] Brody Olivarez APRN Unavailable [phone] Encounter Details Date Type Department Care Team (Late st Contact Info) Description 05/08/2025 Scanned Document [facility] Pulmonary [place] [address] [facility] [address] [place] [phone] Pulmonary, Scan Social History Tobacco Use Types [...] Info) Description 06/20/2025 8:15 AM EDT Appointment [address] [address] 08/27/2025 10:30 AM EST Office Visit [address] [address] Goyo Georges MD [address] [place] [address] 09/21/2025 8:45 AM EST Appointment [address] [address] 12/21/2025 8:00 AM EDT Appointment [address] [address] documented as of this encounter Visit Diagnoses Not on filedocumented in this encounter Care Teams Energy Assistant Relationship Specialty Start Date End Date Alvino Alvarez MD [address] [place] [address] PCP - General Family Medicine 03/28/16 Brody Olivarez APRN 35 [facility] [address] [place] [address] PCP - [place] Commercial Attributed 12/17/24 Jose Alfredo Fuentes MD [address] [place] [address] Referring Provider Psychiatry, General 11/17/21 Faisal Dangelo MD [address] [address] Physician Surgery, Orthopedic 01/19/22 Damaris Lagunas MD [address] [place] [address] [phone] Primary Piccoloist Cardiovascular Disease 01/20/22 Corrie Bustamante, RN [address] [address] [facility] Community Radius Grinder 08/13/24 documented as of this encounter
--- OUTSIDE RECORDS SUMMARY | 2025-05-13 06:07 | XMS_ITS | Encounter Summary ---
Author Organization [facility] Address [address] [place] [address] Care Team Providers Care Stuffer Name Role Phone Alvino Alvarez MD Primary Care Provider [phone] Alvino Alvarez MD Unavailable [phone] Jose Alfredo Fuentes MD Unavailable Faisal Dangelo MD Unavailable [phone] Damaris Lagunas MD Unavailable Betty Zaldivar RN Unavailable [phone] Betty Zaldivar RN Unavailable [phone] Damaris Lagunas MD Unavailable Brody Olivarez APRN Unavailable [phone] Corrie Bustamante RN Unavailable [phone] Alvino Alvarez MD Unavailable [phone] Brody Olivarez APRN Unavailable [phone] [...] Info) Description 06/20/2025 8:15 AM EDT Appointment [address] [address] 08/27/2025 10:30 AM EST Office Visit [address] [address] Goyo Georges MD [address] [place] [address] 09/21/2025 8:45 AM EST Appointment [address] [address] 12/21/2025 8:00 AM EDT Appointment [address] [address] documented as of this encounter Visit Diagnoses Not on filedocumented in this encounter Care Teams Stuffer Relationship Specialty Start Date End Date Alvino Alvarez MD [address] [place] [address] PCP - General Family Medicine 03/28/16 Alvino Alvarez MD [address] [place] [address] PCP - [place] Commercial Attributed 04/18/20 02/16/24 Brody Olivarez APRN 35 [facility] [address] [place] [address] PCP - [place] Commercial Attributed 6/1/24 2/28/25 Alvino Alvarez MD [address] [facility] [place] [address] PCP - [place] Commercial Attributed 11/16/24 12/16/24 Brody Olivarez APRN 35 [facility] [address] [place] [phone] PCP - [place] Commercial Attributed 12/17/24 Jose Alfredo Fuentes MD [address] [place] [address] Referring Provider Psychiatry, General 11/17/21 Faisal Dangelo MD [address] [place] [phone] Physician Surgery, Orthopedic 01/19/22 Damaris Lagunas MD [address] [place] [address] Primary Inspector Printed Circuit Boards Cardiovascular Disease 01/20/22 Betty Zaldivar RN [address] [place] [address] [facility] Community Safe And Vault Service Mechanic 01/31/22 08/13/24 Betty Zaldivar RN [address] [place] [address] [facility] Community Safe And Vault Service Mechanic 03/02/22 08/13/24 Damaris Lagunas MD [address] [place] [address] [phone] Primary Inspector Printed Circuit Boards Cardiovascular Disease 09/18/22 Corrie Bustamante, RN [facility] [facility] [address] [address] [facility] Community Safe And Vault Service Mechanic 08/13/24 documented as of this encounter
--- OUTSIDE RECORDS SUMMARY | 2025-05-13 06:07 | XMS_ITS | Encounter Summary ---
Author Organization [facility] Address [address] [place] [address] Care Team Providers Care B[place] Bottom Maker Name Role Phone Alvino Alvarez MD Primary Care Provider [phone] Alvino Alvarez MD Unavailable [phone] Jose Alfredo Fuentes MD Unavailable Faisal Dangelo MD Unavailable [phone] Damaris Lagunas MD Unavailable Betty Zaldivar RN Unavailable [phone] Betty Zaldivar RN Unavailable [phone] Damaris Lagunas MD Unavailable Brody Olivarez APRN Unavailable [phone] Corrie Bustamante RN Unavailable [phone] Alvino Alvarez MD Unavailable [phone] Brody Olivarez APRN Unavailable [phone] Reason for Visit * Reason Comments Medication Refill Encounter Details Date Type Department Care Team (Late st Contact Info) Description 10/30/2021 Refill [facility] Neurology [address] [place] [address] Hasmukh Shrestha MD IS [facility] Brain [facility] S [address] [address] Parkinson's disease (HCC) Social History Tobacco Use [...] Info) Description 06/20/2025 8:15 AM EDT Appointment [facility] Vascular [address] [address] 08/27/2025 10:30 AM EST Office Visit [address] [address] Goyo Georges MD [address] [place] [address] 09/21/2025 8:45 AM EST Appointment [facility] Vascular [address] [address] 12/21/2025 8:00 AM EDT Appointment [address] [address] documented as of this encounter Visit Diagnoses Diagnosis Parkinson's disease (HCC) Paralysis agitans documented in this encounter Care Teams [place] Bottom Maker Relationship Specialty Start Date End Date Alvino Alvarez MD [address] [place] [phone] PCP - General Family Medicine 03/28/16 Alvino Alvarez MD [address] [place] [phone] PCP - [place] Commercial Attributed 04/18/20 02/16/24 Brody Olivarez APRN 35 [facility] [address] [place] [phone] PCP - [place] Commercial Attributed 02/17/24 11/15/24 Alvino Alvarez MD [address] [place] [phone] PCP - [place] Commercial Attributed 11/16/24 12/16/24 Brody Olivarez APRN [address] [place] [phone] PCP - [place] Commercial Attributed 12/17/24 Jose Alfredo Fuentes MD [address] [facility] [place] [phone] Referring Provider Psychiatry, General 11/17/21 Faisal Dangelo MD [address] [phone] Physician Surgery, Orthopedic 01/19/22 Damaris Lagunas MD [address] [place] [address] Primary Bottom Scrubber Cardiovascular Disease 01/20/22 Betty Zaldivar, ALEXANDRE 12[address] [facility] [place] [phone] (Work) ICP Community Road Patcher 01/31/22 08/13/24 Betty Zaldivar RN [address] [place] [phone] [address] Patcher 03/02/22 08/13/24 Damaris Lagunas MD [address] [place], [place] [phone] Primary Bottom Scrubber Cardiovascular Disease 09/18/22 Corrie Bustamante RN [address] [place] [address] 08/13/24 documented as of this encounter
--- OUTSIDE RECORDS SUMMARY | 2025-05-13 06:07 | XMS_ITS | Encounter Summary ---
Author Organization [facility] Address [address] [place] [address] Care Team Providers Care Director Payment Name Role Phone Alvino Alvarez MD Primary Care Provider [phone] Franki Gates MD Unavailable [phone] Reason for Referral * Imaging (Routine) - Closed Specialty Diagnoses / Procedures Referred By Jose C hurley Referred To Contact Radiology Diagnoses Herniated lumbar intervertebral disc Procedures [place] LESS THAN 1 HOUR INTRAOPERATIVE Faisal Dangelo MD Phone: tel: fax: [facility] Radiology - Central Scheduling [place] Phone: tel: fax: Referral ID Status Reason Start Date Expiration Date V isits Requested Visits Authorized [id number] Closed Perform Procedure 01/23/2022 01/23/2023 1 1 Encounter Details Date Type Department Care Team (Latest Contact Info) Description 01/23/2022 Ancillary Orders [facility] [address] [place] [address] Faisal Dangelo MD [address] [place] [address] Herniated lumbar intervertebral disc Social History Tobacco [...] REPORT AND MAY BE SIGNED BY A TUBE PULLER. Fluoroscopy was provided to the Ordering physician in the OR or DI Suite with no Radiologist in attendance. There were no films submitted to a Radiologist for interpretation after the procedure. However there may be images, selected by the Surgeon, stored in PACS for future use and documentation. For further information about the case, please refer to the Performing Physicians Operative Notes found in the patient's Medical Record. [...] myelopathy documented in this encounter Care Teams Director Payment Relationship Specialty Start Date End Date Alvino Alvarez MD [address] [place] [address] PCP - General Family Medicine 05/12/20 Franki Gates MD [address] [place] [address] [place] [address] Surgeon General Surgery 12/06/21 documented as of this encounter
--- OUTSIDE RECORDS SUMMARY | 2025-05-13 06:07 | XMS_ITS | Encounter Summary ---
Author Organization [facility] Address [address] [place] [address] Care Team Providers Care Gas Dispenser Name Role Phone Alvino Alvarez MD Primary Care Provider [phone] Alvino Alvarez MD Unavailable [phone] Jose Alfredo Fuentes MD Unavailable Faisal Dangelo MD Unavailable [phone] Damaris Lagunas MD Unavailable Betty Zaldivar RN Unavailable [phone] Betty Zaldivar RN Unavailable [phone] Damaris Lagunas MD Unavailable Brody Olivarez APRN Unavailable [phone] Corrie Bustamante RN Unavailable [phone] Alvino Alvarez MD Unavailable [phone] Brody Olivarez APRN Unavailable [phone] Reason for Visit * Reason Comments Appointment Recieved staff jayesh malhotra to get pt in sooner due to worsening tremors and medication quesitons. Encounter Details Date Type Department Care Team (Late st Contact Info) Description 10/26/2021 Telephone [facility] Neurology [address] [place] [address] Hasmukh Shrestha MD IS [facility] S [address] [address] Appointment (Recieved staff message to get pt [...] Info) Description 06/20/2025 8:15 AM EDT Appointment [facility] Vascular [address] [address] 08/27/2025 10:30 AM EST Office Visit [facility]ascular [address] [address] Goyo Georges MD [address] [place] [address] 09/21/2025 8:45 AM EST Appointment [facility] Vascular [address] [address] 12/21/2025 8:00 AM EDT Appointment [facility] Vascular [address] [address] documented as of this encounter Visit Diagnoses Not on filedocumented in this encounter Care Teams Gas Dispenser Relationship Specialty Start Date End Date Alvino Alvarez MD [address] [facility] [address] PCP - General Family Medicine 03/28/16 Alvino Alvarez MD [address] [facility] [address] PCP - [place] Commercial Attributed 04/18/20 02/16/24 Brody Olivarez APRN 35 [facility] [address] [place] [phone] PCP - [place] Commercial Attributed 02/17/24 11/15/24 Alvino Alvarez MD [address] [facility] [address] PCP - [place] Commercial Attributed 11/16/24 12/16/24 Brody Olivarez APRN 35 [facility] [address] [place] [phone] PCP - [place] Commercial Attributed 12/17/24 Jose Alfredo Fuentes MD [address] [place], [place] [phone] Referring Provider Psychiatry, General 11/17/21 Faisal Dangelo MD [address] [phone] Physician Surgery, Orthopedic 01/19/22 Damaris Lagunas MD [address] [place] [address] [phone] Primary Head Batcher Cardiovascular Disease 01/20/22 Betty Zaldivar, ALEXANDRE [address] [place], [place] [phone] [facility] Community Security Ambassador 01/31/22 08/13/24 Betty Zaldivar, RN [address] [place] [phone] [facility] Community Security Ambassador 03/02/22 08/13/24 Damaris Lagunas MD [address] [place] [address] Primary Head Batcher Cardiovascular Disease 09/18/22 Corrie Bustamante RN [address] [employer] [address] [place] [phone] [facility] Community Security Ambassador 08/13/24 documented as of this encounter
--- OUTSIDE RECORDS SUMMARY | 2025-05-13 06:07 | XMS_ITS | Encounter Summary ---
Author Organization [facility] Address [address] [place] [address] Care Team Providers Care Crop Puller Name Role Phone Alvino Alvarez MD Primary Care Provider Franki Gates MD Unavailable [phone] Encounter Details Date Type Department Care Team (Late st Contact Info) Description 09/30/2021 Scanned Document Transcribe External Orders CT [phone] Faisal Dangelo MD [address] [place], [place] [address] 09/30/2021 [facility] Encounter Social History Tobacco Use Types [...] on filedocumented in this encounter Care Teams Crop Puller Relationship Specialty Start Date End Date Alvino Alvarez MD [address] [facility], [place] [phone] PCP - General Family Medicine 05/12/20 Franki Gates MD 540 [facility] [address] [place], [place] 67[address] Surgeon General Surgery 12/06/21 documented as of this encounter
--- OUTSIDE RECORDS SUMMARY | 2025-05-13 06:07 | XMS_ITS | Encounter Summary ---
Author Organization [facility] Address [address] [place] [address] Care Team Providers Care Ball Maker Name Role Phone Alvino Alvarez MD Primary Care Provider [phone] Alvino Alvarez MD Unavailable [phone] Jose Alfredo Fuentes MD Unavailable Faisal Dangelo MD Unavailable [phone] Damaris Lagunas MD Unavailable Betty Zaldivar RN Unavailable [phone] Betty Zaldivar RN Unavailable [phone] Damaris Lagunas MD Unavailable Brody Olivarez APRN Unavailable [phone] Corrie Bustamante RN Unavailable [phone] Alvino Alvarez MD Unavailable [phone] Bordy Olivarez APRN Unavailable [phone] Encounter Details Date Type Department Care Team (Late st Contact Info) Description 11/09/2021 Scanned Document [facility] Neurology [place] 35 [facility] [address] [place] [phone] Hasmukh Shrestha MD IS [facility] S [address] [phone] Social History Tobacco Use Types Packs/Day Years [...] Info) Description 06/20/2025 8:15 AM EDT Appointment [address] [address] 08/27/2025 10:30 AM EST Office Visit [address] [address] Goyo Georges MD [address] [place] [address] 09/21/2025 8:45 AM EST Appointment [address] [address] 12/21/2025 8:00 AM EDT Appointment [address] [address] documented as of this encounter Visit Diagnoses Not on filedocumented in this encounter Care Teams Ball Maker Relationship Specialty Start Date End Date Alvino Alvarez MD [address] [place] [address] PCP - General Family Medicine 03/28/16 Alvino Alvarez MD [address] [place], [place] [phone] PCP - [place] Commercial Attributed 04/18/20 02/16/24 Brody Olivarez APRN 35 [facility] 6 [place] [phone] PCP - [place] Commercial Attributed 02/17/24 11/15/24 Alvino Alvarez MD [address] [place] [address] PCP - [place] Commercial Attributed 11/16/24 12/16/24 Brody Olivarez APRN 35 [facility] 6 [place] [phone] PCP - [place] Commercial Attributed 12/17/24 Jose Alfredo Fuentes MD [address] [place], [place] [phone] Referring Provider Psychiatry, General 11/17/21 Faisal Dangelo MD [address] [place] [phone] Physician Surgery, Orthopedic 01/19/22 Damaris Lagunas MD [address] [place] [address] 924621 [phone] Primary Polysomnographic Technician Cardiovascular Disease 01/20/22 Betty Zaldivar RN [address] [place] [phone] [facility] Community Real Estate Loan Officer 01/31/22 08/13/24 Betty Zaldivar RN [address] [address] [facility] Community Real Estate Loan Officer 03/02/22 08/13/24 Damaris Lagunas MD [address] [place] [address] Primary Polysomnographic Technician Cardiovascular Disease 09/18/22 Corrie Bustamante, RN [address] [address] [facility] Community Real Estate Loan Officer 08/13/24 documented as of this encounter
--- OUTSIDE RECORDS SUMMARY | 2025-05-13 06:07 | XMS_ITS | Patient Health Record ---
Author Organization [facility] Address [address] [place] [address] Care Team Providers Care Solutions Development Analyst Name Role Phone NOT LISTED Primary Care Provider Garrett Christensen Unavailable [phone] Allergies Allergen (clinical drug ingredient) Drug/Non Drug Allergy documented on EMR Reaction Allergy Type Onset Date Status atorvastatin Atorvastatin Unknown Drug Allergy A ctive codeine Codeine Unknown Drug Allergy Active Reason For Referral No Information Medications Medication SIG (Take, Route, Frequency, Duration) Notes Start Date End Date Status Tadalafil 20 MG Tablet TAKE 1 TABLET BY MOUTH 30 MINUTES PRIOR TO SEXUAL ACTIVITY NEEDED Oral; Duration: 30 Days Active Carbidopa-Levodopa 25-100 MG Tablet TAKE 1.5 TABLETS BY MOUTH 3 TIMES A DAY Oral; Duration: 30 Days Active Pantoprazole Sodium 40 MG Tablet Delayed Release Oral; Duration: 30 Days Active Social History Tobacco Use: Social History Observation Description Date Details (start date - stop date) Never Smoker NA - NA Sex Assigned At : Social History Observation Description Sex Assigned At Male Social History Drug/Alcohol: Social Info Question Answer Notes AUDIT-C (Standard) Did you have a drink containing alcohol in the past year? No Points 0 Interpretation Negative Tobacco Use: Social Info Question Answer Notes Tobacco Control (Standard) Tobacco use: Nonsmoker Problems Problem Type SNOMED Code ICD Code Onset Dates Problem Status W/U Status Risk Notes Problem Sacroiliac dysfunction (M53.3) Active confirmed Plan Of Treatment No Information Insurance Providers Payer Name Payer Address Payer Phone Subscriber Number Group Number Insured Name Patient Relationship to Insured Coverage Start Date Coverage End Date [place] [address] [place], [place] [id number] Vijay Schultz Self - patient is the insured Medical (General) History Medical History History ICD Code Parkinson's disease acid reflux throat cancer in remission Surgical History Surgery Date(Month/Year) lumbar fusion L4-L5, two separate sx (1 in January; 1 in February) 2021 pacemaker Sep 2023
--- OUTSIDE RECORDS SUMMARY | 2025-05-13 06:08 | XMS_ITS | Clinical Summary ---
Author Organization [facility] Address [address] [place] [address] Care Team Providers Care District Court Bailiff Name Role Phone Alvino Alvarez MD Primary Care Provider [phone] Immunizations Name Administration Dates Next Due Moderna [...] Panel) 08/21/2022 Colorectal Cancer Screening: Colonoscopy 08/21/2022 HIV Screening 08/21/2022 Hepatitis C Screening 08/21/2022 Social Influencers of Health Screening 08/21/2022 COVID-19 Vaccine (2 - 2023-2 5 season) 2024 02/23/2022 Depression Screening 09/18/2024 Influenza Vaccine (#1) 2025 RSV Immunization Adult Patie nts (1 [...] age to complete this topic Care Teams District Court Bailiff Relationship Specialty Start Date End Date Alvino Alvarez MD [address] [place] [address] PCP - General 08/17/23
--- OUTSIDE RECORDS SUMMARY | 2025-05-13 06:08 | XMS_ITS | Encounter Summary ---
Author Organization [facility] Address [address] [place] [address] Care Team Providers Care Staff Attorney Name Role Phone Alvino Alvarez MD Primary Care Provider [phone] Alvino Alvarez MD Unavailable [phone] Jose Alfredo Funetes MD Unavailable Faisal Dangelo MD Unavailable [phone] Damaris Lagunas MD Unavailable Betty Zaldivar RN Unavailable [phone] Betty Zaldivar RN Unavailable [phone] Damaris Lagunas MD Unavailable Brody Olivarez APRN Unavailable [phone] Corrie Bustamante RN Unavailable [phone] Alvino Alvarez MD Unavailable Brody Olivarez APRN Unavailable [phone] Reason for Visit * Reason Comments Medication Refill Encounter Details Date Type Department Care Team (Late st Contact Info) Description 08/12/2020 Refill [facility], [facility] [address] [place], [place] [phone] Yash Hill MD [address] [place], [place] Gastroesophageal reflux disease with esophagitis Social [...] Info) Description 06/20/2025 8:15 AM EDT Appointment [address] [address] 08/27/2025 10:30 AM EST Office Visit [address] [address] Goyo Georges MD [address] [place] [address] 09/21/2025 8:45 AM EST Appointment [address] [address] 12/21/2025 8:00 AM EDT Appointment [address] [address] documented as of this encounter Visit Diagnoses Diagnosis Gastroesophageal reflux disease with esophagitis documented in this encounter Care Teams Staff Attorney Relationship Specialty Start Date End Date Alvino Alvarez MD [address] [place], [place] [phone] PCP - General Family Medicine 03/28/16 Alvino Alvarez MD [address] [place], [place] [phone] PCP - [place] Commercial Attributed 04/18/20 02/16/24 Brody Olivarez APRN 35 [facility] [address] [place] [phone] PCP - [place] [employer] Attributed 02/17/24 11/15/24 Alvino Alvarez MD [address] [place] [address] PCP - [place] Commercial Attributed 11/16/24 12/16/24 Brody Olivarez APRN 35 [facility] [address] [place] [phone] PCP - [place] Commercial Attributed 12/17/24 Jose Alfredo Fuentes MD [address] [place], [place] [phone] Referring Provider Psychiatry, General 11/17/21 Faisal Dangelo MD [address] [place] [phone] Physician Surgery, Orthopedic 01/19/22 Damaris Lagunas MD [address] [place] [address] [phone] Recovery Operator Cardiovascular Disease 01/20/22 Betty Zaldivar RN [address] [place] [phone] [facility] Community Power Mule Operator 01/31/22 08/13/24 Betty Zaldivar RN [address] Williamson [address] [address] [facility] Community Power Mule Operator 03/02/22 08/13/24 Damaris Lagunas MD [address] [place] [address] Primary Production Recovery Operator Cardiovascular Disease 09/18/22 Corrie Bustamante, RN [address] [address] [facility] Community Power Mule Operator 08/13/24 documented as of this encounter
--- OUTSIDE RECORDS SUMMARY | 2025-05-13 06:08 | XMS_ITS | Encounter Summary ---
Author Organization [facility] Address [address] [place] [address] Care Team Providers Care Pumping Plant Operator Name Role Phone Alvino Alvarez MD Primary Care Provider Franki Gates MD Unavailable [phone] Reason for Referral * Imaging (Routine) - Closed Specialty Diagnoses / Procedures Referred By Jose C hurley Referred To Contact Radiology Diagnoses Severe pain Procedures CT SI JOINT INJECTION Faisal Dangelo MD [address] [place] [address] Phone: tel: fax: [facility] Radiology - Central Scheduling [place] Phone: tel: fax: Referral ID Status Reason Start Date Expiration Date V isits Requested Visits Authorized [id number] Closed Perform Procedure 05/26/2023 06/19/2023 1 1 Encounter Details Date Type Department Care Team (Late st Contact Info) Description 05/26/2023 Ancillary Orders [facility] Radiology - Central Scheduling [place] [phone] Faisal Dangelo MD [address] [place] [address] Severe pain Social History Tobacco [...] bilateral. Narrative 06/11/2023 9:45 PM EDT PROCEDURE: CT SI JOINT INJECTION CLINICAL HISTORY: Severe pain, severe pain *CT guided bilateral SI injection Lumbar* COMPARISON: None. CT DOSE: ACR accredited CT equipment and radiation dose reduction techniques were employed. CTDIvol: 4.6 - 8.6 mGy. DLP: 271 mGy-cm. Procedure: Informed consent was obtained. The patient was positioned supine on the CT scanner and vp site imaging was obtained. The lower back was [...] was positioned supine on the CTscanner and vp site imaging was obtained. The lower back was [...] pain documented in this encounter Care Teams Pumping Plant Operator Relationship Specialty Start Date End Date Alvino Alvarez MD 34 [place] [address] PCP - General Family Medicine 05/12/20 Franki Gates MD 540 [facility] [address] [place] [address] Surgeon General Surgery 12/06/21 documented as of this encounter
--- OUTSIDE RECORDS SUMMARY | 2025-05-13 06:08 | XMS_ITS | Encounter Summary ---
Author Organization [employer] Address [address] [place] [address] Care Team Providers Care Youth Services Librarian Name Role Phone Alvino Alvarez MD Primary Care Provider Franki Gates MD Unavailable [phone] Encounter Details Date Type Department Care Team (Late st Contact Info) Description 11/03/2022 Procedure [facility] [address] [place], [place] [phone] Social History Tobacco Use Types Packs/Day Years [...] on filedocumented in this encounter Care Teams Youth Services Librarian Relationship Specialty Start Date End Date Alvino Alvarez MD [address] [place] [address] PCP - General Family Medicine 05/12/20 Franki Gates MD 540 [facility] [address] [place], [place] [address] Surgeon General Surgery 12/06/21 documented as of this encounter
--- OUTSIDE RECORDS SUMMARY | 2025-05-13 06:08 | XMS_ITS | Encounter Summary ---
Author Organization [facility] Address [address] [place] [address] Care Team Providers Care Cake Cutter Machine Name Role Phone Alvino Alvarez MD Primary Care Provider [phone] Jose Alfredo Fuentes MD Unavailable Faisal Dangelo MD Unavailable [phone] Damaris Lagunas MD Unavailable Brody Olivarez OUTSOLE MOLDER Unavailable [phone] Corrie Bustamante RN Unavailable [phone] Alvino Alvarez MD Unavailable [phone] Brody Olivarez OUTSOLE MOLDER Unavailable [phone] Encounter Details Date Type Department Care Team (Late st Contact Info) Description 08/26/2024 Scanned Document [facility] Neurology [address] [phone] Physical Therapy, Scan Social History Tobacco Use [...] Info) Description 06/20/2025 8:15 AM EDT Appointment [address] [address] 08/27/2025 10:30 AM EST Office Visit [address] [address] Goyo Georges MD [address] [place] [address] 09/21/2025 8:45 AM EST Appointment [address] [address] 12/21/2025 8:00 AM EDT Appointment [address] [address] documented as of this encounter Visit Diagnoses Not on filedocumented in this encounter Care Teams Cake Cutter Machine Relationship Specialty Start Date End Date Alvino Alvarez MD [address] [place] [address] PCP - General Family Medicine 03/28/16 Brody Olivarez, OUTSOLE MOLDER [facility] [address] [place] [address] PCP - [place] Commercial Attributed 02/17/24 11/15/24 Alvino Alvarez MD [address] [place] [address] PCP - [place] Commercial Attributed 11/16/24 12/16/24 Brody Olivarez APRN 35 [facility] [address] [place] [address] PCP - [place] Commercial Attributed 12/17/24 Jose Alfredo Fuentes MD [address] [facility] [address] [place] [phone] Referring Provider Psychiatry, General 11/17/21 Faisal Dangelo MD 430 [facility] 100 [place] [phone] Physician Surgery, Orthopedic 01/19/22 Damaris Lagunas MD [address] [place] [address] Primary Assistant Sales Director Cardiovascular Disease 01/20/22 Corrie Bustamante, RN 1290 [facility] 4 [place] [address] [facility] Community Brine Well Operator 08/13/24 documented as of this encounter
--- OUTSIDE RECORDS SUMMARY | 2025-05-13 06:08 | XMS_ITS | Encounter Summary ---
Author Organization [facility] Address [address] [place] [address] Care Team Providers Care Seal Delivery Vehicle Team Technician Name Role Phone Alvino Alvarez MD Primary Care Provider [phone] Alvino Alvarez MD Unavailable [phone] Jose Alfredo Fuentes MD Unavailable Faisal Dangelo MD Unavailable [phone] Damaris Lagunas MD Unavailable Betty Zaldivar RN Unavailable [phone] Betty Zalidvar RN Unavailable [phone] Damaris Lagunas MD Unavailable Brody Olivarez APRN Unavailable [phone] Corrie Bustamante RN Unavailable [phone] Alvino Alvarez MD Unavailable [phone] Brody Olivarez APRN Unavailable [phone] Reason for Visit * Reason Comments Referral Encounter Details Date Type Department Care Team (Late st Contact Info) Description 09/14/2023 Telephone [facility] [address] [place] [address] Bharat Cox MD [address] [place] [address] [address] [place], [place] [phone] Referral Social History Tobacco Use Types Packs/Day [...] Info) Description 06/20/2025 8:15 AM EDT Appointment [address] [address] 08/27/2025 10:30 AM EST Office Visit [address] [address] Goyo Georges MD [address] [place] [address] 09/21/2025 8:45 AM EST Appointment [address] [address] 12/21/2025 8:00 AM EDT Appointment [address] [address] documented as of this encounter Visit Diagnoses Not on filedocumented in this encounter Care Teams Seal Delivery Vehicle Team Technician Relationship Specialty Start Date End Date Alvino Alvarez MD [address] [place], [place] [phone] PCP - General Family Medicine 03/28/16 Alvino Alvarez MD [address] [place], [place] [phone] PCP - [place] Commercial Attributed 04/18/20 02/16/24 Brody Olivarez APRN [address] [place] [phone] PCP - [place] Commercial Attributed 02/17/24 11/15/24 Alvino Alvarez MD [address] [place] [address] PCP - [place] Commercial Attributed 11/16/24 12/16/24 Brody Olivarez APRN [address] [place] [phone] PCP - [place] Commercial Attributed 12/17/24 Jose Alfredo Fuentes MD [address] [place], [place] [phone] Referring Provider Psychiatry, General 11/17/21 Faisal Dangelo MD [address] [place] [phone] Physician Surgery, Orthopedic 01/19/22 Damaris Lagunas MD [address] [place] [address] [phone] Reducing Machine Operator Cardiovascular Disease 01/20/22 Betty Zaldivar RN [address] [place] [phone] [facility] Community Manager Storage 01/31/22 08/13/24 Betty Zaldivar RN [address] [place] [phone] [facility] Community Manager Storage 03/02/22 08/13/24 Damaris Lagunas MD [address] [place] [address] Primary Reducing Machine Operator Cardiovascular Disease 09/18/22 Corrie Bustamante, RN [address] [address] [facility] Community Manager Storage 08/13/24 documented as of this encounter
--- OUTSIDE RECORDS SUMMARY | 2025-05-13 06:08 | XMS_ITS | Encounter Summary ---
Author Organization [facility] Address [address] [place] [address] Care Team Providers Care Hydrographic Surveyor Name Role Phone Alvino Alvarez MD Primary Care Provider [phone] Franki Gates MD Unavailable [phone] Reason for Referral * Imaging (Routine) - Closed Specialty Diagnoses / Procedures Referred By Jose C hurley Referred To Contact Radiology Diagnoses History of head and neck cancer Procedures XR CHEST 2 VIEWS Pradeep Diamond MD [address] [place] [address] Phone: tel: fax: [facility] Radiology - Central Scheduling CT Phone: tel: fax: Referral ID Status Reason Start Date Expiration Date V isits Requested Visits Authorized [id number] Closed Perform Procedure 02/28/2022 02/28/2023 1 1 Encounter Details Date Type Department Care Team (Late st Contact Info) Description 02/28/2022 Ancillary Orders [facility] Radiology, Outpatient Center (Diag Rad) [address] [facility] [place] [address] Pradeep Diamond MD [address] [place] [address] History of head and neck [...] cancer documented in this encounter Care Teams Hydrographic Surveyor Relationship Specialty Start Date End Date Alvino Alvarez MD [address] [facility] [place] [address] PCP - General Family Medicine 05/12/20 Franki Gates MD 540 [facility] [address] [place] [address] Surgeon General Surgery 12/06/21 documented as of this encounter
--- OUTSIDE RECORDS SUMMARY | 2025-05-13 06:08 | XMS_ITS | Encounter Summary ---
Author Organization [facility] Address [address] [place] [address] Care Team Providers Care Buffing Wheel Presser Name Role Phone Alvino Alvarez MD Primary Care Provider Franki Gates MD Unavailable [phone] Encounter Details Date Type Department Care Team (Late st Contact Info) Description 2023 Ancillary Orders [facility], Radiology (IR) [address] [place], [place] [phone] Provider, MD Jeff [address] [place] [address] Social History Tobacco Use Types Packs/Day Years [...] on filedocumented in this encounter Care Teams Buffing Wheel Presser Relationship Specialty Start Date End Date Alvino Alvarez MD [address] [place] [address] PCP - General Family Medicine 05/12/20 Franki Gates MD 540 [facility] [address] [place] [address] Surgeon General Surgery 12/06/21 documented as of this encounter
--- OUTSIDE RECORDS SUMMARY | 2025-05-13 06:08 | XMS_ITS | Encounter Summary ---
Author Organization [facility] Address [address] [place] [address] Care Team Providers Care Environmental Planner Name Role Phone Alvino Alvarez MD Primary Care Provider [phone] Franki Gates MD Unavailable [phone] Encounter Details Date Type Department Care Team (Late st Contact Info) Description 01/23/2022 Procedure Pass [facility] Radiology, [facility] (Diag Rad) [address] [place] [address] [phone] Social History Tobacco Use Types Packs/Day Years [...] on filedocumented in this encounter Care Teams Environmental Planner Relationship Specialty Start Date End Date Alvino Alvarez MD [address] [place] [address] PCP - General Family Medicine 05/12/20 Franki Gates MD 540 [facility] [address] [place] [address] Surgeon General Surgery 12/06/21 documented as of this encounter
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
--- OUTSIDE RECORDS SUMMARY | 2025-05-13 06:08 | XMS_ITS | Encounter Summary ---
Author Organization [facility] Address [address] [place] [address] Care Team Providers Care Research Scientist Name Role Phone Alvino Alvarez MD Primary Care Provider Franki Gates MD Unavailable [phone] Encounter Details Date Type Department Care Team (Late st Contact Info) Description 01/24/2022 Procedure Pass [facility], Main Operating Room [address] [place] [phone] Social History Tobacco Use Types Packs/Day Years [...] on filedocumented in this encounter Care Teams Research Scientist Relationship Specialty Start Date End Date Alvino Alvarez MD [address] [place] [address] PCP - General Family Medicine 05/12/20 Franki Gates MD 540 [facility] [address] [place] [address] Surgeon General Surgery 12/06/21 documented as of this encounter
--- OUTSIDE RECORDS SUMMARY | 2025-05-13 06:08 | XMS_ITS | Encounter Summary ---
Author Organization [facility] Address [address] [place] [address] Care Team Providers Care Principal Quality Engineer Name Role Phone Alvino Alvarez MD Primary Care Provider [phone] Franki Gates MD Unavailable Reason for Referral * Imaging (Routine) - Closed Specialty Diagnoses / Procedures Referred By Jose C hurley Referred To Contact Radiology Diagnoses Vertebrogenic low back pain Sacroiliitis, not elsewhere classified (HCC) Procedures CT LUMBAR SPINE WO IV CONTRAST Faisal Dangelo MD Phone: tel: fax: [facility] Radiology - Central Scheduling CT Phone: tel: fax: Referral ID Status Reason Start Date Expiration Date V isits Requested Visits Authorized [id number] Closed Perform Procedure 11/03/2022 01/01/2023 1 1 Encounter Details Date Type Department Care Team (Late st Contact Info) Description 11/03/2022 Ancillary Orders [facility] Radiology - Central Scheduling [place] [phone] Faisal Dangelo MD [address] [place] [address] Vertebrogenic low back pain; Sacroiliitis, not elsewhere [...] back pain, Sacroiliitis, not elsewhere classified (CMS/HCC) ([facility]), Vertebrogenic low back pain, PROTOCOL: Axial helical images from L1 through Sacroiliac joints with multiplanar reformations including reformations through the intervertebral disc spaces and 3D reformations. Metal Artifact Reduction Technique CT [...] classified documented in this encounter Care Teams Principal Quality Engineer Relationship Specialty Start Date End Date Alvino Alvarez MD [address] [place] [address] PCP - General Family Medicine 05/12/20 Franki Gates MD [address] [place] [address] [place] [address] Surgeon General Surgery 12/06/21 documented as of this encounter
--- OUTSIDE RECORDS SUMMARY | 2025-05-13 06:08 | XMS_ITS | Encounter Summary ---
Author Organization [facility] Address [address] [place] [address] Care Team Providers Care Access Services Librarian Name Role Phone Alvino Alvarez MD Primary Care Provider Franki Gates MD Unavailable [phone] Reason for Referral * Imaging (Routine) - Closed Specialty Diagnoses / Procedures Referred By Jose C hurley Referred To Contact Radiology Diagnoses Severe pain Procedures CT SI JOINT INJECTION CT GUIDANCE FOR NEEDLE PLACEMENT Faisal Dangelo MD [address] [place] [address] Phone: tel: fax: [facility] Radiology - Central Scheduling CT Phone: tel: fax: Referral ID Status Reason Start Date Expiration Date V isits Requested Visits Authorized [id number] Closed Perform Procedure 05/12/2023 06/19/2023 1 1 Encounter Details Date Type Department Care Team (Late st Contact Info) Description 05/12/2023 Ancillary Orders [facility] Radiology - Central Scheduling CT [phone] Faisal Dangelo MD [address] [place], [place] [phone] Severe pain Social History Tobacco Use Types [...] positioned supine on the CT scanner and employee benefits administrator imaging was obtained. The lower back was [...] was positioned supine on the CTscanner and employee benefits administrator imaging was obtained. The lower back was [...] IMPRESSION: CT-guided SI joint steroid injection, bilateral. us Faisal Dangelo MD IMG CT PROCEDURES Final Result documented in this encounter Visit Diagnoses Diagnosis Severe pain Severe pain documented in this encounter Care Teams Access Services Librarian Relationship Specialty Start Date End Date Alvino Alvarez MD 34 [place] [address] PCP - General Family Medicine 05/12/20 Franki Gates MD [address] [place] [address] [address] [place] [address] Surgeon General Surgery 12/06/21 documented as of this encounter
--- OUTSIDE RECORDS SUMMARY | 2025-05-13 06:08 | XMS_ITS | Encounter Summary ---
Author Organization [facility]ly [facility] Address [address] [place] [address] Care Team Providers Care Level Vial Marker Name Role Phone Alvino Alvarez MD Primary Care Provider [phone] Alvino Alvarez MD Unavailable [phone] Jose Alfredo Fuentes MD Unavailable Faisal Dangelo MD Unavailable [phone] Damaris Lagunas MD Unavailable Betty Zaldivar RN Unavailable [phone] Betty Zaldivar RN Unavailable [phone] Damaris Lagunas MD Unavailable Brody Olivarez APRN Unavailable [phone] Corrie Bustamante RN Unavailable [phone] Alvino Alvarez MD Unavailable [phone] Brody Olivarez APRN Unavailable [phone] Encounter Details Date Type Department Care Team (Late st Contact Info) Description 09/25/2023 Scanned Document [facility] Vascular [place] [address] [address] Cardiology, Scan Social History Tobacco Use Types [...] Info) Description 06/20/2025 8:15 AM EDT Appointment [address] [address] 08/27/2025 10:30 AM EST Office Visit [address] [address] Goyo Georges MD [address] [place] [address] 09/21/2025 8:45 AM EST Appointment [address] [address] 12/21/2025 8:00 AM EDT Appointment [address] [address] documented as of this encounter Visit Diagnoses Not on filedocumented in this encounter Care Teams Level Vial Marker Relationship Specialty Start Date End Date Alvino Alvarez MD [address] [place] [address] PCP - General Family Medicine 03/28/16 Alvino Alvarez MD [address] [place] [address] PCP - [place] Commercial Attributed 04/18/20 02/16/24 Brody Olivarez APRN [facility] [address] [place] [address] PCP - [place] Commercial Attributed 02/17/24 11/15/24 Alvino Alvarez MD [address] [place] [address] PCP - [place] Commercial Attributed 11/16/24 12/16/24 Brody Olivarez APRN 35 [facility] [address] [place] [id number] PCP - [place] Commercial Attributed 12/17/24 Jose Alfredo Fuentes MD [address] [facility] [place] [phone] Referring Provider Psychiatry, General 11/17/21 Faisal Dangelo MD [address] [place] [phone] Physician Surgery, Orthopedic 01/19/22 Damaris Lagunas MD [address] [place] [address] Primary Machine Shop Inspector Cardiovascular Disease 01/20/22 Betty Zaldivar RN [address] [place] [phone] ICP Community Bedspread Folder 01/31/22 08/13/24 Betty Zaldivar RN [address] [phone] ICP Community Bedspread Folder 03/02/22 08/13/24 Damaris Lagunas MD [address] [place] [address] [place] [address] Primary Machine Shop Inspector Cardiovascular Disease 09/18/22 Corrie Bustamante, RN [address] [facility] 4 [place] [address] [facility] Community Bedspread Folder 08/13/24 documented as of this encounter
--- OUTSIDE RECORDS SUMMARY | 2025-05-13 06:08 | XMS_ITS | Encounter Summary ---
Author Organization [facility] Address [address] [place] [address] Care Team Providers Care Careers Counsellor Name Role Phone Alvino Alvarez MD Primary Care Provider [phone] Alvino Alvarez MD Unavailable [phone] Jose Alfredo Fuentes MD Unavailable Faisal Dangelo MD Unavailable [phone] Damaris Lagunas MD Unavailable Betty Zaldivar RN Unavailable [phone] Betty Zaldivar RN Unavailable [phone] Damaris Lagunas MD Unavailable Brody Olivarez APRN Unavailable [phone] Corrie Bustamante RN Unavailable [phone] Alvino Alvarez MD Unavailable [phone] Brody Olivarez APRN Unavailable [phone] Encounter Details Date Type Department Care Team (Late st Contact Info) Description 09/15/[address] [address] Alvino Alvarez MD [address] [place] [address] 52 Social History Tobacco Use Types Packs/Day Years [...] Info) Description 06/20/2025 8:15 AM EDT Appointment [facility] Vascular [address] [address] 08/27/2025 10:30 AM EST Office Visit [address] [address] Goyo Georges MD [address] [place] [address] 09/21/2025 8:45 AM EST Appointment [address] [address] 12/21/2025 8:00 AM EDT Appointment [address] [address] documented as of this encounter Visit Diagnoses Not on filedocumented in this encounter Care Teams Careers Counsellor Relationship Specialty Start Date End Date Alvino Alvarez MD [address] [place] [address] PCP - General Family Medicine 03/28/16 Alvino Alvarez MD [address] [place] [address] PCP - [place] Commercial Attributed 04/18/20 02/16/24 Brody Olivarez APRN 35 [facility] 6 [place] [id number] PCP - [place] Commercial Attributed 02/17/24 11/15/24 Alvino Alvarez MD [address] [place] [address] PCP - [place] Commercial Attributed 11/16/24 12/16/24 Brody Olivarez APRN 35 [facility] [address] [place] [id number] PCP - [place] Commercial Attributed 12/17/24 Jose Alfredo Fuentes MD [address] [place] [phone] Referring Provider Psychiatry, General 11/17/21 Faisal Dangelo MD [address] [address] Physician Surgery, Orthopedic 01/19/22 Damaris Lagunas MD [address] [place], [place] 4[address] [phone] Educational Psychologist Cardiovascular Disease 01/20/22 Betty Zaldivar RN [address] [place] [phone] [facility] Community Oncology Account Specialist 01/31/22 08/13/24 Betty Zaldivar RN [address] mar[place] [address] [address] ICP Community Oncology Account Specialist 03/02/22 08/13/24 Damaris Lagunas MD [address] [place] [address] Primary Educational Psychologist Cardiovascular Disease 09/18/22 Corrie Bustamante RN [address] [address] [facility] Community Oncology Account Specialist 08/13/24 documented as of this encounter
--- OUTSIDE RECORDS SUMMARY | 2025-05-13 06:08 | XMS_ITS | Encounter Summary ---
Author Organization [facility] Address [address] [place] [address] Care Team Providers Care Senior Research Project Manager Name Role Phone Alvino Alvarez MD Primary Care Provider [phone] Alvino Alvarez MD Unavailable [phone] Jose Alfredo Fuentes MD Unavailable Faisal Dangelo MD Unavailable [phone] Damaris Lagunas MD Unavailable Betty Zaldivar RN Unavailable [phone] Betty Zaldivar RN Unavailable [phone] Damaris Lagunas MD Unavailable Brody Olivarez DISABILITY INSURANCE CLAIM EXAMINER Unavailable [phone] Corrie Bustamante RN Unavailable [phone] Alvino Alvarez MD Unavailable [phone] Brody Olivarez APRN Unavailable [phone] Encounter Details Date Type Department Care Team (Late st Contact Info) Description 11/15/2023 Prep for Surgery [facility] Heart & Vascular [place] - Electrophysiology 85 [facility] [address] [place] [address] Zully Taylor, DISABILITY INSURANCE CLAIM EXAMINER [address] [address] Social History Tobacco Use Types Packs/Day Years [...] 06/20/2025 8:15 AM EDT Appointment [facility] Vascular [address] [address] 08/27/2025 10:30 AM EST Office Visit [address] [address] Goyo Georges MD [address] [place] [address] 09/21/2025 8:45 AM EST Appointment [facility] Vascular [address] [address] 12/21/2025 8:00 AM EDT Appointment [facility] [address] [address] documented as of this encounter Visit Diagnoses Not on filedocumented in this encounter Care Teams Senior Research Project Manager Relationship Specialty Start Date End Date Alvino Alvarez MD [address] [place] [address] PCP - General Family Medicine 03/28/16 Alvino Alvarez MD [address] [place] [address] PCP - [place] Commercial Attributed 04/18/20 02/16/24 Brody Olivarez APRN 35 [facility] [address] [place] [phone] PCP - [place] Commercial Attributed 02/17/24 11/15/24 Alvino Alvarez MD [address] [place] [address] PCP - [place] Commercial Attributed 11/16/24 12/16/24 Brody Olivarez APRN 35 [facility] [address] [place] [address] PCP - [place] Commercial Attributed 12/17/24 Jose Alfredo Fuentes MD [address] [facility] [address] [place] [phone] Referring Provider Psychiatry, General 11/17/21 Faisal Dangelo MD [address] [place] [phone] Physician Surgery, Orthopedic 01/19/22 Damaris Lagunas MD [address] [place] [address] Primary Improvement Intern Cardiovascular Disease 01/20/22 Betty Zaldivar, ALEXANDRE [address] [facility] 4 [place] [address] ICP Community Pantograph I Engraver 01/31/22 08/13/24 Betty Zaldivar RN [address] [place] [address] ICP Community Pantograph I Engraver 03/02/22 08/13/24 Damaris Lagunas MD [address] [place] [address] Primary Improvement Intern Cardiovascular Disease 09/18/22 Corrie Bustamante RN [address] [facility] 4 [place] [address] ICP Community Pantograph I Engraver 08/13/24 documented as of this encounter
--- OUTSIDE RECORDS SUMMARY | 2025-05-13 06:08 | XMS_ITS | Encounter Summary ---
Author Organization [facility] Address [address] [place] [address] Care Team Providers Care Acetylene Torch Burner Name Role Phone Alvino Alvarez MD Primary Care Provider [phone] Franki Gates MD Unavailable [phone] Reason for Referral * Imaging (Routine) - Closed Specialty Diagnoses / Procedures Referred By Jose C hurley Referred To Contact Radiology Diagnoses Low back pain Other intervertebral disc displacement, lumbar region Other muscle spasm Procedures XR LUMBAR SPINE COMPLETE 4+ VIEWS Crystal Hamlin DC [address] [place] [address] [place] [address] Phone: tel: fax: [facility] Radiology - Central Scheduling [place] Phone: tel: fax: Referral ID Status Reason Start Date Expiration Date V isits Requested Visits Authorized [id number] Closed Perform Procedure 04/02/2021 04/02/2022 1 1 Encounter Details Date Type Department Care Team (Late st Contact Info) Description 04/02/2021 Ancillary Orders [facility] Access [address] [place] [address] Crystal Hamlin DC [address] [place] [address] Low back pain; Other intervertebral [...] spasm documented in this encounter Care Teams Acetylene Torch Burner Relationship Specialty Start Date End Date Alvino Alvarze MD [address] [place] [address] PCP - General Family Medicine 05/12/20 Franki Gates MD [address] [place] [address] [place] [address] Surgeon General Surgery 12/06/21 documented as of this encounter
--- OUTSIDE RECORDS SUMMARY | 2025-05-13 06:09 | XMS_ITS | Clinical Summary ---
Author Organization [email or web address] Address [address] [place] [address] Care Team Providers Care Cooperative Education Coordinator Name Role Phone Alvino Alvarez MD Primary Care Provider [phone] Franki Gates MD Unavailable [phone] Allergies Active Allergy Reactions Criticality Noted Date [...] (01/04/2022): Added automatically from request for surgery [id number] ADAMARIS (obstructive sleep apnea) 03/28/2016 Family History [...] 44 05/31/2023 1:07 PM EDT Temperature 36.3 C (97.4 F) 01/28/2022 7:38 AM EDT Respiratory Rate 17 01/28/2022 7:38 AM EDT [...] Tdap and Td Vaccines Adult 09/18/2019 09/18/2009 COVID-19 Vaccine ( season) 2024 02/23/2022, 08/16/2021, 12/16/2020, Additional history exists Influenza Vaccine (#1) 2025 08/05/2021 Colonoscopy 07/01/2029 07/01/2019, 03/07/2012 Colorectal Cancer Screening 07/01/2029 Sigmoidoscopy 07/01/2029 07/01/2019 RSV 60+ (1 - 1-dose 75+ series) 2038 HIB Vaccines Aged Out No longer eligi ble based on patient's age to complete this topic HPV Vaccines (No Doses Required) Completed Hepatitis A Vaccines Aged Out No long [...] this topic Medical Devices Implanted Type Area Dairy Equipment Installer Device Identifier Shelf Expiration Date Model / Serial / Lot Bone Graft Spine Infuse Small Kit - [id number] - [id number] Implanted:Qty: 1 on 01/24/2022 by Faisal Dangelo MD at [facility] Implant N/A: Spine Lumbar Medtronic Sofamor [id number] 05/19/2023 [id number] / [id number] / [id number] F Spacer Solus 14mm Large Alphatec - [id number] Implanted:Qty: 1 on 01/24/2022 by Faisal Dangelo MD at [facility] Implant N/A: Spine Lumbar ALPHATEC SPINE [employer]By[employer] [id number] 12/29/2023 05917-819 -[id number] / / [id number] Plate Lumbar Aspida 14mm Alphatec - [id number] Implanted:Qty: 1 on 01/24/2022 by Brody Lucero MD at [facility] Implant N/A: Spine Lumbar ALPHATEC SPINE [employer] [id number] / / Plate Lumbar Aspida Sacral 14mm - Alphatec - [id number] Implanted:Qty: 1 on 01/24/2022 by Brody Lucero MD at [facility] Implant N/A: Spine Lumbar ALPHATEC SPINE [employer] [id number] / / Screw Alif 7.0mm X 25mm - Alphatec - [id number] Implanted:Qty: 2 on 01/24/2022 by Brody Lucero MD at [facility] Implant N/A: Spine Lumbar ALPHATEC SPINE [employer] [id number] / / Screw Aspida 7.9acm01xn - [id number] Implanted:Qty: 6 on 01/24/2022 by Brody Lucero MD at [facility] Implant N/A: Spine Lumbar ALPHATEC SPINE [employer] [id number] / / Strip Profuse Bioscaffold Alphatec - [id number] - [id number] Implanted:Qty: 1 on 01/24/2022 by Faisal Dangelo MD at [facility] Implant N/A: Spine Lumbar ALPHATEC SPINE [employer] 07/29/2026 [id number] Graft Bn Dbmfrm Algrf Strp Irrad [id number] Less Xps Srg - [id number] - [id number] Implanted:Qty: 1 on 01/24/2022 by Faisal Dangelo MD at [facility] Implant N/A: Spine Lumbar Spine [place] 10/14/2026 DBM-SS-30 / PTT- 31-0013 / PTT- 31-0013 Graft Bn Dbmfrm Algrf Strp Irrad [id number] Less Xps [facility] - [id number] - [id number] Implanted:Qty: 1 on 01/24/2022 by Faisal Dangelo MD at [facility] Implant N/A: Spine Lumbar Spine [place] 10/19/2026 DBM-SS-30 / PTT- 43-0001 / PTT- 43-0001 Graft Bn Dbmfrm Algrf Strp Irrad [id number] Less Xps Srg - [id number] - [id number] Implanted:Qty: 1 on 01/24/2022 by Faisal Dangelo MD at [facility] Implant N/A: Spine Lumbar Spine [place] 10/14/2026 DBM-SS-30 / PTT- 31-0010 / PTT- 31-0010 Graft Bn Dbmpr 5ml Rick Algrf Less Xps [facility] - [id number] - [id number] Implanted:Qty: 1 on 01/24/2022 by Faisal Dangelo MD at [facility] Implant N/A: Spine Lumbar Spine [place] 11/26/2024 7236 / PTT- / PTT Neocore 5cc Osetocondutive Matix Alpatec Spine - [id number] - [id number] Implanted:Qty: 1 on 01/24/2022 by Faisal Dangelo MD at [facility] Implant N/A: Spine Lumbar [employer]PHAT[employer] 05/20/2024 [id number] / [id number] / [id number] 10ml Cbm Bio Lg Alphagraft - [id number] - [id number] Implanted:Qty: 1 on 01/24/2022 by Faisal Dangelo MD at [facility] Implant N/A: Spine Lumbar [employer] 11/01/2023 210-100 / [id number] Anterior Lumbar Interbody Fusion Device Large Sol 12-1 - [id number] Implanted:Qty: 1 on 01/24/2022 by Faisal Dangelo MD at [facility] Implant N/A: Spine Lumbar [employer]PHAT[employer] [id number] 08/31/2025 [id number] -S / / [id number] Insurance BLUE CROSS Advance Directives * Full Code (Latest Code Status on File) Date Activated Date Inactivated Comments 01/24/2022 11:54 AM 01/28/2022 2:24 PM Care Teams Cooperative Education Coordinator Relationship Specialty Start Date End Date Alvino Alvarez MD [address] [place] [address] PCP - General Family Medicine 05/12/20 Franki Gates MD 540 [facility] [address] [place] [address] Surgeon General Surgery 12/06/21
--- OUTSIDE RECORDS SUMMARY | 2025-05-13 06:09 | XMS_ITS | Encounter Summary ---
Author Organization [facility] Address [address] [place] [address] Care Team Providers Care Leasing Specialist Name Role Phone Alvino Alvarez MD Primary Care Provider [phone] Franki Gates MD Unavailable [phone] Encounter Details Date Type Department Care Team ([facility] st Contact Info) Description 05/12/2023 Procedure Pass [facility], Radiology (CT Scan) [address] [place] [phone] Social History Tobacco Use Types Packs/Day Years [...] on filedocumented in this encounter Care Teams Leasing Specialist Relationship Specialty Start Date End Date Alvino Alvarez MD [address] [place] [address] PCP - General Family Medicine 05/12/20 Franki Gates MD 540 [facility] [address] [place], [place] [address] Surgeon General Surgery 12/06/21 documented as of this encounter
--- OUTSIDE RECORDS SUMMARY | 2025-05-13 06:09 | XMS_ITS | Encounter Summary ---
Author Organization [facility] Address [address] [place] [address] Care Team Providers Care Skilled Nursing Facility Counselor Name Role Phone Alvino Alvarez MD Primary Care Provider [phone] Alvino Alvarez MD Unavailable [phone] Jose Alfredo Fuentes MD Unavailable Faisal Dangelo MD Unavailable [phone] Damaris Lagunas MD Unavailable Betty Zaldivar RN Unavailable [phone] Betty Zaldivar RN Unavailable [phone] Damaris Lagunas MD Unavailable Brody Olivarez APRN Unavailable [phone] Corrie Bustamante RN Unavailable [phone] Alvino Alvarez MD Unavailable [phone] Brody Olivarez APRN Unavailable [phone] Encounter Details Date Type Department Care Team (Late st Contact Info) Description 08/11/2023 Scanned Document [facility] Pulmonary [place] [address] [facility] [address] [place] [phone] Pulmonary, Scan Social History Tobacco Use Types [...] Info) Description 06/20/2025 8:15 AM EDT Appointment [facility] Vascular [address] [address] 08/27/2025 10:30 AM EST Office Visit [address] [address] Goyo Georges MD [address] [place] [address] 09/21/2025 8:45 AM EST Appointment [address] [address] 12/21/2025 8:00 AM EDT Appointment [address] [address] documented as of this encounter Visit Diagnoses Not on filedocumented in this encounter Care Teams Skilled Nursing Facility Counselor Relationship Specialty Start Date End Date Alvino Alvarez MD [address] [place] [address] PCP - General Family Medicine 03/28/16 Alvino Alvarez MD [address] [place] [address] PCP - [place] Commercial Attributed 04/18/20 02/16/24 Brody Olivarez APRN 35 [facility] [address] [place] [phone] PCP - [place] Commercial Attributed 02/17/24 11/15/24 Alvino Alvarez MD [address] [place] [address] PCP - [place] Commercial Attributed 11/16/24 12/16/24 Brody Olivarez APRN 35 [facility] [address] [place] [phone] PCP - [place] Commercial Attributed 12/17/24 Jose Alfredo Fuentes MD [address] [facility] [place] [phone] Referring Provider Psychiatry, General 11/17/21 Faisal Dangelo MD [address] [place] [phone] Physician Surgery, Orthopedic 01/19/22 Damaris Lagunas MD [address] [place] [address] [phone] Forest Logistics Manager Cardiovascular Disease 01/20/22 Betty Zaldivar RN [address] [place] [phone] ICP Community Bottling Room Worker 01/31/22 08/13/24 Betty Zaldivar RN [address] [phone] ICP Community Bottling Room Worker 03/02/22 08/13/24 Damaris Lagunas MD [address] [place], [place] [phone] Primary Forest Logistics Manager Cardiovascular Disease 09/18/22 Corrie Bustamante, RN [address] [facility] 4 [place] [address] [facility] Community Bottling Room Worker 08/13/24 documented as of this encounter
--- OUTSIDE RECORDS SUMMARY | 2025-05-13 06:09 | XMS_ITS | Encounter Summary ---
Author Organization [facility] Address [address] [place] [address] Care Team Providers Care News Technical Director Name Role Phone Alvino Alvarez MD Primary Care Provider [phone] Franki Gates MD Unavailable [phone] Reason for Referral * Imaging (Routine) - Closed Specialty Diagnoses / Procedures Referred By Jose C hurley Referred To Contact Radiology Diagnoses Vertebrogenic low back pain Sacroiliitis, not elsewhere classified (HCC) Procedures NM BONE SPECT Faisal Dangelo MD [address] [place] [address] Phone: tel: fax: [facility] Radiology - Central Scheduling [place] Phone: tel: fax: Referral ID Status Reason Start Date Expiration Date V isits Requested Visits Authorized [id number] Closed Perform Procedure 09/20/2023 09/19/2024 2 2 Encounter Details Date Type Department Care Team (Late st Contact Info) Description 09/20/2023 Ancillary Orders [facility] Radiology - Central Scheduling [place] [phone] Faisal Dangelo MD [address] [place] [address] Vertebrogenic low back pain (Primary [...] seen. Narrative 10/02/2023 8:33 AM EST PROCEDURE: NM BONE SPECT CLINICAL INDICATION: Vertebrogenic low back pain, Sacroiliitis, not elsewhere classified (HCC), incude sacrum/// Patient states Spinal fusion L 5 to S 1 and he has back pain ever since. Walking pain level starts at a 4 and can end at a 9 (pain scale of 1 to 10) COMPARISON: None. PROTOCOL: Transaxial, Sagittal and Coronal SPECT images were obtained with concurrently acquired computed tomography for attentuation correction, post-radiopharmaceutical administration. RADIOPHARMACEUTICAL: 20.9 millicurie intravenous FINDINGS: Planar, [...] classified documented in this encounter Care Teams News Technical Director Relationship Specialty Start Date End Date Alvino Alvarez MD [address] [place] [address] PCP - General Family Medicine 05/12/20 Franki Gates MD 540 [facility] [address] [place] [address] Surgeon General Surgery 12/06/21 documented as of this encounter
--- OUTSIDE RECORDS SUMMARY | 2025-05-13 06:09 | XMS_ITS | Encounter Summary ---
Author Organization [facility] Address [address] [place] [address] Care Team Providers Care Epic Cadence Specialists Name Role Phone Alvino Alvarez MD Primary Care Provider Franki Gates MD Unavailable [phone] Encounter Details Date Type Department Care Team (Late st Contact Info) Description 05/26/2023 Procedure Pass [facility], Radiology (CT Scan) [address] [place] [address] [phone] Social History Tobacco Use Types Packs/Day Years [...] on filedocumented in this encounter Care Teams Epic Cadence Specialists Relationship Specialty Start Date End Date Alvino Alvarez MD [address] [place] [address] PCP - General Family Medicine 05/12/20 Franki Gates MD 540 [facility] [address] [place], [place] [address] Surgeon General Surgery 12/06/21 documented as of this encounter
== END 2025-05-13 06:05 | disposition home or self-care (01) ==
LOC: CF 06:04
PROVIDERS: Visit Provider Anesthesiology
DX: M54.16 Radiculopathy, lumbar region (principal)
CPT/HCPCS: 64483; J2003; J3301; Q9967

== ENCOUNTER 2025-05-13 07:04 | Outpatient (AMB) | payer BC, SELFPAY ==
[2025-05-13 07:14] VITALS: BP 140/83; PULSE 68; RESP 16; O2SAT 99
--- NOTE | 2025-05-13 07:14 | MHC.OFFVIS ---
Vital Signs 05/13/25 07:14 Weight 210 lb BP 140/83 H Blood Pressure Location Lt brachial Position Sitting Respiration 16 Pulse 68 Pulse Source Pulse Oximeter Pulse Oximetry (%) 99 Oxygen Delivery Method Room Air Intake Visit Reasons: BILATERAL L3-L4 TFESI Bobbin Painter Required: No Allergies codeine Allergy (Intermediate, Verified 03/12/25 15:28) cold sweats PFSH Medical History (Updated 03/13/25 @ 07:56 by Richard Montilla MD) History of heart block Hx of sinus bradycardia History of restless legs syndrome Bronchitis Elevated cholesterol ADAMARIS on CPAP Hx of cataract History of chemotherapy Hx of radiation therapy Depression Pacemaker Parkinson disease Surgical History (Updated 07/26/24 @ 13:27 by Zarina Fink RN) Hx of esophagogastroduodenoscopy History of throat surgery Hx of colonoscopy Hx of spinal fusion Social History Patient Tobacco Use Status: Never used Tobacco Physical Exam Vital Signs: Last Vital Signs Pulse 68 05/13/25 07:14 Resp 16 05/13/25 07:14 BP 140/83 H 05/13/25 07:14 Pulse Ox 99 05/13/25 07:14 Oxygen Delivery Method Room Air 05/13/25 07:14 Assessment & Plan Assessment & Plan (1) Radiculopathy, lumbar region: Code(s): M54.16 - Radiculopathy, lumbar region Category: Medical Plan Transforaminal bilateral L3-L4 epidural steroid injection Informed consent was thoroughly explained to the patient before the procedure.? The patient came to the operating room.? He was positioned prone on operating table with a pillow under his abdomen.? Time-out was performed delineating correct site and side of the procedure, nature of the injection, name and date of of the patient. The lower back of the patient was prepped with ChloraPrep and draped with sterile utility towels.? C-arm was brought over the operating field and sq picture of L3 vertebra was demonstrated on the screen.? Extensive Hardware at L4-L5 and S1 intervals was noted on the screen. The right side was chosen as the side of the injection 1st.? Tilting machine ipsilateral to the left at the level of L3 the most prominent picture of the left L3 pedicle was obtained on the screen.? 3 mm below the level of the lowest point of the pedicle projection to the skin small amount of lidocaine 1% 2 cc was injected to anesthetize the skin.? After that 5 in 22 gauge Quincke point needle was inserted through the skin wheal and was advanced toward the right L3- L4 foramina on anterior posterior , lateral and oblique views intermittently.? Injection of the contrast was performed demonstrating epidural and perineural spread of the contrast. No intravascular nor intrathecal spread of the contrast was noted. After that preservative-free lidocaine 1% 2 mL mixed with Kenalog 40 mg was injected into the needle. After that the procedure was repeated at L3-L4 on the left side in the mirroring fashion. The injectate was 2 cc of lidocaine 1% preservative-free mixed with Kenalog 40 mg. Upon completion of the injections the needle was withdrawn and Band-Aid was applied. The patient tolerated procedure well. No immediate complications were observed. Orders: Orders FL guidance in treatment room Today M54.16 - Radiculopathy, lumbar region Coding Level of Care Code Procedure Only Diagnoses Radiculopathy, lumbar region M54.16
== END 2025-05-13 08:07 | disposition home or self-care (01) ==
LOC: HO.PMCPRC 07:04
PROVIDERS: Visit Provider Anesthesiology
DX: M54.16 Radiculopathy, lumbar region (principal)
CPT/HCPCS: 64483

== ENCOUNTER 2025-06-18 09:17 | Outpatient (AMB) | payer BC, SELFPAY ==
[2025-06-18 09:32] VITALS: BP 164/80; PULSE 84; RESP 18; O2SAT 97
--- NOTE | 2025-06-18 09:32 | A.OFFVIS_ITS ---
Vital Signs 06/18/25 09:32 Weight 208 lb BP 164/80 H Blood Pressure Location Lt brachial Position Sitting Respiration 18 Pulse 84 Pulse Source Pulse Oximeter Pulse Oximetry (%) 97 Oxygen Delivery Method Room Air Intake Visit Reasons: S/P BILATERAL L3-L4 TFESI Allergies codeine Allergy (Intermediate, Verified 06/18/25 09:30) cold sweats HPI Comments Details: Vijay Shin is back in my office after transforaminal bilateral L3-L4 epidural steroid injection. This procedure was ordered for the patient after after MRI MRI, the MRI among other things demonstrated significant moderate to severe L3- L4 central canal stenosis. There also was grade 1 anterolisthesis and very advanced spurs getting into the spinal canal posteriorly. He reported today that for 1 month after the procedure his pain stayed within 1 to 2/10 level. He reports that because of the high impact I aerobic exercises his pain is more severe and it is 3/10. Before the procedure his pain was 8/10. These are very good results of transforaminal epidural steroid inject. I explained to the patient that he needs does not need to get engaged in high impact aerobic exercise. Low-impact aerobic exercise and physical therapy were recommended to the patient including stationary bicycle, elliptical machine, or swimming. He also was interested in other possibilities to treat his pain. We tried Nevro spinal cord stimulator on this patient. It was not working for the patient. I gave him brochure and I briefly explained to him today intrathecal drug delivery system pain pump [employer]. We agreed that I will schedule him for an appointment when his pain will become severe and we will discuss again possibilities of treating his condition with transforaminal epidural steroid injections versus considering pain pump procedure. Prior: complains on pain in the lower back without radiation into the bilateral lower extremities. He reports that he is suffering from this pain for the past 3 years. He was diagnosed with sacroiliitis. He also was diagnosed with vertebra genic pain syndrome. He went to an orthopedic surgeon who performed L4-L5 anterior spinal fusion and posterior laminectomy. He reports that his pain after surgery started to be worse. Denies any numbness weakness or pelvic organ dysfunction before the surgery. He reports that sitting decreases his pain significantly, walking and standing increases his pain. He received multiple physical therapies in the past to treat his pain. He received chiropractic manipulations to address his pain. He tried massage therapy and acupuncture nothing was helping his pain . He tried NSAIDs and he tried steroids to help his pain. He tried steroid injections into SI joints after his surgery which were not helpful for his pain control. He states that he was under consideration to perform sacroiliac joint fusion and his insurance company refused to cover the procedure. He brought the MRI results to this office and because of the hardware in his lumbar spine it is very difficult to read because of the magnetic artifact. He also recently was implanted with pacemaker/not defibrillator for the treatment of heart block and now he can not be sent for the MRI. However CT scan with and without contrast could be possible. His past medical history significant for heart block with pacemaker implantation, he is on levodopa carbidopa 25-100 he is taking acetaminophen to control his pain. His past surgery is anterior fusion February 06 and posterior laminectomy March 09, he was having throat surgery in 2002 cataract surgery in 2022 and pacemaker surgery in 2023. He denies smoking cigarettes he socially drinks alcohol, he denies caffeinated beverages and he denies recreational drugs. [facility] Medical History (Updated 03/13/25 @ 07:56 by Richard Montilla MD) History of heart block Hx of sinus bradycardia History of restless legs syndrome Bronchitis Elevated cholesterol ADAMARIS on CPAP Hx of cataract History of chemotherapy Hx of radiation therapy Depression Pacemaker Parkinson disease Surgical History (Updated 07/26/24 @ 13:27 by Zarina Fink RN) Hx of esophagogastroduodenoscopy History of throat surgery Hx of colonoscopy Hx of spinal fusion Social History Patient Tobacco Use Status: Never used Tobacco Review of Systems Const All systems reviewed & are unremarkable except as noted in HPI and below ENT Reports Normal hearing present Neuro Reports Normal hearing present, Denies Abnormal speech present, Denies confusion and Denies Sensory deficit (Neuro) Psych Denies confusion Physical Exam Vital Signs: Last Vital Signs Pulse 84 06/18/25 09:32 Resp 18 06/18/25 09:32 BP 164/80 H 06/18/25 09:32 Pulse Ox 97 06/18/25 09:32 Oxygen Delivery Method Room Air 06/18/25 09:32 Const General: No confusion Nutritional Appearance: average body habitus Orientation/consciousness: No confusion Eyes General: appearance normal, both eyes and all related structures Pupils: Equal, round and reactive pupils present EOM: EOMs intact bilaterally Neck Neck: Yes full ROM Chest Chest palpation & inspection: normal inspection of the chest Resp Effort & Inspection: normal respiratory effort, able to speak in complete sentences, normal respiratory pattern, no audible wheezes and no cough Cardio Jugular venous distension: no JVD GI Inspection: Yes normal to inspection Back/Spine/Pelvis Other: Sitting alleviates his pain standing and walking aggravates his pain. Reports tiredness in bilateral lower extremities with walking. Reports with prolonged walks needs to lean his body forward to alleviate pain in the back. He is able to stand on bilateral tiptoes demonstrating normal strength of bilateral lower extremities, he is not able to stand on bilateral heels. His gait is shuffling probably secondary to Parkinson disease. No antalgic gait is observed. Jackson test is positive on the left,. Gaenslen test today is positive bilaterally. Pelvic compression test is negative bilaterally but pelvic distraction test is equivocal. Stinchfield test is positive bilaterally bilaterally. SLR is negative bilaterally. Valsalva maneuver is positive. Neuro General: No confusion Cranial nerves: Yes Equal, round and reactive pupils present and Yes Normal hearing present Speech: No Abnormal speech present Gait exam (Neuro): Normal gait present Motor exam (neuro): 5/5 motor strength present throughout Sensory Exam: No Sensory deficit (Neuro) Extrem General: No pedal edema Psych Speech and movement: Normal speech and movement present Affect: normal affect Attitude: cooperative Thought process: Normal thought process present Thought content: Normal thought content present Insight: Good insight present (Psych) Judgement: Good judgement present (Psych) Results Reviewed Results Reviewed: MRI lumbar spine without and with IV contrast. TECHNIQUE: Multiplanar multisequence imaging was performed through the lumbar spine without and with contrast. INDICATION: Pain with walking, standing, or sitting for long periods of time, numbness, L4-5 fusion 2-3 years ago CONTRAST: 10 mL Gadavist PRIOR: None available FINDINGS: 5 non-rib bearing lumbar segments are assumed for numbering purposes. If level specific intervention is planned, correlate with an x-ray to ensure concordant numbering. Schmorl's nodes are noted involving T11-L3. Pedicle screws and rods are present on the left at L4, L5, and S1. There are anterior plate and screws at L4-L5-S1. There is probably demonstrating metallic device over the spinous processes of L4-5. Micrometal artifact and scarring is present in the posterior soft tissues between L4-S1 related to aforementioned surgical changes. The termination of conus medullaris is within normal limits at the level of mid L2. Without Contrast: T12-L1: There is a small focal protrusion in the left subarticular zone mildly narrowing the lateral recess. There is no spinal stenosis or foraminal narrowing. L1-L2: There is disc desiccation, loss disc height with circumferential broad-based disc bulge. There is no spinal stenosis or foraminal narrowing. L2-L3: There is no disc bulge, herniation, or spinal stenosis. Facet hypertrophy results in minimal bilateral foraminal narrowing. L3-L4: There is grade 1 retrolisthesis. There is circumferential broad-based disc bulge and bilateral foraminal disc extrusion. There is moderate facet hypertrophy and trace fluid in the facet joints. There is wmqa-ty-[id number] ligamentum flavum thickening. There is mild to moderate spinal stenosis. There is possible encroachment of L4 nerve roots in the subarticular zones. There is moderate bilateral foraminal narrowing with disc contacting both L3 nerve roots. L4-L5: The level is surgically fused. There is interbody spacer or cage. There are surgical changes in the region of the left lamina and facet joint. There is no spinal stenosis or right foraminal narrowing. Small spur on the L4 vertebral body mildly narrows the left neural foramen. L5-S1: The level is surgically fused. There is interbody spacer or cage. There is no spinal stenosis. There appear to be changes of laminectomy with an intact spinous process. Endplate osteophytes result in mild right greater than left foraminal narrowing. With Contrast: There is minimal enhancement of the posterior soft tissues and hyperenhancement of the paraspinal musculature through the healed surgical site. Enhancement is physiologic otherwise. IMPRESSION: T12-L1: Small focal protrusion in the left subarticular zone mildly narrowing the lateral recess. L3-L4: There is grade 1 retrolisthesis. There is circumferential broad-based disc bulge and bilateral foraminal disc herniation. There is mild to moderate spinal stenosis. There is possible encroachment of bilateral L4 nerve roots in the subarticular zones. There is moderate bilateral foraminal narrowing with disc contacting both L3 nerve roots. L4-L5: The level is surgically fused. Small spur on the L4 vertebral body mildly narrows the left neural foramen. L5-S1: The level is surgically fused. Endplate osteophytes result in mild right greater than left foraminal narrowing. Assessment & Plan Assessment & Plan (1) Postlaminectomy syndrome: Code(s): M96.1 - Postlaminectomy syndrome, not elsewhere classified Category: Medical (2) Spinal stenosis at L4-L5 level: Code(s): M48.061 - Spinal stenosis, lumbar region without neurogenic claudication Category: Medical (3) Chronic pain syndrome: Code(s): G89.4 - Chronic pain syndrome Category: Medical (4) Facet arthropathy, lumbar: Code(s): M47.816 - Spondylosis without myelopathy or radiculopathy, lumbar region Category: Medical (5) Sacroiliitis: Code(s): M46.1 - Sacroiliitis, not elsewhere classified Category: Medical (6) Sacroiliac joint dysfunction of both sides: Code(s): M53.3 - Sacrococcygeal disorders, not elsewhere classified Category: Medical (7) Radiculopathy, lumbar region: Code(s): M54.16 - Radiculopathy, lumbar region Category: Medical Plan Transforaminal bilateral L3-L4 epidural steroid injection was very helpful for this patient's pain. Discussion about exercise see as above. Discussion about progression of the further treatment and possibility of treating his pain with bilateral transforaminal epidural steroid injection L3-L4 in the future were discussed today. Alternatively if patient does not want to continue the injections I gave him brochure about intrathecal pain pump, if he would like to try it we can schedule him for psychological evaluation. I also discussed with the patient his prior trial of Nevro spinal cord stimulator which was not successful. He is very reluctant to go for lower back surgery he had several procedures of on his lower back and he is not very eager to repeat those experiences. Patient Instructions: I here by testify that I spent 35 minutes in conversation with this patient as well as planning his care and organizing this note. Coding Level of Care Code Est Pt Level 4 (91804) Diagnoses Postlaminectomy syndrome M96.1 Spinal stenosis at L4-L5 level M48.061 Chronic pain syndrome G89.4 Facet arthropathy, lumbar M47.816 Sacroiliitis M46.1 Sacroiliac joint dysfunction of both sides M53.3 Radiculopathy, lumbar region M54.16
--- OUTSIDE RECORDS SUMMARY | 2025-06-18 10:04 | XMS_ITS | Encounter Summary ---
Author Organization [facility] Address [address] [place] [address] Care Team Providers Care Metalworking Instructor Name Role Phone Alvino Alvarez MD Primary Care Provider [phone] Jose Alfredo Fuentes MD Unavailable Faisal Dangelo MD Unavailable [phone] Damaris Lagunas MD Unavailable Unavailable Betty Zaldivar RN Unavailable Betty Zaldivar RN Unavailable Brody Olivarez MANAGER ORANGE Unavailable Corrie Bustamante RN Unavailable Alvino Alvarez MD Unavailable [phone] Brody Olivarez MANAGER [place]ANGE Unavailable Encounter Details Date Type Department Care Team (Late st Contact Info) Description 08/08/2024 Scanned Document [facility] [place] [address] [facility] [address] [place] [id number] Alvino Alvarez MD [address] [place], [place] [id number] Social History Tobacco Use Types Packs/Day Years [...] Info) Description 06/20/2025 8:15 AM EDT Appointment [address] [phone] 08/27/2025 10:30 AM EST Office Visit [address] [address] Goyo Georges MD [address] [place] [address] 09/21/2025 8:45 AM EST Appointment [address] [address] 12/21/2025 8:00 AM EDT Appointment [address] [address] documented as of this encounter Visit Diagnoses Not on filedocumented in this encounter Care Teams Metalworking Instructor Relationship Specialty Start Date End Date Alvino Alvarez MD [address] [place] [address] PCP - General Family Medicine 03/28/16 Brody Olivarez APRN [address] [facility] [address] [place] [address] PCP - [place] Commercial Attributed 02/17/24 11/15/24 Alvino Alvarez MD [address] [place] [address] PCP - [place] Commercial Attributed 11/16/24 12/16/24 Brody Olivarez APRN [address] [facility] [address] [place] [id number] PCP - [place] Commercial Attributed 12/17/24 Jose Alfredo Fuentes MD [address] [place] [phone] Referring Provider Psychiatry, General 11/17/21 Faisal Dangelo MD [address] [phone] Physician Surgery, Orthopedic 01/19/22 Damaris Lagunas MD [address] [phone] Primary Admissions Evaluator Cardiovascular Disease 01/20/22 Betty Zaldivar RN [address] [phone] [employer] Community Glass Installer 01/31/22 08/13/24 Betty Zaldivar RN [address] [place], [place] [phone] [employer] Community Glass Installer 03/02/22 08/13/24 Corrie Bustamante RN [address] [place] [address] [facility] Community Glass Installer 08/13/24 documented as of this encounter
--- OUTSIDE RECORDS SUMMARY | 2025-06-18 10:04 | XMS_ITS | Encounter Summary ---
Author Organization [facility] Address [address] [place] [address] Care Team Providers Care Shellfish Manager Name Role Phone Alvino Alvarez MD Primary Care Provider [phone] Alvino Alvarez MD Unavailable [phone] Jose Alfredo Fuentes MD Unavailable Faisal Dangelo MD Unavailable [phone] Damaris Lagunas MD Unavailable Unavailable Betty Zaldivar RN Unavailable [phone] Betty Zaldivar RN Unavailable [phone] Damaris Lagunas MD Unavailable Unavailable Brody Olivarez APRN Unavailable [phone] Corrie Bustamante RN Unavailable [phone] Alvino Alvarez MD Unavailable [phone] Brody Olivarez APRN Unavailable [phone] Encounter Details Date Type Department Care [...] Info) Description 06/20/2025 8:15 AM EDT Appointment [address] [address] 08/27/2025 10:30 AM EST Office Visit [address] [address] Goyo Georges MD [address] [place] [address] 09/21/2025 8:45 AM EST Appointment [address] [address] 12/21/2025 8:00 AM EDT Appointment [address] [address] documented as of this encounter Visit Diagnoses Not on filedocumented in this encounter Care Teams Shellfish Manager Relationship Specialty Start Date End Date Alvino Alvarez MD [address] [place] [address] PCP - General Family Medicine 03/28/16 Alvino Alvarez MD [address] [facility] [place] [address] PCP - [place] Commercial Attributed 04/18/20 02/16/24 Brody Olivarez APRN 35 [facility] [address] [place] [address] PCP - [place] Commercial Attributed 02/17/24 11/15/24 Alvino Alvarez MD [address] [facility] [place] [address] PCP - [place] Commercial Attributed 11/16/24 12/16/24 Brody Olivarez APRN 35 [facility] [address] [place] [address] PCP - [place] Commercial Attributed 12/17/24 Jose Alfredo Fuentes MD [address] [place] [phone] Referring Provider Psychiatry, General 11/17/21 Faisal Dangelo MD [address] [place] [phone] Physician Surgery, Orthopedic 01/19/22 Damaris Lagunas MD [address] [address] Primary Audio Visual Facilities Engineer Cardiovascular Disease 01/20/22 Betty Zaldivar RN [address] [place] [address] [employer] Community Ruling Machine Set Up Operator 01/31/22 08/13/24 Betty Zaldivar RN [address] [address] [employer] Community Ruling Machine Set Up Operator 03/02/22 08/13/24 Damaris Lagunas MD [address] [address] Primary Audio Visual Facilities Engineer Cardiovascular Disease 09/18/2203/28 Corrie Bustamante RN [address] [phone] [facility] Community Ruling Machine Set Up Operator 08/13/24 documented as of this encounter
--- OUTSIDE RECORDS SUMMARY | 2025-06-18 10:04 | XMS_ITS | Clinical Summary ---
Author Organization [facility] Address [address] [place] [address] Care Team Providers Care Toys And Games Hand Finisher Name Role Phone Alvino Alvarez MD Primary Care Provider [phone] Jose Alfredo Fuentes MD Unavailable Faisal Dangelo MD Unavailable [phone] Damaris Lagunas MD Unavailable Unavailable Corrie Bustamante RN Unavailable [phone] Brody Olivarez SLAG WHEELER Unavailable [phone] Allergies Active Allergy Reactions Criticality Noted Date [...] (06/05/2019): Added automatically from request for surgery [id number] Gastroesophageal reflux disease 06/05/2019 Overview (06/05/2019): Added automatically from request for surgery [id number] Epigastric pain 06/05/2019 Overview (06/05/2019): Added automatically from request for surgery [id number] Disturbance of skin sensation 12/23/2016 Head and neck cancer 12/15/2016 RLS (restless legs syndrome) 12/15/2016 Adjustment insomnia 12/15/2016 Snoring 12/15/2016 ADAMARIS (obstructive sleep apnea) 03/28/2016 Gastroesophageal reflux disease without esophagi tis 03/28/2016 Resolved Problems Problem Noted Date Diagnosed Date Resolved Date Preop examination 01/24/2022 08/14/2024 Obesity (BMI 30.0-34.9) 03/28/2016 01/0 11/2017 Encounters Date Type Department Care Team Description 05/08/2025 Scanned Document [facility] Pulmonary [address] [place] [address] Pulmonary, Scan from Last 3 Months Immunizations Immunization Administration [...] Info) Description 06/20/2025 8:15 AM EDT Appointment [address] [address] 08/27/2025 10:30 AM EST Office Visit [address] [address] Goyo Georges MD [address] [place] [address] 09/21/2025 8:45 AM EST Appointment [address] [address] 12/21/2025 8:00 AM EDT Appointment [address] [address] Health Maintenance Due Date Last Done Comments Hepatitis C Virus Screening 1965 HIV Screening 1976 Pneumococcal Vaccines 50+ (1 of 2 - PCV) 1982 05/03/2019 DTaP/Tdap/Td Vaccines (1 - Tdap) 09/19/2009 09/18/2009 Zoster (Shingles) Vaccine (1 of 2) 08/26/2014 07/01/2014 RSV Vaccine 60 years and older and Patients (1 - Risk 60-74 years 1-dose series) 2023 Influenza Vaccine 04/18/2025 09/03/2023, , 08/05/2021, Additional history exists COVID-19 Vaccine ( - season) 2025 02/23/2022, 08/16/2021, 12/16/2020, Additional history exists Colonoscopy 07/01/2029 07/01/2019, 02/17, 03/07/2012 Hepatitis B Vaccines Aged Out No long er eligible based on patient's age to complete this topic Medical Devices Implanted Type Area Mat Tester Device Identifier Shelf Expiration Date Model / Serial / Lot 3830-69 Lead Pacing 69cm Atr Vntrc Bipolar Fx Scr In Selectsecure - [id number] Implanted:Qty: 1 on 11/16/2023 by Bassam Laird MD at [facility] Lead Left: Chest [employer] [id number] 10/10/2025 3830-69 / [id number] / 5076-52 Lead Pacing 52cm 6.2fr 2mm 10mm Spc Sm Straight Atr Vntrc - [id number] Implanted:Qty: 1 on 11/16/2023 by Bassam Laird MD at [facility] Lead Left: Chest [employer] [id number] 07/28/2025 5076-52 / [id number] / [id number] Xu Spinal 70mm 5.5mm Illico Ti Precontour Central [place] - [id number] Implanted:Qty: 1 on 02/18/2022 by Faisal Dangelo MD at [facility] Nail/Xu N/A: Spine Lumbar ALPHA-HUMBERTO SYSTEMS 66357-11 0 / / [id number] Pacemaker Cardiac 7.4mm 50.8x46.6mm Jesika Xt Dr Kenneth Surescan - [id number] Implanted:Qty: 1 on 11/16/2023 by Bassam Laird MD at [facility] Pacemaker Left: Chest [employer] [id number] 04/14/2025 W1DR01 / [id number] 7G / Dll-8 Dual Llanos Lock 8mm - [id number] Implanted:Qty: 1 on 02/18/2022 by Faisal Dangelo MD at [facility] Plate N/A: Spine Lumbar [employer] DLL-8 / / Gabriel-8 Dual Llanos Tray 8mm - [id number] Implanted:Qty: 1 on 02/18/2022 by Faisal Dangelo MD at [facility] Plate N/A: Spine Lumbar [employer] GABRIEL-8 / / [id number] Screw Bone Spine Illico 45mm Ti 6.5mm Pa Farzana Nonst - [id number] Implanted:Qty: 1 on 02/18/2022 by Faisal Dangelo MD at [facility] Spine N/A: Spine Lumbar AL[employer]HUMBERTO [employer]S 27948-94 / / [id number] Screw Bone Spine Illico 40mm Ti 6.5mm Pa Farzana Nonst - [id number] Implanted:Qty: 1 on 02/18/2022 by Faisal Dangelo MD at [facility] Spine N/A: Spine Lumbar [employer]HUMBERT[employer]S 33989-66 / / [id number] Screw Set Ti Spine Hexalobe Zodiac - [id number] Implanted:Qty: 3 on 02/18/2022 by Faiasl Dangelo MD at [facility] Spine N/A: Spine Lumbar [employer]HUMBERT[employer] SYSTEMS 11230 / / [id number] Screw Set Spine Stabilink Mis Spinal Fixation Sys - [id number] Implanted:Qty: 1 on 02/18/2022 by Faisal Dangelo MD at [facility] Spine N/A: Spine Lumbar [employer] SS-219 / / 210-010 Alphagraft Cellular Bone Matrix 1 Cc - [id number] Implanted:Qty: 1 on 02/18/2022 by Faisal Dangelo MD at [facility] Tissue N/A: Spine Lumbar [employer]HUMBERT[employer]S 10/24/2023 210-010 / [id number] / 700-010 Graft Bone 1 Fctr 1cc Algrf Putty Syringe - [id number] Implanted:Qty: 1 on 02/18/2022 by Faisal Dangelo MD at [facility] Tissue N/A: Spine Lumbar [employer] 09/17/2024 700-010 / / [id number] Sponge Dbm Bone 86a76c6as - [id number] Implanted:Qty: 1 on 02/18/2022 by Faisal Dangelo MD at [facility] Tissue N/A: Spine Lumbar [employer] LLC 01/04/2027 [id number] / [id number] 64-049 / [id number] Sponge Dbm Bone 97h68o3iw - [id number] Implanted:Qty: 1 on 02/18/2022 by Faisal Dangelo MD at [facility] Tissue N/A: Spine Lumbar [employer] 01/04/2027 [id number] / [id number] 64-045 / [id number] Filler Bone Void Nanofuse 2 Cc Bioactive Matrix Sterile Late - [id number] Implanted:Qty: 1 on 02/18/2022 by Faisal Dangelo MD at [facility] Void Filler N/A: Spine Lumbar [employer] INC 05/26/2026 IOY472-9 2 / / [id number] 620-005 Kit Bone Graft 5cc 12cc Calcium Slf Stimulan Rpd Cure Paste - [id number] Implanted:Qty: 1 on 02/18/2022 by Faisal Dangelo MD at [facility] Void Filler N/A: Spine Lumbar [employer] - A BTG INT 08/17/2024 620-005 / / [id number] 70-6012 Substitute Bone Graft Alphatec Neocore Ostcndc Matrix 12cc - [id number] Implanted:Qty: 1 on 02/18/2022 by Faisal Dangelo MD at [facility] Void Filler N/A: Spine Lumbar [employer]HUMBERT[employer]S 05/20/2024 70-6012 / / [id number] Dbm Fibers 5.0cc Implanted:Qty: 1 on 02/18/2022 by Faisal Dangelo MD at [facility] N/A: Spine Lumbar [employer] 07/15/2024 [id number] / [id number] 0662-061 / [id number] Screw Bone Spine Illico 35mm Ti 6.5mm Pa Farzana Implanted:Qty: 1 on 02/18/2022 by Faisal Dangelo MD at [facility] N/A: Spine Lumbar ALPHA-HUMBERTO SYSTEMS 31774-78 / / Procedures Procedure Name Priority Date/Time Associated Diagnosis Comments PM REMOTE EVAL, [id number] Routine 03/19/2025 11:32 AM EDT SSS (sick sinus syndrome) (HCC) HX GASTROENTEROLOGY COLONOSCOPY-SCAN Routine 03/07/2012 from Last 3 Months or Most Recently Relevant to Health Maintenance Results * PM REMOTE EVAL, [id number] (03/19/2025 11:32 AM EDT) Date Time Interrogation Session 20,250,[id number],90 7 PACEART Implantable Pulse Generator Mat Tester Medtronic PACEART Implantable Pulse Generator Model [id number] [place] XT DR MRI PACEART Implantable Pulse Generator Serial Number [id number] PACEART Implantable Pulse Generator Type Pacemaker PACEART Implantable Pulse Generator Implant Date ,240,228,190,00 0 PACEART Implantable Lead Mat Tester Medtronic PACEART Implantable Lead Model 3830 SelectSecure MRI SureScan PACEART Implantable Lead Serial Number [id number] PACEART Implantable Lead Implant Date ,240,228,190,00 0 PACEART Implantable Lead Polarity Type Bipolar Lead PACEART Implantable Lead Location Detail 1 UNKNOWN PACEART Implantable Lead Special Function 69 PACEART Implantable Lead Location Right Ventricle PACEART Implantable Lead Connection Status Connected PACEART Implantable Lead Mat Tester Medtronic PACEART Implantable Lead Model 5076 CapSureFix Novus MRI SureScan PACEART Implantable Lead Serial Number [id number] PACEART Implantable Lead Implant Date [id number] PACEART Implantable Lead Polarity Type Bipolar Lead [...] 0.35 % PACEART Miguel Angel Statistic AP POULTRY OFFAL ICER Percent 0.35 % PACEART Miguel Angel Statistic POULTRY OFFAL ICER Percent 0 % PACEART Miguel Angel Statistic AP VS Percent 95.39 % PACEART Miguel Angel Statistic VS Percent 4.26 % PACEART AT/AF Perry Percent 0 % PACEART Episode Statistic Recent [...] Most Recently Relevant to Health Maintenance Insurance [facility] PPO [facility] PPO Advance Directives * Full Code (Latest Code Status on File) Date Activated Date Inactivated Comments 11/16/2023 10:34 AM * Full Code Date Activated Date Inactivated Comments 02/18/2022 5:05 PM 02/22/2022 8:24 AM Care Teams Toys And Games Hand Finisher Relationship Specialty Start Date End Date Alvino Alvarez MD [address] [place] [address] PCP - General Family Medicine 03/28/16 Brody Olivarez, ANA 35 [facility] 6 [place] [address] PCP - [place] Commercial Attributed 12/17/24 Jose Alfredo Fuentes MD [address] [place] [id number] Referring Provider Psychiatry, General 11/17/21 Faisal Dangelo MD [address] [phone] Physician Surgery, Orthopedic 01/19/22 Damaris Lagunas MD 430 [facility] 100 [place] [address] Primary Engineering Operations Leader Cardiovascular Disease 01/20/22 Corrie Bustamante, RN [address] [facility] 4 [place], [place] [id number] [facility] Community Tool Clerk 08/13/24
--- OUTSIDE RECORDS SUMMARY | 2025-06-18 10:04 | XMS_ITS | Encounter Summary ---
Author Organization [facility] Address [address] [place] [address] Care Team Providers Care Coagulant Dipper Name Role Phone Alvino Alvarez MD Primary Care Provider [phone] Alvino Alvarez MD Unavailable [phone] Jose Alfredo Fuentes MD Unavailable Faisal Dangelo MD Unavailable [phone] Damaris Lagunas MD Unavailable Unavailable Betty Zaldivar RN Unavailable [phone] Betty Zaldivar RN Unavailable [phone] Damaris Lagunas MD Unavailable Unavailable Brody Olivarez APRN Unavailable [phone] Corrie Bustamante RN Unavailable [phone] Alvino Alvarez MD Unavailable [phone] Brody Olivarez DIVISION LEADER Unavailable Reason for Visit * Reason Comments Medication Refill Encounter Details Date Type Department Care Team (Late st Contact Info) Description 07/29/2022 Refill [facility] Neurology [address] 6 [place] [phone] Brody Olivarez APRN 35 [facility] [address] [place], [place] [address] Parkinson's disease (HCC) Social History Tobacco Use [...] Info) Description 06/20/2025 8:15 AM EDT Appointment [address] [address] 08/27/2025 10:30 AM EST Office Visit [address] [address] Goyo Georges MD [address] [place] [address] 09/21/2025 8:45 AM EST Appointment [address] [address] 12/21/2025 8:00 AM EDT Appointment [address] [address] documented as of this encounter Visit Diagnoses Diagnosis Parkinson's disease (HCC) Paralysis agitans documented in this encounter Care Teams Coagulant Dipper Relationship Specialty Start Date End Date Alvino Alvarez MD [address] [place] [address] PCP - General Family Medicine 03/28/16 Alvino Alvarez MD [address] [place] [address] PCP - [place] Commercial Attributed 04/18/20 02/16/24 Brody Olivarez APRN 35 [facility] 6 [place] [phone] PCP - [place] Commercial Attributed 02/17/24 11/15/24 Alvino Alvarez MD [address] [place] [address] PCP - [place] Commercial Attributed 11/16/24 12/16/24 Brody Olivarez APRN 35 [facility] 6 [place] [phone] PCP - [place] Commercial Attributed 12/17/24 Jose Alfredo Fuentes MD [address] [facility] [place] [address] Referring Provider Psychiatry, General 11/17/21 Faisal Dangelo MD [address] [address] Physician Surgery, Orthopedic 01/19/22 Damaris Lagunas MD [address] [address] Primary Supervisor Agency Appointments Cardiovascular Disease 01/20/22 Betty Zaldivar, RN [address] [address] [facility] Community Piercer 01/31/22 08/13/24 Betty Zaldivar RN [address] [place] [address] [facility] Community Piercer 03/02/22 08/13/24 Damaris Lagunas MD [address] [address] Primary Supervisor Agency Appointments Cardiovascular Disease 09/18/2203/28 Corrie Bustamante RN [address] [place] [address] [facility] Community Piercer 08/13/24 documented as of this encounter
--- OUTSIDE RECORDS SUMMARY | 2025-06-18 10:04 | XMS_ITS | Encounter Summary ---
Author Organization [facility] Address [address] [place] [address] Care Team Providers Care Allergy Specialist Name Role Phone Alvino Alvarez MD Primary Care Provider [phone] Jose Alfredo Fuentes MD Unavailable Faisal Dangelo MD Unavailable [phone] Damaris Lagunas MD Unavailable Unavailable Corrie Bustamante RN Unavailable [phone] Brody Olivarez GLASS UNLOADING EQUIPMENT TENDER Unavailable [phone] Encounter Details Date Type Department Care Team (Late st Contact Info) Description 05/08/[address] [facility] Pulmonary [address] [place] [phone] Pulmonary, Scan Social History Tobacco Use Types [...] Info) Description 06/20/2025 8:15 AM EDT Appointment [facility] Vascular [address] [address] 08/27/2025 10:30 AM EST Office Visit [address] [address] Goyo Georges MD [address] [place] [address] 09/21/2025 8:45 AM EST Appointment [address] [address] 12/21/2025 8:00 AM EDT Appointment [address] [address] documented as of this encounter Visit Diagnoses Not on filedocumented in this encounter Care Teams Allergy Specialist Relationship Specialty Start Date End Date Alvino Alvarez MD [address] [place] [address] PCP - General Family Medicine 03/28/16 Brody Olivarez, GLASS UNLOADING EQUIPMENT TENDER 35 [facility] [address] [place] [address] PCP - [place] Commercial Attributed 12/17/24 Jose Alfredo Fuentes MD [address] [place] [phone] Referring Provider Psychiatry, General 11/17/21 Faisal Dangelo MD [address] [address] Physician Surgery, Orthopedic 01/19/22 Damaris Lagunas MD [address] [address] Primary Software Performance Engineer Cardiovascular Disease 01/20/22 Corrie Bustamante, RN 1290 [facility] 4 [place] [address] [facility] Community Lens Assorter 08/13/24 documented as of this encounter
--- OUTSIDE RECORDS SUMMARY | 2025-06-18 10:04 | XMS_ITS | Patient Health Record ---
Author Organization [facility] Address [address] [place] [address] Care Team Providers Care Supervisor Ornamental Ironworking Name Role Phone NOT LISTED Primary Care Provider Garrett Christensen Unavailable [phone] Allergies Allergen (clinical drug ingredient) Drug/Non Drug [...] Status Risk Notes Problem Sacroiliac disorder (disorder) (823245334) Sacroiliac dysfunction (M53.3) Active confirmed Plan Of Treatment No Information Insurance Providers Payer Name Payer Address Payer Phone Subscriber Number Group Number Insured Name Patient Relationship to Insured Coverage Start Date Coverage End Date [place] [address] [place], [place] [id number] [place] Self - patient is the insured Medical (General) History Medical History History ICD Code Parkinson's disease acid reflux throat cancer in remission Surgical History Surgery Date(Month/Year) lumbar fusion L4-L5, two separate sx (1 in January; 1 in February) 2021 pacemaker Sep 2023
--- OUTSIDE RECORDS SUMMARY | 2025-06-18 10:04 | XMS_ITS | Encounter Summary ---
Author Organization [facility] Address [address] [place] [address] Care Team Providers Care Dyed Raw Stock Blower Feeder Name Role Phone Alvino Alvarez MD Primary Care Provider [phone] Alvino Alvarez MD Unavailable [phone] Jose Alfredo Fuentes MD Unavailable Faisal Dangelo MD Unavailable [phone] Damaris Lagunas MD Unavailable Unavailable Betty Zaldivar RN Unavailable [phone] Betty Zaldivar RN Unavailable [phone] Damaris Lagunas MD Unavailable Unavailable Brody Olivarez APRN Unavailable [phone] Corrie Bustamante RN Unavailable [phone] Alvino Alvarez MD Unavailable [phone] Brody Olivarez APRN Unavailable [phone] Reason for Visit * Reason Comments Appointment Recieved staff jayesh malhotra to get pt in sooner due to worsening tremors and medication quesitons. Encounter Details Date Type Department Care Team (Late st Contact Info) Description 10/26/2021 Telephone [facility] Neurology [address] [place] [phone] Hasmukh Shrestha MD IS [facility] [address] [address] Appointment (Recieved staff message to get pt [...] Info) Description 06/20/2025 8:15 AM EDT Appointment [facility] Vascular [address] [address] 08/27/2025 10:30 AM EST Office Visit [address] [address] Goyo Georges MD [address] [place] [address] 09/21/2025 8:45 AM EST Appointment [facility] Vascular [address] [address] 12/21/2025 8:00 AM EDT Appointment [facility] Vascular [address] [address] documented as of this encounter Visit Diagnoses Not on filedocumented in this encounter Care Teams Dyed Raw Stock Blower Feeder Relationship Specialty Start Date End Date Alvino Alvarez MD [address] [facility] [place] [address] PCP - General Family Medicine 03/28/16 Alvino Alvarez MD [address] [facility] [place] [address] PCP - [place] Commercial Attributed 04/18/20 02/16/24 Brody Olivarez APRN 35 [facility] [address] [place] [address] PCP - [place] Commercial Attributed 02/17/24 11/15/24 Alvino Alvarez MD [address] [facility] [place] [address] PCP - [place] Commercial Attributed 11/16/24 12/16/24 Brody Olivarez APRN 35 [facility] [address] [place] [address] PCP - [place] Commercial Attributed 12/17/24 Jose Alfredo Fuentes MD [address] [place], [place] [id number] Referring Provider Psychiatry, General 11/17/21 Faisal Dangelo MD [address] [address] Physician Surgery, Orthopedic 01/19/22 Damaris Lagunas MD [address] [address] Primary Fisher Spear Cardiovascular Disease 01/20/22 Betty Zaldivar, RN [address] [phone] [facility] Community Tank Pumper 01/31/22 08/13/24 Betty Zaldivar RN [address] [phone] [facility] Community Tank Pumper 03/02/22 08/13/24 Damaris Lagunas MD [address] [place] [address] Primary Fisher Spear Cardiovascular Disease 09/18/2203/28 Corrie Bustamante RN [address] [place] [phone] [facility] Community Tank Pumper 08/13/24 documented as of this encounter
--- OUTSIDE RECORDS SUMMARY | 2025-06-18 10:04 | XMS_ITS | Encounter Summary ---
Author Organization [facility] Address [address] [place] [address] Care Team Providers Care Assistant Therapy Aide Name Role Phone Alvino Alvarez MD Primary Care Provider [phone] Alvino Alvarez MD Unavailable Jose Alfredo Fuentes MD Unavailable Faisal Dangelo MD Unavailable [phone] Damaris Lagunas MD Unavailable Unavailable Betty Zaldivar RN Unavailable Betty Zaldivar RN Unavailable [phone] Damaris Lagunas MD Unavailable Unavailable Brody Olivarez APRN Unavailable Corrie Bustamante RN Unavailable [phone] Alvino Alvarez MD Unavailable Brody Olivarez HISTOLOGY SUPERVISOR Unavailable Reason for Visit * Reason Comments Medication Refill Encounter Details Date Type Department Care Team (Late st Contact Info) Description 08/12/2020 Refill [employer] [address] [facility] [place] [phone] Yash Hill MD [address] [place], [place] Gastroesophageal reflux disease with esophagitis Social [...] Info) Description 06/20/2025 8:15 AM EDT Appointment [address] [address] 08/27/2025 10:30 AM EST Office Visit [address] [address] Goyo Georges MD [address] [place] [address] 09/21/2025 8:45 AM EST Appointment [address] [address] 12/21/2025 8:00 AM EDT Appointment [address] [address] documented as of this encounter Visit Diagnoses Diagnosis Gastroesophageal reflux disease with esophagitis documented in this encounter Care Teams Assistant Therapy Aide Relationship Specialty Start Date End Date Alvino Alvarez MD [address] [place] [address] PCP - General Family Medicine 03/28/16 Alvino Alvarez MD [address] [place] [address] PCP - [place] Commercial Attributed 04/18/20 02/16/24 Brody Olivarez APRN 35 [facility] [place] [address] PCP - [place] Commercial Attributed 02/17/24 11/15/24 Alvino Alvarez MD [address] [place] [address] PCP - [place] Commercial Attributed 11/16/24 12/16/24 Brody Olivarez APRN 35 [facility] 6 [place] [id number] PCP - [place] Commercial Attributed 12/17/24 Jose Alfredo Fuentes MD [address] [place] [phone] Referring Provider Psychiatry, General 11/17/21 Faisal Dangelo MD [address] [address] Physician Surgery, Orthopedic 01/19/22 Damaris Lagunas MD [address] [address] Primary Project Engineering Director Cardiovascular Disease 01/20/22 Betty Zaldivar RN [address] [place], [place] [phone] [facility] Community Concessions Manager 01/31/22 08/13/24 Betty Zaldivar RN [address] [place], [place] [phone] [facility] Community Concessions Manager 03/02/22 08/13/24 Damaris Lagunas MD [address] [place] [address] Primary Project Engineering Director Cardiovascular Disease 09/18/2203/28 Corrie Bustamante, RN [address] [facility] 4 [place] [address] [facility] Community Concessions Manager 08/13/24 documented as of this encounter
--- OUTSIDE RECORDS SUMMARY | 2025-06-18 10:04 | XMS_ITS | Clinical Summary ---
Author Organization [facility] Address [address] [place] [address] Care Team Providers Care Territory Supervisor Name Role Phone Pcp, No MD Primary [...] 2) 2013 COVID-19 Vaccine (5 - season) 2025 02/23/2022, 08/16/2021, 12/16/2020, Additional history exists Influenza [...] patient's age to complete this topic Insurance COUNT INCLUDES [facility] Care Teams Territory Supervisor Relationship Specialty Start Date End Date Kasey Olson MD [address] [place] [address] PCP - General Internal Medicine 06/14/22
--- OUTSIDE RECORDS SUMMARY | 2025-06-18 10:04 | XMS_ITS | Encounter Summary ---
Author Organization [facility] Address [address] [place] [address] Care Team Providers Care Passenger Brakeman Name Role Phone Alvino Alvarez MD Primary Care Provider [phone] Franki Gates MD Unavailable [phone] Reason for Referral * Imaging (Routine) - Closed Specialty Diagnoses / Procedures Referred By Jose C hurley Referred To Contact Radiology Diagnoses Herniated lumbar intervertebral disc Procedures [place] LESS THAN 1 HOUR INTRAOPERATIVE Faisal Dangelo MD Phone: tel: fax: [facility] Radiology - Central Scheduling [place] Phone: tel: fax: Referral ID Status Reason Start Date Expiration Date V isits Requested Visits Authorized [id number] Closed Perform Procedure 01/23/2022 01/23/2023 1 1 Encounter Details Date Type Department Care Team (Latest Contact Info) Description 01/23/2022 [facility]illary [facility] [address] [place] [address] Faisal Dangelo MD [address] [place] [address] Herniated lumbar intervertebral disc Social History Tobacco [...] REPORT AND MAY BE SIGNED BY A STITCHER TAPE CONTROLLED MACHINE. Fluoroscopy was provided to the Ordering physician [...] myelopathy documented in this encounter Care Teams Passenger Brakeman Relationship Specialty Start Date End Date Alvino Alvarez MD [address] [place] [address] PCP - General Family Medicine 05/12/20 Franki Gates MD [address] [address] [place] [address] Surgeon General Surgery 12/06/21 documented as of this encounter
--- OUTSIDE RECORDS SUMMARY | 2025-06-18 10:04 | XMS_ITS | Encounter Summary ---
Author Organization [facility] Address [address] [place] [address] Care Team Providers Care Cheese Maker Name Role Phone Alvino Alvarez MD Primary Care Provider [phone] Alvino Alvarez MD Unavailable [phone] Jose Alfredo Fuentes MD Unavailable Faisal Dangelo MD Unavailable [phone] Damaris Lagunas MD Unavailable Unavailable Betty Zaldivar RN Unavailable [phone] Betty Zaldivar RN Unavailable [phone] Damaris Lagunas MD Unavailable Unavailable Brody Olivarez APRN Unavailable [phone] Corrie Bustamante RN Unavailable [phone] Alvino Alvarez MD Unavailable [phone] Brody Olivarez COMMERCIAL CREDIT SPECIALIST Unavailable Reason for Visit * Reason Comments Medication Refill Encounter Details Date Type Department Care Team (Late st Contact Info) Description 10/30/2021 Refill [facility] Neurology [address] 6 [place] [address] Hasmukh Shrestha MD [facility] Brain [facility] S [address] [place] [address] Parkinson's disease (HCC) Social History Tobacco Use [...] Info) Description 06/20/2025 8:15 AM EDT Appointment [address] [address] 08/27/2025 10:30 AM EST Office Visit [address] [address] Goyo Georges MD [address] [place] [address] 09/21/2025 8:45 AM EST Appointment [address] [address] 12/21/2025 8:00 AM EDT Appointment [address] [address] documented as of this encounter Visit Diagnoses Diagnosis Parkinson's disease (HCC) Paralysis agitans documented in this encounter Care Teams Cheese Maker Relationship Specialty Start Date End Date Alvino Alvarez MD [address] [place] [address] PCP - General Family Medicine 03/28/16 Alvino Alvarez MD [address] [place] [address] PCP - [place] Commercial Attributed 04/18/20 02/16/24 Brody Olivarez APRN [facility] [address] [id number] PCP - [place] Commercial Attributed 02/17/24 11/15/24 Alvino Alvarez MD [address] [place] [address] PCP - [place] Commercial Attributed 11/16/24 12/16/24 Brody Olivarez APRN [facility] [address] [id number] PCP - [place] Commercial Attributed 12/17/24 Jose Alfredo Fuentes MD [address] [place] [address] Referring Provider Psychiatry, General 11/17/21 Faisal Dangelo MD [address] [address] Physician Surgery, Orthopedic 01/19/22 Dmaaris Lagunas MD [address] [address] Primary Hot Box Spotter Cardiovascular Disease 01/20/22 Betty Zaldivar, RN [address] [place] [address] [address] [facility] Community Credit And Collections Representative 01/31/22 08/13/24 Betty Zaldivar RN [address] [place] [address] [place] [address] [facility] Community Credit And Collections Representative 03/02/22 08/13/24 Damaris Lagunas MD [address] [address] Primary Hot Box Spotter Cardiovascular Disease 09/18/2203/28 Corrie Bustamante RN [address] [place] [address] [place] [address] [facility] Community Credit And Collections Representative 08/13/24 documented as of this encounter
--- OUTSIDE RECORDS SUMMARY | 2025-06-18 10:04 | XMS_ITS | Encounter Summary ---
Author Organization [facility] Address [address] [place] [address] Care Team Providers Care Director [facility]clerosis [facility] Name Role Phone Alvino Alvarez MD Primary Care Provider [phone] Alvino Alvarez MD Unavailable [phone] Jose Alfredo Fuentes MD Unavailable Faisal Dangelo MD Unavailable [phone] Damaris Lagunas MD Unavailable Unavailable Betty Zaldivar RN Unavailable [phone] Betty Zaldivar RN Unavailable [phone] Damaris Lagunas MD Unavailable Unavailable Brody Olivarez APRN Unavailable [phone] Corrie Bustamante RN Unavailable [phone] Alvino Alvarez MD Unavailable [phone] Brody Olivarez BOOK CANVASSER Unavailable Encounter Details Date Type Department Care Team (Late st Contact Info) Description 02/15/[address] [facility] Pre-Admission Testing [facility] [address] [place] [address] Vee Rodríguez, RN [address] [place] [address] Social History Tobacco Use Types Packs/Day Years [...] Info) Description 06/20/2025 8:15 AM EDT Appointment [address] [address] 08/27/2025 10:30 AM EST Office Visit [address] [address] Goyo Georges MD [address] [place] [address] 09/21/2025 8:45 AM EST Appointment [address] [address] 12/21/2025 8:00 AM EDT Appointment [address] [address] documented as of this encounter Visit Diagnoses Not on filedocumented in this encounter Care Teams Director Multiple Sclerosis Center Relationship Specialty Start Date End Date Alvino Alvarez MD [address] [place] [address] PCP - General Family Medicine 03/28/16 Alvino Alvarez MD [address] [place] [address] PCP - [place] Commercial Attributed 04/18/20 02/16/24 Brody Olivarez APRN [address] [id number] PCP - [place] Commercial Attributed 02/17/24 11/15/24 Alvino Alvarez MD [address] [place] [address] PCP - [place] Commercial Attributed 11/16/24 12/16/24 Brody Olivarez APRN 35 [facility] [address] [phone] PCP - [place] Commercial Attributed 12/17/24 Jose Alfredo Fuentes MD [address] [place] [id number] Referring Provider Psychiatry, General 11/17/21 Faisal Dangelo MD [address] [address] Physician Surgery, Orthopedic 01/19/22 Damaris Lagunas MD [address] [address] Primary Oyster Planter Cardiovascular Disease 01/20/22 Betty Zaldivar RN [address] [place] mar[address] [id number] [facility] Community 5Th Grade Teacher 01/31/22 08/13/24 Betty Zaldivar RN [address] [address] [facility] Community 5Th Grade Teacher 03/02/22 08/13/24 Damaris Lagunas MD [address] [address] Primary Oyster Planter Cardiovascular Disease 09/18/2203/28 Corrie Bustamante, RN [address] [place] [address] [facility] Community 5Th Grade Teacher 08/13/24 documented as of this encounter
--- OUTSIDE RECORDS SUMMARY | 2025-06-18 10:04 | XMS_ITS | Clinical Summary ---
Author Organization [facility] Address [address] [place] [address] Care Team Providers Care Roof Foreman Name Role Phone Alvino Alvarez MD Primary Care Provider [phone] Social History Tobacco Use Types Packs/Day Years [...] f 2) 2013 COVID-19 Vaccine (2 - 2024-2 6 season) 2025 02/23/2022 Influenza Vaccine (#1) 2025 2, 08/05/2021, [...] age to complete this topic Care Teams Roof Foreman Relationship Specialty Start Date End Date Alvino Alvarze MD [address] [place] [address] PCP - General Family Medicine 08/17/23
--- OUTSIDE RECORDS SUMMARY | 2025-06-18 10:04 | XMS_ITS | Encounter Summary ---
Author Organization [facility] Address [address] [place] [address] Care Team Providers Care Skilled Nursing Facility Counselor Name Role Phone Alvino Alvarez MD Primary Care Provider [phone] Alvino Alvarez MD Unavailable [phone] Jose Alfredo Fuentes MD Unavailable Faisal Dangelo MD Unavailable [phone] Damaris Lagunas MD Unavailable Unavailable Betty Zaldivar RN Unavailable Betty Zaldivar RN Unavailable [phone] Damaris Lagunas MD Unavailable Unavailable Brody Olivarez APRN Unavailable [phone] Corrie Bustamante RN Unavailable [phone] Alvino Alvarez MD Unavailable [phone] Brody Olivarez DANCE STUDIO MANAGER Unavailable Encounter Details Date Type Department Care Team (Late st Contact Info) Description 11/09/2021 Scanned Document [facility] Neurology [place] 35 [facility] [address] [place] [address] Hasmukh Shrestha MD IS [facility] Brain & S [address] [address] Social History Tobacco Use Types Packs/Day Years [...] Info) Description 06/20/2025 8:15 AM EDT Appointment [facility] Vascular [address] [address] 08/27/2025 10:30 AM EST Office Visit [address] [address] Goyo Georges MD [address] [place] [address] 09/21/2025 8:45 AM EST Appointment [address] [address] 12/21/2025 8:00 AM EDT Appointment [address] [address] documented as of this encounter Visit Diagnoses Not on filedocumented in this encounter Care Teams Skilled Nursing Facility Counselor Relationship Specialty Start Date End Date Alvino Alvarez MD [address] [place] [address] PCP - General Family Medicine 03/28/16 Alvino Alvarez MD [address] [place] [address] PCP - [place] Commercial Attributed 04/18/20 02/16/24 Brody Olivarez APRN 35 [facility] 6 [place] [address] PCP - [place] Commercial Attributed 02/17/24 11/15/24 Alvino Alvarez MD [address] [place] [address] PCP - [place] Commercial Attributed 11/16/24 12/16/24 Brody Olivarez APRN 35 [facility] [address] [phone] PCP - [place] Commercial Attributed 12/17/24 Jose Alfredo Fuentes MD [address] [place] [phone] Referring Provider Psychiatry, General 11/17/21 Faisal Dangelo MD [address] [address] Physician Surgery, Orthopedic 01/19/22 Damaris Lagunas MD [address] [address] Primary Hr Receptionist Cardiovascular Disease 01/20/22 Betty Zaldivar RN [address] [place], [place] [id number] [facility] Community Fabricator Foam Rubber 01/31/22 08/13/24 Betty Zaldivar RN [address] [place], [place] [id number] [facility] Community Fabricator Foam Rubber 03/02/22 08/13/24 Damaris Lagunas MD [address] [place] [address] Primary Hr Receptionist Cardiovascular Disease 09/18/2203/28 Corrie Bustamante, RN [address] [place] [facility] 4 [place] [address] [facility] Community Fabricator Foam Rubber 08/13/24 documented as of this encounter
--- OUTSIDE RECORDS SUMMARY | 2025-06-18 10:04 | XMS_ITS | Encounter Summary ---
Author Organization [facility] Address [address] [place] [address] Care Team Providers Care Mixing Engineer Name Role Phone Alvino Alvarez MD Primary Care Provider [phone] Alvino Alvarez MD Unavailable [phone] Jose Alfredo Fuentes MD Unavailable Faisal Dangelo MD Unavailable [phone] Damaris Lagunas MD Unavailable Unavailable Betty Zaldivar RN Unavailable [phone] Betty Zaldivar RN Unavailable [phone] Damaris Lagunas MD Unavailable Unavailable Brody Olivarez APRN Unavailable [phone] Corrie Bustamante RN Unavailable [phone] Alvino Alvarez MD Unavailable [phone] Brody Olivarez RN HOSPITAL Unavailable Reason for Visit * Reason Comments Medication Refill Encounter Details Date Type Department Care Team (Late st Contact Info) Description 03/05/2022 Refill [facility] Neurology [address] [place] [address] Hasmukh Shrestha MD IS [facility] Brain [facility] S [address] [place] [address] Parkinson's disease (HCC) Social History Tobacco Use [...] Description 06/20/2025 8:15 AM EDT Appointment [address] [address] 08/27/2025 10:30 AM EST Office Visit [address] [address] Goyo Georges MD [address] [place] [address] 09/21/2025 8:45 AM EST Appointment [address] [address] 12/21/2025 8:00 AM EDT Appointment [address] [address] documented as of this encounter Visit Diagnoses Diagnosis Parkinson's disease (HCC) Paralysis agitans documented in this encounter Care Teams Mixing Engineer Relationship Specialty Start Date End Date Alvino Alvarez MD [address] [place] [address] PCP - General Family Medicine 03/28/16 Alvino Alvarez MD [address] [place] [address] PCP - [place] Commercial Attributed 04/18/20 02/16/24 Brody Olivarez APRN [address] [phone] PCP - [place] Commercial Attributed 02/17/24 11/15/24 Alvino Alvarez MD [address] [place] [address] PCP - [place] Commercial Attributed 11/16/24 12/16/24 Brody Olivarez APRN [address] [phone] PCP - [place] Commercial Attributed 12/17/24 Jose Alfredo Fuentes MD [address] [place], [place] [id number] Referring Provider Psychiatry, General 11/17/21 Faisal Dangelo MD [address] [address] Physician Surgery, Orthopedic 01/19/22 Damaris Lagunas MD [address] [address] Primary Special Certificate Dictator Cardiovascular Disease 01/20/22 Betty Zaldivar, RN [address] [address] [facility] Community Branch Operations Manager 01/31/22 08/13/24 Betty Zaldivar RN [address] [facility] 4 [place] [address] [facility] Community Branch Operations Manager 03/02/22 08/13/24 Damaris Lagunas MD [address] [address] Primary Special Certificate Dictator Cardiovascular Disease 09/18/2203/28 Corrie Bustamante RN [address] [place] [address] [facility] Community Branch Operations Manager 08/13/24 documented as of this encounter
--- OUTSIDE RECORDS SUMMARY | 2025-06-18 10:04 | XMS_ITS | Encounter Summary ---
Author Organization [facility] Address [address] [place] [address] Care Team Providers Care Brim Flexer Name Role Phone Alvino Alvarez MD Primary Care Provider [phone] Alvino Alvarez MD Unavailable [phone] Jose Alfredo Fuentes MD Unavailable Faisal Dangelo MD Unavailable [phone] Damaris Lagunas MD Unavailable Unavailable Betty Zaldivar RN Unavailable [phone] Betty Zaldivar RN Unavailable [phone] Damaris Lagunas MD Unavailable Unavailable Brody Olivarez APRN Unavailable [phone] Corrie Bustamante RN Unavailable [phone] Alvino Alvarez MD Unavailable [phone] Brody Olivarez WEATHERIZATION OPERATIONS MANAGER Unavailable [phone] Encounter Details Date Type Department Care Team (Late st Contact Info) Description 03/01/2022 Scanned Document [facility] Heart & Vascular [place] [address] [address] Cardiology, Scan Social History Tobacco Use Types [...] Info) Description 06/20/2025 8:15 AM EDT Appointment [address] [address] 08/27/2025 10:30 AM EST Office Visit [address] [address] Goyo Georges MD [address] [place] [address] 09/21/2025 8:45 AM EST Appointment [address] [address] 12/21/2025 8:00 AM EDT Appointment [address] [address] documented as of this encounter Visit Diagnoses Not on filedocumented in this encounter Care Teams Brim Flexer Relationship Specialty Start Date End Date Alvino Alvarez MD [address] [place] [address] PCP - General Family Medicine 03/28/16 Alvino Alvarez MD [address] [place] [address] PCP - [place] Commercial Attributed 04/18/20 02/16/24 Brody Olivarez APRN [address] [phone] PCP - [place] Commercial Attributed 02/17/24 11/15/24 Alvino Alvarez MD [address] [place] [address] PCP - [place] Commercial Attributed 11/16/24 12/16/24 Brody Olivarez APRN [address] [phone] PCP - [place] Commercial Attributed 12/17/24 Jose Alfredo Fuentes MD [address] [place] [phone] Referring Provider Psychiatry, General 11/17/21 Faisal Dangelo MD [address] [address] Physician Surgery, Orthopedic 01/19/22 Damaris Lagunas MD [address] [address] Primary Tower Excavator Operator Cardiovascular Disease 01/20/22 Betty Zaldivar RN [address] [phone] [facility] Community Area Development Consultant 01/31/22 08/13/24 Betty Zaldivar RN [address] [place] [phone] [facility] Community Area Development Consultant 03/02/22 08/13/24 Damaris Lagunas MD 430 [facility] 100 [place] [address] Primary Tower Excavator Operator Cardiovascular Disease 09/18/2203/28 Corrie Bustamante, RN 1290 [facility] 4 [place] [address] [facility] Community Area Development Consultant 08/13/24 documented as of this encounter
--- OUTSIDE RECORDS SUMMARY | 2025-06-18 10:04 | XMS_ITS | Encounter Summary ---
Author Organization [facility] Address [address] [place] [address] Care Team Providers Care Coil Taper Name Role Phone Alvino Alvarez MD Primary Care Provider [phone] Franki Gates MD Unavailable [phone] Encounter Details Date Type Department Care Team (Late st Contact Info) Description 09/30/2021 Scanned Document Transcribe External Orders CT [phone] Faisal Dangelo MD 430 [place], [place] [address] 09/30/2021 [facility] Encounter Social History Tobacco Use Types [...] on filedocumented in this encounter Care Teams Coil Taper Relationship Specialty Start Date End Date Alvino Alvarez MD [address] [facility], [place] [id number] PCP - General Family Medicine 05/12/20 Franki Gates MD 540 [facility] [address] [place], [place] [address] Surgeon General Surgery 12/06/21 documented as of this encounter
--- OUTSIDE RECORDS SUMMARY | 2025-06-18 10:04 | XMS_ITS ---
Author Organization [facility] Address [address] [place] [address] Care Team Providers Care Checker Product Design Name Role Phone Alvino Alvarez MD Primary Care Provider [phone] Jose Alfredo Fuentes MD Unavailable Faisal Dangelo MD Unavailable [phone] Damaris Lagunas MD Unavailable Unavailable Corrie Bustamante RN Unavailable [phone] Brody Olivarez ELECTROLOGIST Unavailable [phone] Active Problems Problem Noted Date Diagnosed Date Bradycardia 11/09/2023 Constipation 07/04/2023 07/04/2023 Drug-induced thrombocytopenia 07/04/2023 Epistaxis 07/04/2023 07/04/2023 Pain 07/04/2023 07/04/2023 Radicular pain 02/23/2022 Lumbar stenosis without neurogenic claudication 02/18/2022 Parkinson's disease 11/17/2021 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
--- OUTSIDE RECORDS SUMMARY | 2025-06-18 10:04 | XMS_ITS | Encounter Summary ---
Author Organization [facility] Address [address] [place] [address] Care Team Providers Care Fabricator Assembler Metal Products Name Role Phone Alvino Alvarez MD Primary Care Provider [phone] Alvino Alvarez MD Unavailable [phone] Jose Alfredo Fuentes MD Unavailable Faisal Dangelo MD Unavailable [phone] Damaris Lagunas MD Unavailable Unavailable Betty Zaldivar RN Unavailable [phone] Betty Zaldivar RN Unavailable [phone] Damaris Lagunas MD Unavailable Unavailable Brody Olivarez APRN Unavailable [phone] Corrie Bustamante RN Unavailable [phone] Alvino Alvarez MD Unavailable [phone] Brody Olivarez FAMILY SERVICE CASEWORKER Unavailable [phone] Encounter Details Date Type Department Care Team (Late st Contact Info) Description 03/09/2022 Scanned Document [facility] Heart & Vascular [place] [address] [address] Cardiology, Scan Social History Tobacco Use Types [...] Info) Description 06/20/2025 8:15 AM EDT Appointment [address] [address] 08/27/2025 10:30 AM EST Office Visit [address] [address] Goyo Georges MD [address] [place] [address] 09/21/2025 8:45 AM EST Appointment [address] [address] 12/21/2025 8:00 AM EDT Appointment [address] [address] documented as of this encounter Visit Diagnoses Not on filedocumented in this encounter Care Teams Fabricator Assembler Metal Products Relationship Specialty Start Date End Date Alvino Alvarez MD [address] [place] [address] PCP - General Family Medicine 03/28/16 Alvino Alvarez MD [address] [place] [address] PCP - [place] Commercial Attributed 04/18/20 02/16/24 Brody Olivarez APRN [address] [phone] PCP - [place] Commercial Attributed 02/17/24 11/15/24 Alvino Alvarez MD [address] [place] [address] PCP - [place] Commercial Attributed 11/16/24 12/16/24 Brody Olivarez APRN [address] [id number] PCP - [place] Commercial Attributed 12/17/24 Jose Alfredo Fuentes MD [address] [place] [phone] Referring Provider Psychiatry, General 11/17/21 Faisal Dangelo MD [address] [address] Physician Surgery, Orthopedic 01/19/22 Damaris Lagunas MD [address] [address] Primary Perianesthesia Rn Cardiovascular Disease 01/20/22 Betty Zaldivar RN [address] [phone] [facility] Community Information Assurance Manager 01/31/22 08/13/24 Betty Zaldivar RN 12[address] [place] [phone] [facility] Community Information Assurance Manager 03/02/22 08/13/24 Damaris Lagunas MD [address] [facility] 100 [place] [address] Primary Perianesthesia Rn Cardiovascular Disease 09/18/2203/28 Corrie Bustamante, RN 1290 [facility] 4 [place] [address] [facility] Community Information Assurance Manager 08/13/24 documented as of this encounter
--- OUTSIDE RECORDS SUMMARY | 2025-06-18 10:05 | XMS_ITS | Encounter Summary ---
Author Organization [facility] Address [address] [place] [address] Care Team Providers Care Manufacturing Clerk Name Role Phone Alvino Alvarez MD Primary Care Provider Franki Gates MD Unavailable [phone] Encounter Details Date Type Department Care Team (Late st Contact Info) Description 05/26/2023 Procedure [facility], Radiology (CT Scan) [address] [place] [address] [phone] Social History Tobacco Use Types Packs/Day Years [...] on filedocumented in this encounter Care Teams Manufacturing Clerk Relationship Specialty Start Date End Date Alvino Alvarez MD [address] [place] [address] PCP - General Family Medicine 05/12/20 Franki Gates MD [address] [facility] [address] [place], [place] [address] Surgeon General Surgery 12/06/21 documented as of this encounter
--- OUTSIDE RECORDS SUMMARY | 2025-06-18 10:05 | XMS_ITS | Encounter Summary ---
Author Organization [facility] Address [address] [place] [address] Care Team Providers Care Yeast Supervisor Name Role Phone Alvino Alvarez MD Primary Care Provider [phone] Alvino Alvarez MD Unavailable [phone] Jose Alfredo Fuentes MD Unavailable Faisal Dangelo MD Unavailable [phone] Damaris Lagunas MD Unavailable Unavailable Betty Zaldivar RN Unavailable [phone] Betty Zaldivar RN Unavailable [phone] Damaris Lagunas MD Unavailable Unavailable Brody Olivarez APRN Unavailable Corrie Bustamante RN Unavailable [phone] Alvino Alvarez MD Unavailable [phone] Brody Olivarez DISABILITY INSURANCE HEARING OFFICER Unavailable Reason for Visit * Reason Comments Referral Encounter Details Date Type Department Care Team (Late st Contact Info) Description 09/14/2023 Telephone [facility] [address] [place] [address] Bharat Cox MD [address] [facility] [address] [place], [place] [id number] Referral Social History Tobacco Use Types Packs/Day [...] 06/20/2025 8:15 AM EDT Appointment [facility] Vascular [address] [address] 08/27/2025 10:30 AM EST Office Visit [address] [address] Goyo Georges MD [address] [place] [address] 09/21/2025 8:45 AM EST Appointment [address] [address] 12/21/2025 8:00 AM EDT Appointment [address] [address] documented as of this encounter Visit Diagnoses Not on filedocumented in this encounter Care Teams Yeast Supervisor Relationship Specialty Start Date End Date Alvino Alvarez MD [address] [place] [address] PCP - General Family Medicine 03/28/16 Alvino Alvarez MD [address] [place] [address] PCP - [place] Commercial Attributed 04/18/20 02/16/24 Brody Olivarez APRN 35 [facility] 6 [place] [address] PCP - [place] Commercial Attributed 02/17/24 11/15/24 Alvino Alvarez MD [address] [place] [address] PCP - [place] Commercial Attributed 11/16/24 12/16/24 Brody Olivarez APRN 35 [facility] 6 [place] [address] PCP - [place] Commercial Attributed 12/17/24 Jose Alfredo Fuentes MD [address] [place] [id number] Referring Provider Psychiatry, General 11/17/21 Faisal Dangelo MD [address] [address] Physician Surgery, Orthopedic 01/19/22 Damaris Lagunas MD [address] [address] Primary Hull Line Crew Member Cardiovascular Disease 01/20/22 Betty Zaldivar RN [address] Williamson [address] [phone] ICP Community City Dispatch Supervisor 01/31/22 08/13/24 Betty Zaldivar RN [address] [place], [place] [phone] ICP Community City Dispatch Supervisor 03/02/22 08/13/24 Damaris Lagunas MD [address] [place] [address] Primary Hull Line Crew Member Cardiovascular Disease 09/18/2203/28 Corrie Bustamante RN [address] [address] [facility] Community City Dispatch Supervisor 08/13/24 documented as of this encounter
--- OUTSIDE RECORDS SUMMARY | 2025-06-18 10:05 | XMS_ITS | Encounter Summary ---
Author Organization [facility] Address [address] [place] [address] Care Team Providers Care Hand Silvering Supervisor Name Role Phone Alvino Alvarez MD Primary Care Provider [phone] Alvino Alvarez MD Unavailable [phone] Jose Alfredo Fuentes MD Unavailable Faisal Dangelo MD Unavailable [phone] Damaris Lagunas MD Unavailable Unavailable Betty Zaldivar RN Unavailable [phone] Betty Zaldivar RN Unavailable [phone] Damaris Lagunas MD Unavailable Unavailable Brody Olivarez APRN Unavailable [phone] Corrie Bustamante RN Unavailable [phone] Alvino Alvarez MD Unavailable [phone] Brody Olivarez APRN Unavailable [phone] Encounter Details Date Type Department Care Team (Late st Contact Info) Description 08/11/2023 Scanned Document [facility] Pulmonary [place] [address] [facility] [address] [place] [address] Pulmonary, Scan Social History Tobacco Use Types [...] Info) Description 06/20/2025 8:15 AM EDT Appointment [facility] Vascular [address] [address] 08/27/2025 10:30 AM EST Office Visit [address] [address] Goyo Georges MD [address] [place] [address] 09/21/2025 8:45 AM EST Appointment [address] [address] 12/21/2025 8:00 AM EDT Appointment [address] [address] documented as of this encounter Visit Diagnoses Not on filedocumented in this encounter Care Teams Hand Silvering Supervisor Relationship Specialty Start Date End Date Alvino Alvarez MD [address] [place] [address] PCP - General Family Medicine 03/28/16 Alvino Alvarez MD [address] [place] [address] PCP - [place] Commercial Attributed 04/18/20 02/16/24 Brody Olivarez APRN [address] [facility] [address] [place] [address] PCP - [place] Commercial Attributed 02/17/24 11/15/24 Alvino Alvarez MD [address] [place] [address] PCP - [place] Commercial Attributed 11/16/24 12/16/24 Brody Olivarez APRN [address] [facility] [address] [place] [address] PCP - [place] Commercial Attributed 12/17/24 Jose Alfredo Fuentes MD [address] [facility] [place] [address] Referring Provider Psychiatry, General 11/17/21 Faisal Dangelo MD [address] [phone] Physician Surgery, Orthopedic 01/19/22 Damaris Lagunas MD [address] [address] Primary Shipping Clerk Cardiovascular Disease 01/20/22 Betty Zaldivar RN 12[address] [facility] 4 [place], [place] [phone] [facility] Community Crop Insurance Claims Adjuster 01/31/22 08/13/24 Betty Zaldivar RN [address] [place] [address] [place], [place] [phone] ICP Community Crop Insurance Claims Adjuster 03/02/22 08/13/24 Damaris Lagunas MD [address] [address] Primary Shipping Clerk Cardiovascular Disease 09/18/2203/28 Corrie Bustamante RN [address] [place] [address] [place] [address] [facility] Community Crop Insurance Claims Adjuster 08/13/24 documented as of this encounter
--- OUTSIDE RECORDS SUMMARY | 2025-06-18 10:05 | XMS_ITS | Encounter Summary ---
Author Organization [facility] Address [address] [place] [address] Care Team Providers Care Web Development Consultant Name Role Phone Alvino Alvarez MD Primary Care Provider [phone] Franki Gates MD Unavailable [phone] Reason for Referral * Imaging (Routine) - Closed Specialty Diagnoses / Procedures Referred By Jose C hurley Referred To Contact Radiology Diagnoses History of head and neck cancer Procedures XR CHEST 2 VIEWS Pradeep Diamond MD [address] [place] [address] Phone: tel: fax: [facility] Radiology - Central Scheduling [place] Phone: tel: fax: Referral ID Status Reason Start Date Expiration Date V isits Requested Visits Authorized [id number] Closed Perform Procedure 02/28/2022 02/28/2023 1 1 Encounter Details Date Type Department Care Team (Late st Contact Info) Description 02/28/2022 Ancillary Orders [facility] Radiology, Outpatient Center (Diag Rad) [address] [facility] [place] [address] Pradeep Diamond MD [address] [place] [address] History of head and neck [...] cancer documented in this encounter Care Teams Web Development Consultant Relationship Specialty Start Date End Date Alvino Alvarez MD [address] [place] [address] PCP - General Family Medicine 05/12/20 Franki Gates MD 540 [facility] [address] [place] [address] Surgeon General Surgery 12/06/21 documented as of this encounter
--- OUTSIDE RECORDS SUMMARY | 2025-06-18 10:05 | XMS_ITS | Encounter Summary ---
Author Organization [facility] Address [address] [place] [address] Care Team Providers Care House Servant Name Role Phone Alvino Alvarez MD Primary Care Provider [phone] Alvino Alvarez MD Unavailable [phone] Jose Alfredo Fuentes MD Unavailable Faisal Dangelo MD Unavailable [phone] Damaris Lagunas MD Unavailable Unavailable Betty Zaldivar RN Unavailable [phone] Betty Zaldivar RN Unavailable [phone] Damaris Lagunas MD Unavailable Unavailable Brody Olivarez APRN Unavailable Corrie Bustamante RN Unavailable [phone] Alvino Alvarze MD Unavailable [phone] Brody Olivarez MACHINE LEARNING INTERN Unavailable Encounter Details Date Type Department Care Team (Late st Contact Info) Description 09/15/2023 Telephone [facility] [address] [place] [address] Alvino Alvarez MD [address] [place] [address] Social History Tobacco Use Types [...] Info) Description 06/20/2025 8:15 AM EDT Appointment [facility] Vascular [address] [address] 08/27/2025 10:30 AM EST Office Visit [address] [address] Goyo Georges MD [address] [place] [address] 09/21/2025 8:45 AM EST Appointment [facility] Vascular [address] [address] 12/21/2025 8:00 AM EDT Appointment [address] [address] documented as of this encounter Visit Diagnoses Not on filedocumented in this encounter Care Teams House Servant Relationship Specialty Start Date End Date Alvino Alvarez MD [address] [place] [address] PCP - General Family Medicine 03/28/16 Alvino Alvarez MD [address] [place] [address] PCP - [place] Commercial Attributed 04/18/20 02/16/24 Brody Olivarez APRN 35 [facility] 6 [place] [address] PCP - [place] Commercial Attributed 02/17/24 11/15/24 Alvino Alvarez MD [address] [place] [address] PCP - [place] Commercial Attributed 11/16/24 12/16/24 Brody Olivarez, MACHINE LEARNING INTERN 35 [facility] [address] [place] [address] PCP - [place] Commercial Attributed 12/17/24 Jose Alfredo Fuentes MD [address] [place], [place] [id number] Referring Provider Psychiatry, General 11/17/21 Faisal Dangelo MD [address] [address] Physician Surgery, Orthopedic 01/19/22 Damaris Lagunas MD [address] [address] Primary Auto Mechanic Supervisor Cardiovascular Disease 01/20/22 Betty Zaldivar RN 1290 [address] Baxter [place] [address] [phone] ICP Community Heel Lift Gouger 01/31/22 08/13/24 Betty Zaldivar RN 12[address] Baxter [place] [address] [phone] ICP Community Heel Lift Gouger 03/02/22 08/13/24 Damaris Lagunas MD [address] [address] Primary Auto Mechanic Supervisor Cardiovascular Disease 09/18/2203/28 Corrie Bustamante, RN 07[address] Baxter [address] [address] [facility] Community Heel Lift Gouger 08/13/24 documented as of this encounter
--- OUTSIDE RECORDS SUMMARY | 2025-06-18 10:05 | XMS_ITS | Encounter Summary ---
Author Organization [facility] Address [address] [place] [address] Care Team Providers Care Fractionation Supervisor Name Role Phone Alvino Alvarez MD Primary Care Provider [phone] Alvino Alvarez MD Unavailable Jose Alfredo Fuentes MD Unavailable Faisal Dangelo MD Unavailable [phone] Damaris Lagunas MD Unavailable Unavailable Betty Zaldivar RN Unavailable [phone] Betty Zaldivar RN Unavailable [phone] Damaris Lagunas MD Unavailable Unavailable Brody Olivarez APRN Unavailable [phone] Corrie Bustamante RN Unavailable [phone] Alvino Alvarez MD Unavailable [phone] Brody Olivarez APRN Unavailable [phone] Encounter Details Date Type Department Care Team (Late st Contact Info) Description 09/25/2023 Scanned Document [facility] V[facility] [place] [address] [address] Cardiology, Scan Social History Tobacco Use Types [...] Info) Description 06/20/2025 8:15 AM EDT Appointment [address] [address] 08/27/2025 10:30 AM EST Office Visit [address] [address] Goyo Georges MD [address] [place] [address] 09/21/2025 8:45 AM EST Appointment [address] [address] 12/21/2025 8:00 AM EDT Appointment [address] [address] documented as of this encounter Visit Diagnoses Not on filedocumented in this encounter Care Teams Fractionation Supervisor Relationship Specialty Start Date End Date Alvino Alvarez MD [address] [place] [address] PCP - General Family Medicine 03/28/16 Alvino Alvarez MD [address] [place] [address] PCP - [place] Commercial Attributed 04/18/20 02/16/24 Brody Olivarez APRN 35 [facility] [address] [place] [address] PCP - [place] Commercial Attributed 02/17/24 11/15/24 Alvino Alvarez MD [address] [place] [address] PCP - [place] Commercial Attributed 11/16/24 12/16/24 Brody Olivarez APRN 35 [facility] 6 [place] [address] PCP - [place] Commercial Attributed 12/17/24 Jose Alfredo Fuentes MD [address] [place] [address] Referring Provider Psychiatry, General 11/17/21 Faisal Dangelo MD [address] [phone] Physician Surgery, Orthopedic 01/19/22 Damaris Lagunas MD [address] [address] Primary Tone Artist Apprentice Cardiovascular Disease 01/20/22 Betty Zaldivar RN 12[address] Baxter [facility] 4 [place], [place] [phone] [facility] Community Trim Installer 01/31/22 08/13/24 Betty Zaldivar RN [address] [address] [place], [place] [phone] ICP Community Trim Installer 03/02/22 08/13/24 Damaris Lagunas MD [address] [address] Primary Tone Artist Apprentice Cardiovascular Disease 09/18/2203/28 Corrie Bustamante RN [address] [facility] 4 [place] [address] [facility] Community Trim Installer 08/13/24 documented as of this encounter
--- OUTSIDE RECORDS SUMMARY | 2025-06-18 10:05 | XMS_ITS | Clinical Summary ---
Author Organization [facility] [employer] [facility] Address [address] [place] [address] Care Team Providers Care Barnworker Groom Name Role Phone Alvino Alvarez MD Primary Care Provider [phone] Immunizations Immunization Administration Dates Next Due Moderna SARS-CoV-2 COVID-19, [...] Health Maintenance Due Date Last Done Comments Colorectal Cancer Screening: Colonoscopy 1963 DTaP,Tdap,and Td Vaccines (1 - Tdap) 1982 Pneumococcal Vaccine: 50+ Ye ars (1 of 1 - PCV) 2013 Zoster Vaccines (1 of 2) 2013 Cholesterol Screening (Lipid Panel) 08/21/2022 HIV Screening 08/21/2022 Hepatitis C Screening 08/21/2022 Social Influencers of Health Screening 08/21/2022 Depression Screening 09/18/2024 COVID-19 Vaccine (2 - 2024-2 6 season) 2025 02/23/2022 Influenza Vaccine (#1) 2025 RSV Immunization Adult [...] age to complete this topic Care Teams Barnworker Groom Relationship Specialty Start Date End Date Alvino Alvarez MD [address] [place] [phone] PCP - General 08/17/23
--- OUTSIDE RECORDS SUMMARY | 2025-06-18 10:05 | XMS_ITS | Encounter Summary ---
Author Organization [facility] Address [address] [place] [address] Care Team Providers Care Retail Office Manager Name Role Phone Alvino Alvarez MD Primary Care Provider [phone] Franki Gates MD Unavailable [phone] Reason for Referral * Imaging (Routine) - Closed Specialty Diagnoses / Procedures Referred By Jose C hurley Referred To Contact Radiology Diagnoses Severe pain Procedures CT SI JOINT INJECTION CT GUIDANCE FOR NEEDLE PLACEMENT Faisal Dangelo MD [address] [place] [address] Phone: tel: fax: [facility] Radiology - Central Scheduling [place] Phone: tel: fax: Referral ID Status Reason Start Date Expiration Date V isits Requested Visits Authorized [id number] Closed Perform Procedure 05/12/2023 06/19/2023 1 1 Encounter Details Date Type Department Care Team (Late st Contact Info) Description 05/12/2023 Ancillary Orders [facility] Radiology - Central Scheduling [place] [phone] Faisal Dangelo MD [address] [place], [place] [phone] Severe pain Social History Tobacco Use Types [...] positioned supine on the CT scanner and registered radiographer imaging was obtained. The lower back was [...] was positioned supine on the CTscanner and registered radiographer imaging was obtained. The lower back was [...] pain documented in this encounter Care Teams Retail Office Manager Relationship Specialty Start Date End Date Alvino Alvarez MD 34 [place] [address] PCP - General Family Medicine 05/12/20 Franki Gates MD [address] [place] [address] [address] [place] [address] Surgeon General Surgery 12/06/21 documented as of this encounter
--- OUTSIDE RECORDS SUMMARY | 2025-06-18 10:05 | XMS_ITS | Clinical Summary ---
Author Organization [employer] Address [address] [place] [address] Care Team Providers Care Foundry Tender Name Role Phone Alvino Alvarez MD Primary Care Provider [phone] Franki Gates MD Unavailable [phone] Allergies Active Allergy Reactions Criticality Noted Date [...] (01/04/2022): Added automatically from request for surgery [id number] ADAMARIS (obstructive sleep apnea) 03/28/2016 Family History [...] nodes of head, face and neck (CMS/HCC) (HCC) Expected: 11/09/2020, Expires: 11/09/2021 Ambulatory referral to Radiation Oncology Outpatient Referral Routine Malignant neoplasm of tonsil, unspecified (CMS/HCC) (HCC) Expected: 05/06/2020, Expires: 05/06/2021 Health Maintenance Due Date Last Done Comments CT Colonography 1963 FIT-DNA 1963 FIT 1963 FOBT 1963 Hepatitis C Screening 1963 Lipid Panel 1963 Annual Physical Exam 1981 Pneumococcal Vaccine: 50+ Years (1 of 2 - PCV) 1982 05/03/2019 Zoster Vaccines (1 of 2) 08/26/2014 07/01/2014 Tdap and Td Vaccines Adult 09/18/2019 09/18/2009 COVID-19 Vaccine ( season) 2025 02/23/2022, 08/16/2021, 12/16/2020, Additional history [...] this topic Medical Devices Implanted Type Area Client Services Director Device Identifier Shelf Expiration Date Model / Serial / Lot Bone Graft Spine Infuse Small Kit - [id number] - [id number] Implanted:Qty: 1 on 01/24/2022 by Faisal Dangelo MD at [facility] Implant N/A: Spine Lumbar Medtronic Sofamor [id number] 05/19/2023 [id number] / [id number] / [id number] F Spacer Solus 14mm Large Alphatec - [id number] Implanted:Qty: 1 on 01/24/2022 by Faisal Dangelo MD at [facility] Implant N/A: Spine Lumbar ALPHATEC SPINE [employer] [id number] 12/29/2023 [id number] -[id number] / / [id number] Plate Lumbar Aspida 14mm Alphatec - [id number] Implanted:Qty: 1 on 01/24/2022 by Brody Lucero MD at [facility] Implant N/A: Spine Lumbar [employer] [id number] / / Plate Lumbar Aspida Sacral 14mm - Alphatec - [id number] Implanted:Qty: 1 on 01/24/2022 by Brody Lucero MD at [facility] Implant N/A: Spine Lumbar [employer] [id number] / / Screw Alif 7.0mm X 25mm - Alphatec - [id number] Implanted:Qty: 2 on 01/24/2022 by Brody Lucero MD at [facility] Implant N/A: Spine Lumbar [employer] [id number] / / Screw Aspida [id number] - [id number] Implanted:Qty: 6 on 01/24/2022 by Brody Lucero MD at [facility] Implant N/A: Spine Lumbar [employer] 81341-57 / / Strip Profuse Bioscaffold Alphatec - [id number] - [id number] Implanted:Qty: 1 on 01/24/2022 by Faisal Dangelo MD at [facility] Implant N/A: Spine Lumbar [employer] 07/29/2026 19851-537 [id number] Graft Bn Dbmfrm Algrf Strp Irrad [id number] Less Xps Srg - [id number] - [id number] Implanted:Qty: 1 on 01/24/2022 by Faisal Dangelo MD at [facility] Implant N/A: Spine Lumbar Spine Jermyn 10/14/2026 DBM-SS-30 / PTT- 31-0013 / PTT- 31-0013 Graft Bn Dbmfrm Algrf Strp Irrad [id number] Less Xps Srg - [id number] - [id number] Implanted:Qty: 1 on 01/24/2022 by Faisal Dangelo MD at [facility] Implant N/A: Spine Lumbar Spine Jermyn 10/19/2026 DBM-SS-30 / PTT- 43-0001 / PTT- 43-0001 Graft Bn Dbmfrm Algrf Strp Irrad [id number] Less Xps Srg - [id number] - [id number] Implanted:Qty: 1 on 01/24/2022 by Faisal Dangelo MD at [facility] Implant N/A: Spine Lumbar Spine Jermyn 10/14/2026 DBM-SS-30 / PTT- 31-0010 / PTT 31-0010 Graft Bn Dbmpr 5ml Rick Algrf Less Xps [facility] - [id number] - [id number] Implanted:Qty: 1 on 01/24/2022 by Faisal Dangelo MD at [facility] Implant N/A: Spine Lumbar Spine Jermyn 11/26/2024 7236 / PTT- / PTT- Neocore 5cc Osetocondutive Matix Alpatec Spine - [id number] - [id number] Implanted:Qty: 1 on 01/24/2022 by Faisal Dangelo MD at [facility] Implant N/A: Spine Lumbar [employer] 05/20/2024 [id number] / [id number] / [id number] 10ml Cbm Bio Lg Alphagraft - [id number] - [id number] Implanted:Qty: 1 on 01/24/2022 by Faisal Dangelo MD at [facility] Implant N/A: Spine Lumbar [employer] 11/01/2023 210-100 / [id number] Anterior Lumbar Interbody Fusion Device Large Solus 12-1 - [id number] Implanted:Qty: 1 on 01/24/2022 by Faisal Dangelo MD at [facility] Implant N/A: Spine Lumbar [employer] [id number] 08/31/2025 [id number] -S / / [id number] Insurance BLUE CROSS Advance Directives * Full Code (Latest Code Status on File) Date Activated Date Inactivated Comments 01/24/2022 11:54 AM 01/28/2022 2:24 PM Care Teams Foundry Tender Relationship Specialty Start Date End Date Alvino Alvarez MD [address] [place] [address] PCP - General Family Medicine 05/12/20 Franki Gates MD [address] [facility] [address] [place] [address] Surgeon General Surgery 12/06/21
--- OUTSIDE RECORDS SUMMARY | 2025-06-18 10:05 | XMS_ITS | Encounter Summary ---
Author Organization [facility] Address [address] [place] [address] Care Team Providers Care President Financial Institution Name Role Phone Alvino Alvarez MD Primary Care Provider [phone] Franki Gates MD Unavailable [phone] Reason for Referral * Imaging (Routine) - Closed Specialty Diagnoses / Procedures Referred By Jose C hurley Referred To Contact Radiology Diagnoses Vertebrogenic low back pain Sacroiliitis, not elsewhere classified Procedures NM BONE SPECT Faisal Dangelo MD [address] [place] [address] Phone: tel: fax: [facility] Radiology - Central Scheduling [place] Phone: tel: fax: Referral ID Status Reason Start Date Expiration Date V isits Requested Visits Authorized [id number] Closed Perform Procedure 09/20/2023 09/19/2024 2 2 Encounter Details Date Type Department Care Team (Late st Contact Info) Description 09/20/2023 Ancillary Orders [facility] Radiology - Central Scheduling [place] [phone] Faisal Dangelo MD [address] [place], [place] [phone] Vertebrogenic low back pain (Primary Dx); Sacroiliitis, not elsewhere classified Social History Tobacco Use Types Packs/Day Years [...] back pain- Primary Sacroiliitis, not elsewhere classified Vertebrogenic low back pain Sacroiliitis, not elsewhere classified documented in this encounter Care Teams President Financial Institution Relationship Specialty Start Date End Date Alvino Alvarez MD [address] [place] [address] PCP - General Family Medicine 05/12/20 Franki Gates MD 540 [facility] [address] [place] [address] Surgeon General Surgery 12/06/21 documented as of this encounter
--- OUTSIDE RECORDS SUMMARY | 2025-06-18 10:05 | XMS_ITS | Encounter Summary ---
Author Organization [facility] Address [address] [place] [address] Care Team Providers Care Car Pick Up Driver Name Role Phone Alvino Alvarez MD Primary Care Provider [phone] Alvino Alvarez MD Unavailable [phone] Jose Alfredo Fuentes MD Unavailable Faisal Dangelo MD Unavailable [phone] Damaris Lagunas MD Unavailable Unavailable Betty Zaldivar RN Unavailable [phone] Betty Zaldivar RN Unavailable [phone] Damaris Lagunas MD Unavailable Unavailable Brody Olivarez GLAZE GRINDER Unavailable Corrie Bustamante RN Unavailable [phone] Alvino Alvarez MD Unavailable [phone] Brody Olivarez GLAZE GRINDER Unavailable Encounter Details Date Type Department Care Team (Late st Contact Info) Description 11/15/2023 Prep for Surgery [facility] Heart & Vascular [facility]vin [facility] - Electrophysiology [address] [place] [address] [address] [place] [address] Zully Taylor, GLAZE GRINDER [address] [address] Social History Tobacco Use Types [...] Info) Description 06/20/2025 8:15 AM EDT Appointment [facility] Vascular [address] [address] 08/27/2025 10:30 AM EST Office Visit [address] [address] Goyo Georges MD [address] [place] [address] 09/21/2025 8:45 AM EST Appointment [facility] Vascular [address] [address] 12/21/2025 8:00 AM EDT Appointment [facility] Vascular [address] [address] documented as of this encounter Visit Diagnoses Not on filedocumented in this encounter Care Teams Car Pick Up Driver Relationship Specialty Start Date End Date Alvino Alvarez MD [address] [place], [place] [phone] PCP - General Family Medicine 03/28/16 Alvino Alvarez MD [address] [place] [phone] PCP - [place] Commercial Attributed 04/18/20 02/16/24 Brody Olivarez APRN 35 [facility] [address] [place] [phone] PCP - [place] Commercial Attributed 02/17/24 11/15/24 Alvino Alvarez MD [address] [place] [address] PCP - [place] Commercial Attributed 11/16/24 12/16/24 Brody Olivarez APRN [address] [place] [phone] PCP - [place] Commercial Attributed 12/17/24 Jose Alfredo Fuentes MD [address] [place], [facility]250 Referring Provider Psychiatry, General 11/17/21 Faisal Dangelo MD [address] [address] Physician Surgery, Orthopedic 01/19/22 Damaris Lagunas MD [address] [address] Primary Manager Trainee Cardiovascular Disease 01/20/22 Betty Zaldivar, RN [address] [phone] [facility] Community Alarm Investigator 01/31/22 08/13/24 Betty Zaldivar RN [address] [place] [address] [facility] Community Alarm Investigator 03/02/22 08/13/24 Damaris Lagunas MD [address] [address] Primary Manager Trainee Cardiovascular Disease 09/18/2203/28 Corrie Bustamante RN [address] [place] [address] [facility] Community Alarm Investigator 08/13/24 documented as of this encounter
--- OUTSIDE RECORDS SUMMARY | 2025-06-18 10:05 | XMS_ITS | Encounter Summary ---
Author Organization [facility] Address [address] [place] [address] Care Team Providers Care Process Engineering Intern Name Role Phone Alvino Alvarez MD Primary Care Provider [phone] Franki Gates MD Unavailable [phone] Reason for Referral * Imaging (Routine) - Closed Specialty Diagnoses / Procedures Referred By Jose C hurley Referred To Contact Radiology Diagnoses Vertebrogenic low back pain Sacroiliitis, not elsewhere classified Procedures CT LUMBAR SPINE WO IV CONTRAST Faisal Dangelo MD Phone: tel: fax: [facility] Radiology - Central Scheduling [place] Phone: tel: fax: Referral ID Status Reason Start Date Expiration Date V isits Requested Visits Authorized [id number] Closed Perform Procedure 11/03/2022 01/01/2023 1 1 Encounter Details Date Type Department Care Team (Late st Contact Info) Description 11/03/2022 Ancillary Orders [facility] Radiology - Central Scheduling [place] [phone] Faisal Dangelo MD [address] [place] [address] Vertebrogenic low back pain; Sacroiliitis, not elsewhere classified (CMS/HCC) Social History Tobacco Use Types Packs/Day Years [...] back pain, Sacroiliitis, not elsewhere classified (CMS/HCC) (HCC), Vertebrogenic low back pain, PROTOCOL: [...] spine, as described. No evidenceof hardware complications. Faisal Dangelo MD IMG CT PROCEDURES Final Result documented in this encounter Visit Diagnoses Diagnosis Vertebrogenic low back pain Sacroiliitis, not elsewhere classified Vertebrogenic low back pain Sacroiliitis, not elsewhere classified documented in this encounter Care Teams Process Engineering Intern Relationship Specialty Start Date End Date Alvino Alvarez MD [address] [place] [address] PCP - General Family Medicine 05/12/20 Franki Gates MD 540 [facility] [address] [place] [address] Surgeon General Surgery 12/06/21 documented as of this encounter
--- OUTSIDE RECORDS SUMMARY | 2025-06-18 10:05 | XMS_ITS | Encounter Summary ---
Author Organization [employer] Address [address] [place] [address] Care Team Providers Care Bag Bundler Name Role Phone Alvino Alvarez MD Primary Care Provider [phone] Franki Gates MD Unavailable [phone] Encounter Details Date Type Department Care Team (Late st Contact Info) Description 11/03/2022 [facility] [address] [place], [place] [phone] Social History Tobacco Use Types Packs/Day Years [...] on filedocumented in this encounter Care Teams Bag Bundler Relationship Specialty Start Date End Date Alvino Alvarez MD [address] [place] [address] PCP - General Family Medicine 05/12/20 Franki Gates MD 540 [facility] [address] [place], [place] [address] Surgeon General Surgery 12/06/21 documented as of this encounter
--- OUTSIDE RECORDS SUMMARY | 2025-06-18 10:05 | XMS_ITS | Encounter Summary ---
Author Organization [facility] Address [address] [place] [address] Care Team Providers Care Renewable Energy Broker Name Role Phone Alvino Alvarez MD Primary Care Provider Franki Gates MD Unavailable [phone] Encounter Details Date Type Department Care Team (Late st Contact Info) Description 01/24/2022 Procedure Pass [facility], Main Operating Room [address] [place] [phone] Social History Tobacco Use Types Packs/Day Years [...] on filedocumented in this encounter Care Teams Renewable Energy Broker Relationship Specialty Start Date End Date Alvino Alvarez MD [address] [place] [address] PCP - General Family Medicine 05/12/20 Franki Gates MD 540 [facility] [address] [place] [address] Surgeon General Surgery 12/06/21 documented as of this encounter
--- OUTSIDE RECORDS SUMMARY | 2025-06-18 10:05 | XMS_ITS | Encounter Summary ---
Author Organization [facility] Address [address] [place] [address] Care Team Providers Care Emt Dispatcher Name Role Phone Alvino Alvarez MD Primary Care Provider [phone] Franki Gates MD Unavailable [phone] Reason for Referral * Imaging (Routine) - Closed Specialty Diagnoses / Procedures Referred By Jose C hurley Referred To Contact Radiology Diagnoses Severe pain Procedures CT SI JOINT INJECTION Faisal Dangelo MD [address] [place] [address] Phone: tel: fax: [facility] Radiology - Central Scheduling [place] Phone: tel: fax: Referral ID Status Reason Start Date Expiration Date V isits Requested Visits Authorized [id number] Closed Perform Procedure 05/26/2023 06/19/2023 1 1 Encounter Details Date Type Department Care Team (Late st Contact Info) Description 05/26/2023 Ancillary Orders [facility] Radiology - Central Scheduling CT [phone] Faisal Dangelo MD [address] [place] [address] Severe pain Social History Tobacco [...] positioned supine on the CT scanner and spring fitter helper imaging was obtained. The lower back was [...] was positioned supine on the CTscanner and spring fitter helper imaging was obtained. The lower back was [...] pain documented in this encounter Care Teams Emt Dispatcher Relationship Specialty Start Date End Date Alvino Alvarez MD 34 [place] [address] PCP - General Family Medicine 05/12/20 Franki Gates MD 540 [facility] [address] [place] [address] Surgeon General Surgery 12/06/21 documented as of this encounter
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
--- OUTSIDE RECORDS SUMMARY | 2025-06-18 10:05 | XMS_ITS | Encounter Summary ---
Author Organization [facility] Address [address] [place] [address] Care Team Providers Care Sales Representative Raw Fibers Name Role Phone Alvino Alvarez MD Primary Care Provider [phone] Franki Gates MD Unavailable [phone] Reason for Referral * Imaging (Routine) - Closed Specialty Diagnoses / Procedures Referred By Jose C hurley Referred To Contact Radiology Diagnoses Low back pain Other intervertebral disc displacement, lumbar region Other muscle spasm Procedures XR LUMBAR SPINE COMPLETE 4+ VIEWS Crystal Hamlin DC [address] [place] [place] [address] Phone: tel: fax: [facility] Radiology - Central Scheduling [place] Phone: tel: fax: Referral ID Status Reason Start Date Expiration Date V isits Requested Visits Authorized [id number] Closed Perform Procedure 04/02/2021 04/02/2022 1 1 Encounter Details Date Type Department Care Team (Late st Contact Info) Description 04/02/2021 Ancillary Orders [facility] Access [address] [place] [address] Crystal Hamlin DC [address] [place] [address] Low back pain; Other intervertebral [...] spasm documented in this encounter Care Teams Sales Representative Raw Fibers Relationship Specialty Start Date End Date Alvino Alvarez MD [address] [place] [address] PCP - General Family Medicine 05/12/20 Franki aGtes MD [address] [place] [address] [place] [address] Surgeon General Surgery 12/06/21 documented as of this encounter
--- OUTSIDE RECORDS SUMMARY | 2025-06-18 10:05 | XMS_ITS | Encounter Summary ---
Author Organization [facility] Address [address] [place] [address] Care Team Providers Care Weatherization Operations Manager Name Role Phone Alvino Alvarez MD Primary Care Provider Franki Gates MD Unavailable [phone] Encounter Details Date Type Department Care Team (Late st Contact Info) Description 2023 Ancillary Orders [facility], Radiology (IR) [address] [place], [place] [phone] Provider, MD Jeff [address] [place] [address] Social History Tobacco Use Types Packs/Day Years [...] on filedocumented in this encounter Care Teams Weatherization Operations Manager Relationship Specialty Start Date End Date Alvino Alvarez MD [address] [place] [address] PCP - General Family Medicine 05/12/20 Franki Gates MD 540 [facility] [address] [place] [address] Surgeon General Surgery 12/06/21 documented as of this encounter
--- OUTSIDE RECORDS SUMMARY | 2025-06-18 10:05 | XMS_ITS | Encounter Summary ---
Author Organization [facility] Address [address] [place] [address] Care Team Providers Care Hogshead Builder Name Role Phone Alvino Alvarez MD Primary Care Provider [phone] Franki Gates MD Unavailable [phone] Encounter Details Date Type Department Care Team (Late st Contact Info) Description 01/23/2022 Procedure Pass [facility] Radiology, [facility] (Diag Rad) [address] [place] [phone] Social History Tobacco Use Types Packs/Day Years [...] on filedocumented in this encounter Care Teams Hogshead Builder Relationship Specialty Start Date End Date Alvino Alvarez MD [address] [place] [address] PCP - General Family Medicine 05/12/20 Franki Gates MD 540 [facility] [address] [place] [address] Surgeon General Surgery 12/06/21 documented as of this encounter
--- OUTSIDE RECORDS SUMMARY | 2025-06-18 10:05 | XMS_ITS | Encounter Summary ---
Author Organization [facility] Address [address] [place] [address] Care Team Providers Care Employee Service Officer Name Role Phone Alvino Alvarez MD Primary Care Provider [phone] Jose Alfredo Fuentes MD Unavailable Faisal Dangelo MD Unavailable [phone] Damaris Lagunas MD Unavailable Unavailable Brody Olivarez APRN Unavailable [phone] Corrie Bustamante RN Unavailable [phone] Alvino Alvarez MD Unavailable [phone] Brody Olivarez APRN Unavailable [phone] Encounter Details Date Type Department Care Team (Late st Contact Info) Description 08/26/2024 Scanned Document [facility] Neurology [address] [phone] Physical Therapy, Scan Social History Tobacco Use [...] Info) Description 06/20/2025 8:15 AM EDT Appointment [facility] Vascular [address] [address] 08/27/2025 10:30 AM EST Office Visit [address] [address] Goyo Georges MD [address] [place] [address] 09/21/2025 8:45 AM EST Appointment [address] [address] 12/21/2025 8:00 AM EDT Appointment [address] [address] documented as of this encounter Visit Diagnoses Not on filedocumented in this encounter Care Teams Employee Service Officer Relationship Specialty Start Date End Date Alvino Alvarez MD [address] [place] [address] PCP - General Family Medicine 03/28/16 Brody Olivarez APRN 35 [facility] 6 [place] [address] PCP - [place] Commercial Attributed 02/17/24 11/15/24 Alvino Alvarez MD [address] [place] [address] PCP - [place] Commercial Attributed 11/16/24 12/16/24 Brody Olivarez APRN 35 [facility] [address] [place] [address] PCP - [place] Commercial Attributed 12/17/24 Jose Alfredo Fuentes MD [address] [place], [place] [phone] Referring Provider Psychiatry, General 11/17/21 Faisal Dangelo MD [address] [address] Physician Surgery, Orthopedic 01/19/22 Damaris Lagunas MD 430 [facility] 100 [place] [address] Primary Operational Assistant Cardiovascular Disease 01/20/22 Corrie Bustamante, RN [address] [address] ICP Community Production Support Supervisor 08/13/24 documented as of this encounter
--- OUTSIDE RECORDS SUMMARY | 2025-06-18 10:05 | XMS_ITS | Encounter Summary ---
Author Organization [facility] Address [address] [place] [address] Care Team Providers Care Business Banker Name Role Phone Alvino Alvarez MD Primary Care Provider Franki Gates MD Unavailable [phone] Encounter Details Date Type Department Care Team ([facility] st Contact Info) Description 05/12/2023 Procedure Pass [facility], Radiology (CT Scan) [address] [place] [phone] Social History Tobacco Use Types Packs/Day Years [...] on filedocumented in this encounter Care Teams Business Banker Relationship Specialty Start Date End Date Alvino Alvarez MD [address] [place] [address] PCP - General Family Medicine 05/12/20 Franki Gates MD 540 [facility] [address] [place], [place] [address] Surgeon General Surgery 12/06/21 documented as of this encounter
== END 2025-06-18 10:07 | disposition home or self-care (01) ==
LOC: HO.PMC 09:18
PROVIDERS: Visit Provider Anesthesiology
DX: M96.1 Postlaminectomy syndrome, not elsewhere classified (principal); M48.061 Spinal stenosis, lumbar region without neurogenic claudication; G89.4 Chronic pain syndrome; M47.816 Spondylosis without myelopathy or radiculopathy, lumbar region; M46.1 Sacroiliitis, not elsewhere classified; M53.3 Sacrococcygeal disorders, not elsewhere classified; M54.16 Radiculopathy, lumbar region
CPT/HCPCS: 99214